=== PATIENT | female | born 1950 | race Caucasian/White ===

== ENCOUNTER 2021-01-20 12:46 | Outpatient (CLI) | payer MEDICARE, SELFPAY ==
--- NOTE | 2021-01-20 12:54 | MM_ITS ---
WS: [id number] DIAGNOSTIC BILATERAL DIGITAL MAMMOGRAM WITH CAD RIGHT breast ultrasound, limited HISTORY: N63.15 - Unspecified lump in the right breast, COMPARISON: None available. TECHNIQUE: Bilateral craniocaudad, mediolateral oblique, and mediolateral views are submitted. Spot c ompression bilateral views. Computer aided detection utilized. Breast composition: There are scattered areas of fibroglandular density. Spiculated high density mass with calcifications in the upper-outer quadrant of the RIGHT breast at 10-11 o'clock. Spiculated mas s measures 2.0 x 1.6 cm. There is adjacent interstitial thickening and architectural distortion. Mild ly prominent dense lymph nodes in the RIGHT axilla. There is slight asymmetry in the inferior LEFT breast which resolved with additional views. RIGHT breast ultrasound, limited. Ultrasound directed to the upper outer quadrant of the RIGHT breast. At 10:00, 4 cm from the nipple i s a hypoechoic mass with fingerlike extensions and calcifications measuring 1.8 x 1.4 x 1.7 cm. Mild peripheral increased vascularity. There are a few mildly abnormal lymph nodes in the RIGHT axilla. One of the lymph nodes has a thicken ed cortex although the central fatty hilum is still present. MM/[place] [id number] IMPRESSION: BI-RADS: 5-Highly Suggestive of Malignancy FOLLOW UP: Biopsy Recommended 1. Ultrasound-guided biopsy recommended of the RIGHT breast mass at 10:00. 2. Also recommend biopsy of a RIGHT axillary lymph node. Notified Sasha Jalloh APRN at 01/20/2021 1:59 PM.
== END 2021-01-20 12:47 | disposition home or self-care (01) ==
LOC: RADSHAW 12:52
PROVIDERS: Visit Provider Nurse Practitioner Family
DX: N63.11 Unspecified lump in the right breast, upper outer quadrant (principal)
CPT/HCPCS: 76642; 77066

== ENCOUNTER 2021-01-27 12:21 | Outpatient (CLI) | payer MEDICARE, SELFPAY ==
--- NOTE | 2021-01-27 | US_ITS ---
WS: [id number] ULTRASOUND-GUIDED RIGHT BREAST BIOPSY CLINICAL INFORMATION: N63.10 - Unspecified lump in the right breast, unspecifie... COMPARISON: None. FINDINGS: The procedure including risks, benefits, and complications were discussed with the patient who agreed to proceed. Using sterile technique patient was prepped and draped in the usual sterile fashion. Aft er 1% lidocaine utilizing real-time ultrasound guidance 5 14-gauge cores were obtained of the right b reast lesion at the 10 o'clock position. Subsequently a titanium clip was placed in the biopsy cavity . No immediate complications. Next, the enlarged axillary lymph node was localized. After 1% lidocaine, using real-time ultrasound guidance, 3 14-gauge cores were obtained of the right axillary lymph node. A titanium clip was placed in the biopsy cavity. Pathology demonstrates A. Breast, right, ultrasound-guided biopsy: -Invasive ductal carcinoma, no special type. -Harley Shetty grade 3, score 8. -Lymphovascular invasion identified. -Perineural invasion identified. -Ancillary studies have been performed. B. Lymph node, right axilla, ultrasound-guided biopsy: -Metastatic carcinoma. -Harley Shetty grade 3, score 8. US/US biopsy lymph node breast/ax IMPRESSION: 1. Uncomplicated ultrasound-guided right breast biopsy and right axillary lymp h node biopsy. 2. The pathology right breast lesion demonstrates invasive ductal carcinoma. A ncillary studies are pending. 3. Lymph node biopsy right axilla demonstrates metastatic carcinoma described above. BI-RADS: 6-Known Biopsy-Proven Malignancy FOLLOW UP: See Report RECOMMEND BREAST SURGERY CONSULTATION FOR FURTHER EVALUATION.
[2021-01-27 13:03] LABS: INR 0.93 (0.8-1.2)
--- NOTE | 2021-01-27 13:30 | US_ITS ---
WS: [id number] ULTRASOUND-GUIDED RIGHT BREAST BIOPSY CLINICAL INFORMATION: N63.10 - Unspecified lump in the right breast, unspecifie... COMPARISON: None. FINDINGS: The procedure including risks, benefits, and complications were discussed with the patient who agreed to proceed. Using sterile technique patient was prepped and draped in the usual sterile fashion. Aft er 1% lidocaine utilizing real-time ultrasound guidance 5 14-gauge cores were obtained of the right b reast lesion at the 10 o'clock position. Subsequently a titanium clip was placed in the biopsy cavity . No immediate complications. Next, the enlarged axillary lymph node was localized. After 1% lidocaine, using real-time ultrasound guidance, 3 14-gauge cores were obtained of the right axillary lymph node. A titanium clip was placed in the biopsy cavity. Pathology demonstrates A. Breast, right, ultrasound-guided biopsy: -Invasive ductal carcinoma, no special type. -Harley Shetty grade 3, score 8. -Lymphovascular invasion identified. -Perineural invasion identified. -Ancillary studies have been performed. B. Lymph node, right axilla, ultrasound-guided biopsy: -Metastatic carcinoma. -Harley Shetty grade 3, score 8. US/[place] [id number] IMPRESSION: 1. Uncomplicated ultrasound-guided right breast biopsy and right axillary lymp h node biopsy. 2. The pathology right breast lesion demonstrates invasive ductal carcinoma. A ncillary studies are pending. 3. Lymph node biopsy right axilla demonstrates metastatic carcinoma described above. BI-RADS: 6-Known Biopsy-Proven Malignancy FOLLOW UP: See Report RECOMMEND BREAST SURGERY CONSULTATION FOR FURTHER EVALUATION.
[2021-01-30 09:01] LABS: Miscellaneous Test See Scanned Lab Rpt
== END 2021-01-27 12:22 | disposition home or self-care (01) ==
PROVIDERS: Visit Provider Nurse Practitioner Family
DX: N63.10 Unspecified lump in the right breast, unspecified quadrant (principal); C50.911 Malignant neoplasm of unspecified site of right female breast
CPT/HCPCS: 19083; 36415; 38505; 76942; 85610; 88305; 88361; 88374

== ENCOUNTER 2021-01-31 07:59 | Outpatient (CLI) | payer MEDICARE, SELFPAY ==
[2021-01-31 10:09] LABS: Basophils # 0.1 10^3/uL (0.0-0.1); Basophils % 0.4 %; Eosinophils # 0.4 10^3/uL (0.0-0.8); Eosinophils % 3.4 %; Hematocrit 44.1 % (37.0-47.0); Hemoglobin 14.8 g/dL (11.5-15.3); Lymphocytes # 2.7 10^3/uL (0.8-4.8); Lymphocytes % 21.4 %; Mean Corpuscular HGB Conc 33.6 g/dL (30.0-36.0); Mean Corpuscular Hemoglobin 31.4 pg (28.0-34.0); Mean Corpuscular Volume 93.6 fL (81-99); Mean Platelet Volume 10.4 fL (7.4-10.4); Monocytes # 1.1 10^3/uL (0.2-0.9); Neutrophils # 8.27 10^3/uL (1.8-7.7); Neutrophils % 65.2 %; Nucleated Red Blood Cells % 0 %; Platelet Count 280 10^3/cmm (130-400); Red Blood Count 4.71 10^6/uL (4.1-5.3); Red Cell Distribution Width 12.2 % (12.1-15.1); White Blood Count 12.7 10^3/uL (4.0-10.0)
[2021-01-31 12:30] LABS: Alanine Aminotransferase 30 U/L (0-33); Albumin Level 4.4 g/dL (3.5-5.2); Alkaline Phosphatase 70 IU/L (35-105); Anion Gap 21.2 (5-19); Aspartate Amino Transferase 23 U/L (0-32); Blood Urea Nitrogen 16 mg/dL (8-23); Carbon Dioxide 18 mmol/L (22-29); Chloride 98 mmol/L (98-107); Globulin 2.5 g/dL (1.3-4.6); Glucose 121 mg/dL (65-115); Osmolality Calculated 278 mOsm/kg (285-295); Potassium 4.2 mmol/L (3.5-5.1); Sodium 133 mmol/L (136-145); Total Bilirubin 0.3 mg/dL (0.15-1.2); Total Protein 6.9 g/dL (6.6-8.7)
--- NOTE | 2021-01-31 14:37 | ONC CON_ITS ---
Dr. Mcwilliams New Patient Note Patient: Odalis Woods Unit #: [id number]: [id number] Dicatated By: Lester Mcwilliams M.D.Date of Visit: January 31, 2021 Onc MED New Patient/Consult Referring Physician: SUSHANT VERA N.P. Chief Complaint: Breast cancer. History of Present Illness: This is a 70-year-old woman with grade 3 invasive ductal carcinoma of the right breast, by clinical evaluation stage IIA (T1c, N1, M0), ER positive/DE negative and HER-2/dat positive. She has been in good general health. She had recently moved to this area from [place]. A couple of weeks ago she became aware of a lump in her right breast. Her diagnostic mammogram/ultrasound on 01/20/2021 was BI-RADS 5, highly suggestive of malignancy. The mammogram showed a spiculated high density mass with calcifications at the 10 to 11 o'clock position of the right breast. It measured 2.0 x 1.6 cm. Mildly prominent dense lymph nodes were noted in the right axilla. By ultrasound the lesion was located 4 cm from the nipple at the 10 o'clock position. It was hypoechoic and measured 1.8 x 1.4 x 1.7 cm. A few mildly abnormal lymph nodes were noted in the right axilla. On 01/27/2021 she underwent ultrasound directed biopsy of the right breast mass and of a right axillary lymph node. Pathology on the breast biopsy showed grade 3 invasive ductal carcinoma. There was lymphovascular invasion and perineural invasion identified. The right axillary lymph node biopsy showed metastatic carcinoma, grade 3. The breast prognostic profile showed ER positive at 20%. The DE was negative < 1%. The tumor was positive for overexpression of HER-2/dat, 3+ by IHC and amplification ratio by FISH of 1.2 with 3.3 HER-2 copies/cell. The Ki-67 was high at 15%. She is seen for further management of the breast cancer. She says she is feeling excellent. She really has no symptomatic complaints other than the breast mass and some soreness following the biopsy. Her other medical illnesses have been limited to hypertension and osteopenia. She has had no prior surgeries. She smoked in the past but quit in 1999. She is 2/para 2. She underwent natural menopause somewhere in the range of 15 years ago. She did have some oral contraceptive use, but no postmenopausal hormone replacement therapy. There is no family history of breast or ovarian cancer. Past Medical History: Her medical history includes hypertension and osteopenia. Past Surgical History: She underwent ultrasound-guided biopsy of right breast mass and of right axillary lymph node on 01/27/2021. She has had no prior surgeries. Medications: Alendronate Sodium 1 Tablet (of 70 mg) Oral q 7 days, Lisinopril 1 Tablet (of 20 mg) Oral b.i.d. Allergies: No Known Allergies. Social History: Ms. Woods is . She has history of smoking 1 pack of cigarettes daily for 33 years. She quit smoking in 1999. She drinks 1 glass of red wine daily. Family History: Father had kidney cancer. He of unrelated lung disease. Mother had hypertension and following complications after a stroke. One brother and two sisters are in good health. There is no history of breast or ovarian cancer in the family. Review Of Symptoms: Constitutional - She has good energy and activity tolerance. Appetite is good and weight is stable. No fever, night sweats, or hot flashes. ECOG score is 0, Eyes - No change in vision, ENMT - No hearing loss or tinnitus. No sinus congestion/drainage. No mouth sores. No sore throat or difficulty swallowing, Hematologic/Lymphatic - She has some bruising. No other bleeding, Respiratory - No shortness of breath. No cough. No pleuritic pain or hemoptysis, Cardiovascular - No angina pain. No palpitations, Gastrointestinal - No nausea or vomiting. She occasionally has heartburn. No diarrhea or constipation. No blood in the stool or black stools, Genitourinary (F) - No dysuria or hematuria. No urinary frequency. No urgency or incontinence, Musculoskeletal - No joint or bone pain, Integumentary - No skin rash or other skin changes, Neurologic - No headache or dizziness. No numbness or tingling. No other focal neurologic symptoms, Psychiatric - No anxiety or depression. No insomnia. Vital Signs: Performed on January 31, 2021 08:25: 0, 28.31, 1.76 sq.m, 63 in, 98 %, 75 /min, 17 /min, 137/83 mm(hg), 98.4 F, and 159.8 lbs (HIGH). Physical Examination: Constitutional - She appears to be in good general health, Eyes - Sclerae nonicteric. Conjunctivae clear, ENMT - No lesions noted in the oral cavity, Neck - No mass or thyromegaly, Hematologic/Lymphatic - No cervical or clavicular adenopathy, Respiratory - Lungs are clear with good air movement bilaterally, Cardiovascular - Heart rhythm is regular. There is no murmur, gallop, or rub noted, Breasts - There is an ill-defined nodule in the upper outer quadrant of the right breast. There is a significant area of ecchymosis inferior to it. The left breast shows no mass. There is no axillary adenopathy noted, Abdomen - Soft and non-tender. Liver and spleen are not enlarged. There is no abdominal mass or ascites noted and there is no inguinal adenopathy, Back/Spine - No spine or CVA tenderness noted, Extremities - No edema. Pedal pulses are palpable bilaterally, Integumentary - No rashes. No suspicious skin lesions noted, Neurologic - No focal neurologic deficits noted. Problem List: 1. Grade 3 invasive ductal carcinoma of the right breast, ER positive/DE negative and HER-2/dat positive. She underwent ultrasound-guided biopsy of right breast mass and of right axillary lymph node on 01/27/2021. By clinical evaluation, her disease is stage at least IIA (T1c, N1, M0). 2. Hypertension. 3. Osteopenia. Problems Addressed with this Encounter and Plan: 1. Patient with grade 3 invasive ductal carcinoma of the right breast, ER positive/DE negative and HER-2/dat positive. She underwent ultrasound-guided biopsy of right breast mass and of right axillary lymph node on 01/27/2021. By clinical evaluation, her disease is stage at least IIA (T1c, N1, M0). The findings on the imaging studies and the pathology results were reviewed with the patient and her . We discussed the clinic complications. She has a grade 3 infiltrating ductal carcinoma of the right breast which is ER positive/DE negative and HER-2/dat positive. By imaging it appears to be a T1c primary lesion. Ultrasound described a few mildly abnormal lymph nodes in the right axilla. With a HER-2/dat positive breast cancer and biopsy-proven axillary lymph node involvement, she meets criteria for neoadjuvant chemotherapy, following which she will have restaging with imaging and biopsy. I anticipate that she will then be eligible for breast conservation management. Recommendations for postoperative adjuvant therapy will depend on the final pathologic staging, but at some point she will also be recommended to undergo adjuvant endocrine therapy with an aromatase inhibitor. She will have baseline laboratory studies today to include CBC and comprehensive metabolic profile. With documented axillary lymph node involvement, she also will be scheduled for staging PET/CT. She will require a baseline echocardiogram prior to starting her neoadjuvant chemotherapy, which will include a taxane in combination with Herceptin and Perjeta. She will need to undergo placement of Port-A-Cath venous access device for the chemotherapy, and this will be arranged with Dr. Hinson. She will return to begin treatment as soon as she completes staging and the Port-A-Cath is in place. 2. She has osteopenia. She will need a repeat DEXA scan and a 25-hydroxy vitamin D level prior to starting her adjuvant endocrine therapy. Signed By: Lester Mcwilliams M.D. <<Signature on File>>
== END 2021-01-31 08:00 | disposition home or self-care (01) ==
PROVIDERS: PCP Nurse Practitioner Family; Visit Provider Internal Medicine Medical Oncology
DX: C50.811 Malignant neoplasm of overlapping sites of right female breast (principal); Z17.0 Estrogen receptor positive status [ER+]; I10 Essential (primary) hypertension; M85.80 Other specified disorders of bone density and structure, unspecified site; Z79.811 Long term (current) use of aromatase inhibitors; Z92.21 Personal history of antineoplastic chemotherapy
CPT/HCPCS: 36415; 80053; 85025; 99205

== ENCOUNTER 2021-02-14 05:57 | Outpatient (CLI) | payer MEDICARE, SELFPAY ==
--- NOTE | 2021-02-14 13:23 | US_ITS ---
WS: [id number] ULTRASOUND BREAST RIGHT TECHNIQUE: Ultrasound right breast focused area of concern. CLINICAL INFORMATION: BREAST MASS RIGHT COMPARISON: Previous ultrasounds 01/20/2021 and 01/27/2021 FINDINGS: Ultrasound right breast 10:00 position 4 cm from the nipple. Again seen is the irregular hypoechoic l esion with calcifications. Hypoechoic lesion measures 1.6 x 1.5 x 1.4 cm. This is not significantly c hanged since January 20, 2021 where it measured 1.8 x 1.4 x 1.7 CM. Right axillary lymph node measures 1.5 x 1.3 x 1.0 cm with thickened cortex and partial replacement o f the fatty hilum. This also is not significantly changed. US/[place] [id number] IMPRESSION: BI-RADS 6 known malignancy
--- NOTE | 2021-02-14 13:38 | ONC FU_ITS ---
Dr. Mcwilliams Patient Follow-Up Note Patient: Odalis Woods Unit #: [id number]: [id number] Dicatated By: Lester Mcwilliams M.D.Date of Visit:Feb 14, 2021 Onc Med Follow-up/Prog Note Chief Complaint: Breast cancer. History of Present Illness: This is a 70-year-old woman with grade 3 invasive ductal carcinoma of the right breast, ER positive/NV negative and HER-2/dat positive. She had presented with a palpable lump in the right breast. Her diagnostic mammogram/ultrasound on 01/20/2021 was BI-RADS 5, highly suggestive of malignancy. The mammogram showed a spiculated high density mass with calcifications at the 10 to 11 o'clock position of the right breast. It measured 2.0 x 1.6 cm. Mildly prominent dense lymph nodes were noted in the right axilla. By ultrasound the lesion was located 4 cm from the nipple at the 10 o'clock position. It was hypoechoic and measured 1.8 x 1.4 x 1.7 cm. A few mildly abnormal lymph nodes were noted in the right axilla. On 01/27/2021 she underwent ultrasound directed biopsy of the right breast mass and of a right axillary lymph node. Pathology on the breast biopsy showed grade 3 invasive ductal carcinoma. There was lymphovascular invasion and perineural invasion identified. The right axillary lymph node biopsy showed metastatic carcinoma, grade 3. The breast prognostic profile showed ER positive at 20%. The NV was negative < 1%. The tumor was positive for overexpression of HER-2/dat, 3+ by IHC and amplification ratio by FISH of 1.2 with 3.3 HER-2 copies/cell. The Ki-67 was high at 15%. I had seen her initially on 01/31/2021. At that time we had discussed further management of the breast cancer with the expectation that she would likely begin neoadjuvant chemotherapy, though I had recommended that she first have a staging PET/CT. I also had recommended that she proceed with placement of Port-A-Cath venous access device, which became somewhat problematic due to restrictions associated with her insurance coverage. She is seen now for a follow-up visit. Her PET/CT was done on 02/08/2021. It showed an FDG avid solid lesion in the upper outer quadrant of the right breast measuring 1.3 x 0.8 cm, SUV 9.5, consistent with the known primary carcinoma. 2 dominant FDG positive axillary lymph nodes had SUV up to 10 point 4-1/3 node demonstrated a fatty hilum but with SUV 3.5. There were additional FDG positive nodes within the mediastinum including subcarinal, left upper hilar, right paratracheal 2R and 4R, and right hilar territory lymph nodes. The dominant left hilar lymph node had SUV 7.1. Multiple bilateral pulmonary nodules were noted, the largest in the right upper lobe measuring 7 mm. These showed mild FDG uptake and are felt to have high probability of representing metastatic disease. She has not yet had her Port-A-Cath procedure. She has started some herbal treatment for the breast cancer, and she thinks the lump may be getting smaller. Medications: Alendronate Sodium 1 Tablet (of 70 mg) Oral q 7 days, Ascorbic Acid (500 mg) Tablet Oral b.i.d., Calcium Citrate + D3 (200-250 mg - Units) Tablet Oral daily, Daily Multiple Vitamins Tablet Oral daily, Lisinopril 1 Tablet (of 20 mg) Oral b.i.d., Magnesium (250 mg) Tablet Oral daily Allergies: No Known Allergies. Vital Signs: Performed on Feb 14, 2021 08:52 Height - 63.00 in Weight - 164 lbs (HIGH) BSA - 1.78 sq.m BMI - 29.05 Temperature - 98.5 F Pulse - 73 /min Respiration - 18 /min BP - 135/79 mm(hg) O2 Sat - 96 % Pain - 0 Fatigue - 0 Lab/Imaging: Test performed on January 31, 2021 10:51 Sodium 133 mmol/L Potassium 4.2 mmol/L Chloride 98 mmol/L CO2 18 mmol/L Anion Gap 21.2 BUN 16 mg/dL Creatinine 0.6 mg/dL Cr Clearance (Est) 96.9800 mL/min Glucose 121 mg/dL Osmolality - Calculated 278 mOsm/kg Calcium 9.0 mg/dL Protein, Total 6.9 g/dL Albumin 4.4 g/dL Globulin 2.5 g/dL Bilirubin, Total 0.3 mg/dL ALT (SGPT) 30 U/L AST (SGOT) 23 U/L Alkaline Phosphatase 70 IU/L Test performed on January 31, 2021 09:39 WBC 12.7 10 3/uL RBC 4.71 10 6/uL HGB 14.8 g/dL HCT 44.1 % MCV 93.6 fL MCH 31.4 pg MCHC 33.6 g/dL RDW 12.2 % Platelet Count 280 10 3/cmm MPV 10.4 fL Neutrophils 8.27 10 3/uL Lymphocytes 2.7 10 3/uL Monocytes 1.1 10 3/uL Eosinophils 0.4 10 3/uL Basophils 0.1 10 3/uL Neutrophil % 65.2 % Lymphocyte % 21.4 % Monocyte % 9.0 % Eosinophil % 3.4 % Basophils % 0.4 % NRBC % 0 % Problem List: 1. Grade 3 invasive ductal carcinoma of the right breast, ER positive/NV negative and HER-2/dat positive. She underwent ultrasound-guided biopsy of right breast mass and of right axillary lymph node on 01/27/2021. 2. Hypertension. 3. Osteopenia. Problems Addressed with this Encounter and Plan: Patient with grade 3 invasive ductal carcinoma of the right breast, ER positive/NV negative and HER-2/dat positive. She underwent ultrasound-guided biopsy of right breast mass and of right axillary lymph node on 01/27/2021. Her staging PET/CT on 02/08/2021 showed the FDG avid right breast mass and 2 or possibly 3 involved axillary lymph nodes. It also showed suspected involvement in mediastinal lymph nodes and subcentimeter pulmonary nodules bilaterally, suspicious for metastatic disease. As such, by clinical evaluation, her disease appears to be stage IV (T1c, N1, M1). The PET/CT findings were reviewed with the patient and her . I also reviewed the PET/CT images with them. She is advised that with stage IV disease her cancer is not considered curable, but it is still treatable with a high probability of response to chemotherapy. As she thinks her breast mass may be getting smaller with the herbal treatment, she is wanting to have a repeat breast ultrasound, and that will be scheduled. She will also be scheduled now to see Dr. Rothman for placement of Port-A-Cath venous access device. She will then begin systemic therapy with a taxane in combination with Herceptin and Perjeta, subject to verification of insurance coverage. Signed By: Lester Mcwilliams M.D. <<Signature on File>>
[2021-02-15 15:07] LABS: Quest SARS-CoV-2 RNA NOT DETECTED (NOT DETECTED)
== END 2021-02-14 05:58 | disposition home or self-care (01) ==
PROVIDERS: PCP Nurse Practitioner Family; Visit Provider Internal Medicine Medical Oncology
DX: C50.811 Malignant neoplasm of overlapping sites of right female breast (principal); Z17.0 Estrogen receptor positive status [ER+]; I10 Essential (primary) hypertension; M85.80 Other specified disorders of bone density and structure, unspecified site; Z79.899 Other long term (current) drug therapy
CPT/HCPCS: 76641; 87635; 99214

== ENCOUNTER 2021-02-19 08:59 | Day surgery (SDC) | payer MEDICARE, SELFPAY ==
[2021-02-18 13:02] VITALS: BMI 28.3
--- NOTE | 2021-02-19 | SCC_ITS ---
Procedure Done: Placement of PowerPort in the left internal jugular vein Fluoroscopic guidance and interpretation for placement of catheter Ultrasound guidance to access the left internal jugular vein 44 seconds of fluoroscopic guidance, for a cumulative dose of 5.40 mGy, was provided to Dr. Rothman by the radiology department. C-arm images of the chest were saved for the patient's permanent record. [facility]
--- NOTE | 2021-02-19 09:25 | W.PM.OPSUD ---
Surgery/Procedure H&P Update DATE OF PROCEDURE: February 19, 2021 DATE H&P PERFORMED: 02/14/21 H&P UPDATE INFORMATION: I have reviewed H&P completed within last 30 days, I have examined patient prior to procedure and No changes to prior documentation PLANNED PROCEDURE: Operation Date: 02/19/21 11:10 Proposed Procedures p Portacath Placement [id number] c50.919(Not Applicable) - Ramírez Rothman MD
--- NOTE | 2021-02-19 09:34 | SC_ITS ---
WS: [id number] Insertion of left Port-A-Cath, 02/19/2021 Clinical Data: intra-op Comparison: None. Findings: A left Port-A-Cath has been inserted via the left internal jugular vein. It ends in the superior vena cava. SC/C-arm [place] for CVA [id number] Impression: Insertion of left Port-A-Cath.
[2021-02-19 09:53] VITALS: BP 167/99; PULSE 68; RESP 18; TEMP 36.6; O2SAT 100
--- NOTE | 2021-02-19 10:01 | ANES.PREANE2 ---
Pre-Anesthetic Assessment Pre-Anesthetic Assessment: Height/Weight: Height 1.6 m Weight 72.575 kg Temp Pulse Resp BP Pulse Ox 97.8 F 68 18 167/99 100 02/19/21 09:53 02/19/21 09:53 02/19/21 09:53 02/19/21 09:53 02/19/21 09:53 Preop Diagnosis: Breast cancer Proposed Procedure: Operation Date: 02/19/21 11:10 Proposed Procedures p Portacath Placement 47717 c50.919(Not Applicable) - Ramírez Rothman MD Familial anesthetic complications: none Was Beta Mimi taken within 24 hours: N/A Was Clonidine taken within 24 hours: N/A Last intake: Intake Last Liquid Date 02/18/21 Last Liquid Time 21:00 Last Solid Date 02/18/21 Last Solid Time 18:00 Social: Social History: No alcohol and No tobacco Exam: Pre-Anes Outpt Exam: alert, oriented x 3, clear to auscultation bilaterally and regular rate & rhythm Airway: Cervical ROM: WNL MP: 3 Dentition: Full CV/HEM: CV/HEM: HTN Anesthetic Plan: ASA status: 3 Anesthesia: MAC Risk of > 500 ml blood loss (7ml/kg in children): No Other Pertinent Information: R breast cancer PFSH Anesthesia PFSH: Medical History (Updated 02/15/21 @ 12:33 by Ramírez Rothman MD) Cancer of right breast, stage 4 Essential hypertension Osteoporosis Surgical History (Updated 02/15/21 @ 12:33 by Ramírez Rothman MD) H/O right breast biopsy Family History Father Cancer Mother Hypertension Social History Smoking and tobacco status: former smoker Alcohol intake: current Alcohol intake frequency: 0-2 Drinks per Day Alcohol type: wine Data Anesthesia Cardiac Studies: No Data to Display
[2021-02-19] MEDS: heparin, porcine 1,000 unit/mL INJ 10 mL 6000 UNIT XX (10:31)
[2021-02-19] MEDS: lidocaine 1% INJ 20 mL SUBCUT (10:31)
[2021-02-19 10:58] VITALS: BP 139/64; PULSE 54; RESP 20; TEMP 36.1; O2SAT 98
[2021-02-19 11:00] VITALS: BP 124/65; PULSE 56; RESP 17; O2SAT 97
--- NOTE | 2021-02-19 11:03 | P.OP_ITS ---
Operative Report Date of procedure: February 19, 2021 Pre-op Diagnosis: Breast cancer Post-op Diagnosis: Metastatic right breast cancer Unsuccessful attempt at passing the guidewire through the left subclavian vein Procedure Done: Placement of PowerPort in the left internal jugular vein Fluoroscopic guidance and interpretation for placement of catheter Ultrasound guidance to access the left internal jugular vein Pathology: none sent Surgeon: Ramírez Rothman Anesthesia: MAC and Local Condition: stable Disposition: PACU Procedure: The patient was taken to the Operating Room and the chest and neck bilaterally were prepped and draped in a sterile manner after the antibiotic had been administered and shoulder rolls had been placed. A total of 10 mL of 1% lidocaine with 0.5% Marcaine was infiltrated at the side at the site of the planned entry into the left internal jugular vein. An ultrasound of the left internal jugular vein revealed patent flow, no thrombus. An introducer needle was then used to access the left internal jugular vein and after withdrawing blood syringe was removed and a guidewire passed under fluoroscopy into the superior vena cava. The site of the planned port was then marked on the chest and a 15 blade was used to make a 3 cm skin incision this was extended into the subcutaneous tissue using electrocautery and a subcutaneous pocket over the pectoralis fascia was created 2-0 Vicryl suture was used to suture the port to the pectoral fascia in the pocket on 3 sides. The catheter, after having been flushed with hep saline, was attached to the tunneler and a tunnel created between the port site and the internal jugular vein entry site. Under fluoroscopy the dilator sheath was passed over the guidewire into the proximal superior vena cava. The inner dilator was removed and the sheath left behind and~ the catheter was introduced through the peel- away sheath with the tip in the superior vena cava. The peel-away sheath was removed. The proximal end of the catheter was cut to the right size and was attached to the port. Using a Armstrong needle the port was accessed, it withdrew blood easily and flushed easily. A final 5cc of heparin was used to flush the PowerPort. The subcutaneous tissue was approximated using interrupted 3-0 Vicryl sutures and the skin at the introducer site and the port site was closed using subcuticular running 4-0 Monocryl sutures. Surgical glue was applied and the patient was stable throughout the procedure. Fluoroscopic guidance and interpretation was performed for introduction of the guidewire in the left internal jugular vein, passage of dilator and placement of catheter tip in the distal superior vena cava. Postoperative x-rays pending
[2021-02-19 11:05] VITALS: BP 127/90; PULSE 56; RESP 17; TEMP 36.5; O2SAT 99
[2021-02-19 11:12] VITALS: BP 170/92; PULSE 57; RESP 18; O2SAT 97
[2021-02-19 11:53] VITALS: BP 150/82; PULSE 64; RESP 18; TEMP 36.6; O2SAT 98
--- NOTE | 2021-02-19 12:15 | XR_ITS ---
WS: [id number] Portable AP upright chest, 02/19/2021 Clinical Data: POST OP Comparison: C-arm chest, 02/19/2021 Findings: No nodules, masses or effusions are seen. The heart is normal. The pulmonary vascularity is not increased. No pneumonia or pneumothorax is seen. There is a left Port-A-Cath in good position. T he aortic arch and descending aorta show minimal calcification and tortuosity. XR/XR chest 1V portable [id number] Impression: Atherosclerosis.
--- NOTE | 2021-02-19 15:32 | ANE.PACU2 ---
Inpatient post-anesthesia follow up: Airway intact: Yes Vital signs: Temperature 97.8 F Pulse Rate 64 Respiratory Rate 18 Blood Pressure 150/82 Pulse Oximetry 98 Oxygen Delivery Me thod Room Air Oxygen Flow Rate Fraction of Inspir ed Oxygen Hydration adequate: Yes Nausea and vomiting: No Pain level: 2 Mental status: Baseline
== END 2021-02-19 12:18 | disposition home or self-care (01) ==
PROVIDERS: PCP Nurse Practitioner Family; Visit Provider Surgery
PROC: (CPT 36561; principal; 2021-02-19 11:00)
DX: C50.911 Malignant neoplasm of unspecified site of right female breast (principal); I10 Essential (primary) hypertension; M81.0 Age-related osteoporosis without current pathological fracture; Z87.891 Personal history of nicotine dependence
CPT/HCPCS: 36561; 71045; 77001; C1788; J0690; J1644; J2704; J3010; J3490

== ENCOUNTER 2021-02-25 13:48 | Outpatient (CLI) | payer MEDICARE, MEDICAID, SELFPAY ==
--- NOTE | 2021-02-25 14:03 | USCV_ITS ---
Peggy Odalis Age: 70 Gender: F : 1950 Exam Date: 02/25/2021 14:13 Ordering Phys: Lester Mcwilliams MD Technologist: Ashia Nguyen Exam Location: [facility] – [place] Indication: BEGINNING BREAST CANCER MEDS BP: 130 / 70 HR: 74 Rhythm: Sinus Technical Quality: Adequate MEASUREMENTS (Male / Female) Normal Values 2D ECHO LV Diastolic Diameter PLAX 3.1 cm 4.2 - 5.9 / 3.9 - 5.3 cm LV Systolic Diameter PLAX 2.8 cm LV Chamber Size 2.0 cm IVS Diastolic Thickness 1.1 cm 0.6 - 1.0 / 0.6 - 0.9 cm IVS Systolic Thickness 1.4 cm LVPW Diastolic Thickness 0.9 cm 0.6 - 1.0 / 0.6 - 0.9 cm LVPW Systolic Thickness 1.6 cm RV Chamber Size 2.6 cm LVOT Diameter 2.1 cm LV Ejection Fraction 2D Teich 23.0 % LV Ejection Fraction MOD 2C 44.7 % LV Ejection Fraction 2C AL 43.5 % LA Diameter 3.1 cm LA Width 2.5 cm LA Height 3.6 cm RA Width 3.6 cm RA Height 4.0 cm Aorta at Sinotubular Diameter 2.9 cm M-MODE LV Diastolic Diameter MM 4.7 cm 4.2 - 5.9 / 3.9 - 5.3 cm LV Systolic Diameter MM 2.8 cm LV Ejection Fraction MM Teich 70.7 % IVS Diastolic Thickness MM 1.0 cm 0.6 - 1.0 / 0.6 - 0.9 cm IVS Systolic Thickness MM 1.3 cm LVPW Diastolic Thickness MM 1.1 cm 0.6 - 1.0 / 0.6 - 0.9 cm LVPW Systolic Thickness MM 1.4 cm Aortic Annulus Diameter 3.2 cm LA Ao Ratio MM 1.1 DOPPLER AV Peak Velocity 98.0 cm/s LVOT Peak Velocity 61.0 cm/s AV Area Cont Eq vti 2.3 cm squared AV Area Cont Eq pk 2.1 cm squared MV Area PHT 3.3 cm squared Mitral E to A Ratio 1.2 MV E' Velocity 69.0 cm/s TR Peak Velocity 148.8 cm/s TR Peak Gradient 8.9 mmHg TR Mean Velocity 117.2 cm/s TR Mean Gradient 6.0 mmHg TR Velocity Time Integral 34.7 cm TV Peak E Velocity 53.0 cm/s Right Atrial Pressure 3.0 mmHg Pulmonary Artery Systolic Pressu 11.9 mmHg PV Peak Velocity 53.0 cm/s RV Acceleration Time 0.2 s RV Ejection Time 0.3 s RV AcT/ET 0.5 FINDINGS Left Ventricle Normal LV size with an ejection fraction of 60%. Hypokinesia of the basal inferior wall segment. Right Ventricle The right ventricle is normal in size and function. Right Atrium The right atrium is normal in size. Left Atrium The left atrium is normal in size. Mitral Valve No gross abnormalities noted Aortic Valve No gross abnormalities noted Tricuspid Valve No gross abnormalities noted Pulmonic Valve Pulmonic valve not well visualized. Pericardium Normal pericardium without effusion. Aorta Normal ascending aorta dimension. CONCLUSIONS Normal LV size with an ejection fraction of 60%. Hypokinesia of the basal inferior wall segment. No significant stenotic or regurgitant lesions. There is no pericardial effusion. No intracardiac masses There is no pericardial effusion. Dr Pete Jovel MD FACC (Electronically Signed) Final Date: 25 February 2021 15:30 S
== END 2021-02-25 13:49 | disposition home or self-care (01) ==
PROVIDERS: PCP Nurse Practitioner Family; Visit Provider Internal Medicine Medical Oncology
DX: C50.411 Malignant neoplasm of upper-outer quadrant of right female breast (principal)
CPT/HCPCS: 93306

== ENCOUNTER 2021-03-18 08:17 | Outpatient (CLI) | payer MEDICARE, MEDICAID, SELFPAY ==
[2021-03-18 09:03] LABS: Basophils # 0.1 10^3/uL (0.0-0.1); Basophils % 0.6 %; Eosinophils # 0.4 10^3/uL (0.0-0.8); Hematocrit 40.3 % (37.0-47.0); Hemoglobin 13.6 g/dL (11.5-15.3); Lymphocytes # 2.3 10^3/uL (0.8-4.8); Lymphocytes % 26.2 %; Mean Corpuscular HGB Conc 33.7 g/dL (30.0-36.0); Mean Corpuscular Hemoglobin 31.6 pg (28.0-34.0); Mean Corpuscular Volume 93.5 fL (81-99); Mean Platelet Volume 9.6 fL (7.4-10.4); Monocytes # 0.8 10^3/uL (0.2-0.9); Neutrophils # 5.16 10^3/uL (1.8-7.7); Neutrophils % 59.7 %; Nucleated Red Blood Cells % 0 %; Platelet Count 190 10^3/cmm (130-400); Red Blood Count 4.31 10^6/uL (4.1-5.3); Red Cell Distribution Width 12.2 % (12.1-15.1); White Blood Count 8.7 10^3/uL (4.0-10.0)
[2021-03-18 09:27] LABS: Alanine Aminotransferase 25 U/L (0-33); Albumin Level 4.3 g/dL (3.5-5.2); Alkaline Phosphatase 60 IU/L (35-105); Anion Gap 15.6 (5-19); Aspartate Amino Transferase 21 U/L (0-32); Blood Urea Nitrogen 16 mg/dL (8-23); Calcium 9.2 mg/dL (8.5-10.5); Carbon Dioxide 23 mmol/L (22-29); Chloride 105 mmol/L (98-107); Globulin 2.4 g/dL (1.3-4.6); Glucose 87 mg/dL (65-115); Osmolality Calculated 289 mOsm/kg (285-295); Potassium 4.6 mmol/L (3.5-5.1); Sodium 139 mmol/L (136-145); Total Bilirubin 0.3 mg/dL (0.15-1.2); Total Protein 6.7 g/dL (6.6-8.7)
== END 2021-03-18 08:18 | disposition home or self-care (01) ==
LOC: ONCMED 08:20
PROVIDERS: PCP Nurse Practitioner Family; Visit Provider Internal Medicine Medical Oncology
DX: C50.811 Malignant neoplasm of overlapping sites of right female breast (principal); Z17.0 Estrogen receptor positive status [ER+]; C77.8 Secondary and unspecified malignant neoplasm of lymph nodes of multiple regions; C78.01 Secondary malignant neoplasm of right lung; C78.02 Secondary malignant neoplasm of left lung; Z79.899 Other long term (current) drug therapy
CPT/HCPCS: 36415; 36591; 80053; 85025

== ENCOUNTER 2021-04-08 08:17 | Outpatient (RCR) | payer MEDICARE, MEDICAID, SELFPAY ==
[2021-03-19] MEDS: famotidine 20 mg/2 mL INJ IVP (12:17)
[2021-03-19] MEDS: sodium chloride 0.9% 250 ML 75 ML IV (12:17)
[2021-03-19] MEDS: acetaminophen 325 mg Tablet 650 MG PO (12:17)
[2021-03-19] MEDS: palonosetron 0.25 mg/5 mL SDV IV (12:20)
[2021-03-19] MEDS: diphenhydrAMINE 50 mg/mL SDV 1mL 25 MG IVP ×2 (12:53→16:45)
[2021-03-19] MEDS: sodium chloride 0.9% 250 ML 500 ML IV (16:45)
--- NOTE | 2021-03-19 19:45 | ONC FU_ITS ---
Dr. Mcwilliams Patient Follow-Up Note Patient: Odalis Woods Unit #: [id number]: 1950 Dicatated By: Lester Mcwilliams M.D.Date of Visit:Mar 19, 2021 Onc Med Follow-up/Prog Note Chief Complaint: Breast cancer. History of Present Illness: This is a 70-year-old woman with grade 3 invasive ductal carcinoma of the right breast, ER positive/MI negative and HER-2/dat positive. She had presented with a palpable lump in the right breast. Her diagnostic mammogram/ultrasound on 01/20/2021 was BI-RADS 5, highly suggestive of malignancy. The mammogram showed a spiculated high density mass with calcifications at the 10 to 11 o'clock position of the right breast. It measured 2.0 x 1.6 cm. Mildly prominent dense lymph nodes were noted in the right axilla. By ultrasound the lesion was located 4 cm from the nipple at the 10 o'clock position. It was hypoechoic and measured 1.8 x 1.4 x 1.7 cm. A few mildly abnormal lymph nodes were noted in the right axilla. On 01/27/2021 she underwent ultrasound directed biopsy of the right breast mass and of a right axillary lymph node. Pathology on the breast biopsy showed grade 3 invasive ductal carcinoma. There was lymphovascular invasion and perineural invasion identified. The right axillary lymph node biopsy showed metastatic carcinoma, grade 3. The breast prognostic profile showed ER positive at 20%. The MI was negative < 1%. The tumor was positive for overexpression of HER-2/dat, 3+ by IHC and amplification ratio by FISH of 1.2 with 3.3 HER-2 copies/cell. The Ki-67 was high at 15%. I had seen her initially on 01/31/2021. At that time we had discussed further management of the breast cancer with the expectation that she would likely begin neoadjuvant chemotherapy, though I had recommended that she first have a staging PET/CT. I also had recommended that she proceed with placement of Port-A-Cath venous access device, which became somewhat problematic due to restrictions associated with her insurance coverage. Staging PET/CT on 02/08/2021 showed an FDG avid solid lesion in the upper outer quadrant of the right breast measuring 1.3 x 0.8 cm, SUV 9.5, consistent with the known primary carcinoma. Two dominant FDG positive axillary lymph nodes had SUV up to 10.4. A 3rd node demonstrated a fatty hilum but with SUV 3.5. There were additional FDG positive nodes within the mediastinum including subcarinal, left upper hilar, right paratracheal 2R and 4R, and right hilar territory lymph nodes. The dominant left hilar lymph node had SUV 7.1. Multiple bilateral pulmonary nodules were noted, the largest in the right upper lobe measuring 7 mm. These showed mild FDG uptake and were felt to have high probability of representing metastatic disease. I had seen him for a follow-up visit on 02/14/2021. Given the PET/CT findings, I recommended that she begin systemic therapy with paclitaxel in combination with Herceptin and Perjeta. She subsequently underwent placement of Port-A-Cath venous access device on 02/19/2021. Her baseline echocardiogram showed hypokinesia of the basal inferior wall segment but with normal left ventricular ejection fraction at 60%. Her other medical illnesses have been limited to hypertension and osteopenia. She has had no prior surgeries. She has a history of smoking 1 pack of cigarettes daily for 33 years. She quit smoking in 1999. INTERIM HISTORY: She returns now to begin cycle 1 of paclitaxel/Herceptin/Perjeta. She is feeling okay. She indicates that has started taking fenbendazole 222 mg together with vitamin E on a 4 days on/3 days off schedule for treatment of her cancer. She is feeling okay. She says her energy is the same. Her ECOG score is 0. She has good appetite. She has not had fever. She did have some sweating last night, I assume from the dexamethasone, and she also had a low-grade headache this morning. She has occasional dry cough. She does not complain of shortness of breath or chest pain. She has no GI or complaints. She has a little aching on the bottom of her left foot. She has no other joint or bone pain. She has no focal neurologic symptoms. Medications: Alendronate Sodium 1 Tablet (of 70 mg) Oral q 7 days, Ascorbic Acid (500 mg) Tablet Oral b.i.d., Calcium Citrate + D3 (200-250 mg - Units) Tablet Oral daily, Daily Multiple Vitamins Tablet Oral daily, Lisinopril 1 Tablet (of 20 mg) Oral b.i.d., Magnesium (250 mg) Tablet Oral daily Allergies: No Known Allergies. Vital Signs: Performed on Mar 19, 2021 11:13 Height - 63.00 in Weight - 162.2 lbs (LOW) BSA - 1.77 sq.m BMI - 28.73 Temperature - 98.8 F Pulse - 87 /min Respiration - 18 /min BP - 154/76 mm(hg) (HIGH) O2 Sat - 96 % Pain - 0 Fatigue - 0 Physical Examination: Constitutional - She looks good generally, Eyes - Sclerae nonicteric. Conjunctivae clear, ENMT - No lesions noted in the oral cavity, Hematologic/Lymphatic - No cervical, clavicular, or axillary adenopathy, Respiratory - Lungs are clear with good air movement bilaterally, Cardiovascular - Heart rhythm is regular. There is no murmur, gallop, or rub noted, Abdomen - Soft. Liver and spleen are not enlarged. There is no abdominal mass or ascites noted and there is no inguinal adenopathy, Extremities - No edema, Neurologic - No focal neurologic deficits noted. Lab/Imaging: Test performed on Mar 18, 2021 08:32 Sodium 139 mmol/L Potassium 4.6 mmol/L Chloride 105 mmol/L CO2 23 mmol/L Anion Gap 15.6 BUN 16 mg/dL Creatinine 0.8 mg/dL Cr Clearance (Est) 74.6500 mL/min Glucose 87 mg/dL Osmolality - Calculated 289 mOsm/kg Calcium 9.2 mg/dL Protein, Total 6.7 g/dL Albumin 4.3 g/dL Globulin 2.4 g/dL Bilirubin, Total 0.3 mg/dL ALT (SGPT) 25 U/L AST (SGOT) 21 U/L Alkaline Phosphatase 60 IU/L WBC 8.7 10 3/uL RBC 4.31 10 6/uL HGB 13.6 g/dL HCT 40.3 % MCV 93.5 fL MCH 31.6 pg MCHC 33.7 g/dL RDW 12.2 % Platelet Count 190 10 3/cmm MPV 9.6 fL Neutrophils 5.16 10 3/uL Lymphocytes 2.3 10 3/uL Monocytes 0.8 10 3/uL Eosinophils 0.4 10 3/uL Basophils 0.1 10 3/uL Neutrophil % 59.7 % Lymphocyte % 26.2 % Monocyte % 9.0 % Eosinophil % 4.0 % Basophils % 0.6 % NRBC % 0 % Problem List: 1. Grade 3 invasive ductal carcinoma of the right breast, ER positive/MI negative and HER-2/dat positive, by clinical evaluation stage IV (T1, N1, M1). 2. Hypertension. 3. Osteopenia. Problems Addressed with this Encounter and Plan: Patient with grade 3 invasive ductal carcinoma of the right breast, ER positive/MI negative and HER-2/dat positive. She underwent ultrasound-guided biopsy of right breast mass and of right axillary lymph node on 01/27/2021. Her staging PET/CT on 02/08/2021 showed the FDG avid right breast mass and 2 or possibly 3 involved axillary lymph nodes. It also showed suspected involvement in mediastinal lymph nodes and subcentimeter pulmonary nodules bilaterally, suspicious for metastatic disease. As such, by clinical evaluation, her disease appeared to be stage IV (T1c, N1, M1). Given the PET/CT findings, she is now beginning systemic therapy with paclitaxel in combination with Herceptin and Perjeta. The paclitaxel will be administered weekly to minimize toxicities. I did review anticipated side effects which may include nausea/vomiting, diarrhea, mouth sores, alopecia, fatigue, low blood counts, and neuropathy, among others. She returns in 1 week. Signed By: Lester Mcwilliams M.D. <<Signature on File>>
[2021-03-25 08:49] LABS: Basophils % 0.4 %; Eosinophils # 0.3 10^3/uL (0.0-0.8); Eosinophils % 3.7 %; Hematocrit 37.8 % (37.0-47.0); Hemoglobin 12.7 g/dL (11.5-15.3); Lymphocytes # 1.7 10^3/uL (0.8-4.8); Lymphocytes % 25.8 %; Mean Corpuscular HGB Conc 33.6 g/dL (30.0-36.0); Mean Corpuscular Hemoglobin 31.7 pg (28.0-34.0); Mean Corpuscular Volume 94.3 fL (81-99); Mean Platelet Volume 10.3 fL (7.4-10.4); Monocytes # 0.2 10^3/uL (0.2-0.9); Monocytes % 3.6 %; Neutrophils # 4.39 10^3/uL (1.8-7.7); Neutrophils % 65.9 %; Nucleated Red Blood Cells % 0 %; Platelet Count 200 10^3/cmm (130-400); Red Blood Count 4.01 10^6/uL (4.1-5.3); White Blood Count 6.7 10^3/uL (4.0-10.0)
[2021-03-25 09:22] LABS: Alanine Aminotransferase 46 U/L (0-33); Albumin Level 3.9 g/dL (3.5-5.2); Alkaline Phosphatase 46 IU/L (35-105); Anion Gap 13.4 (5-19); Aspartate Amino Transferase 19 U/L (0-32); Blood Urea Nitrogen 13 mg/dL (8-23); Calcium 8.4 mg/dL (8.5-10.5); Carbon Dioxide 26 mmol/L (22-29); Chloride 101 mmol/L (98-107); Globulin 2.3 g/dL (1.3-4.6); Glucose 95 mg/dL (65-115); Osmolality Calculated 282 mOsm/kg (285-295); Potassium 4.4 mmol/L (3.5-5.1); Sodium 136 mmol/L (136-145); Total Bilirubin 0.5 mg/dL (0.15-1.2); Total Protein 6.2 g/dL (6.6-8.7)
[2021-03-26] MEDS: acetaminophen 325 mg Tablet 650 MG PO (10:54)
[2021-03-26] MEDS: famotidine 20 mg/2 mL INJ IVP (10:54)
[2021-03-26] MEDS: sodium chloride 0.9% 250 ML 75 ML IV (10:54)
[2021-03-26] MEDS: diphenhydrAMINE 50 mg/mL SDV 1mL 25 MG IV (10:55)
[2021-03-26] MEDS: palonosetron 0.25 mg/5 mL SDV IV (11:02)
--- NOTE | 2021-03-29 13:41 | ONC FU_ITS ---
Dr. Mcwilliams Patient Follow-Up Note Patient: Odalis Woods Unit #: [id number]: 1950 Dicatated By: Lester Mcwilliams M.D.Date of Visit:Mar 26, 2021 Onc Med Follow-up/Prog Note Chief Complaint: Breast cancer. History of Present Illness: This is a 70-year-old woman with grade 3 invasive ductal carcinoma of the right breast, ER positive/VA negative and HER-2/dat positive. She had presented with a palpable lump in the right breast. Her diagnostic mammogram/ultrasound on 01/20/2021 was BI-RADS 5, highly suggestive of malignancy. The mammogram showed a spiculated high density mass with calcifications at the 10 to 11 o'clock position of the right breast. It measured 2.0 x 1.6 cm. Mildly prominent dense lymph nodes were noted in the right axilla. By ultrasound the lesion was located 4 cm from the nipple at the 10 o'clock position. It was hypoechoic and measured 1.8 x 1.4 x 1.7 cm. A few mildly abnormal lymph nodes were noted in the right axilla. On 01/27/2021 she underwent ultrasound directed biopsy of the right breast mass and of a right axillary lymph node. Pathology on the breast biopsy showed grade 3 invasive ductal carcinoma. There was lymphovascular invasion and perineural invasion identified. The right axillary lymph node biopsy showed metastatic carcinoma, grade 3. The breast prognostic profile showed ER positive at 20%. The VA was negative < 1%. The tumor was positive for overexpression of HER-2/dat, 3+ by IHC and amplification ratio by FISH of 1.2 with 3.3 HER-2 copies/cell. The Ki-67 was high at 15%. I had seen her initially on 01/31/2021. At that time we had discussed further management of the breast cancer with the expectation that she would likely begin neoadjuvant chemotherapy, though I had recommended that she first have a staging PET/CT. I also had recommended that she proceed with placement of Port-A-Cath venous access device, which became somewhat problematic due to restrictions associated with her insurance coverage. Staging PET/CT on 02/08/2021 showed an FDG avid solid lesion in the upper outer quadrant of the right breast measuring 1.3 x 0.8 cm, SUV 9.5, consistent with the known primary carcinoma. Two dominant FDG positive axillary lymph nodes had SUV up to 10.4. A 3rd node demonstrated a fatty hilum but with SUV 3.5. There were additional FDG positive nodes within the mediastinum including subcarinal, left upper hilar, right paratracheal 2R and 4R, and right hilar territory lymph nodes. The dominant left hilar lymph node had SUV 7.1. Multiple bilateral pulmonary nodules were noted, the largest in the right upper lobe measuring 7 mm. These showed mild FDG uptake and were felt to have high probability of representing metastatic disease. I had seen him for a follow-up visit on 02/14/2021. Given the PET/CT findings, I recommended that she begin systemic therapy with paclitaxel in combination with Herceptin and Perjeta. She subsequently underwent placement of Port-A-Cath venous access device on 02/19/2021. Her baseline echocardiogram showed hypokinesia of the basal inferior wall segment but with normal left ventricular ejection fraction at 60%. Her other medical illnesses have been limited to hypertension and osteopenia. She has had no prior surgeries. She has a history of smoking 1 pack of cigarettes daily for 33 years. She quit smoking in 1999. INTERIM HISTORY: She began cycle 1 of paclitaxel/Herceptin/Perjeta on 03/19/2021. She tolerated the initial infusions without acute toxicity. She is seen for a follow-up visit. She says her energy is starting to wind down a little, and she is spending more time relaxing. Her ECOG score is 1. Her appetite has not been very good. Her weight is stable. She has not had fever. She has had some minimal sweating. Her mouth has been a little tender, and she has been using salt/soda rinses. She has no shortness of breath, cough, or chest pain. She has had some heartburn, but no nausea. Bowel and bladder function been okay. She occasionally has pain on the bottom of her left foot. She has no other joint or bone pain. She does not complain of headache or dizziness. She has no numbness/paresthesia or other neuropathy symptoms. Medications: Alendronate Sodium 1 Tablet (of 70 mg) Oral q 7 days, Ascorbic Acid (500 mg) Tablet Oral b.i.d., Calcium Citrate + D3 (200-250 mg - Units) Tablet Oral daily, Daily Multiple Vitamins Tablet Oral daily, Lisinopril 1 Tablet (of 20 mg) Oral b.i.d., Magnesium (250 mg) Tablet Oral daily Allergies: No Known Allergies. Vital Signs: Performed on Mar 26, 2021 11:16 Height - 63.00 in Weight - 164 lbs (HIGH) BSA - 1.78 sq.m BMI - 29.05 Temperature - 98.1 F (LOW) Pulse - 81 /min Respiration - 18 /min BP - 136/63 mm(hg) O2 Sat - 96 % Pain - 0 Fatigue - 4 Physical Examination: Constitutional - She looks good generally, Eyes - Sclerae nonicteric. Conjunctivae clear, ENMT - No lesions noted in the oral cavity, Hematologic/Lymphatic - No cervical, clavicular, or axillary adenopathy, Respiratory - Lungs are clear with good air movement bilaterally, Cardiovascular - Heart rhythm is regular. There is no murmur, gallop, or rub noted, Abdomen - Soft. Liver and spleen are not enlarged. There is no abdominal mass or ascites noted and there is no inguinal adenopathy, Extremities - No edema, Neurologic - No focal neurologic deficits noted. Lab/Imaging: Test performed on Mar 25, 2021 08:15 Sodium 136 mmol/L Potassium 4.4 mmol/L Chloride 101 mmol/L CO2 26 mmol/L Anion Gap 13.4 BUN 13 mg/dL Creatinine 0.7 mg/dL Cr Clearance (Est) 84.3800 mL/min Glucose 95 mg/dL Osmolality - Calculated 282 mOsm/kg Calcium 8.4 mg/dL Protein, Total 6.2 g/dL Albumin 3.9 g/dL Globulin 2.3 g/dL Bilirubin, Total 0.5 mg/dL ALT (SGPT) 46 U/L AST (SGOT) 19 U/L Alkaline Phosphatase 46 IU/L WBC 6.7 10 3/uL RBC 4.01 10 6/uL HGB 12.7 g/dL HCT 37.8 % MCV 94.3 fL MCH 31.7 pg MCHC 33.6 g/dL RDW 12.0 % Platelet Count 200 10 3/cmm MPV 10.3 fL Neutrophils 4.39 10 3/uL Lymphocytes 1.7 10 3/uL Monocytes 0.2 10 3/uL Eosinophils 0.3 10 3/uL Basophils 0.0 10 3/uL Neutrophil % 65.9 % Lymphocyte % 25.8 % Monocyte % 3.6 % Eosinophil % 3.7 % Basophils % 0.4 % NRBC % 0 % Problem List: 1. Grade 3 invasive ductal carcinoma of the right breast, ER positive/VA negative and HER-2/dat positive, by clinical evaluation stage IV (T1, N1, M1). 2. Hypertension. 3. Osteopenia. Problems Addressed with this Encounter and Plan: Patient with grade 3 invasive ductal carcinoma of the right breast, ER positive/VA negative and HER-2/dat positive. She underwent ultrasound-guided biopsy of right breast mass and of right axillary lymph node on 01/27/2021. Her staging PET/CT on 02/08/2021 showed the FDG avid right breast mass and 2 or possibly 3 involved axillary lymph nodes. It also showed suspected involvement in mediastinal lymph nodes and subcentimeter pulmonary nodules bilaterally, suspicious for metastatic disease. As such, by clinical evaluation, her disease appeared to be stage IV (T1c, N1, M1). Given the PET/CT findings, she was recommended to begin systemic therapy with paclitaxel in combination with Herceptin and Perjeta. She began treatment on 03/19/2021 with the paclitaxel and Herceptin administered weekly to minimize toxicities. Thus far she has had some mild fatigue since starting the treatment, but she has no other apparent side effects. She will proceed with week 2 paclitaxel/Herceptin. The dosages remain the same. She will be scheduled for a follow-up visit in 1 week. She will now reduce the dosage of her dexamethasone premedication to 8 mg. Signed By: Lester Mcwilliams M.D. <<Signature on File>>
[2021-04-03 10:25] LABS: Basophils % 0.5 %; Hematocrit 35.7 % (37.0-47.0); Hemoglobin 11.7 g/dL (11.5-15.3); Lymphocytes # 0.5 10^3/uL (0.8-4.8); Lymphocytes % 13.1 %; Mean Corpuscular HGB Conc 32.8 g/dL (30.0-36.0); Mean Corpuscular Hemoglobin 30.7 pg (28.0-34.0); Mean Corpuscular Volume 93.7 fL (81-99); Mean Platelet Volume 9.8 fL (7.4-10.4); Neutrophils # 3.43 10^3/uL (1.8-7.7); Neutrophils % 84.4 %; Nucleated Red Blood Cells % 0 %; Platelet Count 261 10^3/cmm (130-400); Red Blood Count 3.81 10^6/uL (4.1-5.3); Red Cell Distribution Width 12.5 % (12.1-15.1); White Blood Count 4.1 10^3/uL (4.0-10.0)
[2021-04-03 10:46] LABS: Alanine Aminotransferase 41 U/L (0-33); Albumin Level 4.2 g/dL (3.5-5.2); Alkaline Phosphatase 53 IU/L (35-105); Aspartate Amino Transferase 22 U/L (0-32); Blood Urea Nitrogen 17 mg/dL (8-23); Calcium 8.4 mg/dL (8.5-10.5); Carbon Dioxide 19 mmol/L (22-29); Chloride 102 mmol/L (98-107); Globulin 2.3 g/dL (1.3-4.6); Glucose 197 mg/dL (65-115); Osmolality Calculated 287 mOsm/kg (285-295); Sodium 135 mmol/L (136-145); Total Bilirubin 0.3 mg/dL (0.15-1.2); Total Protein 6.5 g/dL (6.6-8.7)
[2021-04-03] MEDS: acetaminophen 325 mg Tablet 650 MG PO (12:55)
[2021-04-03] MEDS: palonosetron 0.25 mg/5 mL SDV IVP (12:55)
[2021-04-03] MEDS: sodium chloride 0.9% 250 ML 75 ML IV (12:55)
[2021-04-03] MEDS: famotidine 20 mg/2 mL INJ IVP (13:18)
[2021-04-03] MEDS: diphenhydrAMINE 50 mg/mL SDV 1mL 25 MG IVP (13:20)
--- NOTE | 2021-04-03 17:12 | ONC FU_ITS ---
Dr. Mcwilliams Patient Follow-Up Note Patient: dOalis Woods Unit #: [id number]: 1950 Dicatated By: Lester Mcwilliams M.D.Date of Visit:Apr 03, 2021 Onc Med Follow-up/Prog Note Chief Complaint: Breast cancer. History of Present Illness: This is a 70-year-old woman with grade 3 invasive ductal carcinoma of the right breast, ER positive/OK negative and HER-2/dat positive. She had presented with a palpable lump in the right breast. Her diagnostic mammogram/ultrasound on 01/20/2021 was BI-RADS 5, highly suggestive of malignancy. The mammogram showed a spiculated high density mass with calcifications at the 10 to 11 o'clock position of the right breast. It measured 2.0 x 1.6 cm. Mildly prominent dense lymph nodes were noted in the right axilla. By ultrasound the lesion was located 4 cm from the nipple at the 10 o'clock position. It was hypoechoic and measured 1.8 x 1.4 x 1.7 cm. A few mildly abnormal lymph nodes were noted in the right axilla. On 01/27/2021 she underwent ultrasound directed biopsy of the right breast mass and of a right axillary lymph node. Pathology on the breast biopsy showed grade 3 invasive ductal carcinoma. There was lymphovascular invasion and perineural invasion identified. The right axillary lymph node biopsy showed metastatic carcinoma, grade 3. The breast prognostic profile showed ER positive at 20%. The OK was negative < 1%. The tumor was positive for overexpression of HER-2/dat, 3+ by IHC and amplification ratio by FISH of 1.2 with 3.3 HER-2 copies/cell. The Ki-67 was high at 15%. I had seen her initially on 01/31/2021. At that time we had discussed further management of the breast cancer with the expectation that she would likely begin neoadjuvant chemotherapy, though I had recommended that she first have a staging PET/CT. I also had recommended that she proceed with placement of Port-A-Cath venous access device, which became somewhat problematic due to restrictions associated with her insurance coverage. Staging PET/CT on 02/08/2021 showed an FDG avid solid lesion in the upper outer quadrant of the right breast measuring 1.3 x 0.8 cm, SUV 9.5, consistent with the known primary carcinoma. Two dominant FDG positive axillary lymph nodes had SUV up to 10.4. A 3rd node demonstrated a fatty hilum but with SUV 3.5. There were additional FDG positive nodes within the mediastinum including subcarinal, left upper hilar, right paratracheal 2R and 4R, and right hilar territory lymph nodes. The dominant left hilar lymph node had SUV 7.1. Multiple bilateral pulmonary nodules were noted, the largest in the right upper lobe measuring 7 mm. These showed mild FDG uptake and were felt to have high probability of representing metastatic disease. I had seen him for a follow-up visit on 02/14/2021. Given the PET/CT findings, I recommended that she begin systemic therapy with paclitaxel in combination with Herceptin and Perjeta. She subsequently underwent placement of Port-A-Cath venous access device on 02/19/2021. Her baseline echocardiogram showed hypokinesia of the basal inferior wall segment but with normal left ventricular ejection fraction at 60%. Her other medical illnesses have been limited to hypertension and osteopenia. She has had no prior surgeries. She has a history of smoking 1 pack of cigarettes daily for 33 years. She quit smoking in 1999. INTERIM HISTORY: She began cycle 1 of paclitaxel/Herceptin/Perjeta on 03/19/2021 with the paclitaxel and Herceptin administered weekly in the Perjeta administered on a 3-week schedule. She tolerated the initial infusions without acute toxicity. She then continued with her week 2 paclitaxel/Herceptin on 03/26/2021. She is seen for a follow-up visit. She has been feeling pretty good generally. She has had some fatigue since she started the chemotherapy. She still has normal activity, though she is tired by afternoon. Her appetite is spotty. She has not had fever. She gets a little sweating with her dexamethasone premedication. Her nose is sometimes drippy. She has a little soreness on her tongue and buccal mucosa, but it is managed adequately with salt/soda rinses. She has no shortness of breath, cough, or chest pain. She has not had any nausea. She does have some heartburn, which he manages with sauerkraut. She had diarrhea on Wednesday, but she did not have to take any medication for it. Her bowels have otherwise been okay. She has no complaints. She has some pain in her right shoulder, but no other joint or bone pain. She does not complain of headache. She does tend to get some dysequilibrium. She has no numbness/paresthesia or other neuropathy symptoms. Medications: Alendronate Sodium 1 Tablet (of 70 mg) Oral q 7 days, Ascorbic Acid (500 mg) Tablet Oral b.i.d., Calcium Citrate + D3 (200-250 mg - Units) Tablet Oral daily, Daily Multiple Vitamins Tablet Oral daily, Lisinopril 1 Tablet (of 20 mg) Oral b.i.d., Magnesium (250 mg) Tablet Oral daily Allergies: No Known Allergies. Vital Signs: Performed on Apr 03, 2021 11:58 Height - 63.00 in Weight - 161.2 lbs (LOW) BSA - 1.76 sq.m BMI - 28.56 Temperature - 97.6 F (LOW) Pulse - 77 /min Respiration - 18 /min BP - 127/65 mm(hg) O2 Sat - 97 % Pain - 0 Fatigue - 2 Physical Examination: Constitutional - She looks good generally, Eyes - Sclerae nonicteric. Conjunctivae clear, ENMT - No lesions noted in the oral cavity, Hematologic/Lymphatic - No cervical, clavicular, or axillary adenopathy, Respiratory - Lungs are clear with good air movement bilaterally, Cardiovascular - Heart rhythm is regular. There is a I/ systolic murmur. There is no gallop or rub noted, Abdomen - Soft. Liver and spleen are not enlarged. There is no abdominal mass or ascites noted and there is no inguinal adenopathy, Extremities - No edema, Neurologic - No focal neurologic deficits noted. Lab/Imaging: Test performed on Apr 03, 2021 09:45 Sodium 135 mmol/L Potassium 4.0 mmol/L Chloride 102 mmol/L CO2 19 mmol/L Anion Gap 18.0 BUN 17 mg/dL Creatinine 0.7 mg/dL Cr Clearance (Est) 83.1400 mL/min Glucose 197 mg/dL Osmolality - Calculated 287 mOsm/kg Calcium 8.4 mg/dL Protein, Total 6.5 g/dL Albumin 4.2 g/dL Globulin 2.3 g/dL Bilirubin, Total 0.3 mg/dL ALT (SGPT) 41 U/L AST (SGOT) 22 U/L Alkaline Phosphatase 53 IU/L WBC 4.1 10 3/uL RBC 3.81 10 6/uL HGB 11.7 g/dL HCT 35.7 % MCV 93.7 fL MCH 30.7 pg MCHC 32.8 g/dL RDW 12.5 % Platelet Count 261 10 3/cmm MPV 9.8 fL Neutrophils 3.43 10 3/uL Lymphocytes 0.5 10 3/uL Monocytes 0.0 10 3/uL Eosinophils 0.0 10 3/uL Basophils 0.0 10 3/uL Neutrophil % 84.4 % Lymphocyte % 13.1 % Monocyte % 1.0 % Eosinophil % 0.0 % Basophils % 0.5 % NRBC % 0 % Problem List: 1. Grade 3 invasive ductal carcinoma of the right breast, ER positive/OK negative and HER-2/dat positive, by clinical evaluation stage IV (T1, N1, M1). 2. Hypertension. 3. Osteopenia. Problems Addressed with this Encounter and Plan: Patient with grade 3 invasive ductal carcinoma of the right breast, ER positive/OK negative and HER-2/dat positive. She underwent ultrasound-guided biopsy of right breast mass and of right axillary lymph node on 01/27/2021. Her staging PET/CT on 02/08/2021 showed the FDG avid right breast mass and 2 or possibly 3 involved axillary lymph nodes. It also showed suspected involvement in mediastinal lymph nodes and subcentimeter pulmonary nodules bilaterally, suspicious for metastatic disease. As such, by clinical evaluation, her disease appeared to be stage IV (T1c, N1, M1). Given the PET/CT findings, she was recommended to begin systemic therapy with paclitaxel in combination with Herceptin and Perjeta. She began treatment on 03/19/2021 with the paclitaxel and Herceptin administered weekly to minimize toxicities. She is now at day 15 of her first cycle of treatment. Side effects have been limited to mild fatigue and transient diarrhea. Her blood counts remain adequate, there has been a significant drop in her neutrophil count. She will proceed now with her week 3 paclitaxel/Herceptin. Due to the drop in her neutrophil count, I am going to plan for a 1 week delay in her next treatment. As such, the Herceptin dosage will be adjusted to a 2-week dosing schedule. The paclitaxel dosage remains the same. With her second cycle, I will plan a dose reduction in the paclitaxel so that her treatment can be maintained on a 3-week schedule. Signed By: Lester Mcwilliams M.D. <<Signature on File>>
[2021-04-08 08:56] LABS: Basophils % 0.5 %; Hematocrit 33.6 % (37.0-47.0); Hemoglobin 11.1 g/dL (11.5-15.3); Lymphocytes # 1.4 10^3/uL (0.8-4.8); Lymphocytes % 35.6 %; Mean Corpuscular Hemoglobin 30.8 pg (28.0-34.0); Mean Corpuscular Volume 93.3 fL (81-99); Mean Platelet Volume 9.9 fL (7.4-10.4); Monocytes # 0.2 10^3/uL (0.2-0.9); Monocytes % 6.2 %; Neutrophils # 2.19 10^3/uL (1.8-7.7); Neutrophils % 56.2 %; Nucleated Red Blood Cells % 0 %; Platelet Count 242 10^3/cmm (130-400); Red Cell Distribution Width 12.3 % (12.1-15.1); White Blood Count 3.9 10^3/uL (4.0-10.0)
== END 2021-04-12 23:59 | disposition home or self-care (01) ==
LOC: ONCMED 08:17
PROVIDERS: PCP Nurse Practitioner Family; Visit Provider Internal Medicine Medical Oncology
DX: Z51.11 Encounter for antineoplastic chemotherapy (principal); C50.411 Malignant neoplasm of upper-outer quadrant of right female breast; Z17.0 Estrogen receptor positive status [ER+]; C77.8 Secondary and unspecified malignant neoplasm of lymph nodes of multiple regions; C78.01 Secondary malignant neoplasm of right lung; C78.02 Secondary malignant neoplasm of left lung; I10 Essential (primary) hypertension; M85.80 Other specified disorders of bone density and structure, unspecified site; Z79.899 Other long term (current) drug therapy
CPT/HCPCS: 36415; 36591; 80053; 85025; 96367; 96375; 96376; 96413; 96415; 96417; 99214; 99215; J1100; J1200; J2469; J3490; J7030; J7050; J9267; J9306; J9355

== ENCOUNTER 2021-05-07 05:41 | Outpatient (RCR) | payer MEDICARE, MEDICAID, SELFPAY ==
[2021-04-15 09:28] LABS: Basophils # 0.1 10^3/uL (0.0-0.1); Basophils % 0.8 %; Eosinophils # 0.1 10^3/uL (0.0-0.8); Eosinophils % 1.3 %; Hematocrit 35.9 % (37.0-47.0); Hemoglobin 11.8 g/dL (11.5-15.3); Lymphocytes % 28.5 %; Mean Corpuscular HGB Conc 32.9 g/dL (30.0-36.0); Mean Corpuscular Hemoglobin 31.1 pg (28.0-34.0); Mean Corpuscular Volume 94.5 fL (81-99); Mean Platelet Volume 9.6 fL (7.4-10.4); Monocytes # 0.9 10^3/uL (0.2-0.9); Monocytes % 11.9 %; Neutrophils % 55.7 %; Nucleated Red Blood Cells % 0 %; Platelet Count 256 10^3/cmm (130-400); Red Cell Distribution Width 12.9 % (12.1-15.1); White Blood Count 7.2 10^3/uL (4.0-10.0)
[2021-04-15 09:32] LABS: Alanine Aminotransferase 24 U/L (0-33); Albumin Level 4.2 g/dL (3.5-5.2); Alkaline Phosphatase 57 IU/L (35-105); Aspartate Amino Transferase 19 U/L (0-32); Blood Urea Nitrogen 11 mg/dL (8-23); Calcium 8.8 mg/dL (8.5-10.5); Carbon Dioxide 23 mmol/L (22-29); Chloride 102 mmol/L (98-107); Glucose 84 mg/dL (65-115); Osmolality Calculated 279 mOsm/kg (285-295); Sodium 135 mmol/L (136-145); Total Bilirubin 0.3 mg/dL (0.15-1.2); Total Protein 6.2 g/dL (6.6-8.7)
[2021-04-16] MEDS: acetaminophen 325 mg Tablet 650 MG PO (09:48)
[2021-04-16] MEDS: sodium chloride 0.9% 250 ML 75 ML IV (09:49)
[2021-04-16] MEDS: famotidine 20 mg/2 mL INJ IVP (09:49)
[2021-04-16] MEDS: diphenhydrAMINE 50 mg/mL SDV 1mL 25 MG IV (09:51)
[2021-04-16] MEDS: palonosetron 0.25 mg/5 mL SDV IV (09:56)
--- NOTE | 2021-04-16 16:31 | ONC FU_ITS ---
Dr. Mcwilliams Patient Follow-Up Note Patient: Odalis Woods Unit #: [id number]: [id number] Dicatated By: Lester Mcwilliams M.D.Date of Visit:Apr 16, 2021 Onc Med Follow-up/Prog Note Chief Complaint: Breast cancer. History of Present Illness: This is a 70-year-old woman with grade 3 invasive ductal carcinoma of the right breast, ER positive/PA negative and HER-2/dat positive. By clinical evaluation, she appeared to have de scott stage IV disease with PET/CT evidence of mediastinal and hilar lymph node involvement and with multiple small pulmonary nodules bilaterally. She had presented with a palpable lump in the right breast. Her diagnostic mammogram/ultrasound on 01/20/2021 was BI-RADS 5, highly suggestive of malignancy. The mammogram showed a spiculated high density mass with calcifications at the 10 to 11 o'clock position of the right breast. It measured 2.0 x 1.6 cm. Mildly prominent dense lymph nodes were noted in the right axilla. By ultrasound the lesion was located 4 cm from the nipple at the 10 o'clock position. It was hypoechoic and measured 1.8 x 1.4 x 1.7 cm. A few mildly abnormal lymph nodes were noted in the right axilla. On 01/27/2021 she underwent ultrasound directed biopsy of the right breast mass and of a right axillary lymph node. Pathology on the breast biopsy showed grade 3 invasive ductal carcinoma. There was lymphovascular invasion and perineural invasion identified. The right axillary lymph node biopsy showed metastatic carcinoma, grade 3. The breast prognostic profile showed ER positive at 20%. The PA was negative < 1%. The tumor was positive for overexpression of HER-2/dat, 3+ by IHC and amplification ratio by FISH of 1.2 with 3.3 HER-2 copies/cell. The Ki-67 was high at 15%. I had seen her initially on 01/31/2021. At that time we had discussed further management of the breast cancer with the expectation that she would likely begin neoadjuvant chemotherapy, though I had recommended that she first have a staging PET/CT. I also had recommended that she proceed with placement of Port-A-Cath venous access device, which became somewhat problematic due to restrictions associated with her insurance coverage. Staging PET/CT on 02/08/2021 showed an FDG avid solid lesion in the upper outer quadrant of the right breast measuring 1.3 x 0.8 cm, SUV 9.5, consistent with the known primary carcinoma. Two dominant FDG positive axillary lymph nodes had SUV up to 10.4. A 3rd node demonstrated a fatty hilum but with SUV 3.5. There were additional FDG positive nodes within the mediastinum including subcarinal, left upper hilar, right paratracheal 2R and 4R, and right hilar territory lymph nodes. The dominant left hilar lymph node had SUV 7.1. Multiple bilateral pulmonary nodules were noted, the largest in the right upper lobe measuring 7 mm. These showed mild FDG uptake and were felt to have high probability of representing metastatic disease. I had seen him for a follow-up visit on 02/14/2021. Given the PET/CT findings, I had recommended that she begin systemic therapy with paclitaxel in combination with Herceptin and Perjeta. She subsequently underwent placement of Port-A-Cath venous access device on 02/19/2021. Her baseline echocardiogram showed hypokinesia of the basal inferior wall segment but with normal left ventricular ejection fraction at 60%. Her other medical illnesses have been limited to hypertension and osteopenia. She has had no prior surgeries. She has a history of smoking 1 pack of cigarettes daily for 33 years. She quit smoking in 1999. INTERIM HISTORY: She began cycle 1 of paclitaxel/Herceptin/Perjeta on 03/19/2021 with the paclitaxel and Herceptin administered weekly in the Perjeta administered on a 3-week schedule. She tolerated the initial infusions without acute toxicity. She continued with her week 2 paclitaxel/Herceptin on 03/26/2021 and with week 3 treatment on 04/03/2021. She then had a planned treatment break at week 4 due to neutropenia. She is seen for a follow-up visit. She has been feeling pretty good generally. She does get tired by afternoon. Her ECOG score is 1. Her appetite is not the greatest, but she is eating. She has not had fever. She does have significant sweating at night when she takes her steroid, and she also has associated insomnia. Her mouth occasionally gets sore. She has occasional dry cough. She does not complain of shortness of breath. She has been having some discomfort associated with her port in the upper left chest. She otherwise is not having chest pain. She reports occasional stomachache and she says she has been having a lot of burping. She does not complain of nausea. She had diarrhea again last weekend, but it was controlled with Imodium. Bladder function has been okay. She occasionally has aching on the bottoms of her feet, left more than right. Her right shoulder bothers her at times. She has no other joint or bone pain. She has occasional low-grade headache and she occasionally has lightheadedness. She has no numbness/paresthesia or other neuropathy symptoms. Medications: Alendronate Sodium 1 Tablet (of 70 mg) Oral q 7 days, Ascorbic Acid (500 mg) Tablet Oral b.i.d., Calcium Citrate + D3 (200-250 mg - Units) Tablet Oral daily, Daily Multiple Vitamins Tablet Oral daily, Lisinopril 1 Tablet (of 20 mg) Oral b.i.d., Magnesium (250 mg) Tablet Oral daily Allergies: No Known Allergies. Vital Signs: Performed on Apr 16, 2021 08:37 Height - 63.00 in Weight - 162 lbs (HIGH) BSA - 1.77 sq.m BMI - 28.70 Temperature - 97.6 F (LOW) Pulse - 80 /min Respiration - 18 /min BP - 170/83 mm(hg) (HIGH) O2 Sat - 97 % Pain - 0 Fatigue - 0 Physical Examination: Constitutional - She looks pretty good generally, Eyes - Sclerae nonicteric. Conjunctivae clear, ENMT - No lesions noted in the oral cavity, Hematologic/Lymphatic - No cervical, clavicular, or axillary adenopathy, Respiratory - Lungs are clear with good air movement bilaterally, Cardiovascular - Heart rhythm is regular. There is no murmur, gallop, or rub noted, Abdomen - Soft. Liver and spleen are not enlarged. There is no abdominal mass or ascites noted and there is no inguinal adenopathy, Extremities - No edema, Neurologic - No focal neurologic deficits noted. Lab/Imaging: CBC shows hemoglobin 11.8 g, white blood cell count 7200, and platelet count 256,000. Comprehensive metabolic profile is unremarkable. Problem List: 1. Grade 3 invasive ductal carcinoma of the right breast, ER positive/PA negative and HER-2/dat positive, by clinical evaluation stage IV (T1, N1, M1). 2. Hypertension. 3. Osteopenia. Problems Addressed with this Encounter and Plan: Patient with grade 3 invasive ductal carcinoma of the right breast, ER positive/PA negative and HER-2/dat positive. She underwent ultrasound-guided biopsy of right breast mass and of right axillary lymph node on 01/27/2021. Her staging PET/CT on 02/08/2021 showed the FDG avid right breast mass and 2 or possibly 3 involved axillary lymph nodes. It also showed suspected involvement in mediastinal lymph nodes and subcentimeter pulmonary nodules bilaterally, suspicious for metastatic disease. As such, by clinical evaluation, her disease appeared to be stage IV (T1c, N1, M1). Given the PET/CT findings, she was recommended to begin systemic therapy with paclitaxel in combination with Herceptin and Perjeta. She began treatment on 03/19/2021 with the paclitaxel and Herceptin administered weekly to minimize toxicities. She continued with her week 2 Herceptin/paclitaxel on 03/26/2021 and with week 3 on 04/03/2021. At that point there was a significant decline in her neutrophil count, and following her week 3 paclitaxel she was given a planned treatment break. She now has had adequate recovery of her blood count. Overall, she has been tolerating treatment well, as her other side effects have been limited to mild fatigue and transient diarrhea. She has had no significant neuropathy. She has having significant side effects with her steroid premedication. She will proceed now with her 2nd cycle. The Taxol will be continued weekly, but with a 20% dose reduction. The Herceptin and Perjeta will be administered at a 3-week interval. She will be scheduled for a follow-up visit in 3 weeks. The meantime, as she has been tolerating her steroid premedication poorly, with her 3rd cycle I will try and get her approved for use of Abraxane in replace of the Taxol. Signed By: Lester Mcwilliams M.D. <<Signature on File>>
[2021-04-23 08:46] LABS: Basophils # 0.1 10^3/uL (0.0-0.1); Basophils % 0.4 %; Hematocrit 38.1 % (37.0-47.0); Hemoglobin 12.6 g/dL (11.5-15.3); Lymphocytes # 0.9 10^3/uL (0.8-4.8); Lymphocytes % 6.6 %; Mean Corpuscular HGB Conc 33.1 g/dL (30.0-36.0); Mean Corpuscular Hemoglobin 30.7 pg (28.0-34.0); Mean Corpuscular Volume 92.9 fL (81-99); Mean Platelet Volume 10.2 fL (7.4-10.4); Monocytes # 0.1 10^3/uL (0.2-0.9); Monocytes % 0.5 %; Neutrophils % 90.8 %; Nucleated Red Blood Cells % 0 %; Platelet Count 263 10^3/cmm (130-400); Red Cell Distribution Width 12.8 % (12.1-15.1); White Blood Count 13.9 10^3/uL (4.0-10.0)
[2021-04-23] MEDS: acetaminophen 325 mg Tablet 650 MG PO (11:19)
[2021-04-23] MEDS: sodium chloride 0.9% 250 ML 75 ML IV (11:19)
[2021-04-23] MEDS: palonosetron 0.25 mg/5 mL SDV IV (11:19)
[2021-04-23] MEDS: famotidine 20 mg/2 mL INJ IVP (11:36)
[2021-04-23] MEDS: diphenhydrAMINE 50 mg/mL SDV 1mL 25 MG IV (11:37)
[2021-04-30 09:09] LABS: Basophils % 0.3 %; Hematocrit 35.6 % (37.0-47.0); Hemoglobin 11.9 g/dL (11.5-15.3); Lymphocytes # 0.5 10^3/uL (0.8-4.8); Lymphocytes % 7.5 %; Mean Corpuscular HGB Conc 33.4 g/dL (30.0-36.0); Mean Corpuscular Hemoglobin 31.2 pg (28.0-34.0); Mean Corpuscular Volume 93.4 fl (81-99); Monocytes # 0.1 10^3/uL (0.2-0.9); Monocytes % 1.6 %; Neutrophils # 6.19 10^3/uL (1.8-7.7); Neutrophils % 89.6 %; Nucleated Red Blood Cells % 0 %; Platelet Count 247 10^3/cmm (130-400); Red Blood Count 3.81 10^6/uL (4.1-5.3); Red Cell Distribution Width 13.2 % (12.1-15.1); White Blood Count 6.9 10^3/uL (4.0-10.0)
[2021-04-30] MEDS: sodium chloride 0.9% 250 ML 75 ML IV (10:13)
[2021-04-30] MEDS: diphenhydrAMINE 50 mg/mL SDV 1mL 25 MG IV (10:13)
[2021-04-30] MEDS: famotidine 20 mg/2 mL INJ IVP (10:15)
[2021-04-30] MEDS: acetaminophen 325 mg Tablet 650 MG PO (10:15)
[2021-04-30] MEDS: palonosetron 0.25 mg/5 mL SDV IV (10:19)
[2021-05-07 08:39] LABS: Basophils % 0.4 %; Hematocrit 35.1 % (37.0-47.0); Hemoglobin 11.5 g/dL (11.5-15.3); Lymphocytes # 0.7 10^3/uL (0.8-4.8); Lymphocytes % 9.6 %; Mean Corpuscular HGB Conc 32.8 g/dL (30.0-36.0); Mean Corpuscular Hemoglobin 30.6 pg (28.0-34.0); Mean Corpuscular Volume 93.4 fl (81-99); Mean Platelet Volume 9.8 fL (7.4-10.4); Monocytes # 0.2 10^3/uL (0.2-0.9); Monocytes % 2.1 %; Neutrophils # 6.46 10^3/uL (1.8-7.7); Neutrophils % 85.9 %; Nucleated Red Blood Cells % 0 %; Platelet Count 268 10^3/cmm (130-400); Red Blood Count 3.76 10^6/uL (4.1-5.3); Red Cell Distribution Width 13.9 % (12.1-15.1); White Blood Count 7.5 10^3/uL (4.0-10.0)
[2021-05-07 09:09] LABS: Alanine Aminotransferase 21 U/L (0-33); Albumin Level 4.1 g/dL (3.5-5.2); Alkaline Phosphatase 48 IU/L (35-105); Anion Gap 15.2 (5-19); Aspartate Amino Transferase 16 U/L (0-32); Blood Urea Nitrogen 13 mg/dL (8-23); Calcium 8.8 mg/dL (8.5-10.5); Carbon Dioxide 22 mmol/L (22-29); Chloride 103 mmol/L (98-107); Globulin 2.3 g/dL (1.3-4.6); Glucose 136 mg/dL (65-115); Osmolality Calculated 284 mOsm/kg (285-295); Potassium 4.2 mmol/L (3.5-5.1); Sodium 136 mmol/L (136-145); Total Bilirubin 0.3 mg/dL (0.15-1.2); Total Protein 6.4 g/dL (6.6-8.7)
[2021-05-07] MEDS: acetaminophen 325 mg Tablet 650 MG PO (10:52)
[2021-05-07] MEDS: famotidine 20 mg/2 mL INJ IVP (10:52)
[2021-05-07] MEDS: sodium chloride 0.9% 250 ML 75 ML IV (10:52)
[2021-05-07] MEDS: diphenhydrAMINE 50 mg/mL SDV 1mL 25 MG IV (10:53)
[2021-05-07] MEDS: palonosetron 0.25 mg/5 mL SDV IV (10:58)
--- NOTE | 2021-05-07 18:24 | ONC FU_ITS ---
Dr. Mcwilliams Patient Follow-Up Note Patient: Odalis Woods Unit #: [id number]: 1950 Dicatated By: Lester Mcwilliams M.D.Date of Visit:May 07, 2021 Onc Med Follow-up/Prog Note Chief Complaint: Breast cancer. History of Present Illness: This is a 70-year-old woman with grade 3 invasive ductal carcinoma of the right breast, ER positive/KS negative and HER-2/dat positive. By clinical evaluation, she appeared to have de scott stage IV disease with PET/CT evidence of mediastinal and hilar lymph node involvement and with multiple small pulmonary nodules bilaterally. She had presented with a palpable lump in the right breast. Her diagnostic mammogram/ultrasound on 01/20/2021 was BI-RADS 5, highly suggestive of malignancy. The mammogram showed a spiculated high density mass with calcifications at the 10 to 11 o'clock position of the right breast. It measured 2.0 x 1.6 cm. Mildly prominent dense lymph nodes were noted in the right axilla. By ultrasound the lesion was located 4 cm from the nipple at the 10 o'clock position. It was hypoechoic and measured 1.8 x 1.4 x 1.7 cm. A few mildly abnormal lymph nodes were noted in the right axilla. On 01/27/2021 she underwent ultrasound directed biopsy of the right breast mass and of a right axillary lymph node. Pathology on the breast biopsy showed grade 3 invasive ductal carcinoma. There was lymphovascular invasion and perineural invasion identified. The right axillary lymph node biopsy showed metastatic carcinoma, grade 3. The breast prognostic profile showed ER positive at 20%. The KS was negative < 1%. The tumor was positive for overexpression of HER-2/dat, 3+ by IHC and amplification ratio by FISH of 1.2 with 3.3 HER-2 copies/cell. The Ki-67 was high at 15%. I had seen her initially on 01/31/2021. At that time we had discussed further management of the breast cancer with the expectation that she would likely begin neoadjuvant chemotherapy, though I had recommended that she first have a staging PET/CT. I also had recommended that she proceed with placement of Port-A-Cath venous access device, which became somewhat problematic due to restrictions associated with her insurance coverage. Staging PET/CT on 02/08/2021 showed an FDG avid solid lesion in the upper outer quadrant of the right breast measuring 1.3 x 0.8 cm, SUV 9.5, consistent with the known primary carcinoma. Two dominant FDG positive axillary lymph nodes had SUV up to 10.4. A 3rd node demonstrated a fatty hilum but with SUV 3.5. There were additional FDG positive nodes within the mediastinum including subcarinal, left upper hilar, right paratracheal 2R and 4R, and right hilar territory lymph nodes. The dominant left hilar lymph node had SUV 7.1. Multiple bilateral pulmonary nodules were noted, the largest in the right upper lobe measuring 7 mm. These showed mild FDG uptake and were felt to have high probability of representing metastatic disease. I had seen him for a follow-up visit on 02/14/2021. Given the PET/CT findings, I had recommended that she begin systemic therapy with paclitaxel in combination with Herceptin and Perjeta. She subsequently underwent placement of Port-A-Cath venous access device on 02/19/2021. Her baseline echocardiogram showed hypokinesia of the basal inferior wall segment but with normal left ventricular ejection fraction at 60%. Her other medical illnesses have been limited to hypertension and osteopenia. She has had no prior surgeries. She has a history of smoking 1 pack of cigarettes daily for 33 years. She quit smoking in 1999. INTERIM HISTORY: She began cycle 1 of paclitaxel/Herceptin/Perjeta on 03/19/2021 with the paclitaxel and Herceptin administered weekly in the Perjeta administered on a 3-week schedule. She tolerated the initial infusions without acute toxicity. She continued with her week 2 paclitaxel/Herceptin on 03/26/2021 and with week 3 treatment on 04/03/2021. She then had a planned treatment break at week 4 due to neutropenia. She then began cycle 2 on 04/16/2021 with the paclitaxel administered weekly and with the Herceptin and Perjeta administered at 3-week dosing. She is seen for a follow-up visit. She has been feeling pretty good generally. She says she does get tired easily, and she rests every afternoon. She is doing most of her regular activities. ECOG score is 1. She says her appetite is not that great, but she does eat. She has not had fever. She does have some sweating with her steroid premedication. She has a drippy nose. She has been getting mouth sores. She has been able to manage it adequately with salt and soda rinses. She does not complain of shortness of breath, cough, or chest pain. She has not been having nausea. She has occasional acid reflux. She gets diarrhea about once a week. It is managed with Imodium. She has no complaints. She has some soreness in her right shoulder. She has no other joint or bone pain. She does not complain of headache. She occasionally has dizziness. She has no numbness/paresthesia or other neuropathy symptoms. Medications: Alendronate Sodium 1 Tablet (of 70 mg) Oral q 7 days, Ascorbic Acid (500 mg) Tablet Oral b.i.d., Calcium Citrate + D3 (200-250 mg - Units) Tablet Oral daily, Daily Multiple Vitamins Tablet Oral daily, Lisinopril 1 Tablet (of 20 mg) Oral b.i.d., Magnesium (250 mg) Tablet Oral daily Allergies: No Known Allergies. Vital Signs: Performed on May 07, 2021 13:01 Height - 63.00 in Temperature - 97.9 F (LOW) Pulse - 71 /min Respiration - 18 /min BP - 130/67 mm(hg) O2 Sat - 98 % Performed on May 07, 2021 09:20 Height - 63.00 in Weight - 161.4 lbs (LOW) BSA - 1.77 sq.m BMI - 28.59 Temperature - 97.8 F (LOW) Pulse - 77 /min Respiration - 18 /min BP - 124/73 mm(hg) O2 Sat - 97 % Pain - 0 Fatigue - 0 Physical Examination: Constitutional - She looks pretty good generally, Eyes - Sclerae nonicteric. Conjunctivae clear, ENMT - No lesions noted in the oral cavity, Hematologic/Lymphatic - No cervical or clavicular adenopathy, Respiratory - Lungs are clear with good air movement bilaterally, Cardiovascular - Heart rhythm is regular. There is no murmur, gallop, or rub noted, Breasts - There is a small residual nodule in the right breast at approximately 10:00, in close proximity to the nipple areolar complex. It measures a centimeter or less. I do not feel any axillary adenopathy, Abdomen - Soft. Liver and spleen are not enlarged. There is no abdominal mass or ascites noted and there is no inguinal adenopathy, Extremities - No edema, Neurologic - No focal neurologic deficits noted. Lab/Imaging: Test performed on May 07, 2021 08:20 Sodium 136 mmol/L Potassium 4.2 mmol/L Chloride 103 mmol/L CO2 22 mmol/L Anion Gap 15.2 BUN 13 mg/dL Creatinine 0.7 mg/dL Cr Clearance (Est) 82.73 mL/min Glucose 136 mg/dL Osmolality - Calculated 284 mOsm/kg Calcium 8.8 mg/dL Protein, Total 6.4 g/dL Albumin 4.1 g/dL Globulin 2.3 g/dL Bilirubin, Total 0.3 mg/dL ALT (SGPT) 21 U/L AST (SGOT) 16 U/L Alkaline Phosphatase 48 IU/L WBC 7.5 10 3/uL RBC 3.76 10 6/uL HGB 11.5 g/dL HCT 35.1 % MCV 93.4 fl MCH 30.6 pg MCHC 32.8 g/dL RDW 13.9 % Platelet Count 268 10 3/cmm MPV 9.8 fL Neutrophils 6.46 10 3/uL Lymphocytes 0.7 10 3/uL Monocytes 0.2 10 3/uL Eosinophils 0.0 10 3/uL Basophils 0.0 10 3/uL Neutrophil % 85.9 % Lymphocyte % 9.6 % Monocyte % 2.1 % Eosinophil % 0.0 % Basophils % 0.4 % NRBC % 0 % Problem List: 1. Grade 3 invasive ductal carcinoma of the right breast, ER positive/KS negative and HER-2/dat positive, by clinical evaluation stage IV (T1, N1, M1). 2. Hypertension. 3. Osteopenia. Problems Addressed with this Encounter and Plan: Patient with grade 3 invasive ductal carcinoma of the right breast, ER positive/KS negative and HER-2/dat positive. She underwent ultrasound-guided biopsy of right breast mass and of right axillary lymph node on 01/27/2021. Her staging PET/CT on 02/08/2021 showed the FDG avid right breast mass and 2 or possibly 3 involved axillary lymph nodes. It also showed suspected involvement in mediastinal lymph nodes and subcentimeter pulmonary nodules bilaterally, suspicious for metastatic disease. As such, by clinical evaluation, her disease appeared to be stage IV (T1c, N1, M1). Given the PET/CT findings, she was recommended to begin systemic therapy with paclitaxel in combination with Herceptin and Perjeta. She began treatment on 03/19/2021 with the paclitaxel and Herceptin administered weekly to minimize toxicities. Following her week 3 paclitaxel she was given a planned treatment break. She then began cycle 2 on 04/16/2021 with the paclitaxel administered weekly and with the Herceptin and Perjeta administered at a 3-week dosing. She continues to have some fatigue with the chemotherapy and she has been getting small mouth sores. She has had very poor tolerance for the steroid premedication, but overall she is otherwise tolerated the treatment well. She does appear to be showing some response by clinical evaluation. She will proceed now with her third cycle of treatment. The Herceptin and Perjeta dosing will remain the same. She will now start Abraxane in place of the Taxol to minimize her steroid exposure. It will still be administered weekly, initially at 100 mg/m???. Blood counts will be monitored weekly. She will be scheduled for follow-up visit in 3 weeks. I will plan restaging PET/CT after 4 cycles, subject to verification of insurance coverage. Signed By: Lester Mcwililams M.D. <<Signature on File>>
== END 2021-05-13 23:59 | disposition home or self-care (01) ==
LOC: ONCMED 05:41
PROVIDERS: PCP Nurse Practitioner Family; Visit Provider Internal Medicine Medical Oncology
DX: Z51.11 Encounter for antineoplastic chemotherapy (principal); C50.811 Malignant neoplasm of overlapping sites of right female breast; Z17.0 Estrogen receptor positive status [ER+]; I10 Essential (primary) hypertension; M85.80 Other specified disorders of bone density and structure, unspecified site; Z79.899 Other long term (current) drug therapy; Z79.52 Long term (current) use of systemic steroids
CPT/HCPCS: 36415; 36591; 80053; 85025; 96367; 96375; 96413; 96417; 99214; J1100; J1200; J2469; J3490; J7030; J7050; J9264; J9267; J9306; J9355

== ENCOUNTER 2021-06-09 06:27 | Outpatient (RCR) | payer MEDICARE, MEDICAID, SELFPAY ==
[2021-05-14 09:41] LABS: Basophils % 0.8 %; Eosinophils # 0.1 10^3/uL (0.0-0.8); Eosinophils % 2.3 %; Hematocrit 33.4 % (37.0-47.0); Hemoglobin 11.1 g/dL (11.5-15.3); Lymphocytes # 1.2 10^3/uL (0.8-4.8); Lymphocytes % 31.1 %; Mean Corpuscular HGB Conc 33.2 g/dL (30.0-36.0); Mean Corpuscular Hemoglobin 31.2 pg (28.0-34.0); Mean Corpuscular Volume 93.8 fl (81-99); Mean Platelet Volume 9.7 fL (7.4-10.4); Monocytes # 0.3 10^3/uL (0.2-0.9); Monocytes % 8.5 %; Neutrophils # 2.17 10^3/uL (1.8-7.7); Neutrophils % 55.8 %; Nucleated Red Blood Cells % 0 %; Platelet Count 262 10^3/cmm (130-400); Red Blood Count 3.56 10^6/uL (4.1-5.3); Red Cell Distribution Width 13.8 % (12.1-15.1); White Blood Count 3.9 10^3/uL (4.0-10.0)
[2021-05-14] MEDS: sodium chloride 0.9% 250 ML IV (10:18)
[2021-05-14] MEDS: famotidine 20 mg/2 mL INJ IVP (10:18)
[2021-05-14] MEDS: acetaminophen 325 mg Tablet 650 MG PO (10:18)
[2021-05-14] MEDS: diphenhydrAMINE 50 mg/mL SDV 1mL 25 MG IV (10:19)
[2021-05-14] MEDS: palonosetron 0.25 mg/5 mL SDV IV (10:23)
[2021-05-22 08:47] LABS: Basophils # 0.1 10^3/uL (0.0-0.1); Basophils % 0.7 %; Eosinophils # 0.1 10^3/uL (0.0-0.8); Eosinophils % 0.7 %; Hematocrit 31.9 % (37.0-47.0); Hemoglobin 10.7 g/dL (11.5-15.3); Lymphocytes # 1.6 10^3/uL (0.8-4.8); Lymphocytes % 13.2 %; Mean Corpuscular HGB Conc 33.5 g/dL (30.0-36.0); Mean Corpuscular Hemoglobin 31.7 pg (28.0-34.0); Mean Corpuscular Volume 94.4 fl (81-99); Mean Platelet Volume 9.8 fL (7.4-10.4); Monocytes # 1.4 10^3/uL (0.2-0.9); Monocytes % 11.5 %; Neutrophils # 7.27 10^3/uL (1.8-7.7); Neutrophils % 59.2 %; Nucleated Red Blood Cells % 0 %; Platelet Count 191 10^3/cmm (130-400); Positive C 1; Positive M 1; Red Blood Count 3.38 10^6/uL (4.1-5.3); Red Cell Distribution Width 15.1 % (12.1-15.1); White Blood Count 12.3 10^3/uL (4.0-10.0)
[2021-05-22 09:08] LABS: Alanine Aminotransferase 17 U/L (0-33); Albumin Level 3.8 g/dL (3.5-5.2); Alkaline Phosphatase 59 IU/L (35-105); Anion Gap 14.8 (5-19); Aspartate Amino Transferase 17 U/L (0-32); Blood Urea Nitrogen 11 mg/dL (8-23); Calcium 8.1 mg/dL (8.5-10.5); Carbon Dioxide 21 mmol/L (22-29); Chloride 101 mmol/L (98-107); Globulin 2.1 g/dL (1.3-4.6); Glucose 98 mg/dL (65-115); Osmolality Calculated 275 mOsm/kg (285-295); Potassium 3.8 mmol/L (3.5-5.1); Sodium 133 mmol/L (136-145); Total Bilirubin 0.4 mg/dL (0.15-1.2); Total Protein 5.9 g/dL (6.6-8.7)
[2021-05-22 10:13] LABS: Slide Review Slide Review Perform
[2021-05-22] MEDS: sodium chloride 0.9% 250 ML 75 ML IV (10:50)
[2021-05-22] MEDS: famotidine 20 mg/2 mL INJ IVP (10:50)
[2021-05-22] MEDS: acetaminophen 325 mg Tablet 650 MG PO (10:50)
[2021-05-22] MEDS: diphenhydrAMINE 50 mg/mL SDV 1mL 25 MG IV (10:53)
[2021-05-22] MEDS: palonosetron 0.25 mg/5 mL SDV IV (10:57)
--- NOTE | 2021-05-24 11:22 | ONC FU_ITS ---
Dr. Mcwilliams Patient Follow-Up Note Patient: Odalis Woods Unit #: [id number]: [id number] Dicatated By: Lester Mcwilliams M.D.Date of Visit:May 22, 2021 Onc Med Follow-up/Prog Note Chief Complaint: Breast cancer. History of Present Illness: This is a 71 year-old woman with grade 3 invasive ductal carcinoma of the right breast, ER positive/PA negative and HER-2/dat positive. By clinical evaluation, she appeared to have de scott stage IV disease with PET/CT evidence of mediastinal and hilar lymph node involvement and with multiple small pulmonary nodules bilaterally. She had presented with a palpable lump in the right breast. Her diagnostic mammogram/ultrasound on 01/20/2021 was BI-RADS 5, highly suggestive of malignancy. The mammogram showed a spiculated high density mass with calcifications at the 10 to 11 o'clock position of the right breast. It measured 2.0 x 1.6 cm. Mildly prominent dense lymph nodes were noted in the right axilla. By ultrasound the lesion was located 4 cm from the nipple at the 10 o'clock position. It was hypoechoic and measured 1.8 x 1.4 x 1.7 cm. A few mildly abnormal lymph nodes were noted in the right axilla. On 01/27/2021 she underwent ultrasound directed biopsy of the right breast mass and of a right axillary lymph node. Pathology on the breast biopsy showed grade 3 invasive ductal carcinoma. There was lymphovascular invasion and perineural invasion identified. The right axillary lymph node biopsy showed metastatic carcinoma, grade 3. The breast prognostic profile showed ER positive at 20%. The PA was negative < 1%. The tumor was positive for overexpression of HER-2/dat, 3+ by IHC and amplification ratio by FISH of 1.2 with 3.3 HER-2 copies/cell. The Ki-67 was high at 15%. I had seen her initially on 01/31/2021. At that time we had discussed further management of the breast cancer with the expectation that she would likely begin neoadjuvant chemotherapy, though I had recommended that she first have a staging PET/CT. I also had recommended that she proceed with placement of Port-A-Cath venous access device, which became somewhat problematic due to restrictions associated with her insurance coverage. Staging PET/CT on 02/08/2021 showed an FDG avid solid lesion in the upper outer quadrant of the right breast measuring 1.3 x 0.8 cm, SUV 9.5, consistent with the known primary carcinoma. Two dominant FDG positive axillary lymph nodes had SUV up to 10.4. A 3rd node demonstrated a fatty hilum but with SUV 3.5. There were additional FDG positive nodes within the mediastinum including subcarinal, left upper hilar, right paratracheal 2R and 4R, and right hilar territory lymph nodes. The dominant left hilar lymph node had SUV 7.1. Multiple bilateral pulmonary nodules were noted, the largest in the right upper lobe measuring 7 mm. These showed mild FDG uptake and were felt to have high probability of representing metastatic disease. I had seen him for a follow-up visit on 02/14/2021. Given the PET/CT findings, I had recommended that she begin systemic therapy with paclitaxel in combination with Herceptin and Perjeta. She subsequently underwent placement of Port-A-Cath venous access device on 02/19/2021. Her baseline echocardiogram showed hypokinesia of the basal inferior wall segment but with normal left ventricular ejection fraction at 60%. Her other medical illnesses have been limited to hypertension and osteopenia. She has had no prior surgeries. She has a history of smoking 1 pack of cigarettes daily for 33 years. She quit smoking in 1999. INTERIM HISTORY: She began cycle 1 of paclitaxel/Herceptin/Perjeta on 03/19/2021 with the paclitaxel and Herceptin administered weekly in the Perjeta administered on a 3-week schedule. She tolerated the initial infusions without acute toxicity. She continued with her week 2 paclitaxel/Herceptin on 03/26/2021 and with week 3 treatment on 04/03/2021. She then had a planned treatment break at week 4 due to neutropenia. She then began cycle 2 on 04/16/2021 with the paclitaxel administered weekly and with the Herceptin and Perjeta administered at 3-week dosing. She tolerated that treatment well, though she was having increasing side effects with the steroid premedication. She continued with cycle 3 on 05/07/2021 with the taxane change to nab-paclitaxel. She has seen that day 15 of her 3rd cycle of treatment. She has been feeling pretty good generally, though she does complain that she gets tired pretty easily. Her ECOG score is 1. Appetite is fair. She does complain that food does not taste right. She has not had fever or night sweats. She reports having a drippy nose. She has had no mouth sores. She does not complain of cough or shortness of breath. She sometimes has aching in the sternal area. She has not had nausea or acid reflux symptoms. She has diarrhea once or twice a week. Bladder function has been okay. She also has some pain in her lower legs and she sometimes has headache. She does not complain of dizziness. She has no numbness/paresthesia or other neuropathy symptoms. Medications: Alendronate Sodium 1 Tablet (of 70 mg) Oral q 7 days, Ascorbic Acid (500 mg) Tablet Oral b.i.d., Calcium Citrate + D3 (200-250 mg - Units) Tablet Oral daily, Daily Multiple Vitamins Tablet Oral daily, Lisinopril 1 Tablet (of 20 mg) Oral b.i.d., Magnesium (250 mg) Tablet Oral daily Allergies: No Known Allergies. Vital Signs: Performed on May 22, 2021 10:59 Height - 63.00 in Weight - 161.6 lbs (HIGH) BSA - 1.77 sq.m BMI - 28.63 Temperature - 96.2 F (LOW) Pulse - 68 /min Respiration - 18 /min BP - 131/77 mm(hg) O2 Sat - 97 % Pain - 0 Fatigue - 6 Physical Examination: Constitutional - She looks pretty good generally, Eyes - Sclerae nonicteric. Conjunctivae clear, ENMT - No lesions noted in the oral cavity, Hematologic/Lymphatic - No cervical, clavicular, or axillary adenopathy, Respiratory - Lungs are clear with good air movement bilaterally, Cardiovascular - Heart rhythm is regular. There is no murmur, gallop, or rub noted, Abdomen - Soft. Liver and spleen are not enlarged. There is no abdominal mass or ascites noted and there is no inguinal adenopathy, Extremities - No edema, Neurologic - No focal neurologic deficits noted. Lab/Imaging: Test performed on May 22, 2021 08:10 Sodium 133 mmol/L Potassium 3.8 mmol/L Chloride 101 mmol/L CO2 21 mmol/L Anion Gap 14.8 BUN 11 mg/dL Creatinine 0.8 mg/dL Cr Clearance (Est) 72.3800 mL/min Glucose 98 mg/dL Osmolality - Calculated 275 mOsm/kg Calcium 8.1 mg/dL Protein, Total 5.9 g/dL Albumin 3.8 g/dL Globulin 2.1 g/dL Bilirubin, Total 0.4 mg/dL ALT (SGPT) 17 U/L AST (SGOT) 17 U/L Alkaline Phosphatase 59 IU/L WBC 12.3 10 3/uL RBC 3.38 10 6/uL HGB 10.7 g/dL HCT 31.9 % MCV 94.4 fl MCH 31.7 pg MCHC 33.5 g/dL RDW 15.1 % Platelet Count 191 10 3/cmm MPV 9.8 fL Neutrophils 7.27 10 3/uL Lymphocytes 1.6 10 3/uL Monocytes 1.4 10 3/uL Eosinophils 0.1 10 3/uL Basophils 0.1 10 3/uL Neutrophil % 59.2 % Lymphocyte % 13.2 % Monocyte % 11.5 % Eosinophil % 0.7 % Basophils % 0.7 % NRBC % 0 % CBC Slide Review Slide Review Perform Problem List: 1. Grade 3 invasive ductal carcinoma of the right breast, ER positive/PA negative and HER-2/dat positive, by clinical evaluation stage IV (T1, N1, M1). 2. Hypertension. 3. Osteopenia. Problems Addressed with this Encounter and Plan: Patient with grade 3 invasive ductal carcinoma of the right breast, ER positive/PA negative and HER-2/dat positive. She underwent ultrasound-guided biopsy of right breast mass and of right axillary lymph node on 01/27/2021. Her staging PET/CT on 02/08/2021 showed the FDG avid right breast mass and 2 or possibly 3 involved axillary lymph nodes. It also showed suspected involvement in mediastinal lymph nodes and subcentimeter pulmonary nodules bilaterally, suspicious for metastatic disease. As such, by clinical evaluation, her disease appeared to be stage IV (T1c, N1, M1). Given the PET/CT findings, she was recommended to begin systemic therapy with paclitaxel in combination with Herceptin and Perjeta. She began treatment on 03/19/2021 with the paclitaxel and Herceptin administered weekly to minimize toxicities. Following her week 3 paclitaxel she was given a planned treatment break. She then began cycle 2 on 04/16/2021 with the paclitaxel administered weekly and with the Herceptin and Perjeta administered at a 3-week dosing. She tolerated that treatment pretty well other than having increasing side effects with the steroid premedication. She continued with cycle 3 on 05/07/2021 with the taxane changed to nab-paclitaxel. She is now at day 15 of the 3rd cycle. She is having some fatigue with the chemotherapy and she is having some diarrhea, though it is adequately managed with Imodium. Thus far her blood counts have remained adequate and she has not been having significant neuropathy. She will proceed with her cycle 3-day 15 treatment. The dosage will remain the same. She returns in 2 weeks. I will plan for a restaging PET/CT prior to that visit to assess her response, but that will be subject to verification of insurance coverage. If she is showing a good response, with cycle 4 I will adjust her Abraxane to a 3-week dosing schedule. Signed By: Lester Mcwilliams M.D. <<Signature on File>>
[2021-06-09 09:37] LABS: Basophils # 0.1 10^3/uL (0.0-0.1); Basophils % 1.1 %; Eosinophils # 0.2 10^3/uL (0.0-0.8); Eosinophils % 2.1 %; Hematocrit 35.6 % (37.0-47.0); Hemoglobin 11.5 g/dL (11.5-15.3); Lymphocytes # 2.4 10^3/uL (0.8-4.8); Mean Corpuscular HGB Conc 32.3 g/dL (30.0-36.0); Mean Corpuscular Hemoglobin 31.3 pg (28.0-34.0); Mean Corpuscular Volume 96.7 fl (81-99); Mean Platelet Volume 9.5 fL (7.4-10.4); Monocytes % 10.7 %; Neutrophils # 5.35 10^3/uL (1.8-7.7); Neutrophils % 58.5 %; Nucleated Red Blood Cells % 0 %; Platelet Count 250 10^3/cmm (130-400); Red Blood Count 3.68 10^6/uL (4.1-5.3); Red Cell Distribution Width 15.1 % (12.1-15.1); White Blood Count 9.2 10^3/uL (4.0-10.0)
[2021-06-09 10:07] LABS: Alanine Aminotransferase 21 U/L (0-33); Albumin Level 4.1 g/dL (3.5-5.2); Alkaline Phosphatase 59 IU/L (35-105); Aspartate Amino Transferase 22 U/L (0-32); Blood Urea Nitrogen 10 mg/dL (8-23); Carbon Dioxide 23 mmol/L (22-29); Chloride 103 mmol/L (98-107); Globulin 2.4 g/dL (1.3-4.6); Glucose 88 mg/dL (65-115); Osmolality Calculated 280 mOsm/kg (285-295); Sodium 136 mmol/L (136-145); Total Bilirubin 0.2 mg/dL (0.15-1.2); Total Protein 6.5 g/dL (6.6-8.7)
[2021-06-09] MEDS: palonosetron 0.25 mg/5 mL SDV IV (11:10)
[2021-06-09] MEDS: acetaminophen 325 mg Tablet 650 MG PO (11:10)
[2021-06-09] MEDS: sodium chloride 0.9% 250 ML 75 ML IV (11:10)
[2021-06-09] MEDS: famotidine 20 mg/2 mL INJ IVP (11:11)
[2021-06-09] MEDS: diphenhydrAMINE 50 mg/mL SDV 1mL 25 MG IV (11:13)
--- NOTE | 2021-06-09 12:44 | ONC FU_ITS ---
Dr. Mcwilliams Patient Follow-Up Note Patient: Odalis Woods Unit #: [id number]: [id number] Dicatated By: Lester Mcwilliams M.D.Date of Visit:Jun 09, 2021 Onc Med Follow-up/Prog Note Chief Complaint: Breast cancer. History of Present Illness: This is a 71 year-old woman with grade 3 invasive ductal carcinoma of the right breast, ER positive/KS negative and HER-2/dat positive. By clinical evaluation, she appeared to have de scott stage IV disease with PET/CT evidence of mediastinal and hilar lymph node involvement and with multiple small pulmonary nodules bilaterally. She had presented with a palpable lump in the right breast. Her diagnostic mammogram/ultrasound on 01/20/2021 was BI-RADS 5, highly suggestive of malignancy. The mammogram showed a spiculated high density mass with calcifications at the 10 to 11 o'clock position of the right breast. It measured 2.0 x 1.6 cm. Mildly prominent dense lymph nodes were noted in the right axilla. By ultrasound the lesion was located 4 cm from the nipple at the 10 o'clock position. It was hypoechoic and measured 1.8 x 1.4 x 1.7 cm. A few mildly abnormal lymph nodes were noted in the right axilla. On 01/27/2021 she underwent ultrasound directed biopsy of the right breast mass and of a right axillary lymph node. Pathology on the breast biopsy showed grade 3 invasive ductal carcinoma. There was lymphovascular invasion and perineural invasion identified. The right axillary lymph node biopsy showed metastatic carcinoma, grade 3. The breast prognostic profile showed ER positive at 20%. The KS was negative < 1%. The tumor was positive for overexpression of HER-2/dat, 3+ by IHC and amplification ratio by FISH of 1.2 with 3.3 HER-2 copies/cell. The Ki-67 was high at 15%. I had seen her initially on 01/31/2021. At that time we had discussed further management of the breast cancer with the expectation that she would likely begin neoadjuvant chemotherapy, though I had recommended that she first have a staging PET/CT. I also had recommended that she proceed with placement of Port-A-Cath venous access device, which became somewhat problematic due to restrictions associated with her insurance coverage. Staging PET/CT on 02/08/2021 showed an FDG avid solid lesion in the upper outer quadrant of the right breast measuring 1.3 x 0.8 cm, SUV 9.5, consistent with the known primary carcinoma. Two dominant FDG positive axillary lymph nodes had SUV up to 10.4. A 3rd node demonstrated a fatty hilum but with SUV 3.5. There were additional FDG positive nodes within the mediastinum including subcarinal, left upper hilar, right paratracheal 2R and 4R, and right hilar territory lymph nodes. The dominant left hilar lymph node had SUV 7.1. Multiple bilateral pulmonary nodules were noted, the largest in the right upper lobe measuring 7 mm. These showed mild FDG uptake and were felt to have high probability of representing metastatic disease. I had seen him for a follow-up visit on 02/14/2021. Given the PET/CT findings, I had recommended that she begin systemic therapy with paclitaxel in combination with Herceptin and Perjeta. She subsequently underwent placement of Port-A-Cath venous access device on 02/19/2021. Her baseline echocardiogram showed hypokinesia of the basal inferior wall segment but with normal left ventricular ejection fraction at 60%. Her other medical illnesses have been limited to hypertension and osteopenia. She has had no prior surgeries. She has a history of smoking 1 pack of cigarettes daily for 33 years. She quit smoking in 1999. INTERIM HISTORY: She began cycle 1 of paclitaxel/Herceptin/Perjeta on 03/19/2021 with the paclitaxel and Herceptin administered weekly in the Perjeta administered on a 3-week schedule. She tolerated the initial infusions without acute toxicity. She continued with her week 2 paclitaxel/Herceptin on 03/26/2021 and with week 3 treatment on 04/03/2021. She then had a planned treatment break at week 4 due to neutropenia. She then began cycle 2 on 04/16/2021 with the paclitaxel administered weekly and with the Herceptin and Perjeta administered at 3-week dosing. She tolerated that treatment well, though she was having increasing side effects with the steroid premedication. She continued with cycle 3 on 05/07/2021 with the taxane change to nab-paclitaxel. Restaging PET/CT on 06/05/2021 showed bilateral axillary lymphadenopathy, more prominent on the left side with preserved fatty hilar tissue. A right level 1 lymph node appeared irregular measuring 1.0 cm in short axis with a maximum SUV 5.04. Focally increased metabolic activity was noted in the right breast at the location of the fiducial marker. There was associated irregular soft tissue density measuring approximate 1.2 cm with a maximum SUV 2.16. A 1.0 cm right precarinal lymph node had maximum SUV 2.97 and there was mild increased metabolic activity in both hilar regions, maximum SUV 3.88 on the right and 3.80 on the left. There was no pulmonary nodularity or focal increase of metabolic activity in the lung tissue. There are no osseous lesions noted. Inflammatory changes were present in the right shoulder. Overall, there was residual neoplastic activity in the breast and right axilla. The mediastinal and hilar activity was felt to be indeterminate. There was no strong evidence for distant metastatic involvement. She is seen for a follow-up visit. She says she has been feeling pretty good, though she does get tired easily. Her ECOG score is 1. Her appetite has not been very good, and she complains that food does not taste right. She has not had fever. She occasionally has sweating at night. She complains of having a drippy nose, but she is no longer having a sore mouth. She has no shortness of breath, cough, or chest pain. She has not been having nausea. She now has diarrhea just occasionally, about every 3 to 4 days, and it is well controlled with Imodium. She has no complaints. She has had some pain in her right shoulder. She has no other joint or bone pain. She does not complain of headache or dizziness. She has no numbness/paresthesia or other neuropathy symptoms. Medications: Alendronate Sodium 1 Tablet (of 70 mg) Oral q 7 days, Ascorbic Acid (500 mg) Tablet Oral b.i.d., Calcium Citrate + D3 (200-250 mg - Units) Tablet Oral daily, Daily Multiple Vitamins Tablet Oral daily, Lisinopril 1 Tablet (of 20 mg) Oral b.i.d., Magnesium (250 mg) Tablet Oral daily Allergies: No Known Allergies. Vital Signs: Performed on Jun 09, 2021 10:25 Height - 63.00 in Weight - 162.6 lbs (HIGH) BSA - 1.77 sq.m BMI - 28.80 Temperature - 97.3 F (LOW) Pulse - 77 /min Respiration - 18 /min BP - 182/78 mm(hg) (HIGH) O2 Sat - 97 % Pain - 0 Fatigue - 5 Physical Examination: Constitutional - She looks pretty good generally, Eyes - Sclerae nonicteric. Conjunctivae clear, ENMT - No lesions noted in the oral cavity, Hematologic/Lymphatic - No cervical, clavicular, or axillary adenopathy, Respiratory - Lungs are clear with good air movement bilaterally, Cardiovascular - Heart rhythm is regular. There is no murmur, gallop, or rub noted, Abdomen - Soft. Liver and spleen are not enlarged. There is no abdominal mass or ascites noted and there is no inguinal adenopathy, Extremities - No edema, Neurologic - No focal neurologic deficits noted. Lab/Imaging: Test performed on Jun 09, 2021 08:30 Sodium 136 mmol/L Potassium 4.0 mmol/L Chloride 103 mmol/L CO2 23 mmol/L Anion Gap 14.0 BUN 10 mg/dL Creatinine 0.7 mg/dL Cr Clearance (Est) 83.34 mL/min Glucose 88 mg/dL Osmolality - Calculated 280 mOsm/kg Calcium 9.0 mg/dL Protein, Total 6.5 g/dL Albumin 4.1 g/dL Globulin 2.4 g/dL Bilirubin, Total 0.2 mg/dL ALT (SGPT) 21 U/L AST (SGOT) 22 U/L Alkaline Phosphatase 59 IU/L WBC 9.2 10 3/uL RBC 3.68 10 6/uL HGB 11.5 g/dL HCT 35.6 % MCV 96.7 fl MCH 31.3 pg MCHC 32.3 g/dL RDW 15.1 % Platelet Count 250 10 3/cmm MPV 9.5 fL Neutrophils 5.35 10 3/uL Lymphocytes 2.4 10 3/uL Monocytes 1.0 10 3/uL Eosinophils 0.2 10 3/uL Basophils 0.1 10 3/uL Neutrophil % 58.5 % Lymphocyte % 26.0 % Monocyte % 10.7 % Eosinophil % 2.1 % Basophils % 1.1 % NRBC % 0 % Problem List: 1. Grade 3 invasive ductal carcinoma of the right breast, ER positive/KS negative and HER-2/dat positive, by clinical evaluation stage IV (T1, N1, M1). 2. Hypertension. 3. Osteopenia. Problems Addressed with this Encounter and Plan: Patient with grade 3 invasive ductal carcinoma of the right breast, ER positive/KS negative and HER-2/dat positive. She underwent ultrasound-guided biopsy of right breast mass and of right axillary lymph node on 01/27/2021. Her staging PET/CT on 02/08/2021 showed the FDG avid right breast mass and 2 or possibly 3 involved axillary lymph nodes. It also showed suspected involvement in mediastinal lymph nodes and subcentimeter pulmonary nodules bilaterally, suspicious for metastatic disease. As such, by clinical evaluation, her disease appeared to be stage IV (T1c, N1, M1). Given the PET/CT findings, she was recommended to begin systemic therapy with paclitaxel in combination with Herceptin and Perjeta. She began treatment on 03/19/2021 with the paclitaxel and Herceptin administered weekly to minimize toxicities. Following her week 3 paclitaxel she was given a planned treatment break. She then began cycle 2 on 04/16/2021 with the paclitaxel administered weekly and with the Herceptin and Perjeta administered at a 3-week dosing. She tolerated that treatment pretty well other than having increasing side effects with the steroid premedication. She then continued with cycle 3 on 05/07/2021 with the taxane changed to nab-paclitaxel. She has now completed 3 cycles of treatment. She appears to be tolerating it well, and she does appear to be showing response by restaging PET/CT, though as yet there is no direct comparison available, as the studies were performed at different imaging centers. She will proceed now with her 4th cycle of treatment. The Herceptin and Perjeta dosages will remain the same. The Abraxane will now be changed to a 3-week dosing schedule. Blood counts will be monitored weekly. I will see her again in 3 weeks. In the meantime, I will have her case presented at tumor board to discuss her further management. In the absence of any evidence of metastatic disease, she may be eligible to proceed with lumpectomy/excision of involved axillary lymph nodes and radiation.. Signed By: Lester Mcwilliams M.D. <<Signature on File>>
== END 2021-06-12 23:59 | disposition home or self-care (01) ==
LOC: ONCMED 06:27
PROVIDERS: PCP Nurse Practitioner Family; Visit Provider Internal Medicine Medical Oncology
DX: Z51.11 Encounter for antineoplastic chemotherapy (principal); C50.811 Malignant neoplasm of overlapping sites of right female breast; Z17.0 Estrogen receptor positive status [ER+]; I10 Essential (primary) hypertension; M85.80 Other specified disorders of bone density and structure, unspecified site; Z79.899 Other long term (current) drug therapy
CPT/HCPCS: 80053; 85025; 96367; 96372; 96375; 96413; 96417; 99215; J1100; J1200; J1442; J2469; J3490; J7050; J9264; J9306; J9355; Q5101

== ENCOUNTER 2021-06-12 08:46 | Outpatient (CLI) | payer MEDICARE, MEDICAID, SELFPAY ==
--- NOTE | 2021-06-12 08:56 | XR_ITS ---
WS: [id number] SCREENING DEXA SCAN [facility] CLINICAL INFORMATION: OSTEOPOROSIS/OSTEOPENIA COMPARISON: None. FINDINGS: The L1-L4 bone mineral density measures 1.135 g/cm2. This corresponds to a T score score of -0.4 and Z score of 1.0. Left femoral neck bone mineral density measures 0.878 g/cm2. This corresponds to a T score of -1.0 an d Z score of 0.4. Right femoral neck bone mineral density measures 0.934 g/cm2. This corresponds to a T score -0.6of an d Z score of 0.8. Mean femoral neck bone mineral density measures 0.906 g/cm2. This corresponds to a T score of -0.8 an d Z score of 0.6. XR/XR DEXA axial skeleton* [id number] IMPRESSION: Normal bone mineralization in the lumbar spine. Osteopenia in the femoral necks . Patient's FRAX calculated 10 year probability for major osteoporotic fracture i s 11.5 % and osteoporotic hip fracture is 2.3%.
== END 2021-06-12 08:47 | disposition home or self-care (01) ==
PROVIDERS: PCP Nurse Practitioner Family; Visit Provider Internal Medicine Medical Oncology
DX: M81.0 Age-related osteoporosis without current pathological fracture (principal)
CPT/HCPCS: 77080

== ENCOUNTER 2021-06-30 06:20 | Outpatient (RCR) | payer MEDICARE, MEDICAID, SELFPAY ==
[2021-06-16 14:35] LABS: Basophils # 0.1 10^3/uL (0.0-0.1); Basophils % 0.9 %; Eosinophils # 0.3 10^3/uL (0.0-0.8); Eosinophils % 4.8 %; Hematocrit 34.7 % (37.0-47.0); Hemoglobin 11.5 g/dL (11.5-15.3); Lymphocytes # 1.9 10^3/uL (0.8-4.8); Lymphocytes % 34.6 %; Mean Corpuscular HGB Conc 33.1 g/dL (30.0-36.0); Mean Corpuscular Hemoglobin 31.7 pg (28.0-34.0); Mean Corpuscular Volume 95.6 fl (81-99); Mean Platelet Volume 10.1 fL (7.4-10.4); Monocytes # 0.2 10^3/uL (0.2-0.9); Monocytes % 4.4 %; Neutrophils # 2.97 10^3/uL (1.8-7.7); Neutrophils % 54.9 %; Nucleated Red Blood Cells % 0 %; Platelet Count 244 10^3/cmm (130-400); Red Blood Count 3.63 10^6/uL (4.1-5.3); Red Cell Distribution Width 14.6 % (12.1-15.1); White Blood Count 5.4 10^3/uL (4.0-10.0)
[2021-06-16 15:38] LABS: Slide Review Slide Review Perform
[2021-06-23 11:25] LABS: Basophils % 0.8 %; Eosinophils # 0.2 10^3/uL (0.0-0.8); Eosinophils % 3.1 %; Hematocrit 34.9 % (37.0-47.0); Hemoglobin 11.5 g/dL (11.5-15.3); Mean Corpuscular Hemoglobin 30.7 pg (28.0-34.0); Mean Corpuscular Volume 93.1 fl (81-99); Mean Platelet Volume 9.3 fL (7.4-10.4); Monocytes # 0.8 10^3/uL (0.2-0.9); Monocytes % 16.2 %; Neutrophils # 1.84 10^3/uL (1.8-7.7); Neutrophils % 38.3 %; Nucleated Red Blood Cells % 0 %; Platelet Count 240 10^3/cmm (130-400); Red Blood Count 3.75 10^6/uL (4.1-5.3); Red Cell Distribution Width 14.6 % (12.1-15.1); White Blood Count 4.8 10^3/uL (4.0-10.0)
[2021-06-30 09:06] LABS: Basophils # 0.1 10^3/uL (0.0-0.1); Basophils % 0.8 %; Eosinophils # 0.2 10^3/uL (0.0-0.8); Eosinophils % 1.4 %; Hemoglobin 12.1 g/dL (11.5-15.3); Lymphocytes # 2.6 10^3/uL (0.8-4.8); Lymphocytes % 24.3 %; Mean Corpuscular HGB Conc 32.7 g/dL (30.0-36.0); Mean Corpuscular Hemoglobin 30.7 pg (28.0-34.0); Mean Corpuscular Volume 93.9 fl (81-99); Mean Platelet Volume 9.9 fL (7.4-10.4); Neutrophils # 6.75 10^3/uL (1.8-7.7); Neutrophils % 63.3 %; Nucleated Red Blood Cells % 0 %; Platelet Count 232 10^3/cmm (130-400); Red Blood Count 3.94 10^6/uL (4.1-5.3); Red Cell Distribution Width 14.3 % (12.1-15.1); White Blood Count 10.7 10^3/uL (4.0-10.0)
[2021-06-30 09:41] LABS: Alanine Aminotransferase 27 U/L (0-33); Alkaline Phosphatase 51 IU/L (35-105); Aspartate Amino Transferase 22 U/L (0-32); Blood Urea Nitrogen 12 mg/dL (8-23); Calcium 9.5 mg/dL (8.5-10.5); Carbon Dioxide 22 mmol/L (22-29); Chloride 103 mmol/L (98-107); Globulin 2.5 g/dL (1.3-4.6); Glucose 80 mg/dL (65-115); Osmolality Calculated 279 mOsm/kg (285-295); Sodium 135 mmol/L (136-145); Total Bilirubin 0.3 mg/dL (0.15-1.2); Total Protein 6.5 g/dL (6.6-8.7)
[2021-06-30] MEDS: acetaminophen 325 mg Tablet 650 MG PO (11:45)
[2021-06-30] MEDS: famotidine 20 mg/2 mL INJ IVP (11:48)
[2021-06-30] MEDS: sodium chloride 0.9% 250 ML 75 ML IV (11:48)
[2021-06-30] MEDS: diphenhydrAMINE 50 mg/mL SDV 1mL 25 MG IV (11:49)
[2021-06-30] MEDS: palonosetron 0.25 mg/5 mL SDV IV (11:53)
--- NOTE | 2021-07-08 23:22 | ONC FU_ITS ---
[facility] Patient Note Patient: Odalis Woods Unit #: [id number]: [id number] Dictated By: Joe MarrDate of Visit: Jun 30, 2021 Onc MED Follow-Up/Prog Note Chief Complaint: Breast cancer. History of Present Illness: Ms Woods is a 71 year-old woman with grade 3 invasive ductal carcinoma of the right breast, ER positive/WV negative and HER-2/dat positive. By clinical evaluation, she appeared to have de scott stage IV disease with PET/CT evidence of mediastinal and hilar lymph node involvement and with multiple small pulmonary nodules bilaterally. She had presented with a palpable lump in the right breast. Her diagnostic mammogram/ultrasound on 01/20/2021 was BI-RADS 5, highly suggestive of malignancy. The mammogram showed a spiculated high density mass with calcifications at the 10 to 11 o'clock position of the right breast. It measured 2.0 x 1.6 cm. Mildly prominent dense lymph nodes were noted in the right axilla. By ultrasound the lesion was located 4 cm from the nipple at the 10 o'clock position. It was hypoechoic and measured 1.8 x 1.4 x 1.7 cm. A few mildly abnormal lymph nodes were noted in the right axilla. On 01/27/2021 she underwent ultrasound directed biopsy of the right breast mass and of a right axillary lymph node. Pathology on the breast biopsy showed grade 3 invasive ductal carcinoma. There was lymphovascular invasion and perineural invasion identified. The right axillary lymph node biopsy showed metastatic carcinoma, grade 3. The breast prognostic profile showed ER positive at 20%. The WV was negative < 1%. The tumor was positive for overexpression of HER-2/dat, 3+ by IHC and amplification ratio by FISH of 1.2 with 3.3 HER-2 copies/cell. The Ki-67 was high at 15%. Dr Mcwilliams had seen her initially on 01/31/2021. At that time he had discussed further management of the breast cancer with the expectation that she would likely begin neoadjuvant chemotherapy, though he had recommended that she first have a staging PET/CT. Dr Mcwilliams also had recommended that she proceed with placement of Port-A-Cath venous access device, which became somewhat problematic due to restrictions associated with her insurance coverage. Staging PET/CT on 02/08/2021 showed an FDG avid solid lesion in the upper outer quadrant of the right breast measuring 1.3 x 0.8 cm, SUV 9.5, consistent with the known primary carcinoma. Two dominant FDG positive axillary lymph nodes had SUV up to 10.4. A 3rd node demonstrated a fatty hilum but with SUV 3.5. There were additional FDG positive nodes within the mediastinum including subcarinal, left upper hilar, right paratracheal 2R and 4R, and right hilar territory lymph nodes. The dominant left hilar lymph node had SUV 7.1. Multiple bilateral pulmonary nodules were noted, the largest in the right upper lobe measuring 7 mm. These showed mild FDG uptake and were felt to have high probability of representing metastatic disease. Dr Mcwilliams had seen Ms Woods again for a follow-up visit on 02/14/2021. Given the PET/CT findings, he had recommended that she begin systemic therapy with paclitaxel in combination with Herceptin and Perjeta. She subsequently underwent placement of Port-A-Cath venous access device on 02/19/2021. Her baseline echocardiogram showed hypokinesia of the basal inferior wall segment but with normal left ventricular ejection fraction at 60%. Her other medical illnesses have been limited to hypertension and osteopenia. She has had no prior surgeries. She has a history of smoking 1 pack of cigarettes daily for 33 years. She quit smoking in 1999. INTERIM HISTORY: She began cycle 1 of paclitaxel/Herceptin/Perjeta on 03/19/2021 with the paclitaxel and Herceptin administered weekly in the Perjeta administered on a 3-week schedule. She tolerated the initial infusions without acute toxicity. She continued with her week 2 paclitaxel/Herceptin on 03/26/2021 and with week 3 treatment on 04/03/2021. She then had a planned treatment break at week 4 due to neutropenia. She then began cycle 2 on 04/16/2021 with the paclitaxel administered weekly and with the Herceptin and Perjeta administered at 3-week dosing. She tolerated that treatment well, though she was having increasing side effects with the steroid premedication. She continued with cycle 3 on 05/07/2021 with the taxane change to nab-paclitaxel. Restaging PET/CT on 06/05/2021 showed bilateral axillary lymphadenopathy, more prominent on the left side with preserved fatty hilar tissue. A right level 1 lymph node appeared irregular measuring 1.0 cm in short axis with a maximum SUV 5.04. Focally increased metabolic activity was noted in the right breast at the location of the fiducial marker. There was associated irregular soft tissue density measuring approximate 1.2 cm with a maximum SUV 2.16. A 1.0 cm right precarinal lymph node had maximum SUV 2.97 and there was mild increased metabolic activity in both hilar regions, maximum SUV 3.88 on the right and 3.80 on the left. There was no pulmonary nodularity or focal increase of metabolic activity in the lung tissue. There are no osseous lesions noted. Inflammatory changes were present in the right shoulder. Overall, there was residual neoplastic activity in the breast and right axilla. The mediastinal and hilar activity was felt to be indeterminate. There was no strong evidence for distant metastatic involvement. Ms Woods is here today for followup and consideration of cycle 5 Abraxane/Herceptin/Perjeta. She was treated with cycle 4 on 06/09/2021. Her day 1 ANC was 5003 and 35 and her solomon was at day 15 with a low of 1840. She reports that she has been doing natural prebiotics and probiotics with milk Kefir and kombucha as well as fermented vegetables. Since implementing these into her diet, she states she feels better overall. She states she thinks her neuropathy is improving as well. She denies any fever or chills. She said no symptoms of infection for at least the last 72 hours. She denies any new shortness of breath orthopnea. She denies any cough or hemoptysis. She states she has not had any chest pain or palpitations. She denies any nausea or vomiting. Her bowels are better on the supplements . She states she is having less irregularity. She states overall she is feeling much better off of the steroids. Her appetite is good and her energy is fair. She is able to do all her ADLs without any assistance. Her ECOG is 1. Past Medical History: Hypertension Osteopenia Past Surgical History: Covid vaccine #2 moderna in 2020 Covid vaccine #1 moderna in 2020 POWERPORT left internal jugular???Dr. Rothman in 2020 Ultrasound-guided biopsy of right breast mass and a right axillary lymph node in 2020 Allergies: No Known Allergies. Medications: Alendronate Sodium 1 Tablet (of 70 mg) Oral q 7 days Ascorbic Acid (500 mg) Tablet Oral b.i.d. Calcium Citrate + D3 (200-250 mg - Units) Tablet Oral daily Daily Multiple Vitamins Tablet Oral daily Lisinopril 1 Tablet (of 20 mg) Oral b.i.d. Magnesium (250 mg) Tablet Oral daily Family History: Father had kidney cancer. He of unrelated lung disease. Mother had hypertension and following complications after a stroke. One brother and two sisters are in good health. There is no history of breast or ovarian cancer in the family. Social History: Ms. Woods is . Ms. Woods no longer smokes. She drinks occasionally. She has history of smoking 1 pack of cigarettes daily for 33 years. She quit smoking in 1999. She drinks 1 glass of red wine daily. Review Of Symptoms: <See Above> Vital Signs: Performed on Jun 30, 2021 10:44 Height - 63.00 in Weight - 162.8 lbs (HIGH) BSA - 1.77 sq.m BMI - 28.84 Temperature - 98.2 F (LOW) Pulse - 71 /min Respiration - 18 /min BP - 169/72 mm(hg) (HIGH) O2 Sat - 96 % Pain - 0 Fatigue - 0,1 - No physically strenuous activity, but ambulatory and able to carry out light or sedentary work (e.g. office work, light house work). (ECOG) Physical Examination: Constitutional Alert, oriented, no acute distress. Skin pink, warm and dry. Head Normocephalic; atraumatic. Eyes Conjunctivae and sclerae are clear and without icterus. Pupils are reactive and equal. ENMT No oral exudates, ulcers, masses, thrush or mucositis. Oropharynx clear. Tongue normal. Neck Supple without masses or thyromegaly. No jugular venous distension. Hematologic/Lymphatic No petechiae or purpura. No tender or palpable lymph nodes in the cervical or supraclavicular areas. Respiratory Lungs are clear to auscultation without rhonchi or wheezing. Cardiovascular Regular rate and rhythm of heart without murmurs,clicks, gallops or rubs. Chest Left internal jugular venous access device placement site has healed well and is unremarkable. Breasts Abdomen Non-tender, non-distended, no masses or ascites. Good bowel sounds noted in all quads. No guarding or rebound tenderness. No pulsatile masses. Back/Spine Non-tender to palpation. Extremities No visible deformities, no cyanosis, clubbing or edema. Musculoskeletal No tenderness or swelling, normal range of motion without obvious weakness. Integumentary No rashes or lesions. Neurologic No sensory or motor deficits, normal cerebellar function, normal gait. Psychiatric Alert and oriented times three. Coherent speech. Verbalizes understanding of our discussions today. Laboratory:Test performed on Jun 30, 2021 08:15 Sodium 135 mmol/L Potassium 4.0 mmol/L Chloride 103 mmol/L CO2 22 mmol/L Anion Gap 14.0 BUN 12 mg/dL Creatinine 0.8 mg/dL Cr Clearance (Est) 72.9200 mL/min Glucose 80 mg/dL Osmolality - Calculated 279 mOsm/kg Calcium 9.5 mg/dL Protein, Total 6.5 g/dL Albumin 4.0 g/dL Globulin 2.5 g/dL Bilirubin, Total 0.3 mg/dL ALT (SGPT) 27 U/L AST (SGOT) 22 U/L Alkaline Phosphatase 51 IU/L WBC 10.7 10 3/uL RBC 3.94 10 6/uL HGB 12.1 g/dL HCT 37.0 % MCV 93.9 fl MCH 30.7 pg MCHC 32.7 g/dL RDW 14.3 % Platelet Count 232 10 3/cmm MPV 9.9 fL Neutrophils 6.75 10 3/uL Lymphocytes 2.6 10 3/uL Monocytes 1.0 10 3/uL Eosinophils 0.2 10 3/uL Basophils 0.1 10 3/uL Neutrophil % 63.3 % Lymphocyte % 24.3 % Monocyte % 9.0 % Eosinophil % 1.4 % Basophils % 0.8 % NRBC % 0 % Impression: 1. Grade 3 invasive ductal carcinoma of the right breast, ER positive/WV negative and HER-2/dat positive, by clinical evaluation stage IV (T1, N1, M1). 2. Hypertension. 3. Osteopenia. Plan/Problems Addressed at this Visit: Grade 3 invasive ductal carcinoma of the right breast, ER positive/WV negative and HER-2/dat positive. She underwent ultrasound-guided biopsy of right breast mass and of right axillary lymph node on 01/27/2021. Her staging PET/CT on 02/08/2021 showed the FDG avid right breast mass and 2 or possibly 3 involved axillary lymph nodes. It also showed suspected involvement in mediastinal lymph nodes and subcentimeter pulmonary nodules bilaterally, suspicious for metastatic disease. As such, by clinical evaluation, her disease appeared to be stage IV (T1c, N1, M1). Given the PET/CT findings, she was recommended to begin systemic therapy with paclitaxel in combination with Herceptin and Perjeta. She began treatment on 03/19/2021 with the paclitaxel and Herceptin administered weekly to minimize toxicities. Following her week 3 paclitaxel she was given a planned treatment break. She then began cycle 2 on 04/16/2021 with the paclitaxel administered weekly and with the Herceptin and Perjeta administered at a 3-week dosing. She tolerated that treatment pretty well other than having increasing side effects with the steroid premedication. She then continued with cycle 3 on 05/07/2021 with the taxane changed to nab-paclitaxel. She has now completed 4 cycles of treatment. She appears to be tolerating it well, and she does appear to be showing response by restaging PET/CT, though as yet there is no direct comparison available, as the studies were performed at different imaging centers. The Herceptin and Perjeta dosages will remain the same. The Abraxane was changed to a 3-week dosing schedule. A. Proceed with cycle six 3-week dosing of Abraxane/Herceptin and Perjeta. B. Continue current antiemetics as these are working well for her. C. Today's labs were reviewed in detail and discussed with Ms. Woods and a copy was given to her. WBC 10.0, hemoglobin 12.1, platelets 232,000 ANC is 6750. Potassium 4.0 random glucose 80 creatinine 0.7 her LFTs are normal. Her weight today is stable at 162.8. D. She may continue her current pre and probiotic regimen. We did discuss should she become neutropenic again she may need to repeat exercise extra caution utilizing these products as it has been rare cases reported of infection from the pre- or probiotics. E. We will plan to see her back in 3 weeks with CBC CMP. If. I did not request interim labs as her interim labs with cycle 4 were all stable. She is advised to call if she has any signs or symptoms of infection, fatigue or feels that her overall status is changed and we can draw her CBC CMP at any time. F. We have requested her PET scan disc again from [facility] for comparisons and Mrs. Woods would like a copy of the disc as well. F. I have asked for repeat echocardiogram just to assess her LV function for monitoring of the Herceptin and Perjeta. I do not see a follow-up echocardiogram in our computer system from her baseline echocardiogram from February 25, 2021. Her LVEF at that time was estimated at 60%. Hypokinesia of the basilar inferior wall segment was also noted. She denies any chest pain or angina type symptoms. G. Mrs. Woods was encouraged to contact us in interim should questions or problems arise. H. She did have DEXA scan on 06/12/2021 which reported a mean femoral neck bone mineral density with a T score of -0.8. The L1???L4 bone mineral density measured T score -0.4. It reported normal bone mineralization in the lumbar spine but osteopenia in the femoral necks. I. Her last diagnostic mammogram was on January 20, 2021 which time she had breast ultrasound. 2. POWER-PORT Venous access device left internal juglar vein per Dr. Rothman on 02/19/2021. A. She will continue port maintenance with port flush with each access. Dr Mcwilliams had planned to present her case to tumor board but it was rescheduled and has yet to be presented. However, until otherwise noted, her current treatment plan is to compete 6 cycles of chemotherapy and then consider surgery. In the absence of any evidence of metastatic disease, she may be eligible to proceed with lumpectomy/excision of involved axillary lymph nodes and radiation. Signed By: Joe Marr-, [facility] Lester Mcwilliams MD <<Signature on File>>
== END 2021-07-13 23:59 | disposition home or self-care (01) ==
LOC: ONCMED 06:20
PROVIDERS: Internal Medicine Medical Oncology; PCP Nurse Practitioner Family; Visit Provider Nurse Practitioner
DX: Z51.11 Encounter for antineoplastic chemotherapy (principal); C50.811 Malignant neoplasm of overlapping sites of right female breast; Z17.0 Estrogen receptor positive status [ER+]; C77.2 Secondary and unspecified malignant neoplasm of intra-abdominal lymph nodes; C78.01 Secondary malignant neoplasm of right lung; C78.02 Secondary malignant neoplasm of left lung; I10 Essential (primary) hypertension; M85.80 Other specified disorders of bone density and structure, unspecified site; Z79.899 Other long term (current) drug therapy
CPT/HCPCS: 36591; 80053; 85025; 96367; 96375; 96413; 96417; 99215; J1100; J1200; J2469; J3490; J7050; J9264; J9306; J9355

== ENCOUNTER 2021-08-11 06:29 | Outpatient (RCR) | payer MEDICARE, MEDICAID, SELFPAY ==
[2021-07-21 08:43] LABS: Basophils # 0.1 10^3/uL (0.0-0.1); Basophils % 0.6 %; Eosinophils # 0.1 10^3/uL (0.0-0.8); Eosinophils % 0.9 %; Hematocrit 38.1 % (37.0-47.0); Hemoglobin 12.5 g/dL (11.5-15.3); Lymphocytes # 2.8 10^3/uL (0.8-4.8); Mean Corpuscular HGB Conc 32.8 g/dL (30.0-36.0); Mean Corpuscular Hemoglobin 30.6 pg (28.0-34.0); Mean Corpuscular Volume 93.2 fl (81-99); Mean Platelet Volume 9.7 fL (7.4-10.4); Monocytes # 1.2 10^3/uL (0.2-0.9); Monocytes % 9.6 %; Neutrophils # 8.25 10^3/uL (1.8-7.7); Neutrophils % 65.7 %; Nucleated Red Blood Cells % 0 %; Platelet Count 253 10^3/cmm (130-400); Red Blood Count 4.09 10^6/uL (4.1-5.3); Red Cell Distribution Width 13.7 % (12.1-15.1); White Blood Count 12.6 10^3/uL (4.0-10.0)
[2021-07-21 09:00] LABS: Alanine Aminotransferase 27 U/L (0-33); Albumin Level 4.2 g/dL (3.5-5.2); Alkaline Phosphatase 53 IU/L (35-105); Anion Gap 15.2 (5-19); Aspartate Amino Transferase 21 U/L (0-32); Blood Urea Nitrogen 12 mg/dL (8-23); Calcium 9.4 mg/dL (8.5-10.5); Carbon Dioxide 23 mmol/L (22-29); Chloride 103 mmol/L (98-107); Globulin 2.5 g/dL (1.3-4.6); Glucose 82 mg/dL (65-115); Osmolality Calculated 283 mOsm/kg (285-295); Potassium 4.2 mmol/L (3.5-5.1); Sodium 137 mmol/L (136-145); Total Bilirubin 0.3 mg/dL (0.15-1.2); Total Protein 6.7 g/dL (6.6-8.7)
[2021-07-21] MEDS: acetaminophen 325 mg Tablet 650 MG PO (10:30)
[2021-07-21] MEDS: diphenhydrAMINE 50 mg/mL SDV 1mL 25 MG IV (10:31)
[2021-07-21] MEDS: sodium chloride 0.9% 250 ML 75 ML IV (10:31)
[2021-07-21 10:56] LABS: 25 Hydroxy Vitamin D 25 ng/mL (30-100)
--- NOTE | 2021-07-21 18:01 | ONC FU_ITS ---
Dr. Mcwilliams Patient Follow-Up Note Patient: Odalis Woods Unit #: [id number]: 1950 Dicatated By: Lester Mcwilliams M.D.Date of Visit:Jul 21, 2021 Onc Med Follow-up/Prog Note Chief Complaint: Breast cancer. History of Present Illness: This is a 71 year-old woman with grade 3 invasive ductal carcinoma of the right breast, ER positive/NV negative and HER-2/dat positive. By clinical evaluation, she appeared to have de scott stage IV disease with PET/CT evidence of mediastinal and hilar lymph node involvement and with multiple small pulmonary nodules bilaterally. She had presented with a palpable lump in the right breast. Her diagnostic mammogram/ultrasound on 01/20/2021 was BI-RADS 5, highly suggestive of malignancy. The mammogram showed a spiculated high density mass with calcifications at the 10 to 11 o'clock position of the right breast. It measured 2.0 x 1.6 cm. Mildly prominent dense lymph nodes were noted in the right axilla. By ultrasound the lesion was located 4 cm from the nipple at the 10 o'clock position. It was hypoechoic and measured 1.8 x 1.4 x 1.7 cm. A few mildly abnormal lymph nodes were noted in the right axilla. On 01/27/2021 she underwent ultrasound directed biopsy of the right breast mass and of a right axillary lymph node. Pathology on the breast biopsy showed grade 3 invasive ductal carcinoma. There was lymphovascular invasion and perineural invasion identified. The right axillary lymph node biopsy showed metastatic carcinoma, grade 3. The breast prognostic profile showed ER positive at 20%. The NV was negative < 1%. The tumor was positive for overexpression of HER-2/dat, 3+ by IHC and amplification ratio by FISH of 1.2 with 3.3 HER-2 copies/cell. The Ki-67 was high at 15%. I had seen her initially on 01/31/2021. At that time we had discussed further management of the breast cancer with the expectation that she would likely begin neoadjuvant chemotherapy, though I had recommended that she first have a staging PET/CT. I also had recommended that she proceed with placement of Port-A-Cath venous access device, which became somewhat problematic due to restrictions associated with her insurance coverage. Staging PET/CT on 02/08/2021 showed an FDG avid solid lesion in the upper outer quadrant of the right breast measuring 1.3 x 0.8 cm, SUV 9.5, consistent with the known primary carcinoma. Two dominant FDG positive axillary lymph nodes had SUV up to 10.4. A 3rd node demonstrated a fatty hilum but with SUV 3.5. There were additional FDG positive nodes within the mediastinum including subcarinal, left upper hilar, right paratracheal 2R and 4R, and right hilar territory lymph nodes. The dominant left hilar lymph node had SUV 7.1. Multiple bilateral pulmonary nodules were noted, the largest in the right upper lobe measuring 7 mm. These showed mild FDG uptake and were felt to have high probability of representing metastatic disease. I had seen her for a follow-up visit on 02/14/2021. Given the PET/CT findings, I had recommended that she begin systemic therapy with paclitaxel in combination with Herceptin and Perjeta. She subsequently underwent placement of Port-A-Cath venous access device on 02/19/2021. Her baseline echocardiogram showed hypokinesia of the basal inferior wall segment but with normal left ventricular ejection fraction at 60%. Her other medical illnesses have been limited to hypertension and osteopenia. She has had no prior surgeries. She has a history of smoking 1 pack of cigarettes daily for 33 years. She quit smoking in 1999. INTERIM HISTORY: She began cycle 1 of paclitaxel/Herceptin/Perjeta on 03/19/2021 with the paclitaxel and Herceptin administered weekly in the Perjeta administered on a 3-week schedule. She tolerated the initial infusions without acute toxicity. She continued with her week 2 paclitaxel/Herceptin on 03/26/2021 and with week 3 treatment on 04/03/2021. She then had a planned treatment break at week 4 due to neutropenia. She then began cycle 2 on 04/16/2021 with the paclitaxel administered weekly and with the Herceptin and Perjeta administered at 3-week dosing. She tolerated that treatment well, though she was having increasing side effects with the steroid premedication. She continued with cycle 3 on 05/07/2021 with the taxane change to nab-paclitaxel. Restaging PET/CT on 06/05/2021 showed bilateral axillary lymphadenopathy, more prominent on the left side with preserved fatty hilar tissue. A right level 1 lymph node appeared irregular measuring 1.0 cm in short axis with a maximum SUV 5.04. Focally increased metabolic activity was noted in the right breast at the location of the fiducial marker. There was associated irregular soft tissue density measuring approximate 1.2 cm with a maximum SUV 2.16. A 1.0 cm right precarinal lymph node had maximum SUV 2.97 and there was mild increased metabolic activity in both hilar regions, maximum SUV 3.88 on the right and 3.80 on the left. There was no pulmonary nodularity or focal increase of metabolic activity in the lung tissue. There are no osseous lesions noted. Inflammatory changes were present in the right shoulder. Overall, there was residual neoplastic activity in the breast and right axilla. The mediastinal and hilar activity was felt to be indeterminate. There was no strong evidence for distant metastatic involvement. With those findings, she continued with cycle 4 of Abraxane/Herceptin/Perjeta on 06/09/2021 and with that cycle the Abraxane was changed to 3-week dosing. She continued with cycle 5 on 06/30/2021. She is seen for a follow-up visit. She says she had a lot more side effects with her last treatment, particularly numbness in her toes, which has persisted. Her energy is just fair. She is still able to do light work. ECOG score is 1. Her appetite is the same. She has not had fever. She is having hot flashes and sweating at times. She complains that her eyelids are itchy and that her nose drips. She has not had mouth sores. She has no shortness of breath, cough, or chest pain. She has no GI or complaints. She does complain that her legs are achy. She occasionally has headache and she also has some dizziness. Medications: Alendronate Sodium 1 Tablet (of 70 mg) Oral q 7 days, Ascorbic Acid (500 mg) Tablet Oral b.i.d., Calcium Citrate + D3 (200-250 mg - Units) Tablet Oral daily, Daily Multiple Vitamins Tablet Oral daily, Lisinopril 1 Tablet (of 20 mg) Oral b.i.d., Magnesium (250 mg) Tablet Oral daily Allergies: No Known Allergies. Vital Signs: Performed on Jul 21, 2021 09:31 Height - 63.00 in Weight - 164.4 lbs (HIGH) BSA - 1.78 sq.m BMI - 29.12 Temperature - 99.3 F (HIGH) Pulse - 74 /min Respiration - 18 /min BP - 163/82 mm(hg) (HIGH) O2 Sat - 97 % Pain - 0 Fatigue - 6 Physical Examination: Constitutional - She looks pretty good generally, Eyes - Sclerae nonicteric. Conjunctivae clear, ENMT - No lesions noted in the oral cavity, Hematologic/Lymphatic - No cervical or clavicular adenopathy, Respiratory - Lungs are clear with good air movement bilaterally, Cardiovascular - Heart rhythm is regular. There is no murmur, gallop, or rub noted, Breasts - I am not able to palpate any mass in the right breast and there is no palpable axillary adenopathy, Abdomen - Soft. Liver and spleen are not enlarged. There is no abdominal mass or ascites noted and there is no inguinal adenopathy, Extremities - No edema, Neurologic - No focal neurologic deficits noted. Lab/Imaging: Test performed on Jul 21, 2021 08:20 Sodium 137 mmol/L Vitamin D (25-Hydroxy), Total 25 ng/mL Potassium 4.2 mmol/L Chloride 103 mmol/L CO2 23 mmol/L Anion Gap 15.2 BUN 12 mg/dL Creatinine 0.6 mg/dL Cr Clearance (Est) 97.2300 mL/min Glucose 82 mg/dL Osmolality - Calculated 283 mOsm/kg Calcium 9.4 mg/dL Protein, Total 6.7 g/dL Albumin 4.2 g/dL Globulin 2.5 g/dL Bilirubin, Total 0.3 mg/dL ALT (SGPT) 27 U/L AST (SGOT) 21 U/L Alkaline Phosphatase 53 IU/L WBC 12.6 10 3/uL RBC 4.09 10 6/uL HGB 12.5 g/dL HCT 38.1 % MCV 93.2 fl MCH 30.6 pg MCHC 32.8 g/dL RDW 13.7 % Platelet Count 253 10 3/cmm MPV 9.7 fL Neutrophils 8.25 10 3/uL Lymphocytes 2.8 10 3/uL Monocytes 1.2 10 3/uL Eosinophils 0.1 10 3/uL Basophils 0.1 10 3/uL Neutrophil % 65.7 % Lymphocyte % 22.0 % Monocyte % 9.6 % Eosinophil % 0.9 % Basophils % 0.6 % NRBC % 0 % Problem List: 1. Grade 3 invasive ductal carcinoma of the right breast, ER positive/NV negative and HER-2/dat positive, by clinical evaluation stage IV (T1, N1, M1). 2. Hypertension. 3. Osteopenia. Problems Addressed with this Encounter and Plan: Patient with grade 3 invasive ductal carcinoma of the right breast, ER positive/NV negative and HER-2/dat positive. She underwent ultrasound-guided biopsy of right breast mass and of right axillary lymph node on 01/27/2021. Her staging PET/CT on 02/08/2021 showed the FDG avid right breast mass and 2 or possibly 3 involved axillary lymph nodes. It also showed suspected involvement in mediastinal lymph nodes and subcentimeter pulmonary nodules bilaterally, suspicious for metastatic disease. As such, by clinical evaluation, her disease appeared to be stage IV (T1c, N1, M1). Given the PET/CT findings, she was recommended to begin systemic therapy with paclitaxel in combination with Herceptin and Perjeta. She began treatment on 03/19/2021 with the paclitaxel and Herceptin administered weekly to minimize toxicities. Following her week 3 paclitaxel she was given a planned treatment break. She then began cycle 2 on 04/16/2021 with the paclitaxel administered weekly and with the Herceptin and Perjeta administered at a 3-week dosing. She tolerated that treatment pretty well other than having increasing side effects with the steroid premedication. She then continued with cycle 3 on 05/07/2021 with the taxane changed to nab-paclitaxel. She had evidence of response by restaging PET/CT on 06/05/2021. She then continued with cycle 4 of Abraxane/Herceptin/Perjeta on 06/09/2021 and with cycle 5 on 06/30/2021. She is now experiencing more significant side effects with the chemotherapy. As such, I am now going to omit the Abraxane from the regimen. She will continue Herceptin/Perjeta at 3-week intervals. As her tumor was ER positive, she also will now begin adjuvant hormonal therapy with anastrozole 1 mg daily. I had her case presented at tumor board last week and with her PET/CT showing residual disease confined to the breast and axilla, it was felt that she was appropriate candidate to continue with lumpectomy/axillary node sampling and radiation. As such, she will be scheduled for ultrasound of the right breast and axilla, and she will be scheduled for a follow-up visit with Dr. Rothman. She returns here in 3 weeks. 2. Her baseline DEXA scan did show evidence of osteopenia with T score -0.4 in the lumbar spine, -1.0 in the left femoral neck, and -0.6 in the right femoral neck. Her 25-hydroxy vitamin D level was slightly low, and she will increase her vitamin D3 supplementation. In addition, she will begin treatment with Prolia for bone health, subject to verification of insurance coverage. Signed By: Lester Mcwilliams M.D. <<Signature on File>>
--- NOTE | 2021-07-30 10:49 | N.ONRAD NP_ITS ---
Radiation Oncology Consultation Patient Name: Odalis Woods Date of : 1950 Date of Service: 07/30/2021 Attending Physician: Prosper Freeman M.D. Odalis Woods was seen in consultation this morning at the request of Ramírez Rothman M.D. to discuss adjuvant radiotherapy for the management of a locally advanced breast cancer. She was evaluated by her primary care physician in for a palpable right breast mass. A diagnostic right mammogram and ultrasound ordered on January 21, 2020 identified a 2 cm x 1.6 cm spiculated mass at the 10 o'clock position within the right breast and right axillary lymphadenopathy. Ultrasonography demonstrated a 1.8 cm x 1.4 cm x 1.7 cm hypoechoic mass in the right breast at the 10 o'clock position, 4 cm from the nipple. A needle core biopsy performed on 01/27/2021 diagnosed a grade 3 invasive ductal carcinoma with lymphovascular and perineural invasion described. A right axillary lymph node biopsy confirmed a metastatic deposit. The breast cancer profile demonstrated estrogen receptor positivity (20%), and HER-2 positivity (3+), but negative progesterone receptor staining. The Ki???67 was 15%. PET/CT imaging completed on 02/08/2021 revealed the right breast mass (SUV 9.5), hypermetabolic right axillary lymphadenopathy (SUV 10.4), multiple bilateral pulmonary nodules with hilar (bilateral) and mediastinal adenopathy (SUV 7.1). She received neoadjuvant chemotherapy consisting of paclitaxel (Abraxane was prescribed during cycle 3), Herceptin, and Pejeta. Cycle 1 began on March 19, 2021 through cycle 4 ending on January 03, 2021. A PET CT ordered following cycle 4 (June 09, 2021) reported a 1.2 cm right breast lesion with an SUV of 2.2, FDG activity within the right axilla, and bilateral hilar lymphadenopathy with mild metabolic activity (SUV 3.9) consistent with laboratory changes. The patient's last chemotherapy administration (cycle 6-Abraxane omitted) was July 21, 2021. The patient was scheduled to address potential adjuvant radiotherapy. I discussed the patient's AJCC presumptive clinical stage IV ([id number]) specific to her breast cancer diagnosis. Taking into consideration the disease response to chemotherapy, adjuvant radiotherapy would be recommended in the setting of breast conservation surgery. I would endorse a five week course of adjuvant breast and regional lymph node radiotherapy. An additional week would be administered to the surgical bed at the conclusion of the whole breast treatment as a consequence of the patient's high-grade tumor characteristics in accordance to the VAL guidelines. The potential toxicities of breast and regional lymph node irradiation were canvassed. The patient has verbalized understanding would like to proceed as recommended. The patient's medical treatment plan was discussed with Lester Mcwilliams M.D. Signed by: Dr. Prosper Freeman 07/30/2021 10:47:43 AM
--- NOTE | 2021-08-05 07:39 | USCV_ITS ---
Odalis Woods Age: 71 Gender: F : 1950 Exam Date: 08/05/2021 08:19 Ordering Phys: Nelly Rojas NP Technologist: MELY Exam Location: [facility] – [place] Indication: BREAST CANCER BP: 117 / 79 HR: 66 Rhythm: Sinus Technical Quality: Adequate MEASUREMENTS (Male / Female) Normal Values 2D ECHO LV Diastolic Diameter PLAX 3.3 cm 4.2 - 5.9 / 3.9 - 5.3 cm LV Systolic Diameter PLAX 2.2 cm IVS Diastolic Thickness 1.0 cm 0.6 - 1.0 / 0.6 - 0.9 cm IVS Systolic Thickness 1.1 cm LVPW Diastolic Thickness 1.6 cm 0.6 - 1.0 / 0.6 - 0.9 cm LVPW Systolic Thickness 1.1 cm RV Chamber Size 2.7 cm LVOT Diameter 2.0 cm LV Ejection Fraction 2D Teich 62.2 % LV Ejection Fraction MOD 2C 49.6 % LV Ejection Fraction 2C AL 51.5 % LA Diameter 2.9 cm LA Width 4.0 cm LA Height 3.4 cm RA Width 2.7 cm RA Height 3.5 cm Aorta at Sinotubular Diameter 2.1 cm FINDINGS Left Ventricle Right Ventricle Right Atrium Normal in size Left Atrium Normal in size Mitral Valve Aortic Valve Tricuspid Valve Pulmonic Valve Pericardium Aorta CONCLUSIONS On the limited echocardiogram performed to assess LV systolic function. LV systolic function is normal with EF of 55-60%. No regional wall motion abnormalities are seen Compared to prior echocardiogram from 02/25/2021, no significant changes are seen. Justice Blunt MD (Electronically Signed) Final Date: 11 August 2021 10:25 S
[2021-08-11 09:16] LABS: Basophils # 0.1 10^3/uL (0.0-0.1); Basophils % 0.6 %; Eosinophils # 0.2 10^3/uL (0.0-0.8); Eosinophils % 2.6 %; Hematocrit 36.5 % (37.0-47.0); Hemoglobin 12.4 g/dL (11.5-15.3); Lymphocytes # 2.1 10^3/uL (0.8-4.8); Lymphocytes % 25.7 %; Mean Corpuscular Hemoglobin 30.5 pg (28.0-34.0); Mean Corpuscular Volume 89.7 fl (81-99); Mean Platelet Volume 10.2 fL (7.4-10.4); Monocytes # 0.8 10^3/uL (0.2-0.9); Monocytes % 9.9 %; Neutrophils # 4.93 10^3/uL (1.8-7.7); Neutrophils % 60.8 %; Nucleated Red Blood Cells % 0 %; Platelet Count 234 10^3/cmm (130-400); Red Blood Count 4.07 10^6/uL (4.1-5.3); Red Cell Distribution Width 13.2 % (12.1-15.1); White Blood Count 8.1 10^3/uL (4.0-10.0)
[2021-08-11 09:32] LABS: Alanine Aminotransferase 24 U/L (0-33); Albumin Level 4.1 g/dL (3.5-5.2); Alkaline Phosphatase 54 IU/L (35-105); Anion Gap 15.2 (5-19); Aspartate Amino Transferase 20 U/L (0-32); Blood Urea Nitrogen 14 mg/dL (8-23); Carbon Dioxide 23 mmol/L (22-29); Chloride 105 mmol/L (98-107); Globulin 2.1 g/dL (1.3-4.6); Glucose 86 mg/dL (65-115); Osmolality Calculated 288 mOsm/kg (285-295); Potassium 4.2 mmol/L (3.5-5.1); Sodium 139 mmol/L (136-145); Total Bilirubin 0.3 mg/dL (0.15-1.2); Total Protein 6.2 g/dL (6.6-8.7)
--- NOTE | 2021-08-15 07:31 | ONC FU_ITS ---
Dr. Mcwilliams Patient Follow-Up Note Patient: Odalis Woods Unit #: [id number]: 1950 Dicatated By: Lester Mcwilliams M.D.Date of Visit:Aug 11, 2021 Onc Med Follow-up/Prog Note Chief Complaint: Breast cancer. History of Present Illness: This is a 71 year-old woman with grade 3 invasive ductal carcinoma of the right breast, ER positive/CA negative and HER-2/dat positive. By clinical evaluation, she appeared to have de scott stage IV disease with PET/CT evidence of mediastinal and hilar lymph node involvement and with multiple small pulmonary nodules bilaterally. She had presented with a palpable lump in the right breast. Her diagnostic mammogram/ultrasound on 01/20/2021 was BI-RADS 5, highly suggestive of malignancy. The mammogram showed a spiculated high density mass with calcifications at the 10 to 11 o'clock position of the right breast. It measured 2.0 x 1.6 cm. Mildly prominent dense lymph nodes were noted in the right axilla. By ultrasound the lesion was located 4 cm from the nipple at the 10 o'clock position. It was hypoechoic and measured 1.8 x 1.4 x 1.7 cm. A few mildly abnormal lymph nodes were noted in the right axilla. On 01/27/2021 she underwent ultrasound directed biopsy of the right breast mass and of a right axillary lymph node. Pathology on the breast biopsy showed grade 3 invasive ductal carcinoma. There was lymphovascular invasion and perineural invasion identified. The right axillary lymph node biopsy showed metastatic carcinoma, grade 3. The breast prognostic profile showed ER positive at 20%. The CA was negative < 1%. The tumor was positive for overexpression of HER-2/dat, 3+ by IHC and amplification ratio by FISH of 1.2 with 3.3 HER-2 copies/cell. The Ki-67 was high at 15%. I had seen her initially on 01/31/2021. At that time we had discussed further management of the breast cancer with the expectation that she would likely begin neoadjuvant chemotherapy, though I had recommended that she first have a staging PET/CT. I also had recommended that she proceed with placement of Port-A-Cath venous access device, which became somewhat problematic due to restrictions associated with her insurance coverage. Staging PET/CT on 02/08/2021 showed an FDG avid solid lesion in the upper outer quadrant of the right breast measuring 1.3 x 0.8 cm, SUV 9.5, consistent with the known primary carcinoma. Two dominant FDG positive axillary lymph nodes had SUV up to 10.4. A 3rd node demonstrated a fatty hilum but with SUV 3.5. There were additional FDG positive nodes within the mediastinum including subcarinal, left upper hilar, right paratracheal 2R and 4R, and right hilar territory lymph nodes. The dominant left hilar lymph node had SUV 7.1. Multiple bilateral pulmonary nodules were noted, the largest in the right upper lobe measuring 7 mm. These showed mild FDG uptake and were felt to have high probability of representing metastatic disease. I had seen her for a follow-up visit on 02/14/2021. Given the PET/CT findings, I had recommended that she begin systemic therapy with paclitaxel in combination with Herceptin and Perjeta. She subsequently underwent placement of Port-A-Cath venous access device on 02/19/2021. Her baseline echocardiogram showed hypokinesia of the basal inferior wall segment but with normal left ventricular ejection fraction at 60%. Her other medical illnesses have been limited to hypertension and osteopenia. She has had no prior surgeries. She has a history of smoking 1 pack of cigarettes daily for 33 years. She quit smoking in 1999. INTERIM HISTORY: She began cycle 1 of paclitaxel/Herceptin/Perjeta on 03/19/2021 with the paclitaxel and Herceptin administered weekly in the Perjeta administered on a 3-week schedule. She tolerated the initial infusions without acute toxicity. She continued with her week 2 paclitaxel/Herceptin on 03/26/2021 and with week 3 treatment on 04/03/2021. She then had a planned treatment break at week 4 due to neutropenia. She then began cycle 2 on 04/16/2021 with the paclitaxel administered weekly and with the Herceptin and Perjeta administered at 3-week dosing. She tolerated that treatment well, though she was having increasing side effects with the steroid premedication. She continued with cycle 3 on 05/07/2021 with the taxane change to nab-paclitaxel. Restaging PET/CT on 06/05/2021 showed bilateral axillary lymphadenopathy, more prominent on the left side with preserved fatty hilar tissue. A right level 1 lymph node appeared irregular measuring 1.0 cm in short axis with a maximum SUV 5.04. Focally increased metabolic activity was noted in the right breast at the location of the fiducial marker. There was associated irregular soft tissue density measuring approximate 1.2 cm with a maximum SUV 2.16. A 1.0 cm right precarinal lymph node had maximum SUV 2.97 and there was mild increased metabolic activity in both hilar regions, maximum SUV 3.88 on the right and 3.80 on the left. There was no pulmonary nodularity or focal increase of metabolic activity in the lung tissue. There are no osseous lesions noted. Inflammatory changes were present in the right shoulder. Overall, there was residual neoplastic activity in the breast and right axilla. The mediastinal and hilar activity was felt to be indeterminate. There was no strong evidence for distant metastatic involvement. With those findings, she continued with cycle 4 of Abraxane/Herceptin/Perjeta on 06/09/2021 and with that cycle the Abraxane was changed to 3-week dosing. She continued with cycle 5 on 06/30/2021. At her follow-up visit on 07/21/2021 she reported increased chemotherapy related side effects, and I opted to stop the Abraxane and to continue treatment with just the Herceptin/Perjeta. With her disease appearing to be localized to the breast and axilla by PET/CT, I had also recommended that she see Dr. Rothman for lumpectomy/axillary lymph node sampling. In addition, with the Abraxane having been discontinued, she was recommended to begin adjuvant hormonal therapy with anastrozole 1 mg daily. She is seen for a follow-up visit. She has not been feeling very good. She complains of having itchy skin and eyelids, and she also complains that her toes feel numb. She developed hot flashes and night sweating after starting the anastrozole, severe enough that she stopped taking it. She continues to have significant fatigue, but she is able to do light work. ECOG score is 1. Appetite has not been good. She says that food does not taste good, but she says she does eat. She has not had fever. The hot flashes and sweating have improved since she stopped the anastrozole. She complains that her nose is drippy. She has not had sore mouth or throat. She had cough last night, that seems to have resolved. She does not complain of shortness of breath or chest pain. She has no GI or complaints. She complains that her right shoulder has been hurting. She has no other joint or bone pain. She has occasional headache and she occasionally has dizziness. She has numbness/tingling in her toes. Medications: Alendronate Sodium 1 Tablet (of 70 mg) Oral q 7 days, Ascorbic Acid (500 mg) Tablet Oral b.i.d., Calcium Citrate + D3 (200-250 mg - Units) Tablet Oral daily, Daily Multiple Vitamins Tablet Oral daily, Lisinopril 1 Tablet (of 20 mg) Oral b.i.d., Magnesium (250 mg) Tablet Oral daily Allergies: No Known Allergies. Vital Signs: Performed on Aug 11, 2021 09:49 Height - 63.00 in Weight - 165.6 lbs (HIGH) BSA - 1.78 sq.m BMI - 29.33 Temperature - 97.2 F (LOW) Pulse - 73 /min Respiration - 16 /min BP - 153/85 mm(hg) (HIGH) O2 Sat - 97 % Pain - 0 Fatigue - 4 Physical Examination: Constitutional - She looks pretty good generally, Eyes - Sclerae nonicteric. Conjunctivae clear, ENMT - No lesions noted in the oral cavity, Hematologic/Lymphatic - No cervical or clavicular adenopathy, Respiratory - Lungs are clear with good air movement bilaterally, Cardiovascular - Heart rhythm is regular. There is no murmur, gallop, or rub noted, Abdomen - Soft. Liver and spleen are not enlarged. There is no abdominal mass or ascites noted and there is no inguinal adenopathy, Extremities - No edema, Neurologic - No focal neurologic deficits noted. Lab/Imaging: Test performed on Aug 11, 2021 08:26 Sodium 139 mmol/L Potassium 4.2 mmol/L Chloride 105 mmol/L CO2 23 mmol/L Anion Gap 15.2 BUN 14 mg/dL Creatinine 0.8 mg/dL Cr Clearance (Est) 72.9200 mL/min Glucose 86 mg/dL Osmolality - Calculated 288 mOsm/kg Calcium 9.0 mg/dL Protein, Total 6.2 g/dL Albumin 4.1 g/dL Globulin 2.1 g/dL Bilirubin, Total 0.3 mg/dL ALT (SGPT) 24 U/L AST (SGOT) 20 U/L Alkaline Phosphatase 54 IU/L WBC 8.1 10 3/uL RBC 4.07 10 6/uL HGB 12.4 g/dL HCT 36.5 % MCV 89.7 fl MCH 30.5 pg MCHC 34.0 g/dL RDW 13.2 % Platelet Count 234 10 3/cmm MPV 10.2 fL Neutrophils 4.93 10 3/uL Lymphocytes 2.1 10 3/uL Monocytes 0.8 10 3/uL Eosinophils 0.2 10 3/uL Basophils 0.1 10 3/uL Neutrophil % 60.8 % Lymphocyte % 25.7 % Monocyte % 9.9 % Eosinophil % 2.6 % Basophils % 0.6 % NRBC % 0 % Problem List: 1. Grade 3 invasive ductal carcinoma of the right breast, ER positive/CA negative and HER-2/dat positive, by clinical evaluation stage IV (T1, N1, M1). 2. Hypertension. 3. Osteopenia. Problems Addressed with this Encounter and Plan: Patient with grade 3 invasive ductal carcinoma of the right breast, ER positive/CA negative and HER-2/dat positive. She underwent ultrasound-guided biopsy of right breast mass and of right axillary lymph node on 01/27/2021. Her staging PET/CT on 02/08/2021 showed the FDG avid right breast mass and 2 or possibly 3 involved axillary lymph nodes. It also showed suspected involvement in mediastinal lymph nodes and subcentimeter pulmonary nodules bilaterally, suspicious for metastatic disease. As such, by clinical evaluation, her disease appeared to be stage IV (T1c, N1, M1). Given the PET/CT findings, she was recommended to begin systemic therapy with paclitaxel in combination with Herceptin and Perjeta. She began treatment on 03/19/2021 with the paclitaxel and Herceptin administered weekly to minimize toxicities. Following her week 3 paclitaxel she was given a planned treatment break. She then began cycle 2 on 04/16/2021 with the paclitaxel administered weekly and with the Herceptin and Perjeta administered at a 3-week dosing. She tolerated that treatment pretty well other than having increasing side effects with the steroid premedication. She then continued with cycle 3 on 05/07/2021 with the taxane changed to nab-paclitaxel. She had evidence of response by restaging PET/CT on 06/05/2021, but that study did show residual neoplastic activity in the right breast and right axilla. She then continued with cycle 4 of Abraxane/Herceptin/Perjeta on 06/09/2021 and with cycle 5 on 06/30/2021. As of her follow-up visit on 07/21/2021 she was experiencing increasing chemotherapy related side effects, I opted to stop the Abraxane. She did continue treatment with Herceptin/Perjeta, and at that point she also began adjuvant hormonal therapy with anastrozole 1 mg daily. She was referred to Dr. Rothman for consideration of right breast lumpectomy and axillary lymph node sampling, but she had initially opted not to have any surgery. In the meantime, she had stopped the anastrozole due to side effects, with significantly hot flashes and sweating. At this point she continues to have significant neuropathy symptoms, which I assume are still related to the Abraxane. After further discussion, she is willing to reconsider the lumpectomy/axillary lymph node sampling, that will be arranged with Dr. Rothman. Given the symptoms she is experiencing, I am going to give her a 1 week treatment delay. If she is feeling better, she will then continue neoadjuvant therapy with Herceptin/Perjeta. Signed By: Lester Mcwilliams M.D. <<Signature on File>>
== END 2021-08-12 23:59 | disposition home or self-care (01) ==
LOC: ONCMED 06:29
PROVIDERS: PCP Nurse Practitioner Family; Visit Provider Internal Medicine Medical Oncology
DX: Z51.11 Encounter for antineoplastic chemotherapy (principal); C50.811 Malignant neoplasm of overlapping sites of right female breast; Z17.0 Estrogen receptor positive status [ER+]; I10 Essential (primary) hypertension; M85.80 Other specified disorders of bone density and structure, unspecified site; Z90.11 Acquired absence of right breast and nipple; Z92.21 Personal history of antineoplastic chemotherapy; Z79.818 Long term (current) use of other agents affecting estrogen receptors and estrogen levels
CPT/HCPCS: 36591; 80053; 82306; 85025; 93308; 96375; 96413; 96417; 99205; 99214; 99215; J1200; J7050; J9306; J9355

== ENCOUNTER 2021-08-18 10:46 | Day surgery (SDC) | payer MEDICARE, SELFPAY ==
[2021-08-15 12:05] VITALS: BMI 28.3
--- NOTE | 2021-08-18 | US_ITS ---
WS: [id number] ULTRASOUND-GUIDED RIGHT BREAST NEEDLE LOCALIZATION HISTORY: Needle localization of the residual RIGHT breast mass at 10:00, 4 cm from the nipple after c hemotherapy treatment. This mass has significantly decreased in size since 02/14/2021. Procedure, risks and complications were explained to the patient. Consent is obtained. Skin is cleansed with ChloraPrep and anesthetized with 1% buffered lidocaine. Needle and guidewire pl aced to the area of concern with no complications. Resolving neoplastic mass at 10:00 within the RIGH T breast is identified. The prior biopsy clip is identified centrally. The wire will be placed throug h the center of this mass. Ultrasound guidance performed during the needle localization. Guidewire is left within the lesion. Guidewire secured and no complications encountered. Patient is being transpo rted to the OR suite. Specimen radiograph is also reviewed. Soft tissue mass with clip is present within the specimen ultra sound. RECOMMENDATIONS: Follow-up with Dr. Mcwilliams and Dr. Rothman. US/US breast surgical specimen IMPRESSION: 1. Uncomplicated wire localization of a mass at 10:00 within the RIGHT breast which is a known malignancy. 2. Ultrasound of the specimen reveals the mass is present and surgically excis ed. PATHOLOGY RESULTS: No residual malignancy was noted within the lumpectomy site. Posttreatment related changes of reactive histiocytosis and fat necrosis were evident. Please see entire pathology report for further details concerning the LEFT nodes.
--- NOTE | 2021-08-18 11:10 | W.PM.OPSFHP ---
Same Day Surgery H&P Indication for Procedure/HPI DATE OF PROCEDURE: August 18, 2021 CHIEF COMPLAINT/INDICATIONFOR SURGICAL PROCEDURE: right breast cancer, - breast lumpectomy with SLNB PREOP DIAGNOSIS: Breast cancer PLANNED PROCEDRUE: Operation Date: 08/18/21 13:15 Proposed Procedures p Sentinal Lymph Node Biopsy [id number] C50.919 21654(Right) - Ramírez Rothman MD s Breast Biopsy Needle Localization(Right) - Ramírez Rothman MD s Right Breast Lumpectomy(Right) - Ramírez Rothman MD Medications/Allergies* Home Medications Medication Instructions Recorded Confirmed Type alendronate 70 mg tablet 70 mg PO .weekly tab 01/14/21 07/22/21 History calcium carbonate 600 mg calcium 600 mg PO DAILY 01/14/21 08/15/21 History (1,500 mg) tablet lisinopril 20 mg tablet 20 mg PO BID 01/14/21 08/15/21 History magnesium 200 mg tablet 250 mg PO DAILY 01/14/21 08/15/21 History multivitamin 1 tab PO DAILY 01/14/21 08/15/21 History ascorbic acid (vitamin C) [Vitamin 500 mg PO BID 02/18/21 08/15/21 History C] Allergies/Adverse Reactions Allergy/AdvReac Type Severity Reaction Status Date / Time No Known Allergies Allergy Verified 07/22/21 10:11 Pertinent History/Comorbid Conditions* Medical History (Updated 02/15/21 @ 12:33 by Ramírez Rothman MD) Cancer of right breast, stage 4 Essential hypertension Osteoporosis Surgical History (Updated 02/19/21 @ 11:02 by Ramírez Rothman MD) H/O right breast biopsy Port-A-Cath in place (02/19/21) Family History (Updated 01/14/21 @ 13:14 by Madhavi Castelan LPN) Cancer Father Hypertension Mother Social History Smoking and tobacco status: former smoker Alcohol intake: current Alcohol intake frequency: 0-2 Drinks per Day Alcohol type: wine Pertinent Exam Findings alert, oriented x 3 and regular rate & rhythm Recommendations Surgery/Procedure today Coding Level of Care Code Acute 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
--- NOTE | 2021-08-18 11:31 | US_ITS ---
WS: [id number] ULTRASOUND-GUIDED RIGHT BREAST NEEDLE LOCALIZATION HISTORY: Needle localization of the residual RIGHT breast mass at 10:00, 4 cm from the nipple after c hemotherapy treatment. This mass has significantly decreased in size since 02/14/2021. Procedure, risks and complications were explained to the patient. Consent is obtained. Skin is cleansed with ChloraPrep and anesthetized with 1% buffered lidocaine. Needle and guidewire pl aced to the area of concern with no complications. Resolving neoplastic mass at 10:00 within the RIGH T breast is identified. The prior biopsy clip is identified centrally. The wire will be placed throug h the center of this mass. Ultrasound guidance performed during the needle localization. Guidewire is left within the lesion. Guidewire secured and no complications encountered. Patient is being transpo rted to the OR suite. Specimen radiograph is also reviewed. Soft tissue mass with clip is present within the specimen ultra sound. RECOMMENDATIONS: Follow-up with Dr. Mcwilliams and Dr. Rothmna. US/[place] [id number] IMPRESSION: 1. Uncomplicated wire localization of a mass at 10:00 within the RIGHT breast which is a known malignancy. 2. Ultrasound of the specimen reveals the mass is present and surgically excis ed. PATHOLOGY RESULTS: No residual malignancy was noted within the lumpectomy site. Posttreatment related changes of reactive histiocytosis and fat necrosis were evident. Please see entire pathology report for further details concerning the LEFT nodes.
--- NOTE | 2021-08-18 11:43 | PC.NURSE ---
left dept via stretcher with radiology staff for needle loc @ [phone]
--- NOTE | 2021-08-18 12:37 | PC.NURSE ---
returned to ops via stretcher @ [phone]
[2021-08-18] MEDS: sodium chloride 0.9% 1,000 ML 30 ML IV (12:40)
[2021-08-18 12:52] VITALS: BP 164/93; PULSE 68; RESP 18; TEMP 36.6; O2SAT 97
--- NOTE | 2021-08-18 13:05 | NM_ITS ---
WS: [id number] NUCLEAR MEDICINE SENTINEL LYMPH NODE IMAGING HISTORY: BREAST CANCER, RIGHT breast COMPARISON: None available. TECHNIQUE: The patient was injected with 1.05 mCi of Technetium 99 ultra filtered sulfur colloid. Inj ection is intradermal in a periareolar location. Four aliquots are used. NM/NM sentinel node inject [id number] IMPRESSION: RIGHT breast sentinel node injection.
--- NOTE | 2021-08-18 13:52 | ANES.PREANE2 ---
Pre-Anesthetic Assessment Pre-Anesthetic Assessment: Height/Weight: Height 1.6 m Weight 72.575 kg Temp Pulse Resp BP Pulse Ox 97.8 F 68 18 164/93 97 08/18/21 12:52 08/18/21 12:52 08/18/21 12:52 08/18/21 12:52 08/18/21 12:52 Preop Diagnosis: Right breast cancer Proposed Procedure: Operation Date: 08/18/21 13:15 Proposed Procedures p Sentinal Lymph Node Biopsy [id number] C50.919 93191(Right) - Ramírez Rothman MD s Breast Biopsy Needle Localization(Right) - Ramírez Rothman MD s Right Breast Lumpectomy(Right) - Ramírez Rothman MD Familial anesthetic complications: none Last intake: Intake Last Liquid Date 08/17/21 Last Liquid Time 21:00 Last Solid Date 08/17/21 Last Solid Time 18:30 Social: Social History: No alcohol and No tobacco Exam: Pre-Anes Outpt Exam: alert, oriented x 3, clear to auscultation bilaterally and regular rate & rhythm Airway: MP: 3 Dentition: Full CV/HEM: CV/HEM: HTN Anesthetic Plan: ASA status: 3 Anesthesia: General Risk of > 500 ml blood loss (7ml/kg in children): No PFSH Anesthesia PFSH: Medical History Cancer of right breast, stage 4 Essential hypertension Osteoporosis Surgical History H/O right breast biopsy Port-A-Cath in place (02/19/21) Family History Father Cancer Mother Hypertension Social History Smoking and tobacco status: former smoker Alcohol intake: current Alcohol intake frequency: 0-2 Drinks per Day Alcohol type: wine Data Anesthesia Cardiac Studies: No Data to Display
[2021-08-18] MEDS: lidocaine 1% INJ 20 mL INJECTION (15:00)
[2021-08-18] MEDS: isosulfan blue 10 mg/mL SDV 5mL SUBCUT (15:00)
[2021-08-18 16:13] VITALS: BP 146/101; PULSE 88; RESP 17; TEMP 36.7; O2SAT 98
[2021-08-18 16:15] VITALS: BP 157/89; PULSE 93; RESP 18; O2SAT 95
[2021-08-18 16:20] VITALS: BP 157/89; PULSE 88; RESP 17; O2SAT 96
[2021-08-18 16:25] VITALS: BP 128/81; PULSE 85; RESP 18; O2SAT 95
[2021-08-18 16:30] VITALS: BP 147/77; BP 156/83; PULSE 82; PULSE 86; RESP 17; RESP 18; TEMP 36.1; TEMP 37; O2SAT 95; O2SAT 96
--- NOTE | 2021-08-18 16:59 | ANE.PACU2 ---
Inpatient post-anesthesia follow up: Airway intact: Yes Vital signs: Temperature 97 F Pulse Rate 86 Respiratory Rate 18 Blood Pressure 156/83 Pulse Oximetry 96 Oxygen Delivery Me thod Room Air Oxygen Flow Rate Fraction of Inspir ed Oxygen Hydration adequate: Yes Nausea and vomiting: No Pain level: 2 Mental status: Baseline
--- NOTE | 2021-08-20 11:36 | PM.OP ---
Operative Report Date of procedure: August 18, 2021 Pre-op Diagnosis: 1. Invasive ductal carcinoma right breast status post neoadjuvant chemotherapy 2. FDG positive right axillary lymphadenopathy Post-op diagnosis: same Procedure Done: 1. Wire localization partial right mastectomy with shave margin 2. Right axillary sentinel lymph node biopsy 3. Injection of 3 cc of 1% Lymphazurin Surgeon: Ramírez Rothman Anesthesia: General Condition: stable Disposition: PACU Procedure: The wire localization of the mammographic abnormality was performed by the radiologist under ultrasound guidance and the patient was transferred to operating room and placed under MAC after IV antibiotic had been administered. The right breast was prepped and draped in a manner . A curvilinear incision was made 3 cm from the areolar margin at 10'o clock, subcutaneous tissue was divided and skin flaps were raised medially and laterally. The localization wire was grasped through the incision and using electrocautery the wire along with the breast tissue containing mammographic abnormality was dissected free from the surrounding tissue. Using 2-0 silk suture, short stitch was placed superiorly and a long stitch was placed laterally.1 cm shave margins were obtained from the superior, medial and posterior aspect of the lumpectomy cavity and the outer edge was inked. The edge of the lumpectomy cavity was marked with medium clips. The wound was irrigated with saline, hemostasis ensured with electrocautery and subcutaneous tissues were approximated using 3-0 running Vicryl suture and skin was closed using running subcuticular 4-0 Monocryl sutures and Dermabond. A technetium sulfur colloid had been injected previously by the radiologist in the periareolar area. 3mL of 1% Lymphazurin was injected in the subareolar location. The breast was massaged for 5 minutes and a 2 cm incision was made in the left axilla at the edge of the hairline. The subcutaneous tissue and clavipectoral fascia was divided with electrocautery and gentle dissection revealed radioactive lymph nodes. This was a large 3 cm mass and using electrocautery the lymph nodes was dissected free. The vascular pedicle was divided after placing medium clips. Examination of the axilla did not reveal any other radioactive or palpable lymph nodes. The clavipectoral and subcutaneous tissue was approximated using running 3-0 Vicryl suture and skin was closed using running subcuticular 4-0 Monocryl suture and Dermabond. Fluffs were used for pressure dressing. Patient was transferred to recovery room and stable condition. The lumpectomy specimens were sent to mammography to obtain radiological confirmation of complete excision of the mammographic abnormality.
== END 2021-08-18 17:20 | disposition home or self-care (01) ==
PROVIDERS: PCP Nurse Practitioner Family; Visit Provider Surgery
PROC: (CPT 19301; principal; 2021-08-18 13:15)
PROC: (CPT 19301; 2021-08-18 13:15)
PROC: (CPT 19301; 2021-08-18 13:15)
DX: C50.911 Malignant neoplasm of unspecified site of right female breast (principal); I10 Essential (primary) hypertension; M81.0 Age-related osteoporosis without current pathological fracture; Z87.891 Personal history of nicotine dependence
CPT/HCPCS: 19301; 38525; 19285; 38792; 88305; 88307; 88309; A9541; C1889; J0690; J1100; J2405; J2704; J3010; J3490; J7030; Q9968

== ENCOUNTER 2021-09-09 10:56 | Outpatient (CLI) | payer MEDICARE, MEDICAID, SELFPAY ==
--- NOTE | 2021-09-09 11:02 | US_ITS ---
WS: [id number] ULTRASOUND BREAST RIGHT TECHNIQUE: Ultrasound right breast focused area of concern. CLINICAL INFORMATION: R BREAST UPPER OUTER QUADRANT R AXILLA BREAST CANCER COMPARISON: None. FINDINGS: Ultrasound right breast at the 9 to 11:00 position 4 cm from the nipple. Underlying recent lumpectomy changes with axillary dissection. Normal postoperative underlying breast tissue. Small amount of flu id at the lumpectomy site mostly at the 10:00 position. Small amount of fluid consistent with normal postoperative change in the right axilla in the areas of lymph node dissection. 3 areas of lymph node excision are visualized. US/US breast RT limited* [id number] IMPRESSION: BI-RADS 2 benign Recommend 6 month follow-up RIGHT breast diagnostic mammography and ultrasound post excision
== END 2021-09-09 10:57 | disposition home or self-care (01) ==
PROVIDERS: PCP Nurse Practitioner Family; Visit Provider Internal Medicine Medical Oncology
DX: C50.411 Malignant neoplasm of upper-outer quadrant of right female breast (principal)
CPT/HCPCS: 76642

== ENCOUNTER 2021-09-09 12:45 | Outpatient (RCR) | payer MEDICARE, MEDICAID, SELFPAY ==
[2021-09-02 08:30] LABS: Basophils # 0.1 10^3/uL (0.0-0.1); Basophils % 0.4 %; Eosinophils # 0.2 10^3/uL (0.0-0.8); Eosinophils % 1.5 %; Hematocrit 41.9 % (37.0-47.0); Lymphocytes # 3.7 10^3/uL (0.8-4.8); Lymphocytes % 26.9 %; Mean Corpuscular HGB Conc 33.4 g/dL (30.0-36.0); Mean Corpuscular Hemoglobin 30.7 pg (28.0-34.0); Mean Corpuscular Volume 91.9 fl (81-99); Mean Platelet Volume 9.7 fL (7.4-10.4); Monocytes # 1.2 10^3/uL (0.2-0.9); Neutrophils # 8.32 10^3/uL (1.8-7.7); Neutrophils % 60.8 %; Nucleated Red Blood Cells % 0 %; Platelet Count 246 10^3/cmm (130-400); Red Blood Count 4.56 10^6/uL (4.1-5.3); Red Cell Distribution Width 13.2 % (12.1-15.1); White Blood Count 13.7 10^3/uL (4.0-10.0)
[2021-09-02 08:50] LABS: Alanine Aminotransferase 23 U/L (0-33); Alkaline Phosphatase 54 IU/L (35-105); Anion Gap 17.2 (5-19); Aspartate Amino Transferase 16 U/L (0-32); Blood Urea Nitrogen 18 mg/dL (8-23); Calcium 8.3 mg/dL (8.5-10.5); Carbon Dioxide 22 mmol/L (22-29); Chloride 98 mmol/L (98-107); Globulin 2.1 g/dL (1.3-4.6); Glucose 78 mg/dL (65-115); Osmolality Calculated 277 mOsm/kg (285-295); Potassium 4.2 mmol/L (3.5-5.1); Sodium 133 mmol/L (136-145); Total Bilirubin 0.3 mg/dL (0.15-1.2); Total Protein 6.1 g/dL (6.6-8.7)
[2021-09-02] MEDS: diphenhydrAMINE 50 mg/mL SDV 1mL 25 MG IV (09:50)
[2021-09-02] MEDS: acetaminophen 325 mg Tablet 650 MG PO (09:53)
[2021-09-02] MEDS: sodium chloride 0.9% 250 ML 75 ML IV (10:35)
== END 2021-09-12 23:59 | disposition home or self-care (01) ==
LOC: RAD 12:45
PROVIDERS: Internal Medicine Medical Oncology; PCP Nurse Practitioner Family; Visit Provider Nurse Practitioner Family
DX: Z51.11 Encounter for antineoplastic chemotherapy (principal); C50.811 Malignant neoplasm of overlapping sites of right female breast; Z17.0 Estrogen receptor positive status [ER+]; C77.2 Secondary and unspecified malignant neoplasm of intra-abdominal lymph nodes; C78.01 Secondary malignant neoplasm of right lung; C78.02 Secondary malignant neoplasm of left lung; I10 Essential (primary) hypertension; M85.80 Other specified disorders of bone density and structure, unspecified site; Z90.11 Acquired absence of right breast and nipple; Z79.899 Other long term (current) drug therapy
CPT/HCPCS: 80053; 85025; 87635; 96375; 96413; 96417; 99215; J1200; J7050; J9306; J9355

== ENCOUNTER 2021-09-23 08:09 | Outpatient (RCR) | payer MEDICARE, MEDICAID, SELFPAY ==
[2021-09-23 08:57] LABS: Basophils % 0.1 %; Eosinophils # 0.1 10^3/uL (0.0-0.8); Eosinophils % 0.6 %; Hemoglobin 13.6 g/dL (11.5-15.3); Lymphocytes # 1.8 10^3/uL (0.8-4.8); Lymphocytes % 12.2 %; Mean Corpuscular HGB Conc 33.2 g/dL (30.0-36.0); Mean Corpuscular Hemoglobin 30.7 pg (28.0-34.0); Mean Corpuscular Volume 92.6 fl (81-99); Mean Platelet Volume 9.5 fL (7.4-10.4); Monocytes # 1.2 10^3/uL (0.2-0.9); Monocytes % 8.4 %; Neutrophils # 11.17 10^3/uL (1.8-7.7); Neutrophils % 77.9 %; Nucleated Red Blood Cells % 0 %; Platelet Count 215 10^3/cmm (130-400); Red Blood Count 4.43 10^6/uL (4.1-5.3); Red Cell Distribution Width 13.5 % (12.1-15.1); White Blood Count 14.3 10^3/uL (4.0-10.0)
[2021-09-23 09:19] LABS: Alanine Aminotransferase 27 U/L (0-33); Alkaline Phosphatase 46 IU/L (35-105); Anion Gap 18.3 (5-19); Aspartate Amino Transferase 20 U/L (0-32); Blood Urea Nitrogen 13 mg/dL (8-23); Calcium 9.6 mg/dL (8.5-10.5); Carbon Dioxide 21 mmol/L (22-29); Chloride 101 mmol/L (98-107); Glucose 86 mg/dL (65-115); Osmolality Calculated 281 mOsm/kg (285-295); Potassium 4.3 mmol/L (3.5-5.1); Sodium 136 mmol/L (136-145); Total Bilirubin 0.3 mg/dL (0.15-1.2)
[2021-09-23] MEDS: diphenhydrAMINE 50 mg/mL SDV 1mL 25 MG IV (10:50)
[2021-09-23] MEDS: acetaminophen 325 mg Tablet 650 MG PO (10:50)
[2021-09-23] MEDS: sodium chloride 0.9% 250 ML 75 ML IV (10:50)
--- NOTE | 2021-09-24 07:20 | ONC FU_ITS ---
Dr. Mcwilliams Patient Follow-Up Note Patient: Odalis Woods Unit #: [id number]: 1950 Dicatated By: Lester Mcwilliams M.D.Date of Visit:Sep 23, 2021 Onc Med Follow-up/Prog Note Chief Complaint: Breast cancer. History of Present Illness: This is a 71 year-old woman with grade 3 invasive ductal carcinoma of the right breast, ER positive/WI negative and HER-2/dat positive. She had presented with a palpable lump in the right breast. Her diagnostic mammogram/ultrasound on 01/20/2021 was BI-RADS 5, highly suggestive of malignancy. The mammogram showed a spiculated high density mass with calcifications at the 10 to 11 o'clock position of the right breast. It measured 2.0 x 1.6 cm. Mildly prominent dense lymph nodes were noted in the right axilla. By ultrasound the lesion was located 4 cm from the nipple at the 10 o'clock position. It was hypoechoic and measured 1.8 x 1.4 x 1.7 cm. A few mildly abnormal lymph nodes were noted in the right axilla. On 01/27/2021 she underwent ultrasound directed biopsy of the right breast mass and of a right axillary lymph node. Pathology on the breast biopsy showed grade 3 invasive ductal carcinoma. There was lymphovascular invasion and perineural invasion identified. The right axillary lymph node biopsy showed metastatic carcinoma, grade 3. The breast prognostic profile showed ER positive at 20%. The WI was negative < 1%. The tumor was positive for overexpression of HER-2/dat, 3+ by IHC and amplification ratio by FISH of 1.2 with 3.3 HER-2 copies/cell. The Ki-67 was high at 15%. I had seen her initially on 01/31/2021. At that time we had discussed further management of the breast cancer with the expectation that she would likely begin neoadjuvant chemotherapy, though I had recommended that she first have a staging PET/CT. I also had recommended that she proceed with placement of Port-A-Cath venous access device, which became somewhat problematic due to restrictions associated with her insurance coverage. Staging PET/CT on 02/08/2021 showed an FDG avid solid lesion in the upper outer quadrant of the right breast measuring 1.3 x 0.8 cm, SUV 9.5, consistent with the known primary carcinoma. Two dominant FDG positive axillary lymph nodes had SUV up to 10.4. A 3rd node demonstrated a fatty hilum but with SUV 3.5. There were additional FDG positive nodes within the mediastinum including subcarinal, left upper hilar, right paratracheal 2R and 4R, and right hilar territory lymph nodes. The dominant left hilar lymph node had SUV 7.1. Multiple bilateral pulmonary nodules were noted, the largest in the right upper lobe measuring 7 mm. These showed mild FDG uptake and were felt to have high probability of representing metastatic disease. I had seen her for a follow-up visit on 02/14/2021. Given the PET/CT findings, I had recommended that she begin systemic therapy with paclitaxel in combination with Herceptin and Perjeta. She subsequently underwent placement of Port-A-Cath venous access device on 02/19/2021. Her baseline echocardiogram showed hypokinesia of the basal inferior wall segment but with normal left ventricular ejection fraction at 60%. Her other medical illnesses have been limited to hypertension and osteopenia. She has had no prior surgeries. She has a history of smoking 1 pack of cigarettes daily for 33 years. She quit smoking in 1999. INTERIM HISTORY: She began cycle 1 of paclitaxel/Herceptin/Perjeta on 03/19/2021 with the paclitaxel and Herceptin administered weekly in the Perjeta administered on a 3-week schedule. She tolerated the initial infusions without acute toxicity. She continued with her week 2 paclitaxel/Herceptin on 03/26/2021 and with week 3 treatment on 04/03/2021. She then had a planned treatment break at week 4 due to neutropenia. She then began cycle 2 on 04/16/2021 with the paclitaxel administered weekly and with the Herceptin and Perjeta administered at 3-week dosing. She tolerated that treatment well, though she was having increasing side effects with the steroid premedication. She continued with cycle 3 on 05/07/2021 with the taxane change to nab-paclitaxel. Restaging PET/CT on 06/05/2021 showed bilateral axillary lymphadenopathy, more prominent on the left side with preserved fatty hilar tissue. A right level 1 lymph node appeared irregular measuring 1.0 cm in short axis with a maximum SUV 5.04. Focally increased metabolic activity was noted in the right breast at the location of the fiducial marker. There was associated irregular soft tissue density measuring approximate 1.2 cm with a maximum SUV 2.16. A 1.0 cm right precarinal lymph node had maximum SUV 2.97 and there was mild increased metabolic activity in both hilar regions, maximum SUV 3.88 on the right and 3.80 on the left. There was no pulmonary nodularity or focal increase of metabolic activity in the lung tissue. There were no osseous lesions noted. Inflammatory changes were present in the right shoulder. Overall, there was residual neoplastic activity in the breast and right axilla. The mediastinal and hilar activity was felt to be indeterminate. There was no strong evidence for distant metastatic involvement. With those findings, she continued with cycle 4 of Abraxane/Herceptin/Perjeta on 06/09/2021 and with that cycle the Abraxane was changed to 3-week dosing. She continued with cycle 5 on 06/30/2021. At her follow-up visit on 07/21/2021 she reported increased chemotherapy related side effects, and I opted to stop the Abraxane and to continue treatment with just the Herceptin/Perjeta. With her disease appearing to be localized to the breast and axilla by PET/CT, I had also recommended that she see Dr. Rothman for lumpectomy/axillary lymph node sampling. In addition, with the Abraxane having been discontinued, she was recommended to begin adjuvant hormonal therapy with anastrozole 1 mg daily. On 08/20/2021 she underwent right breast lumpectomy with right axillary sentinel lymph node biopsy. Pathology on the lumpectomy specimen showed no residual malignancy. There was initially reported to be no involvement in 3 axillary lymph nodes. However, on subsequent immunohistochemical analysis, metastatic involvement was noted in 2 of the axillary lymph nodes. There was no evidence of extranodal extension. She then returned for cycle 2 of Herceptin/Perjeta on 09/02/2021. She is seen for a follow-up visit. She has been feeling pretty good generally. Her energy is fair. She has been doing some walking and she is doing light work at home. ECOG score is 1. She has good appetite. She has not had fever. She occasionally has sweating at night. She continues to have some itching around her eyes and forehead, but it is getting better. The itching on her arms has completely resolved. She has not had sore mouth or throat. She does not complain of cough, and she has not been having shortness of breath or chest pain. She clearly has no GI or complaints. She has no significant joint or bone pain. She does not complain of headache. She sometimes gets dizzy when she is lying down, but just briefly. She has persistent numbness in her toes. Medications: Alendronate Sodium 1 Tablet (of 70 mg) Oral q 7 days, Ascorbic Acid (500 mg) Tablet Oral b.i.d., Calcium Citrate + D3 (200-250 mg - Units) Tablet Oral daily, Daily Multiple Vitamins Tablet Oral daily, Lisinopril 1 Tablet (of 20 mg) Oral b.i.d., Magnesium (250 mg) Tablet Oral daily Allergies: No Known Allergies. Vital Signs: Performed on Sep 23, 2021 10:07 Height - 63.00 in Weight - 163.8 lbs (LOW) BSA - 1.78 sq.m BMI - 29.02 Temperature - 99 F (HIGH) Pulse - 71 /min Respiration - 19 /min BP - 158/78 mm(hg) (HIGH) O2 Sat - 98 % Pain - 0 Fatigue - 2 Physical Examination: Constitutional - She looks pretty good generally, Eyes - Sclerae nonicteric. Conjunctivae clear, ENMT - No lesions noted in the oral cavity, Hematologic/Lymphatic - No cervical or clavicular adenopathy, Respiratory - Lungs are clear with good air movement bilaterally, Cardiovascular - Heart rhythm is regular. There is no murmur, gallop, or rub noted, Breasts - The lumpectomy incision in the right breast appears well-healed. There are no breast masses noted. There is slight nodularity at the axillary incision site, but there is no axillary mass or adenopathy noted, Abdomen - Soft. Liver and spleen are not enlarged. There is no abdominal mass or ascites noted and there is no inguinal adenopathy, Extremities - No edema, Neurologic - No focal neurologic deficits noted. Lab/Imaging: CBC shows hemoglobin 13.6 g, white blood cell count 14,300, and platelet count 215,000. Comprehensive metabolic profile is unremarkable. Problem List: 1. Grade 3 invasive ductal carcinoma of the right breast, ER positive/WI negative and HER-2/dat positive. 2. Hypertension. 3. Osteopenia. Problems Addressed with this Encounter and Plan: Patient with grade 3 invasive ductal carcinoma of the right breast, ER positive/WI negative and HER-2/dat positive. She underwent ultrasound-guided biopsy of right breast mass and of right axillary lymph node on 01/27/2021. Her staging PET/CT on 02/08/2021 showed the FDG avid right breast mass and 2 or possibly 3 involved axillary lymph nodes. There was suspected involvement in mediastinal lymph nodes and subcentimeter pulmonary nodules bilaterally were also felt to be suspicious for metastatic disease. As such, by clinical evaluation, her disease was stage at least IIA (T1c, N1, M0) and possibly stage IV (T1c, N1, M1). Given the PET/CT findings, she was recommended to begin systemic therapy with paclitaxel in combination with Herceptin and Perjeta. She began treatment on 03/19/2021 with the paclitaxel and Herceptin administered weekly to minimize toxicities. Following her week 3 paclitaxel she was given a planned treatment break. She then began cycle 2 on 04/16/2021 with the paclitaxel administered weekly and with the Herceptin and Perjeta administered at a 3-week dosing. She tolerated that treatment pretty well other than having increasing side effects with the steroid premedication. She then continued with cycle 3 on 05/07/2021 with the taxane changed to nab-paclitaxel. She had evidence of response by restaging PET/CT on 06/05/2021, but that study did show residual neoplastic activity in the right breast and right axilla. She then continued with cycle 4 of Abraxane/Herceptin/Perjeta on 06/09/2021 and with cycle 5 on 06/30/2021. As of her follow-up visit on 07/21/2021 she was experiencing increasing chemotherapy related side effects, and I opted to stop the Abraxane. She continued treatment with Herceptin/Perjeta, and at that point she also began adjuvant hormonal therapy with anastrozole 1 mg daily. On 08/20/2021 she underwent right breast lumpectomy with right axillary sentinel lymph node biopsy. Pathology on the lumpectomy specimen showed no residual malignancy. There was initially reported to be no involvement in 3 axillary lymph nodes. However, on subsequent immunohistochemical analysis, metastatic involvement was noted in 2 of the axillary lymph nodes. There was no evidence of extranodal extension. She then returned for cycle 2 of Herceptin/Perjeta on 09/02/2021. She has had a near complete pathologic CR to her first-line treatment, she will continue treatment now with Herceptin/Perjeta. She is due today for the 3rd cycle. The dosages remain the same. She will be scheduled for a follow-up visit in 3 weeks. In the meantime, I will review her PET/CT scans with the radiologist. If it does appear likely that she had denovo stage IV disease, I think it will be best to defer radiation and just continue her current treatment until progression. Signed By: Lester Mcwilliams M.D. <<Signature on File>>
== END 2021-10-13 23:59 | disposition home or self-care (01) ==
LOC: ONCMED 08:09
PROVIDERS: Nurse Practitioner Family; PCP Nurse Practitioner Family; Visit Provider Internal Medicine Medical Oncology
DX: Z51.11 Encounter for antineoplastic chemotherapy (principal); C50.811 Malignant neoplasm of overlapping sites of right female breast; Z17.0 Estrogen receptor positive status [ER+]; C77.2 Secondary and unspecified malignant neoplasm of intra-abdominal lymph nodes; C78.01 Secondary malignant neoplasm of right lung; C78.02 Secondary malignant neoplasm of left lung; I10 Essential (primary) hypertension; M85.80 Other specified disorders of bone density and structure, unspecified site; Z79.818 Long term (current) use of other agents affecting estrogen receptors and estrogen levels; Z79.899 Other long term (current) drug therapy
CPT/HCPCS: 80053; 85025; 96375; 96413; 96417; 99215; J1200; J7050; J9306; J9355

== ENCOUNTER 2021-11-04 06:52 | Outpatient (RCR) | payer MEDICARE, MEDICAID, SELFPAY ==
[2021-10-14 08:36] LABS: Basophils # 0.1 10^3/uL (0.0-0.1); Basophils % 0.6 %; Eosinophils # 0.1 10^3/uL (0.0-0.8); Eosinophils % 1.5 %; Hematocrit 37.7 % (37.0-47.0); Hemoglobin 12.4 g/dL (11.5-15.3); Lymphocytes # 2.2 10^3/uL (0.8-4.8); Lymphocytes % 25.3 %; Mean Corpuscular HGB Conc 32.9 g/dL (30.0-36.0); Mean Corpuscular Hemoglobin 30.5 pg (28.0-34.0); Mean Corpuscular Volume 92.6 fl (81-99); Mean Platelet Volume 9.7 fL (7.4-10.4); Monocytes # 0.8 10^3/uL (0.2-0.9); Monocytes % 9.6 %; Neutrophils # 5.48 10^3/uL (1.8-7.7); Neutrophils % 62.3 %; Nucleated Red Blood Cells % 0 %; Platelet Count 236 10^3/cmm (130-400); Red Blood Count 4.07 10^6/uL (4.1-5.3); Red Cell Distribution Width 13.5 % (12.1-15.1); White Blood Count 8.8 10^3/uL (4.0-10.0)
[2021-10-14 09:09] LABS: Alanine Aminotransferase 21 U/L (0-33); Albumin Level 4.1 g/dL (3.5-5.2); Alkaline Phosphatase 58 IU/L (35-105); Anion Gap 12.1 (5-19); Aspartate Amino Transferase 21 U/L (0-32); Blood Urea Nitrogen 13 mg/dL (8-23); Calcium 8.6 mg/dL (8.5-10.5); Carbon Dioxide 23 mmol/L (22-29); Chloride 106 mmol/L (98-107); Globulin 1.9 g/dL (1.3-4.6); Glucose 86 mg/dL (65-115); Osmolality Calculated 283 mOsm/kg (285-295); Potassium 4.1 mmol/L (3.5-5.1); Sodium 137 mmol/L (136-145); Total Bilirubin 0.3 mg/dL (0.15-1.2)
[2021-10-14] MEDS: sodium chloride 0.9% 250 ML 75 ML IV (11:16)
[2021-10-14] MEDS: acetaminophen 325 mg Tablet 650 MG PO (11:16)
[2021-10-14] MEDS: diphenhydrAMINE 50 mg/mL SDV 1mL 25 MG IV (11:16)
[2021-11-04 08:24] LABS: Basophils # 0.1 10^3/uL (0.0-0.1); Basophils % 0.6 %; Eosinophils # 0.2 10^3/uL (0.0-0.8); Eosinophils % 2.4 %; Hematocrit 38.6 % (37.0-47.0); Hemoglobin 12.8 g/dL (11.5-15.3); Lymphocytes # 1.8 10^3/uL (0.8-4.8); Lymphocytes % 22.5 %; Mean Corpuscular HGB Conc 33.2 g/dL (30.0-36.0); Mean Corpuscular Volume 93.5 fl (81-99); Mean Platelet Volume 10.1 fL (7.4-10.4); Monocytes # 0.8 10^3/uL (0.2-0.9); Monocytes % 10.5 %; Neutrophils # 4.96 10^3/uL (1.8-7.7); Neutrophils % 63.5 %; Nucleated Red Blood Cells % 0 %; Platelet Count 211 10^3/cmm (130-400); Red Blood Count 4.13 10^6/uL (4.1-5.3); Red Cell Distribution Width 13.5 % (12.1-15.1); White Blood Count 7.8 10^3/uL (4.0-10.0)
[2021-11-04 08:43] LABS: Alanine Aminotransferase 23 U/L (0-33); Albumin Level 4.4 g/dL (3.5-5.2); Alkaline Phosphatase 56 IU/L (35-105); Anion Gap 15.2 (5-19); Aspartate Amino Transferase 21 U/L (0-32); Blood Urea Nitrogen 15 mg/dL (8-23); Calcium 9.4 mg/dL (8.5-10.5); Carbon Dioxide 22 mmol/L (22-29); Chloride 108 mmol/L (98-107); Globulin 2.2 g/dL (1.3-4.6); Glucose 96 mg/dL (65-115); Osmolality Calculated 293 mOsm/kg (285-295); Potassium 4.2 mmol/L (3.5-5.1); Sodium 141 mmol/L (136-145); Total Bilirubin 0.3 mg/dL (0.15-1.2); Total Protein 6.6 g/dL (6.6-8.7)
--- NOTE | 2021-11-04 19:38 | ONC FU_ITS ---
Dr. Mcwilliams Patient Follow-Up Note Patient: Odalis Woods Unit #: [id number]: 1950 Dicatated By: Lester Mcwilliams M.D.Date of Visit:Nov 04, 2021 Onc Med Follow-up/Prog Note Chief Complaint: Breast cancer. History of Present Illness: This is a 71 year-old woman with grade 3 invasive ductal carcinoma of the right breast, ER positive/TN negative and HER-2/dat positive. By clinical evaluation, she had denovo stage IV disease with PET/CT evidence of mediastinal lymph node involvement and multiple small pulmonary nodules bilaterally. She had presented with a palpable lump in the right breast. Her diagnostic mammogram/ultrasound on 01/20/2021 was BI-RADS 5, highly suggestive of malignancy. The mammogram showed a spiculated high density mass with calcifications at the 10 to 11 o'clock position of the right breast. It measured 2.0 x 1.6 cm. Mildly prominent dense lymph nodes were noted in the right axilla. By ultrasound the lesion was located 4 cm from the nipple at the 10 o'clock position. It was hypoechoic and measured 1.8 x 1.4 x 1.7 cm. A few mildly abnormal lymph nodes were noted in the right axilla. On 01/27/2021 she underwent ultrasound directed biopsy of the right breast mass and of a right axillary lymph node. Pathology on the breast biopsy showed grade 3 invasive ductal carcinoma. There was lymphovascular invasion and perineural invasion identified. The right axillary lymph node biopsy showed metastatic carcinoma, grade 3. The breast prognostic profile showed ER positive at 20%. The TN was negative < 1%. The tumor was positive for overexpression of HER-2/dat, 3+ by IHC and amplification ratio by FISH of 1.2 with 3.3 HER-2 copies/cell. The Ki-67 was high at 15%. I had seen her initially on 01/31/2021. At that time we had discussed further management of the breast cancer with the expectation that she would likely begin neoadjuvant chemotherapy, though I had recommended that she first have a staging PET/CT. I also had recommended that she proceed with placement of Port-A-Cath venous access device, which became somewhat problematic due to restrictions associated with her insurance coverage. Staging PET/CT on 02/08/2021 showed an FDG avid solid lesion in the upper outer quadrant of the right breast measuring 1.3 x 0.8 cm, SUV 9.5, consistent with the known primary carcinoma. Two dominant FDG positive axillary lymph nodes had SUV up to 10.4. A 3rd node demonstrated a fatty hilum but with SUV 3.5. There were additional FDG positive nodes within the mediastinum including subcarinal, left upper hilar, right paratracheal 2R and 4R, and right hilar territory lymph nodes. The dominant left hilar lymph node had SUV 7.1. Multiple bilateral pulmonary nodules were noted, the largest in the right upper lobe measuring 7 mm. These showed mild FDG uptake and were felt to have high probability of representing metastatic disease. I had seen her for a follow-up visit on 02/14/2021. Given the PET/CT findings, I had recommended that she begin systemic therapy with paclitaxel in combination with Herceptin and Perjeta. She subsequently underwent placement of Port-A-Cath venous access device on 02/19/2021. Her baseline echocardiogram showed hypokinesia of the basal inferior wall segment but with normal left ventricular ejection fraction at 60%. Her other medical illnesses have been limited to hypertension and osteopenia. She has had no prior surgeries. She has a history of smoking 1 pack of cigarettes daily for 33 years. She quit smoking in 1999. INTERIM HISTORY: She began cycle 1 of paclitaxel/Herceptin/Perjeta on 03/19/2021 with the paclitaxel and Herceptin administered weekly and the Perjeta administered on a 3-week schedule. She tolerated the initial infusions without acute toxicity. She continued with her week 2 paclitaxel/Herceptin on 03/26/2021 and with week 3 treatment on 04/03/2021. She then had a planned treatment break at week 4 due to neutropenia. She then began cycle 2 on 04/16/2021 with the paclitaxel administered weekly and with the Herceptin and Perjeta administered at 3-week dosing. She tolerated that treatment well, though she was having increasing side effects with the steroid premedication. She continued with cycle 3 on 05/07/2021 with the taxane change to nab-paclitaxel. Restaging PET/CT on 06/05/2021 showed bilateral axillary lymphadenopathy, more prominent on the left side with preserved fatty hilar tissue. A right level 1 lymph node appeared irregular measuring 1.0 cm in short axis with a maximum SUV 5.04. Focally increased metabolic activity was noted in the right breast at the location of the fiducial marker. There was associated irregular soft tissue density measuring approximate 1.2 cm with a maximum SUV 2.16. A 1.0 cm right precarinal lymph node had maximum SUV 2.97 and there was mild increased metabolic activity in both hilar regions, maximum SUV 3.88 on the right and 3.80 on the left. There was no pulmonary nodularity or focal increase of metabolic activity in the lung tissue. There were no osseous lesions noted. Inflammatory changes were present in the right shoulder. Overall, there was residual neoplastic activity in the breast and right axilla. The mediastinal and hilar activity was felt to be indeterminate. There was no strong evidence for distant metastatic involvement. With those findings, she continued with cycle 4 of Abraxane/Herceptin/Perjeta on 06/09/2021 and with that cycle the Abraxane was changed to 3-week dosing. She continued with cycle 5 on 06/30/2021. At her follow-up visit on 07/21/2021 she reported increased chemotherapy related side effects, and I opted to stop the Abraxane and to continue treatment with just the Herceptin/Perjeta. With her disease appearing to be localized to the breast and axilla by PET/CT, I had also recommended that she see Dr. Rothman for lumpectomy/axillary lymph node sampling. In addition, with the Abraxane having been discontinued, she was recommended to begin adjuvant hormonal therapy with anastrozole 1 mg daily. On 08/20/2021 she underwent right breast lumpectomy with right axillary sentinel lymph node biopsy. Pathology on the lumpectomy specimen showed no residual malignancy. There was initially reported to be no involvement in 3 axillary lymph nodes. However, on subsequent immunohistochemical analysis, metastatic involvement was noted in 2 of the axillary lymph nodes. There was no evidence of extranodal extension. She then continued with cycle 2 of Herceptin/Perjeta on 09/02/2021 and was cycle 3 on 09/23/2021. Restaging PET/CT on 10/02/2021 showed mildly hypermetabolic activity at the operative site in the right breast/axilla. There is no evidence of metabolically active disease within the right axilla or right breast. There was resolution of previously noted hypermetabolic left axillary lymph nodes, thought perhaps to have been reactive. There were no hypermetabolic mediastinal or hilar lymph nodes noted and there are no hypermetabolic pulmonary nodules. Overall, the findings were consistent with a positive response to therapy with no evidence of disease progression. She then continued with cycle 4 of Herceptin/Perjeta on 10/14/2021. She is seen for a follow-up visit. Her main complaint is that she continues to have significant itching, especially around the eyes, forehead, chest, and arms. She has stopped taking all medications and/or supplements other than lisinopril, alendronate, and the anastrozole. She has pretty good energy now, and she is pretty much back to normal activity. She has good appetite. She has not had fever. She occasionally has sweating at night. She has not had sore mouth or throat. She does not complain of cough, and she has not been having shortness of breath or chest pain. She has no GI/ complaints other than occasional acid reflux. She currently has no significant joint or bone pain. She does not complain of headache. She occasionally has dizziness. 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 Medications: Alendronate Sodium 1 Tablet (of 70 mg) Oral q 7 days, Ascorbic Acid (500 mg) Tablet Oral b.i.d., Calcium Citrate + D3 (200-250 mg - Units) Tablet Oral daily, Daily Multiple Vitamins Tablet Oral daily, Lisinopril 1 Tablet (of 20 mg) Oral b.i.d., Magnesium (250 mg) Tablet Oral daily Allergies: No Known Allergies. Vital Signs: Performed on Nov 04, 2021 11:30 Height - 63.00 in Weight - 170.2 lbs (HIGH) BSA - 1.81 sq.m BMI - 30.15 (HIGH) Temperature - 98.1 F (LOW) Pulse - 72 /min Respiration - 16 /min BP - 176/81 mm(hg) (HIGH) O2 Sat - 96 % Pain - 0 Fatigue - 4 Physical Examination: Constitutional - She looks pretty good generally, Eyes - Sclerae nonicteric. Conjunctivae clear, ENMT - No lesions noted in the oral cavity, Hematologic/Lymphatic - No cervical, clavicular, or axillary adenopathy, Respiratory - Lungs are clear with good air movement bilaterally, Cardiovascular - Heart rhythm is regular. There is no murmur, gallop, or rub noted, Abdomen - Soft. Liver and spleen are not enlarged. There is no abdominal mass or ascites noted and there is no inguinal adenopathy, Extremities - No edema, Integumentary - There is still some mild, patchy erythema and there are scattered small papules, mainly in the upper chest area, Neurologic - No focal neurologic deficits noted. Lab/Imaging: Test performed on Nov 04, 2021 08:06 Sodium 141 mmol/L Potassium 4.2 mmol/L Chloride 108 mmol/L CO2 22 mmol/L Anion Gap 15.2 BUN 15 mg/dL Creatinine 0.7 mg/dL Cr Clearance (Est) 83.3400 mL/min Glucose 96 mg/dL Osmolality - Calculated 293 mOsm/kg Calcium 9.4 mg/dL Protein, Total 6.6 g/dL Albumin 4.4 g/dL Globulin 2.2 g/dL Bilirubin, Total 0.3 mg/dL ALT (SGPT) 23 U/L AST (SGOT) 21 U/L Alkaline Phosphatase 56 IU/L WBC 7.8 10 3/uL RBC 4.13 10 6/uL HGB 12.8 g/dL HCT 38.6 % MCV 93.5 fl MCH 31.0 pg MCHC 33.2 g/dL RDW 13.5 % Platelet Count 211 10 3/cmm MPV 10.1 fL Neutrophils 4.96 10 3/uL Lymphocytes 1.8 10 3/uL Monocytes 0.8 10 3/uL Eosinophils 0.2 10 3/uL Basophils 0.1 10 3/uL Neutrophil % 63.5 % Lymphocyte % 22.5 % Monocyte % 10.5 % Eosinophil % 2.4 % Basophils % 0.6 % NRBC % 0 % Problem List: 1. Grade 3 invasive ductal carcinoma of the right breast, ER positive/TN negative and HER-2/dat positive. 2. Hypertension. 3. Osteopenia. Problems Addressed with this Encounter and Plan: Patient with grade 3 invasive ductal carcinoma of the right breast, ER positive/TN negative and HER-2/dat positive. She underwent ultrasound-guided biopsy of right breast mass and of right axillary lymph node on 01/27/2021. Her staging PET/CT on 02/08/2021 showed the FDG avid right breast mass and 2 or possibly 3 involved axillary lymph nodes. There was suspected involvement in mediastinal lymph nodes and subcentimeter pulmonary nodules bilaterally were also felt to be suspicious for metastatic disease. As such, by clinical evaluation, her disease was stage at least IIA (T1c, N1, M0) and possibly stage IV (T1c, N1, M1). Given the PET/CT findings, she was recommended to begin systemic therapy with paclitaxel in combination with Herceptin and Perjeta. She began treatment on 03/19/2021 with the paclitaxel and Herceptin administered weekly to minimize toxicities. Following her week 3 paclitaxel she was given a planned treatment break. She then began cycle 2 on 04/16/2021 with the paclitaxel administered weekly and with the Herceptin and Perjeta administered at a 3-week dosing. She tolerated that treatment pretty well other than having increasing side effects with the steroid premedication. She then continued with cycle 3 on 05/07/2021 with the taxane changed to nab-paclitaxel. She had evidence of response by restaging PET/CT on 06/05/2021, but that study did show residual neoplastic activity in the right breast and right axilla. She then continued with cycle 4 of Abraxane/Herceptin/Perjeta on 06/09/2021 and with cycle 5 on 06/30/2021. As of her follow-up visit on 07/21/2021 she was experiencing increasing chemotherapy related side effects, and I opted to stop the Abraxane. She continued treatment with Herceptin/Perjeta, and at that point she also began adjuvant hormonal therapy with anastrozole 1 mg daily. On 08/20/2021 she underwent right breast lumpectomy with right axillary sentinel lymph node biopsy. Pathology showed no residual malignancy in the lumpectomy specimen. There was metastatic involvement in 2 of the axillary lymph nodes, but it was detectable only by immunohistochemical analysis. She then continued with cycle 2 of Herceptin/Perjeta on 09/02/2021 and with cycle 3 on 09/23/2021. Her follow-up PET/CT on 10/02/2021 showed positive response to therapy with no areas of residual disease and no evidence of disease progression. She proceeded with cycle 4 of Herceptin/Perjeta on 10/14/2021. Overall, she has had a very good response to her treatment, but at this point she continues to have significant itching, most significantly around the eyes and forehead, but also to some extent on the chest and arms. I had originally assumed that it was associated with the Abraxane, and I had assumed it would resolve. However, as the itching has persisted, I am going to put the Herceptin/Perjeta on hold, at least temporarily. She will continue her adjuvant hormonal therapy with anastrozole 1 mg daily. She will be scheduled for a follow-up visit in 1 month. Signed By: Lester Mcwilliams M.D. <<Signature on File>>
== END 2021-11-10 23:59 | disposition home or self-care (01) ==
LOC: ONCMED 06:52
PROVIDERS: Nurse Practitioner Family; PCP Nurse Practitioner Family; Visit Provider Internal Medicine Medical Oncology
DX: Z51.11 Encounter for antineoplastic chemotherapy (principal); C50.811 Malignant neoplasm of overlapping sites of right female breast; C17.0 Malignant neoplasm of duodenum; I10 Essential (primary) hypertension; M85.80 Other specified disorders of bone density and structure, unspecified site; Z79.899 Other long term (current) drug therapy; Z79.818 Long term (current) use of other agents affecting estrogen receptors and estrogen levels
CPT/HCPCS: 36591; 80053; 85025; 96375; 96413; 96417; 99214; 99215; J1200; J7050; J9306; J9355

== ENCOUNTER 2021-11-25 07:43 | Outpatient (RCR) | payer MEDICARE, MEDICAID, SELFPAY ==
[2021-11-25 08:22] LABS: Basophils % 0.5 %; Eosinophils # 0.2 10^3/uL (0.0-0.8); Eosinophils % 2.9 %; Hematocrit 38.8 % (37.0-47.0); Lymphocytes # 2.4 10^3/uL (0.8-4.8); Mean Corpuscular HGB Conc 33.5 g/dL (30.0-36.0); Mean Corpuscular Hemoglobin 31.4 pg (28.0-34.0); Mean Corpuscular Volume 93.7 fl (81-99); Monocytes # 0.9 10^3/uL (0.2-0.9); Monocytes % 10.3 %; Neutrophils # 4.86 10^3/uL (1.8-7.7); Neutrophils % 57.9 %; Nucleated Red Blood Cells % 0 %; Platelet Count 220 10^3/cmm (130-400); Red Blood Count 4.14 10^6/uL (4.1-5.3); Red Cell Distribution Width 12.7 % (12.1-15.1); White Blood Count 8.4 10^3/uL (4.0-10.0)
[2021-11-25 08:46] LABS: Alanine Aminotransferase 31 U/L (0-33); Albumin Level 4.2 g/dL (3.5-5.2); Alkaline Phosphatase 57 IU/L (35-105); Anion Gap 13.2 (5-19); Aspartate Amino Transferase 26 U/L (0-32); Blood Urea Nitrogen 13 mg/dL (8-23); Calcium 9.5 mg/dL (8.5-10.5); Carbon Dioxide 24 mmol/L (22-29); Chloride 106 mmol/L (98-107); Globulin 2.2 g/dL (1.3-4.6); Glucose 89 mg/dL (65-115); Osmolality Calculated 288 mOsm/kg (285-295); Potassium 4.2 mmol/L (3.5-5.1); Sodium 139 mmol/L (136-145); Total Bilirubin 0.3 mg/dL (0.15-1.2); Total Protein 6.4 g/dL (6.6-8.7)
--- NOTE | 2021-11-25 16:12 | ONC FU_ITS ---
Cris Romero Progress Note Patient: Odalis Woods Unit #: [id number]: 1950 Dicatated By: Cris Romero N.P.Date of Visit:Nov 25, 2021 Onc MED Follow-up/Prog Note Chief Complaint: Breast cancer. History of Present Illness: This is a 71 year-old woman with grade 3 invasive ductal carcinoma of the right breast, ER positive/WV negative and HER-2/dat positive. By clinical evaluation, she had denovo stage IV disease with PET/CT evidence of mediastinal lymph node involvement and multiple small pulmonary nodules bilaterally. She had presented with a palpable lump in the right breast. Her diagnostic mammogram/ultrasound on 01/20/2021 was BI-RADS 5, highly suggestive of malignancy. The mammogram showed a spiculated high density mass with calcifications at the 10 to 11 o'clock position of the right breast. It measured 2.0 x 1.6 cm. Mildly prominent dense lymph nodes were noted in the right axilla. By ultrasound the lesion was located 4 cm from the nipple at the 10 o'clock position. It was hypoechoic and measured 1.8 x 1.4 x 1.7 cm. A few mildly abnormal lymph nodes were noted in the right axilla. On 01/27/2021 she underwent ultrasound directed biopsy of the right breast mass and of a right axillary lymph node. Pathology on the breast biopsy showed grade 3 invasive ductal carcinoma. There was lymphovascular invasion and perineural invasion identified. The right axillary lymph node biopsy showed metastatic carcinoma, grade 3. The breast prognostic profile showed ER positive at 20%. The WV was negative < 1%. The tumor was positive for overexpression of HER-2/dat, 3+ by IHC and amplification ratio by FISH of 1.2 with 3.3 HER-2 copies/cell. The Ki-67 was high at 15%. Dr. Mcwilliams had seen her initially on 01/31/2021. At that time we had discussed further management of the breast cancer with the expectation that she would likely begin neoadjuvant chemotherapy, though I had recommended that she first have a staging PET/CT. I also had recommended that she proceed with placement of Port-A-Cath venous access device, which became somewhat problematic due to restrictions associated with her insurance coverage. Staging PET/CT on 02/08/2021 showed an FDG avid solid lesion in the upper outer quadrant of the right breast measuring 1.3 x 0.8 cm, SUV 9.5, consistent with the known primary carcinoma. Two dominant FDG positive axillary lymph nodes had SUV up to 10.4. A 3rd node demonstrated a fatty hilum but with SUV 3.5. There were additional FDG positive nodes within the mediastinum including subcarinal, left upper hilar, right paratracheal 2R and 4R, and right hilar territory lymph nodes. The dominant left hilar lymph node had SUV 7.1. Multiple bilateral pulmonary nodules were noted, the largest in the right upper lobe measuring 7 mm. These showed mild FDG uptake and were felt to have high probability of representing metastatic disease. I had seen her for a follow-up visit on 02/14/2021. Given the PET/CT findings, I had recommended that she begin systemic therapy with paclitaxel in combination with Herceptin and Perjeta. She subsequently underwent placement of Port-A-Cath venous access device on 02/19/2021. Her baseline echocardiogram showed hypokinesia of the basal inferior wall segment but with normal left ventricular ejection fraction at 60%. Her other medical illnesses have been limited to hypertension and osteopenia. She has had no prior surgeries. She has a history of smoking 1 pack of cigarettes daily for 33 years. She quit smoking in 1999. INTERIM HISTORY: She began cycle 1 of paclitaxel/Herceptin/Perjeta on 03/19/2021 with the paclitaxel and Herceptin administered weekly and the Perjeta administered on a 3-week schedule. She tolerated the initial infusions without acute toxicity. She continued with her week 2 paclitaxel/Herceptin on 03/26/2021 and with week 3 treatment on 04/03/2021. She then had a planned treatment break at week 4 due to neutropenia. She then began cycle 2 on 04/16/2021 with the paclitaxel administered weekly and with the Herceptin and Perjeta administered at 3-week dosing. She tolerated that treatment well, though she was having increasing side effects with the steroid premedication. She continued with cycle 3 on 05/07/2021 with the taxane change to nab-paclitaxel. Restaging PET/CT on 06/05/2021 showed bilateral axillary lymphadenopathy, more prominent on the left side with preserved fatty hilar tissue. A right level 1 lymph node appeared irregular measuring 1.0 cm in short axis with a maximum SUV 5.04. Focally increased metabolic activity was noted in the right breast at the location of the fiducial marker. There was associated irregular soft tissue density measuring approximate 1.2 cm with a maximum SUV 2.16. A 1.0 cm right precarinal lymph node had maximum SUV 2.97 and there was mild increased metabolic activity in both hilar regions, maximum SUV 3.88 on the right and 3.80 on the left. There was no pulmonary nodularity or focal increase of metabolic activity in the lung tissue. There were no osseous lesions noted. Inflammatory changes were present in the right shoulder. Overall, there was residual neoplastic activity in the breast and right axilla. The mediastinal and hilar activity was felt to be indeterminate. There was no strong evidence for distant metastatic involvement. With those findings, she continued with cycle 4 of Abraxane/Herceptin/Perjeta on 06/09/2021 and with that cycle the Abraxane was changed to 3-week dosing. She continued with cycle 5 on 06/30/2021. At her follow-up visit on 07/21/2021 she reported increased chemotherapy related side effects, and I opted to stop the Abraxane and to continue treatment with just the Herceptin/Perjeta. With her disease appearing to be localized to the breast and axilla by PET/CT, I had also recommended that she see Dr. Rothman for lumpectomy/axillary lymph node sampling. In addition, with the Abraxane having been discontinued, she was recommended to begin adjuvant hormonal therapy with anastrozole 1 mg daily. On 08/20/2021 she underwent right breast lumpectomy with right axillary sentinel lymph node biopsy. Pathology on the lumpectomy specimen showed no residual malignancy. There was initially reported to be no involvement in 3 axillary lymph nodes. However, on subsequent immunohistochemical analysis, metastatic involvement was noted in 2 of the axillary lymph nodes. There was no evidence of extranodal extension. She then continued with cycle 2 of Herceptin/Perjeta on 09/02/2021 and was cycle 3 on 09/23/2021. Restaging PET/CT on 10/02/2021 showed mildly hypermetabolic activity at the operative site in the right breast/axilla. There is no evidence of metabolically active disease within the right axilla or right breast. There was resolution of previously noted hypermetabolic left axillary lymph nodes, thought perhaps to have been reactive. There were no hypermetabolic mediastinal or hilar lymph nodes noted and there are no hypermetabolic pulmonary nodules. Overall, the findings were consistent with a positive response to therapy with no evidence of disease progression. She then continued with cycle 4 of Herceptin/Perjeta on 10/14/2021. Patient presents today for follow-up. At her last visit she was complaining of itching especially around the eyes and on her scalp so Perjeta and Herceptin were held this would ease the itching she has been having. She states the itching has continued and has now spread to her arms and her chest area. There is no visible rash but there are scratch vaca where she has been scratching. She states she has minimal fatigue. Her appetite has been good. No fever, chills, night sweats she has occasional hot flashes. No sinus drainage or sore throat. No shortness of breath, cough, chest pain. No GI or problems. No joint or bone pain. No headaches or dizziness. Review Of Symptoms: See above. Past Medical History: Hypertension Osteopenia Past Surgical History: Covid vaccine #2 moderna in 2020 Covid vaccine #1 moderna in 2020 POWERPORT left internal jugular???Dr. Rothman in 2020 Ultrasound-guided biopsy of right breast mass and a right axillary lymph node in 2020 Cataracts in 2009 Allergies: No Known Allergies. Medications: Alendronate Sodium 1 Tablet (of 70 mg) Oral q 7 days Ascorbic Acid (500 mg) Tablet Oral b.i.d. Calcium Citrate + D3 (200-250 mg - Units) Tablet Oral daily PRN Daily Multiple Vitamins Tablet Oral daily Lisinopril 1 Tablet (of 20 mg) Oral b.i.d. Magnesium (250 mg) Tablet Oral daily PRN Family History: Father had kidney cancer. He of unrelated lung disease. Mother had hypertension and following complications after a stroke. One brother and two sisters are in good health. There is no history of breast or ovarian cancer in the family. Social History: Ms. Woods is . Ms. Woods quit smoking 22 years ago but had smoked 1.0 pack/day for 33 years. She drinks occasionally. She consumes 1 drink/day 7 days/week. She has history of smoking 1 pack of cigarettes daily for 33 years. She quit smoking in 1999. She drinks 1 glass of red wine daily. Physical Examination: Performed on Nov 25, 2021 10:22: Height - 63.00 in, Weight - 170.0 lbs (LOW), BSA - 1.80 sq.m, BMI - 30.11 (HIGH), Temperature - 98.2 F (LOW), Pulse - 70 /min, Respiration - 16 /min, BP - 149/82 mm(hg) (HIGH), O2 Sat - 97 %, Pain - 0, and Fatigue - 3. Performance Status: 1 - No physically strenuous activity, but ambulatory and able to carry out light or sedentary work (e.g. office work, light house work). (ECOG) Constitutional Alert, cooperative, oriented. Mood and affect appropriate. Appears close to chronological age. Well nourished. Well developed. Head Normocephalic; no scars. Respiratory Lungs are clear to auscultation without rhonchi or wheezing. Cardiovascular Regular rate and rhythm of heart without murmurs, gallops or rubs. Abdomen Non-tender, non-distended, no masses, ascites or hepatosplenomegaly. Good bowel sounds. No guarding or rebound tenderness. Extremities No visible deformities, no cyanosis, clubbing or edema. Pulses 3+ and equal bilaterally. Musculoskeletal No tenderness or swelling, normal range of motion without obvious weakness. Psychiatric Alert and oriented times three. Coherent speech. Verbalizes understanding of our discussions today. Laboratory: Test performed on Nov 25, 2021 08:10 Sodium 139 mmol/L Potassium 4.2 mmol/L Chloride 106 mmol/L CO2 24 mmol/L Anion Gap 13.2 BUN 13 mg/dL Creatinine 0.7 mg/dL Cr Clearance (Est) 83.3400 mL/min Glucose 89 mg/dL Osmolality - Calculated 288 mOsm/kg Calcium 9.5 mg/dL Protein, Total 6.4 g/dL Albumin 4.2 g/dL Globulin 2.2 g/dL Bilirubin, Total 0.3 mg/dL ALT (SGPT) 31 U/L AST (SGOT) 26 U/L Alkaline Phosphatase 57 IU/L WBC 8.4 10 3/uL RBC 4.14 10 6/uL HGB 13.0 g/dL HCT 38.8 % MCV 93.7 fl MCH 31.4 pg MCHC 33.5 g/dL RDW 12.7 % Platelet Count 220 10 3/cmm MPV 10.0 fL Neutrophils 4.86 10 3/uL Lymphocytes 2.4 10 3/uL Monocytes 0.9 10 3/uL Eosinophils 0.2 10 3/uL Basophils 0.0 10 3/uL Neutrophil % 57.9 % Lymphocyte % 28.0 % Monocyte % 10.3 % Eosinophil % 2.9 % Basophils % 0.5 % NRBC % 0 % Test performed on Jul 21, 2021 08:20 Vitamin D (25-Hydroxy), Total 25 ng/mL Test performed on Jul 21, 2021 00:00 Manual Diff DT Test performed on Jun 16, 2021 13:30 CBC Slide Review Slide Review Perform SLIDE REVIEWED AGREES WITH THE AUTO RESULT Impression: 1. Grade 3 invasive ductal carcinoma of the right breast, ER positive/WV negative and HER-2/dat positive. 2. Hypertension. 3. Osteopenia. Plan: Patient with grade 3 invasive ductal carcinoma of the right breast, ER positive/WV negative and HER-2/dat positive. She underwent ultrasound-guided biopsy of right breast mass and of right axillary lymph node on 01/27/2021. Her staging PET/CT on 02/08/2021 showed the FDG avid right breast mass and 2 or possibly 3 involved axillary lymph nodes. There was suspected involvement in mediastinal lymph nodes and subcentimeter pulmonary nodules bilaterally were also felt to be suspicious for metastatic disease. As such, by clinical evaluation, her disease was stage at least IIA (T1c, N1, M0) and possibly stage IV (T1c, N1, M1). Given the PET/CT findings, she was recommended to begin systemic therapy with paclitaxel in combination with Herceptin and Perjeta. She began treatment on 03/19/2021 with the paclitaxel and Herceptin administered weekly to minimize toxicities. Following her week 3 paclitaxel she was given a planned treatment break. She then began cycle 2 on 04/16/2021 with the paclitaxel administered weekly and with the Herceptin and Perjeta administered at a 3-week dosing. She tolerated that treatment pretty well other than having increasing side effects with the steroid premedication. She then continued with cycle 3 on 05/07/2021 with the taxane changed to nab-paclitaxel. She had evidence of response by restaging PET/CT on 06/05/2021, but that study did show residual neoplastic activity in the right breast and right axilla. She then continued with cycle 4 of Abraxane/Herceptin/Perjeta on 06/09/2021 and with cycle 5 on 06/30/2021. As of her follow-up visit on 07/21/2021 she was experiencing increasing chemotherapy related side effects, and I opted to stop the Abraxane. She continued treatment with Herceptin/Perjeta, and at that point she also began adjuvant hormonal therapy with anastrozole 1 mg daily. On 08/20/2021 she underwent right breast lumpectomy with right axillary sentinel lymph node biopsy. Pathology showed no residual malignancy in the lumpectomy specimen. There was metastatic involvement in 2 of the axillary lymph nodes, but it was detectable only by immunohistochemical analysis. She then continued with cycle 2 of Herceptin/Perjeta on 09/02/2021 and with cycle 3 on 09/23/2021. Her follow-up PET/CT on 10/02/2021 showed positive response to therapy with no areas of residual disease and no evidence of disease progression. She proceeded with cycle 4 of Herceptin/Perjeta on 10/14/2021. Although she has had a very good response to the Herceptin and Perjeta, and had he placed on hold due to significant itching which has not improved with the hold of the medications. We will consult Herceptin and Perjeta at this point. We will start doxepin 25 mg p.o. at bedtime and Claritin 10 mg p.o. during the day to see if this will help with the itching. We will also provide a dermatology consult for further evaluation. Due to the lisinopril possibly being the cause of the itching we will discontinue that and start amlodipine 5 mg p.o. daily. She is to monitor her blood pressure and we will adjust dosage as necessary. Hydrocortisone cream was also provided for as needed use. I will attempt to notify her PCP Sasha Jalloh NP of change in blood pressure medication. She was started on adjuvant hormonal therapy with anastrozole 1 mg daily but was unable to tolerate that so that was discontinued. Exemestane 25mg will be started. we will have her follow-up in 1 month for reevaluation and CBC and CMP. Signed By: Cris Romero N.Torey. <<Signature on File>>
== END 2021-12-11 23:59 | disposition home or self-care (01) ==
LOC: ONCMED 07:43
PROVIDERS: PCP Nurse Practitioner Family; Visit Provider Internal Medicine Medical Oncology
DX: C50.811 Malignant neoplasm of overlapping sites of right female breast (principal); Z17.0 Estrogen receptor positive status [ER+]; I10 Essential (primary) hypertension; M85.80 Other specified disorders of bone density and structure, unspecified site; Z79.818 Long term (current) use of other agents affecting estrogen receptors and estrogen levels; Z79.899 Other long term (current) drug therapy; Z92.21 Personal history of antineoplastic chemotherapy
CPT/HCPCS: 36591; 80053; 85025; 99214

== ENCOUNTER 2021-12-24 09:57 | Outpatient (RCR) | payer MEDICARE, MEDICAID, SELFPAY ==
[2021-12-24 10:31] LABS: Basophils % 0.4 %; Eosinophils # 0.2 10^3/uL (0.0-0.8); Eosinophils % 2.9 %; Hematocrit 39.1 % (37.0-47.0); Hemoglobin 13.1 g/dL (11.5-15.3); Lymphocytes % 24.8 %; Mean Corpuscular HGB Conc 33.5 g/dL (30.0-36.0); Mean Corpuscular Volume 92.7 fl (81-99); Mean Platelet Volume 9.9 fL (7.4-10.4); Monocytes # 0.5 10^3/uL (0.2-0.9); Monocytes % 5.7 %; Neutrophils # 5.28 10^3/uL (1.8-7.7); Neutrophils % 65.8 %; Nucleated Red Blood Cells % 0 %; Platelet Count 214 10^3/cmm (130-400); Red Blood Count 4.22 10^6/uL (4.1-5.3)
[2021-12-24 10:32] LABS: Erythrocyte Sedimentation Rate 3 mm/hr (0-15)
[2021-12-24 10:53] LABS: Alanine Aminotransferase 31 U/L (0-33); Albumin Level 4.3 g/dL (3.5-5.2); Alkaline Phosphatase 76 IU/L (35-105); Anion Gap 15.9 (5-19); Aspartate Amino Transferase 26 U/L (0-32); Blood Urea Nitrogen 13 mg/dL (8-23); Calcium 9.5 mg/dL (8.5-10.5); Carbon Dioxide 21 mmol/L (22-29); Chloride 105 mmol/L (98-107); Glucose 143 mg/dL (65-115); Osmolality Calculated 289 mOsm/kg (285-295); Potassium 3.9 mmol/L (3.5-5.1); Sodium 138 mmol/L (136-145); Total Bilirubin 0.4 mg/dL (0.15-1.2); Total Protein 6.3 g/dL (6.6-8.7)
[2021-12-25 14:13] LABS: Lyme AB Screen <0.90 index
--- NOTE | 2021-12-28 09:34 | ONC FU_ITS ---
Dr. Mcwilliams Patient Follow-Up Note Patient: Odalis Woods Unit #: [id number]: 1950 Dicatated By: Lester Mcwilliams M.D.Date of Visit:Dec 24, 2021 Onc Med Follow-up/Prog Note Chief Complaint: Breast cancer. History of Present Illness: This is a 71 year-old woman with grade 3 invasive ductal carcinoma of the right breast, ER positive/GA negative and HER-2/dat positive. By clinical evaluation, she had denovo stage IV disease with PET/CT evidence of mediastinal lymph node involvement and multiple small pulmonary nodules bilaterally. She had presented with a palpable lump in the right breast. Her diagnostic mammogram/ultrasound on 01/20/2021 was BI-RADS 5, highly suggestive of malignancy. The mammogram showed a spiculated high density mass with calcifications at the 10 to 11 o'clock position of the right breast. It measured 2.0 x 1.6 cm. Mildly prominent dense lymph nodes were noted in the right axilla. By ultrasound the lesion was located 4 cm from the nipple at the 10 o'clock position. It was hypoechoic and measured 1.8 x 1.4 x 1.7 cm. A few mildly abnormal lymph nodes were noted in the right axilla. On 01/27/2021 she underwent ultrasound directed biopsy of the right breast mass and of a right axillary lymph node. Pathology on the breast biopsy showed grade 3 invasive ductal carcinoma. There was lymphovascular invasion and perineural invasion identified. The right axillary lymph node biopsy showed metastatic carcinoma, grade 3. The breast prognostic profile showed ER positive at 20%. The GA was negative < 1%. The tumor was positive for overexpression of HER-2/dat, 3+ by IHC and amplification ratio by FISH of 1.2 with 3.3 HER-2 copies/cell. The Ki-67 was high at 15%. I had seen her initially on 01/31/2021. At that time we had discussed further management of the breast cancer with the expectation that she would likely begin neoadjuvant chemotherapy, though I had recommended that she first have a staging PET/CT. I also had recommended that she proceed with placement of Port-A-Cath venous access device, which became somewhat problematic due to restrictions associated with her insurance coverage. Staging PET/CT on 02/08/2021 showed an FDG avid solid lesion in the upper outer quadrant of the right breast measuring 1.3 x 0.8 cm, SUV 9.5, consistent with the known primary carcinoma. Two dominant FDG positive axillary lymph nodes had SUV up to 10.4. A 3rd node demonstrated a fatty hilum but with SUV 3.5. There were additional FDG positive nodes within the mediastinum including subcarinal, left upper hilar, right paratracheal 2R and 4R, and right hilar territory lymph nodes. The dominant left hilar lymph node had SUV 7.1. Multiple bilateral pulmonary nodules were noted, the largest in the right upper lobe measuring 7 mm. These showed mild FDG uptake and were felt to have high probability of representing metastatic disease. I had seen her for a follow-up visit on 02/14/2021. Given the PET/CT findings, I had recommended that she begin systemic therapy with paclitaxel in combination with Herceptin and Perjeta. She subsequently underwent placement of Port-A-Cath venous access device on 02/19/2021. Her baseline echocardiogram showed hypokinesia of the basal inferior wall segment but with normal left ventricular ejection fraction at 60%. Her other medical illnesses have been limited to hypertension and osteopenia. She has had no prior surgeries. She has a history of smoking 1 pack of cigarettes daily for 33 years. She quit smoking in 1999. INTERIM HISTORY: She began cycle 1 of paclitaxel/Herceptin/Perjeta on 03/19/2021 with the paclitaxel and Herceptin administered weekly and the Perjeta administered on a 3-week schedule. She tolerated the initial infusions without acute toxicity. She continued with her week 2 paclitaxel/Herceptin on 03/26/2021 and with week 3 treatment on 04/03/2021. She then had a planned treatment break at week 4 due to neutropenia. She then began cycle 2 on 04/16/2021 with the paclitaxel administered weekly and with the Herceptin and Perjeta administered at 3-week dosing. She tolerated that treatment well, though she was having increasing side effects with the steroid premedication. She continued with cycle 3 on 05/07/2021 with the taxane change to nab-paclitaxel. Restaging PET/CT on 06/05/2021 showed bilateral axillary lymphadenopathy, more prominent on the left side with preserved fatty hilar tissue. A right level 1 lymph node appeared irregular measuring 1.0 cm in short axis with a maximum SUV 5.04. Focally increased metabolic activity was noted in the right breast at the location of the fiducial marker. There was associated irregular soft tissue density measuring approximate 1.2 cm with a maximum SUV 2.16. A 1.0 cm right precarinal lymph node had maximum SUV 2.97 and there was mild increased metabolic activity in both hilar regions, maximum SUV 3.88 on the right and 3.80 on the left. There was no pulmonary nodularity or focal increase of metabolic activity in the lung tissue. There were no osseous lesions noted. Inflammatory changes were present in the right shoulder. Overall, there was residual neoplastic activity in the breast and right axilla. The mediastinal and hilar activity was felt to be indeterminate. There was no strong evidence for distant metastatic involvement. With those findings, she continued with cycle 4 of Abraxane/Herceptin/Perjeta on 06/09/2021 and with that cycle the Abraxane was changed to 3-week dosing. She continued with cycle 5 on 06/30/2021. At her follow-up visit on 07/21/2021 she reported increased chemotherapy related side effects, and I opted to stop the Abraxane and to continue treatment with just the Herceptin/Perjeta. With her disease appearing to be localized to the breast and axilla by PET/CT, I had also recommended that she see Dr. Rothman for lumpectomy/axillary lymph node sampling. In addition, with the Abraxane having been discontinued, she was recommended to begin adjuvant hormonal therapy with anastrozole 1 mg daily. On 08/20/2021 she underwent right breast lumpectomy with right axillary sentinel lymph node biopsy. Pathology on the lumpectomy specimen showed no residual malignancy. There was initially reported to be no involvement in 3 axillary lymph nodes. However, on subsequent immunohistochemical analysis, metastatic involvement was noted in 2 of the axillary lymph nodes. There was no evidence of extranodal extension. She then continued with cycle 2 of Herceptin/Perjeta on 09/02/2021 and was cycle 3 on 09/23/2021. Restaging PET/CT on 10/02/2021 showed mildly hypermetabolic activity at the operative site in the right breast/axilla. There is no evidence of metabolically active disease within the right axilla or right breast. There was resolution of previously noted hypermetabolic left axillary lymph nodes, thought perhaps to have been reactive. There were no hypermetabolic mediastinal or hilar lymph nodes noted and there are no hypermetabolic pulmonary nodules. Overall, the findings were consistent with a positive response to therapy with no evidence of disease progression. She then continued with cycle 4 of Herceptin/Perjeta on 10/14/2021. At her follow-up visit on 11/04/2021 she continued to have significant itching despite having stopped her supplements and a number of her medications. At that point I did opt to put the Herceptin/Perjeta on hold, and she stopped both the anastrozole and lisinopril. In November 2021 she began on amlodipine for the hypertension and her hormonal treatment was changed to exemestane 25 mg daily. She is seen for a follow-up visit. She has been feeling pretty good generally. She says that she went back on the lisinopril because of side effects with the amlodipine. She still has some itching around her eyes and in both arms, but it is subsiding. Her energy is fair. She has been walking and doing housework. ECOG score is 1. She has good appetite. She has not had fever. She occasionally has sweating at night. She has not had sore mouth or throat. She does not complain of cough or shortness of breath. She has had some pain under the left anterior rib cage. She has no GI or complaints. She has some joint pain, mainly in the right shoulder, in her hips, and in her toes. She also complains that her toes are still numb, but it is gradually improving. She had a tick bite in the left axillary area a week and a half ago, and she is concerned because she is having some redness associated with it. Medications: Alendronate Sodium 1 Tablet (of 70 mg) Oral q 7 days, Ascorbic Acid (500 mg) Tablet Oral b.i.d., Calcium Citrate + D3 (200-250 mg - Units) Tablet Oral daily PRN, Daily Multiple Vitamins Tablet Oral daily, Lisinopril 1 Tablet (of 20 mg) Oral b.i.d., Magnesium (250 mg) Tablet Oral daily PRN Allergies: No Known Allergies. Vital Signs: Performed on Dec 24, 2021 13:16 Height - 63.00 in BP - 147/80 mm(hg) (HIGH) Performed on Dec 24, 2021 13:16 Height - 63.00 in Weight - 168.0 lbs (LOW) BSA - 1.80 sq.m BMI - 29.76 Temperature - 97.7 F (LOW) Pulse - 79 /min Respiration - 16 /min BP - 167/77 mm(hg) (HIGH) O2 Sat - 96 % Pain - 8 Fatigue - 5 Physical Examination: Constitutional - She looks pretty good generally, Eyes - Sclerae nonicteric. Conjunctivae clear, ENMT - No lesions noted in the oral cavity, Hematologic/Lymphatic - No cervical, clavicular, or axillary adenopathy, Respiratory - Lungs are clear with good air movement bilaterally, Cardiovascular - Heart rhythm is regular. There is no murmur, gallop, or rub noted, Abdomen - Soft. Liver and spleen are not enlarged. There is no abdominal mass or ascites noted and there is no inguinal adenopathy, Extremities - No edema, Integumentary - There is a small erythematous nodule at the site of her tick bite in the left axillary area, Neurologic - No focal neurologic deficits noted. Lab/Imaging: Test performed on Dec 24, 2021 10:15 Sodium 138 mmol/L Potassium 3.9 mmol/L Chloride 105 mmol/L CO2 21 mmol/L Anion Gap 15.9 BUN 13 mg/dL Creatinine 0.8 mg/dL Cr Clearance (Est) 72.9200 mL/min Glucose 143 mg/dL Osmolality - Calculated 289 mOsm/kg Calcium 9.5 mg/dL Protein, Total 6.3 g/dL Albumin 4.3 g/dL Globulin 2.0 g/dL Bilirubin, Total 0.4 mg/dL ALT (SGPT) 31 U/L AST (SGOT) 26 U/L Alkaline Phosphatase 76 IU/L ESR (Sed Rate) 3 mm/hr WBC 8.0 10 3/uL RBC 4.22 10 6/uL HGB 13.1 g/dL HCT 39.1 % MCV 92.7 fl MCH 31.0 pg MCHC 33.5 g/dL RDW 12.0 % Platelet Count 214 10 3/cmm MPV 9.9 fL Neutrophils 5.28 10 3/uL Lymphocytes 2.0 10 3/uL Monocytes 0.5 10 3/uL Eosinophils 0.2 10 3/uL Basophils 0.0 10 3/uL Neutrophil % 65.8 % Lymphocyte % 24.8 % Monocyte % 5.7 % Eosinophil % 2.9 % Basophils % 0.4 % NRBC % 0 % Problem List: 1. Grade 3 invasive ductal carcinoma of the right breast, ER positive/GA negative and HER-2/dat positive. 2. Hypertension. 3. Osteopenia. Problems Addressed with this Encounter and Plan: 1. Patient with grade 3 invasive ductal carcinoma of the right breast, ER positive/GA negative and HER-2/dat positive. She underwent ultrasound-guided biopsy of right breast mass and of right axillary lymph node on 01/27/2021. Her staging PET/CT on 02/08/2021 showed the FDG avid right breast mass and 2 or possibly 3 involved axillary lymph nodes. There was suspected involvement in mediastinal lymph nodes and subcentimeter pulmonary nodules bilaterally were also felt to be suspicious for metastatic disease. As such, by clinical evaluation, her disease was stage at least IIA (T1c, N1, M0) and possibly stage IV (T1c, N1, M1). Given the PET/CT findings, she was recommended to begin systemic therapy with paclitaxel in combination with Herceptin and Perjeta. She began treatment on 03/19/2021 with the paclitaxel and Herceptin administered weekly to minimize toxicities. Following her week 3 paclitaxel she was given a planned treatment break. She then began cycle 2 on 04/16/2021 with the paclitaxel administered weekly and with the Herceptin and Perjeta administered at a 3-week dosing. She tolerated that treatment pretty well other than having increasing side effects with the steroid premedication. She then continued with cycle 3 on 05/07/2021 with the taxane changed to nab-paclitaxel. She had evidence of response by restaging PET/CT on 06/05/2021, but that study did show residual neoplastic activity in the right breast and right axilla. She then continued with cycle 4 of Abraxane/Herceptin/Perjeta on 06/09/2021 and with cycle 5 on 06/30/2021. As of her follow-up visit on 07/21/2021 she was experiencing increasing chemotherapy related side effects, and I opted to stop the Abraxane. She continued treatment with Herceptin/Perjeta, and at that point she also began adjuvant hormonal therapy with anastrozole 1 mg daily. On 08/20/2021 she underwent right breast lumpectomy with right axillary sentinel lymph node biopsy. Pathology showed no residual malignancy in the lumpectomy specimen. There was metastatic involvement in 2 of the axillary lymph nodes, but it was detectable only by immunohistochemical analysis. She then continued with cycle 2 of Herceptin/Perjeta on 09/02/2021 and with cycle 3 on 09/23/2021. Her follow-up PET/CT on 10/02/2021 showed positive response to therapy with no areas of residual disease and no evidence of disease progression. She proceeded with cycle 4 of Herceptin/Perjeta on 10/14/2021. During subsequent follow-up she continued to have significant itching, and I did opt to put the Herceptin/Perjeta and the anastrozole on hold. As of November 2021 she began further hormonal therapy with exemestane. Since then the itching has been subsiding and she has been showing some gradual improvement in her performance status. At least for now she will just continue the exemestane 25 mg daily. She will be scheduled for a follow-up visit in 1 month. 2. She has significant erythema associated with a recent tick bite. As such, I will be checking a baseline and a convalescent tick panel. Signed By: Lester Mcwilliams M.D. <<Signature on File>>
[2021-12-29 17:17] LABS: E. Chaffeensis AB IGG <1:64; E. Chaffeensis AB IGM <1:20
[2021-12-31 17:02] LABS: RMSF IGG DETECTED; RMSF IGM NOT DETECTED
== END 2022-01-10 23:59 | disposition home or self-care (01) ==
LOC: ONCMED 09:57
PROVIDERS: PCP Nurse Practitioner Family; Visit Provider Internal Medicine Medical Oncology
DX: C50.811 Malignant neoplasm of overlapping sites of right female breast (principal); Z17.0 Estrogen receptor positive status [ER+]; C77.8 Secondary and unspecified malignant neoplasm of lymph nodes of multiple regions; I10 Essential (primary) hypertension; M85.80 Other specified disorders of bone density and structure, unspecified site; Z79.818 Long term (current) use of other agents affecting estrogen receptors and estrogen levels; Z79.899 Other long term (current) drug therapy; Z92.21 Personal history of antineoplastic chemotherapy; Z86.19 Personal history of other infectious and parasitic diseases
CPT/HCPCS: 36591; 80053; 85025; 85651; 86618; 86666; 86757; 99214

== ENCOUNTER 2022-01-27 08:58 | Oncology outpatient (recurring) (ONCR) | payer MEDICARE, MEDICAID, SELFPAY ==
[2022-01-27 09:51] LABS: Alanine Aminotransferase 26 U/L (0-33); Albumin Level 4.5 g/dL (3.5-5.2); Alkaline Phosphatase 71 IU/L (35-105); Anion Gap 15.3 (5-19); Aspartate Amino Transferase 25 U/L (0-32); Blood Urea Nitrogen 14 mg/dL (8-23); Calcium 9.5 mg/dL (8.5-10.5); Carbon Dioxide 22 mmol/L (22-29); Chloride 101 mmol/L (98-107); Globulin 2.4 g/dL (1.3-4.6); Glucose 93 mg/dL (65-115); Osmolality Calculated 278 mOsm/kg (285-295); Potassium 4.3 mmol/L (3.5-5.1); Sodium 134 mmol/L (136-145); Total Bilirubin 0.3 mg/dL (0.15-1.2); Total Protein 6.9 g/dL (6.6-8.7)
[2022-01-27 10:06] LABS: Basophils # 0.1 10^3/uL (0.0-0.1); Eosinophils # 0.3 10^3/uL (0.0-0.8); Eosinophils % 3.6 %; Hematocrit 41.2 % (37.0-47.0); Hemoglobin 13.9 g/dL (11.5-15.3); Lymphocytes # 2.3 10^3/uL (0.8-4.8); Lymphocytes % 27.1 %; Mean Corpuscular HGB Conc 33.7 g/dL (30.0-36.0); Mean Corpuscular Hemoglobin 30.9 pg (28.0-34.0); Mean Corpuscular Volume 91.6 fl (81-99); Mean Platelet Volume 10.4 fL (7.4-10.4); Monocytes # 0.8 10^3/uL (0.2-0.9); Monocytes % 9.2 %; Neutrophils # 4.92 10^3/uL (1.8-7.7); Neutrophils % 58.7 %; Nucleated Red Blood Cells % 0 %; Platelet Count 202 10^3/cmm (130-400); White Blood Count 8.4 10^3/uL (4.0-10.0)
[2022-01-28 14:36] LABS: Lyme AB Screen <0.90 index
[2022-02-01 20:57] LABS: E. Chaffeensis AB IGG <1:64; E. Chaffeensis AB IGM <1:20
[2022-02-03 21:58] LABS: RMSF IGG NOT DETECTED; RMSF IGM NOT DETECTED
== END 2022-02-10 23:59 | disposition home or self-care (01) ==
PROVIDERS: PCP Nurse Practitioner Family; Visit Provider Internal Medicine Medical Oncology
DX: C50.411 Malignant neoplasm of upper-outer quadrant of right female breast (principal); Z17.0 Estrogen receptor positive status [ER+]; G62.0 Drug-induced polyneuropathy; T45.1X5A Adverse effect of antineoplastic and immunosuppressive drugs, initial encounter; Z79.818 Long term (current) use of other agents affecting estrogen receptors and estrogen levels; Z92.21 Personal history of antineoplastic chemotherapy
CPT/HCPCS: 36591; 80053; 85025; 86618; 86666; 86757; 99214; 99999

== ENCOUNTER 2022-04-21 08:36 | Outpatient (CLI) | payer MEDICARE, MEDICAID, SELFPAY ==
--- NOTE | 2022-04-21 08:44 | MM_ITS ---
WS: [id number] DIAGNOSTIC BILATERAL DIGITAL BREAST TOMOSYNTHESIS MAMMOGRAPHY WITH CAD HISTORY: History of breast cancer. COMPARISON: 01/20/2021 TECHNIQUE: Bilateral craniocaudad, mediolateral oblique, and mediolateral views are submitted with to mosmarlyn and SM. Computer aided detection utilized. Breast composition: There are scattered areas of fibroglandular density. Postsurgical changes are not ed in the upper-outer quadrant of the RIGHT breast. There are numerous clips present. Previously desc ribed mass with architectural distortion has been surgically removed. There is a small amount of post operative scarring at the surgical bed. LEFT breast is negative. No axillary lymph nodes are identifi ed. MM/[place] [id number] IMPRESSION: BI-RADS: 2-Benign FOLLOW UP: 1 Year Follow-up
== END 2022-04-21 08:37 | disposition home or self-care (01) ==
LOC: RAD 08:37
PROVIDERS: PCP Nurse Practitioner Family; Visit Provider Internal Medicine Medical Oncology
DX: Z85.3 Personal history of malignant neoplasm of breast (principal)
CPT/HCPCS: 77062

== ENCOUNTER 2022-04-29 10:21 | Oncology outpatient (recurring) (ONCR) | payer MEDICARE, MEDICAID, SELFPAY ==
[2022-04-29 12:23] LABS: Basophils % 0.5 %; Eosinophils # 0.2 10^3/uL (0.0-0.8); Eosinophils % 2.4 %; Hematocrit 38.3 % (37.0-47.0); Hemoglobin 12.7 g/dL (11.5-15.3); Lymphocytes # 2.3 10^3/uL (0.8-4.8); Lymphocytes % 26.3 %; Mean Corpuscular HGB Conc 33.2 g/dL (30.0-36.0); Mean Corpuscular Hemoglobin 30.5 pg (28.0-34.0); Mean Corpuscular Volume 91.8 fl (81-99); Mean Platelet Volume 9.9 fL (7.4-10.4); Monocytes # 0.8 10^3/uL (0.2-0.9); Monocytes % 9.5 %; Neutrophils # 5.34 10^3/uL (1.8-7.7); Nucleated Red Blood Cells % 0 %; Platelet Count 196 10^3/cmm (130-400); Red Blood Count 4.17 10^6/uL (4.1-5.3); White Blood Count 8.8 10^3/uL (4.0-10.0)
[2022-04-29 12:39] LABS: Alanine Aminotransferase 27 U/L (0-33); Albumin Level 4.2 g/dL (3.5-5.2); Alkaline Phosphatase 71 U/L (35-105); Anion Gap 13.7 (5-19); Aspartate Amino Transferase 24 U/L (0-32); Blood Urea Nitrogen 13 mg/dL (8-23); Calcium 9.5 mg/dL (8.5-10.5); Carbon Dioxide 25 mmol/L (22-29); Chloride 104 mmol/L (98-107); Globulin 2.8 g/dL (1.3-4.6); Glucose 87 mg/dL (65-115); Osmolality Calculated 285 mOsm/kg (285-295); Potassium 4.7 mmol/L (3.5-5.1); Sodium 138 mmol/L (136-145); Total Bilirubin 0.3 mg/dL (0.15-1.2)
== END 2022-05-13 23:59 | disposition home or self-care (01) ==
PROVIDERS: PCP Nurse Practitioner Family; Visit Provider Internal Medicine Medical Oncology
DX: C50.411 Malignant neoplasm of upper-outer quadrant of right female breast (principal); Z17.0 Estrogen receptor positive status [ER+]; C77.3 Secondary and unspecified malignant neoplasm of axilla and upper limb lymph nodes; L29.8 Other pruritus; Z79.818 Long term (current) use of other agents affecting estrogen receptors and estrogen levels; Z79.52 Long term (current) use of systemic steroids; Z79.899 Other long term (current) drug therapy; Z92.21 Personal history of antineoplastic chemotherapy
CPT/HCPCS: 36591; 80053; 85025; 99214; 99215

== ENCOUNTER 2022-06-05 10:15 | Oncology outpatient (recurring) (ONCR) | payer MEDICARE, MEDICAID, SELFPAY | END 2022-06-12 23:59 | disposition home or self-care (01) | LOC: ONCMED 10:16 | PROVIDERS: PCP Nurse Practitioner Family; Visit Provider Internal Medicine Medical Oncology | DX: C50.411 Malignant neoplasm of upper-outer quadrant of right female breast (principal); Z17.0 Estrogen receptor positive status [ER+]; C77.3 Secondary and unspecified malignant neoplasm of axilla and upper limb lymph nodes; L29.8 Other pruritus; Z79.818 Long term (current) use of other agents affecting estrogen receptors and estrogen levels; Z79.52 Long term (current) use of systemic steroids; Z79.899 Other long term (current) drug therapy; Z92.21 Personal history of antineoplastic chemotherapy | CPT/HCPCS: 96523 ==

== ENCOUNTER 2022-07-10 10:07 | Oncology outpatient (recurring) (ONCR) | payer MEDICARE, MEDICAID, SELFPAY | END 2022-07-13 23:59 | disposition home or self-care (01) | PROVIDERS: PCP Nurse Practitioner Family; Visit Provider Internal Medicine Medical Oncology | DX: Z45.2 Encounter for adjustment and management of vascular access device (principal); C50.411 Malignant neoplasm of upper-outer quadrant of right female breast; Z17.0 Estrogen receptor positive status [ER+] | CPT/HCPCS: 96523 ==

== ENCOUNTER 2022-08-17 14:16 | Oncology outpatient (recurring) (ONCR) | payer MEDICARE, MEDICAID, SELFPAY ==
[2022-08-17 14:58] LABS: Basophils # 0.1 10^3/uL (0.0-0.1); Basophils % 0.5 %; Eosinophils # 0.2 10^3/uL (0.0-0.8); Eosinophils % 1.8 %; Hematocrit 38.6 % (37.0-47.0); Hemoglobin 12.9 g/dL (11.5-15.3); Lymphocytes # 2.6 10^3/uL (0.8-4.8); Lymphocytes % 25.6 %; Mean Corpuscular HGB Conc 33.4 g/dL (30.0-36.0); Mean Corpuscular Hemoglobin 31.2 pg (28.0-34.0); Mean Corpuscular Volume 93.2 fl (81-99); Mean Platelet Volume 9.8 fL (7.4-10.4); Monocytes % 9.6 %; Neutrophils # 6.27 10^3/uL (1.8-7.7); Neutrophils % 62.2 %; Nucleated Red Blood Cells % 0 %; Platelet Count 205 10^3/cmm (130-400); Red Blood Count 4.14 10^6/uL (4.1-5.3); Red Cell Distribution Width 12.9 % (12.1-15.1); White Blood Count 10.1 10^3/uL (4.0-10.0)
[2022-08-17 15:31] LABS: Alanine Aminotransferase 28 U/L (0-33); Albumin Level 4.4 g/dL (3.5-5.2); Alkaline Phosphatase 61 U/L (35-105); Aspartate Amino Transferase 23 U/L (0-32); Blood Urea Nitrogen 19 mg/dL (8-23); Calcium 9.7 mg/dL (8.5-10.5); Carbon Dioxide 25 mmol/L (22-29); Chloride 105 mmol/L (98-107); Globulin 2.4 g/dL (1.3-4.6); Glucose 87 mg/dL (65-115); Osmolality Calculated 290 mOsm/kg (285-295); Sodium 139 mmol/L (136-145); Total Bilirubin 0.2 mg/dL (0.15-1.2); Total Protein 6.8 g/dL (6.6-8.7)
== END 2022-09-12 23:59 | disposition home or self-care (01) ==
PROVIDERS: PCP Nurse Practitioner Family; Visit Provider Internal Medicine Medical Oncology
DX: C50.411 Malignant neoplasm of upper-outer quadrant of right female breast (principal); Z17.0 Estrogen receptor positive status [ER+]; C77.3 Secondary and unspecified malignant neoplasm of axilla and upper limb lymph nodes; L29.8 Other pruritus; R61 Generalized hyperhidrosis; Z79.818 Long term (current) use of other agents affecting estrogen receptors and estrogen levels; Z79.52 Long term (current) use of systemic steroids; Z79.899 Other long term (current) drug therapy; M25.59 Pain in other specified joint; Z92.21 Personal history of antineoplastic chemotherapy
CPT/HCPCS: 36591; 80053; 85025; 99214

== ENCOUNTER 2022-09-23 08:07 | Oncology outpatient (recurring) (ONCR) | payer MEDICARE, MEDICAID, SELFPAY | END 2022-10-13 23:59 | disposition home or self-care (01) | PROVIDERS: PCP Nurse Practitioner Family; Visit Provider Internal Medicine Medical Oncology | DX: C50.411 Malignant neoplasm of upper-outer quadrant of right female breast (principal); Z17.0 Estrogen receptor positive status [ER+]; C77.3 Secondary and unspecified malignant neoplasm of axilla and upper limb lymph nodes; L29.8 Other pruritus; M25.59 Pain in other specified joint; R61 Generalized hyperhidrosis; Z79.818 Long term (current) use of other agents affecting estrogen receptors and estrogen levels; Z79.52 Long term (current) use of systemic steroids; Z79.899 Other long term (current) drug therapy; Z92.21 Personal history of antineoplastic chemotherapy | CPT/HCPCS: 96523; 99214 ==

== ENCOUNTER 2022-10-23 09:08 | Oncology outpatient (recurring) (ONCR) | payer MEDICARE, MEDICAID, SELFPAY | END 2022-11-10 23:59 | disposition home or self-care (01) | LOC: ONCMED 09:08 | PROVIDERS: PCP Nurse Practitioner Family; Visit Provider Internal Medicine Medical Oncology | DX: C50.411 Malignant neoplasm of upper-outer quadrant of right female breast (principal); Z17.0 Estrogen receptor positive status [ER+]; Z45.2 Encounter for adjustment and management of vascular access device; Z95.828 Presence of other vascular implants and grafts | CPT/HCPCS: 96523 ==

== ENCOUNTER 2022-11-20 09:24 | Oncology outpatient (recurring) (ONCR) | payer MEDICARE, MEDICAID, SELFPAY | END 2022-12-11 23:59 | disposition home or self-care (01) | LOC: ONCMED 09:25 | PROVIDERS: PCP Nurse Practitioner Family; Visit Provider Internal Medicine Medical Oncology | DX: Z45.2 Encounter for adjustment and management of vascular access device (principal); Z95.828 Presence of other vascular implants and grafts | CPT/HCPCS: 96523 ==

== ENCOUNTER 2023-01-06 09:11 | Oncology outpatient (recurring) (ONCR) | payer MEDICARE, MEDICAID, SELFPAY ==
[2022-12-31 11:50] VITALS: BP 107/58; PULSE 75; RESP 16; TEMP 36.3; O2SAT 97
[2022-12-31 12:02] LABS: Basophils # 0.1 10^3/uL (0.0-0.1); Basophils % 0.5 %; Eosinophils # 0.2 10^3/uL (0.0-0.8); Eosinophils % 2.3 %; Hematocrit 42.1 % (37.0-47.0); Hemoglobin 14.2 g/dL (11.5-15.3); Lymphocytes # 2.7 10^3/uL (0.8-4.8); Mean Corpuscular HGB Conc 33.7 g/dL (30.0-36.0); Mean Corpuscular Hemoglobin 30.9 pg (28.0-34.0); Mean Corpuscular Volume 91.5 fl (81-99); Mean Platelet Volume 10.1 fL (7.4-10.4); Monocytes # 0.8 10^3/uL (0.2-0.9); Monocytes % 7.9 %; Neutrophils # 6.16 10^3/uL (1.8-7.7); Nucleated Red Blood Cells % 0 %; Platelet Count 218 10^3/cmm (130-400); Red Cell Distribution Width 12.3 % (12.1-15.1); White Blood Count 9.9 10^3/uL (4.0-10.0)
[2022-12-31 12:26] LABS: Alanine Aminotransferase 31 U/L (0-33); Albumin Level 4.3 g/dL (3.5-5.2); Alkaline Phosphatase 64 U/L (35-105); Aspartate Amino Transferase 27 U/L (0-32); Blood Urea Nitrogen 17 mg/dL (8-23); Calcium 9.6 mg/dL (8.5-10.5); Carbon Dioxide 23 mmol/L (22-29); Chloride 100 mmol/L (98-107); Globulin 2.7 g/dL (1.3-4.6); Glucose 143 mg/dL (65-115); Osmolality Calculated 286 mOsm/kg (285-295); Sodium 136 mmol/L (136-145); Total Bilirubin 0.6 mg/dL (0.15-1.2)
== END 2023-01-10 23:59 | disposition home or self-care (01) ==
PROVIDERS: PCP Nurse Practitioner Family; Visit Provider Internal Medicine Medical Oncology
DX: C50.411 Malignant neoplasm of upper-outer quadrant of right female breast (principal); Z17.0 Estrogen receptor positive status [ER+]; C77.8 Secondary and unspecified malignant neoplasm of lymph nodes of multiple regions; C78.01 Secondary malignant neoplasm of right lung; C78.02 Secondary malignant neoplasm of left lung; M85.89 Other specified disorders of bone density and structure, multiple sites; Z79.818 Long term (current) use of other agents affecting estrogen receptors and estrogen levels; Z79.899 Other long term (current) drug therapy; Z45.2 Encounter for adjustment and management of vascular access device; Z95.828 Presence of other vascular implants and grafts
CPT/HCPCS: 80053; 85025; 99214

== ENCOUNTER 2023-02-05 08:12 | Oncology outpatient (recurring) (ONCR) | payer MEDICARE, MEDICAID, SELFPAY ==
[2023-02-05 08:19] VITALS: BP 147/85; PULSE 66; RESP 16; TEMP 36.6; O2SAT 95
== END 2023-02-10 23:59 | disposition home or self-care (01) ==
PROVIDERS: PCP Nurse Practitioner Family; Visit Provider Internal Medicine Medical Oncology
DX: Z45.2 Encounter for adjustment and management of vascular access device (principal); Z95.828 Presence of other vascular implants and grafts
CPT/HCPCS: 96523; J1642

== ENCOUNTER 2023-03-12 07:57 | Oncology outpatient (recurring) (ONCR) | payer MEDICARE, MEDICAID, SELFPAY ==
[2023-03-12 08:33] VITALS: BP 176/82; PULSE 69; RESP 18; TEMP 36.8; O2SAT 97
== END 2023-03-12 23:59 | disposition home or self-care (01) ==
PROVIDERS: PCP Nurse Practitioner Family; Visit Provider Internal Medicine Medical Oncology
DX: Z45.2 Encounter for adjustment and management of vascular access device (principal)
CPT/HCPCS: 96523; J1642

== ENCOUNTER 2023-04-13 08:50 | Oncology outpatient (recurring) (ONCR) | payer MEDICARE, MEDICAID, SELFPAY ==
[2023-04-13 09:11] VITALS: BP 148/77; PULSE 67; RESP 16; TEMP 36.6; O2SAT 96; BMI 30.2
[2023-04-13 09:28] LABS: Basophils # 0.1 10^3/uL (0.0-0.1); Basophils % 0.6 %; Eosinophils # 0.2 10^3/uL (0.0-0.8); Eosinophils % 2.2 %; Hematocrit 40.8 % (37.0-47.0); Hemoglobin 13.6 g/dL (11.5-15.3); Lymphocytes # 2.5 10^3/uL (0.8-4.8); Lymphocytes % 24.1 %; Mean Corpuscular HGB Conc 33.3 g/dL (30.0-36.0); Mean Corpuscular Hemoglobin 30.8 pg (28.0-34.0); Mean Corpuscular Volume 92.5 fl (81-99); Mean Platelet Volume 9.7 fL (7.4-10.4); Monocytes # 0.8 10^3/uL (0.2-0.9); Monocytes % 8.2 %; Neutrophils % 64.5 %; Nucleated Red Blood Cells % 0 %; Platelet Count 207 10^3/cmm (130-400); Red Blood Count 4.41 10^6/uL (4.1-5.3); Red Cell Distribution Width 12.5 % (12.1-15.1); White Blood Count 10.2 10^3/uL (4.0-10.0)
[2023-04-13 09:50] LABS: Alanine Aminotransferase 19 U/L (0-33); Albumin Level 4.3 g/dL (3.5-5.2); Alkaline Phosphatase 71 U/L (35-105); Anion Gap 14.2 (5-19); Aspartate Amino Transferase 19 U/L (0-32); Blood Urea Nitrogen 15 mg/dL (8-23); Calcium 9.6 mg/dL (8.5-10.5); Carbon Dioxide 25 mmol/L (22-29); Chloride 102 mmol/L (98-107); Globulin 2.4 g/dL (1.3-4.6); Glucose 95 mg/dL (65-115); Osmolality Calculated 285 mOsm/kg (285-295); Potassium 4.2 mmol/L (3.5-5.1); Sodium 137 mmol/L (136-145); Total Bilirubin 0.3 mg/dL (0.15-1.2); Total Protein 6.7 g/dL (6.6-8.7)
== END 2023-05-13 23:59 | disposition home or self-care (01) ==
PROVIDERS: Nurse Practitioner Family; PCP Nurse Practitioner Family; Visit Provider Internal Medicine Medical Oncology
DX: C50.411 Malignant neoplasm of upper-outer quadrant of right female breast; Z17.0 Estrogen receptor positive status [ER+]; C77.8 Secondary and unspecified malignant neoplasm of lymph nodes of multiple regions; C78.01 Secondary malignant neoplasm of right lung; C78.02 Secondary malignant neoplasm of left lung; M25.59 Pain in other specified joint; Z79.811 Long term (current) use of aromatase inhibitors; Z79.899 Other long term (current) drug therapy
CPT/HCPCS: 36591; 80053; 85025; 99214

== ENCOUNTER 2023-05-24 14:04 | Outpatient (CLI) | payer MEDICARE, MEDICAID, SELFPAY ==
--- NOTE | 2023-05-24 14:38 | MM_ITS ---
WS: [id number] DIAGNOSTIC BILATERAL DIGITAL BREAST TOMOSYNTHESIS MAMMOGRAPHY WITH CAD RIGHT breast ultrasound, limited HISTORY: ANNUAL - HX BR CA, new palpable area RIGHT upper outer quadrant at the surgical site. COMPARISON: 04/21/2022 and 01/20/2021 TECHNIQUE: Bilateral craniocaudad, mediolateral oblique, and mediolateral views are submitted with to mosynthesis and SM. Spot compression RIGHT CC and MLO. Computer aided detection utilized. Breast composition: There are scattered areas of fibroglandular density. Surgical clips in the upper outer quadrant. Palpable marker overlies the site of the surgical clips. There is slight increased so ft tissue seen only on the RIGHT exaggerated CC near the surgical clips. Benign calcifications within the RIGHT breast. LEFT breast is negative. Ultrasound RIGHT breast, limited. Palpable area in the RIGHT breast at 10:00, 5 cm from the nipple corresponds to a hypoechoic mass wit h shadowing measuring 8 x 9 x 13 mm. There is mild peripheral increased vascularity. IMPRESSION: MM/[place] [id number] BI-RADS: 4-Suspicious Finding-Biopsy Should Be Considered FOLLOW UP: Biopsy Recommended Notified Lexis Iglesias APRN at 05/25/2023 8:28 AM.
--- NOTE | 2023-05-24 15:26 | US_ITS ---
WS: [id number] DIAGNOSTIC BILATERAL DIGITAL BREAST TOMOSYNTHESIS MAMMOGRAPHY WITH CAD RIGHT breast ultrasound, limited HISTORY: ANNUAL - HX BR CA, new palpable area RIGHT upper outer quadrant at the surgical site. COMPARISON: 04/21/2022 and 01/20/2021 TECHNIQUE: Bilateral craniocaudad, mediolateral oblique, and mediolateral views are submitted with to mosynthesis and SM. Spot compression RIGHT CC and MLO. Computer aided detection utilized. Breast composition: There are scattered areas of fibroglandular density. Surgical clips in the upper outer quadrant. Palpable marker overlies the site of the surgical clips. There is slight increased so ft tissue seen only on the RIGHT exaggerated CC near the surgical clips. Benign calcifications within the RIGHT breast. LEFT breast is negative. Ultrasound RIGHT breast, limited. Palpable area in the RIGHT breast at 10:00, 5 cm from the nipple corresponds to a hypoechoic mass wit h shadowing measuring 8 x 9 x 13 mm. There is mild peripheral increased vascularity. IMPRESSION: US/US breast RT limited* [id number] BI-RADS: 4-Suspicious Finding-Biopsy Should Be Considered FOLLOW UP: Biopsy Recommended Notified Lexis Iglesias APRN at 05/25/2023 8:28 AM.
== END 2023-05-24 14:05 | disposition home or self-care (01) ==
PROVIDERS: PCP Nurse Practitioner Family; Visit Provider Nurse Practitioner Family
DX: Z85.3 Personal history of malignant neoplasm of breast (principal); N63.11 Unspecified lump in the right breast, upper outer quadrant
CPT/HCPCS: 76642; 77062; G0279

== ENCOUNTER 2023-06-02 12:28 | Outpatient (CLI) | payer MEDICARE, MEDICAID, SELFPAY ==
--- NOTE | 2023-06-02 14:00 | US_ITS ---
WS: [id number] ULTRASOUND-GUIDED RIGHT BREAST BIOPSY HISTORY: abnormal ultrasound and mammogram, new mass adjacent to the prior lumpectomy site. History o f breast carcinoma. COMPARISON: 05/24/2023 Procedure, risks and complications are explained to the patient. Medications are reviewed. Consent is obtained. The mass in the RIGHT breast is localized with ultrasound. Nodule localizes to 10:00 5 cm from the ni pple this is at the site of prior lumpectomy. Skin is cleansed with ChloraPrep and anesthetized with 1% buffered lidocaine. Small dermatome is made. Under sterile conditions mass is biopsied with a 14-g auge Achieve needle. Multiple core biopsies are performed. Material placed in formalin and sent to ma thology for review. No complications encountered. Breast tissue marker (Bard ultrasound enhanced ribbon): Single. Patient left the radiology suite with no complications. [place] [facility] [place] [facility] with any concerns. IMPRESSION: 1. Uncomplicated core needle biopsy RIGHT breast mass at 10:00 at the prior lumpectomy site. 2. PATHOLOGY: moderately to poorly differentiated infiltrating ductal adenocarcinoma. Suspicious for lymphovascular invasion. Prognostic profile has been ordered and pending. US/[place] [id number] RECOMMENDATION: Follow-up with oncology.
[2023-06-08 12:16] LABS: Breast Profile ER,PR,HER2,Ki-6 See Report
== END 2023-06-02 12:29 | disposition home or self-care (01) ==
PROVIDERS: PCP Nurse Practitioner Family; Visit Provider Internal Medicine Medical Oncology
DX: C50.411 Malignant neoplasm of upper-outer quadrant of right female breast
CPT/HCPCS: 19083; 88305; 88361; 88374

== ENCOUNTER 2023-06-14 12:33 | Outpatient (CLI) | payer MEDICARE, MEDICAID, SELFPAY ==
--- NOTE | 2023-06-14 13:00 | XR_ITS ---
WS: [id number] SCREENING DEXA SCAN [address] CLINICAL INFORMATION: on endocrine therapy for breast cancer COMPARISON: 06/12/2021 FINDINGS: The L1-L4 bone mineral density measures 1.120 g/cm2. This corresponds to a T score score of -0.5 and Z score of 0.9. Left femoral neck bone mineral density measures 0.866 g/cm2. This corresponds to a T score of -1.1 an d Z score of 0.3. Right femoral neck bone mineral density measures 0.886 g/cm2. This corresponds to a T score -1.0of an d Z score of 0.5. Mean femoral neck bone mineral density measures 0.876 g/cm2. This corresponds to a T score of -1.0 an d Z score of 0.4. IMPRESSION: Normal bone mineralization lumbar spine. Osteopenia femoral necks lower end of the range. Patient's FRAX calculated 10 year probability for major osteoporotic fracture is 15.1% and osteoporot ic hip fracture is 4.4%. Bone mineral density decrease -1.3% in the lumbar spine. Bone mineral density decrease -3.3% femoral necks.
== END 2023-06-14 12:34 | disposition home or self-care (01) ==
LOC: RAD 12:34
PROVIDERS: PCP Nurse Practitioner Family; Visit Provider Nurse Practitioner Family
DX: Z78.0 Asymptomatic menopausal state (principal)
CPT/HCPCS: 77080

== ENCOUNTER 2023-06-29 16:10 | Outpatient (CLI) | payer MEDICARE, MEDICAID, SELFPAY ==
--- NOTE | 2023-06-29 08:00 | PETR_ITS ---
PROCEDURE INFORMATION: Exam: PET/CT Skull Base to Mid-thigh Exam date and time: 06/29/2023 9:14 AM Age: 73 years old Clinical indication: Condition or disease; Primary cancer: Breast cancer right; Follow-up oncological assessment; Additional info: Breast cancer restaging LABS AND CLINICAL REPORTS: Glucose: 107 mg/dl Treatment strategy for malignancy (PET staging): Restaging (PS) TECHNIQUE: Imaging protocol: Following at least four-hour fasting and following the injection of radiopharmaceutical, low dose CT images were obtained. Then, PET images were obtained. Attenuation corrected images were constructed using the CT scan. Fused images of PET and CT were reviewed. The standardized uptake values (SUV) reported below are maximum values within a region of interest, expressed in gm/ml. Exam includes orbital meatal line to mid-thigh. Radiopharmaceutical: 12.66 mCi F-18 FDG (Fluorodeoxyglucose), IV. Time of imaging post radiopharmaceutical administration: 1 hour Injection site: site COMPARISON: 1. CT PET Scan 10/02/2021 8:27 AM 2. [place] [id number] 06/02/2023 1:46 PM FINDINGS: Tubes, catheters and devices: Left chest MediPort is unchanged. Brain: Visualized brain has normal physiologic uptake. Pharynx: No abnormal uptake. Larynx: No abnormal uptake. Lungs, pleura and trachea: No abnormal uptake. Heart: Normal physiologic uptake. Coronary arteries: Stable coronary artery atherosclerosis. Mediastinal space: No abnormal uptake. Liver: Diffuse fatty infiltration of the liver is unchanged. Gallbladder and bile ducts: No abnormal uptake. Pancreas: No abnormal uptake. Spleen: No abnormal uptake. Adrenal glands: No abnormal uptake. Kidneys and ureters: Normal physiologic uptake. Stomach and bowel: No abnormal uptake. Reproductive: The endometrium by CT appears thickened measuring up to 1.4 cm. There is no abnormal uptake on PET present. Vasculature: No abnormal uptake. Lymph nodes: No suspicious lymphadenopathy. Bones/joints: No abnormal uptake in the visualized axial and appendicular skeleton. Soft tissues: There is a right outer breast mass containing biopsy clips measuring 1.2 x 1.1 cm maximum size on series 3, image 93. This has uptake with SUV maximum of 4.2. Right-sided lumpectomy and axillary lymph node dissection changes are stable. PET/PET skulltothigh INITIAL [id number] IMPRESSION: 1. Outer right breast mass containing a biopsy clip with uptake consistent with known carcinoma on recent biopsy. No site of distant metastatic disease identified. 2. The endometrium is abnormally thickened for age measuring up to 1.[address] Recommend pelvic ultrasound for follow-up.
== END 2023-06-29 16:11 | disposition home or self-care (01) ==
LOC: RAD 16:10
PROVIDERS: PCP Nurse Practitioner Family; Visit Provider Internal Medicine Medical Oncology
DX: C50.411 Malignant neoplasm of upper-outer quadrant of right female breast (principal); R93.89 Abnormal findings on diagnostic imaging of other specified body structures
CPT/HCPCS: 78815; A9552

== ENCOUNTER 2023-07-13 12:30 | Oncology outpatient (recurring) (ONCR) | payer MEDICARE, MEDICAID, SELFPAY ==
[2023-07-13 10:34] VITALS: BP 135/71; PULSE 78; RESP 18; TEMP 36.1; O2SAT 97
[2023-07-13 10:47] LABS: Basophils # 0.1 10^3/uL (0.0-0.1); Basophils % 0.7 %; Eosinophils # 0.1 10^3/uL (0.0-0.8); Eosinophils % 1.6 %; Hematocrit 41.6 % (36-47); Lymphocytes # 2.7 10^3/uL (0.8-4.8); Lymphocytes % 29.5 %; Mean Corpuscular HGB Conc 33.4 g/dL (30-55); Mean Corpuscular Volume 92.7 fl (85-98); Mean Platelet Volume 9.9 fL (7.4-10.4); Monocytes # 0.3 10^3/uL (0.2-0.9); Monocytes % 3.8 %; Neutrophils # 5.79 10^3/uL (1.8-7.7); Neutrophils % 64.1 %; Nucleated Red Blood Cells % 0 %; Platelet Count 194 10^3/cmm (157-399); Red Blood Count 4.49 10^6/uL (3.85-5.65); Red Cell Distribution Width 12.4 % (12.1-15.1); White Blood Count 9.02 10^3/uL (3.29-11.43)
[2023-07-13 11:02] LABS: Alanine Aminotransferase 29 U/L (0-33); Albumin Level 4.3 g/dL (3.5-5.2); Alkaline Phosphatase 62 U/L (35-105); Aspartate Amino Transferase 22 U/L (0-32); Blood Urea Nitrogen 21 mg/dL (8-23); Calcium 9.4 mg/dL (8.5-10.5); Carbon Dioxide 23 mmol/L (22-29); Chloride 101 mmol/L (98-107); Globulin 2.2 g/dL (1.3-4.6); Glucose 221 mg/dL (65-115); Osmolality Calculated 292 mOsm/kg (285-295); Sodium 136 mmol/L (136-145); Total Bilirubin 0.3 mg/dL (0.15-1.2); Total Protein 6.5 g/dL (6.6-8.7)
[2023-07-13 11:04] LABS: Anion Gap 16.2 (5-19); Potassium 4.2 mmol/L (3.5-5.1)
== END 2023-07-13 23:59 | disposition home or self-care (01) ==
PROVIDERS: Nurse Practitioner Family; PCP Nurse Practitioner Family; Visit Provider Internal Medicine Medical Oncology
DX: C50.411 Malignant neoplasm of upper-outer quadrant of right female breast (principal); Z17.0 Estrogen receptor positive status [ER+]; C77.8 Secondary and unspecified malignant neoplasm of lymph nodes of multiple regions; C78.01 Secondary malignant neoplasm of right lung; C78.02 Secondary malignant neoplasm of left lung; M25.59 Pain in other specified joint; Z79.811 Long term (current) use of aromatase inhibitors; Z79.899 Other long term (current) drug therapy
CPT/HCPCS: 36591; 80053; 85025; 99214; 99215; J1642

== ENCOUNTER 2023-07-20 08:51 | Outpatient (CLI) | payer MEDICARE, MEDICAID, SELFPAY ==
--- NOTE | 2023-07-20 09:30 | US_ITS ---
WS: [id number] US pelv w/transvag [id number] HISTORY: abnormal PET scan COMPARISON: 06/29/2023 Uterus: 7.8 cm x 4.9 cm x 4.0 cm. Mildly retroverted uterus. No fibroid or mass. Endometrium: 1.0 cm. Abnormal endometrium. There is a soft tissue mass with a few cystic changes dist ending the endometrium and splaying the stripe. Small amount of fluid also within the endometrium. Th ere is a soft tissue mass with increased vascularity. Mass along the central endometrial canal measur es 1.6 x 1.7 x 1.0 cm. Right ovary: 1.5 cm x 0.6 cm x 1.5 cm. Normal size and vascularity, no cystic or solid masses. Left ovary: 1.2 cm x 0.7 cm x 1.6 cm. Normal size and vascularity, no cystic or solid masses. No free fluid in the cul-de-sac. IMPRESSION: 1. Abnormal endometrium. Soft tissue mass within the endometrial cavity measuring 1.6 x 1.7 x 1.0 cm. There are a few cystic areas within the mass. Differential includes tamoxifen induced endometrial ch anges if there is a history of tamoxifen use. Also polyp and endometrial neoplasm. 2. Mild uterine atrophy.
== END 2023-07-20 08:52 | disposition home or self-care (01) ==
LOC: RAD 08:51
PROVIDERS: PCP Nurse Practitioner Family; Visit Provider Internal Medicine Medical Oncology
DX: C50.411 Malignant neoplasm of upper-outer quadrant of right female breast (principal); R93.89 Abnormal findings on diagnostic imaging of other specified body structures; N85.8 Other specified noninflammatory disorders of uterus
CPT/HCPCS: 76830; 76856

== ENCOUNTER 2023-08-02 11:38 | Day surgery (SDC) | payer MEDICARE, MEDICAID, SELFPAY ==
[2023-08-02] VITALS (9 sets, daily range): BP systolic 151–205; BP diastolic 65–88; PULSE 68–90; RESP 15–16; TEMP 36.1–36.9; O2SAT 94–98; BMI 29.7
--- NOTE | 2023-08-02 | US_ITS ---
WS: [id number] ULTRASOUND-GUIDED RIGHT BREAST BIOPSY CLINICAL INFORMATION: RIGHT LUMPECTOMY COMPARISON: 06/02/2023 FINDINGS: The procedure including risks, benefits, and complications were discussed with the patient who agreed to proceed. Using sterile technique patient was prepped and draped in the usual sterile fashion. Aft er 1% lidocaine utilizing real-time ultrasound guidance a 7 cm Kopans needle was advanced through the RIGHT breast lesion at the 10 o'clock position 5 cm from the nipple. Wire was deployed. No immediate complications. Ultrasound demonstrates gross total resection of the specimen with intact wire and clip. Pathology demonstrates invasive ductal carcinoma moderately differentiated in the lumpectomy specimen . Surgical margins free of invasive carcinoma. [place] lymph node RIGHT axilla demonstrates benign fibrofatty tissue. No metastatic tumor identifie d. See pathology report for further detail. IMPRESSION: 1. Uncomplicated ultrasound-guided RIGHT breast needle localization 2. Ultrasound demonstrates gross total resection of the specimen 3. Pathology demonstrates invasive ductal carcinoma moderately differentiated of the RIGHT breast low mpectomy specimen. 4. RIGHT axillary lymph node is negative for metastatic tumor. 5. Recommend follow-up with breast surgery and oncology as indicated US/US breast surgical specimen BI-RADS: 6-Known Biopsy-Proven Malignancy FOLLOW UP: See Report
--- NOTE | 2023-08-02 11:50 | P.HPUD_ITS ---
Surgery/Procedure H&P Update DATE OF PROCEDURE: August 02, 2023 DATE H&P PERFORMED: 07/13/23 H&P UPDATE INFORMATION: I have reviewed H&P completed within last 30 days, I have examined patient prior to procedure and No changes to prior documentation PLANNED PROCEDURE: Operation Date: 08/02/23 14:25 Proposed Procedures p [id number] right breast lumpectomy with needle insertion and radi ologic correlation and sentinel lymph node bx,C50.919(Right) - DO tammy Bell Sentinal Lymph Node Biopsy(Right) - Elton Tejeda DO
--- NOTE | 2023-08-02 12:02 | NM_ITS ---
WS: [id number] ULTRASOUND-GUIDED RIGHT BREAST BIOPSY CLINICAL INFORMATION: RIGHT LUMPECTOMY COMPARISON: 06/02/2023 FINDINGS: The procedure including risks, benefits, and complications were discussed with the patient who agreed to proceed. Using sterile technique patient was prepped and draped in the usual sterile fashion. Aft er 1% lidocaine utilizing real-time ultrasound guidance a 7 cm Kopans needle was advanced through the RIGHT breast lesion at the 10 o'clock position 5 cm from the nipple. Wire was deployed. No immediate complications. Ultrasound demonstrates gross total resection of the specimen with intact wire and clip. Pathology demonstrates invasive ductal carcinoma moderately differentiated in the lumpectomy specimen . Surgical margins free of invasive carcinoma. [place] lymph node RIGHT axilla demonstrates benign fibrofatty tissue. No metastatic tumor identifie d. See pathology report for further detail. IMPRESSION: 1. Uncomplicated ultrasound-guided RIGHT breast needle localization 2. Ultrasound demonstrates gross total resection of the specimen 3. Pathology demonstrates invasive ductal carcinoma moderately differentiated of the RIGHT breast low mpectomy specimen. 4. RIGHT axillary lymph node is negative for metastatic tumor. 5. Recommend follow-up with breast surgery and oncology as indicated NM/[place] [id number] BI-RADS: 6-Known Biopsy-Proven Malignancy FOLLOW UP: See Report
[2023-08-02] MEDS: sodium chloride 0.9% 1,000 ML 30 ML IV (12:35)
--- NOTE | 2023-08-02 12:41 | SUR.PREOP ---
12:35 PT TRANSFERRED TO RADIOLOGY DEPARTMENT FOR PROCEDURE.
--- NOTE | 2023-08-02 13:26 | ANES.PREANE2 ---
Pre-Anesthetic Assessment Height/Weight: Height 1.6 m Weight 76 kg Temp Pulse Resp BP Pulse Ox O2 Del Method 98.4 F 68 16 205/88 98 Room Air 08/02/23 11:57 08/02/23 11:57 08/02/23 11:57 08/02/23 11:57 08/02/23 11:57 08/02/23 12:01 Operation Date: 08/02/23 14:25 Proposed Procedures p [id number] right breast lumpectomy with needle insertion and radiologic correlation and sentinel lymph node bx,C50.919(Right) - DO tammy Bell Sentinal Lymph Node Biopsy(Right) - Elton Tejeda DO Familial anesthetic complications: none Was Beta Mimi taken within 24 hours: N/A Was Clonidine taken within 24 hours: N/A Last intake: Intake Last Liquid Date 08/02/23 Last Liquid Time 06:00 Last Solid Date 08/01/23 Last Solid Time 18:00 Social No alcohol and No tobacco Exam alert, oriented x 3, clear to auscultation bilaterally and regular rate & rhythm Airway Submandibular: within normal limits Cervical ROM: within normal limits Mallampati: Class II Dentition: false CV/HEM Hypertension Anesthetic Plan ASA status: 2 Anesthesia: General Medications/Allergies Home Medications Medication Instructions Recorded Confirmed Last Taken Type alendronate 70 mg tablet 70 mg PO .weekly 01/14/21 07/30/23 07/25/23 07:00 History magnesium 200 mg tablet 400 mg PO DAILY 01/14/21 07/13/23 07/29/23 21:00 History multivitamin 1 tab PO DAILY 01/14/21 07/30/23 07/30/23 07:00 History lisinopril 20 mg tablet 20 mg PO BID #200 tabs 06/28/23 07/30/23 07/30/23 07:00 Rx ascorbic acid (vitamin C) 1,000 mg 2,000 mg PO Q12H 07/13/23 07/30/23 07/30/23 07:00 History tablet,extended release (C-1000 ER) fenbendazole See Rx Instructions PO .COMPLEX 07/13/23 07/30/23 07/29/23 21:00 History vitamin E (dl, acetate) 180 mg 360 mg PO DAILY 07/13/23 07/30/23 07/30/23 13:00 History (400 unit) capsule Allergies Allergy/AdvReac Type Severity Reaction Status Date / Time No Known Allergies Allergy Verified 07/13/23 15:03 Current Medications Generic Name Dose Route Start Last Admin Trade Name Isadora PRN Reason Stop Dose Admin Sodium Chloride 1,000 mls @ 30 mls/hr 08/02/23 12:00 08/02/23 12:35 Sodium Chloride 0.9% IV 08/03/23 11:59 30 mls/hr .Q24H THEODORE Administration PFSH Anesthesia Medical History (Updated 07/14/23 @ 06:09 by Danilo Malhotra MD) Asymptomatic menopausal state Breast cancer Essential hypertension Osteoporosis Surgical History (Updated 07/14/23 @ 06:09 by Danilo Malhotra MD) H/O right breast biopsy History of cataract surgery History of lumpectomy of right breast Port-A-Cath in place (02/19/21) S/P lumpectomy, right breast (08/18/21) with SLNB, lymph node dissection Family History Father Cancer Mother Hypertension Stroke Denies family history of Diabetes CAD (coronary artery disease) Clotting disorder Dementia Hyperlipidemia Psychiatric illness Chronic kidney disease (CKD) Suicide Anesthesia complication Bleeding disorder Lung disease Social History Smoking and tobacco/nicotine status: former use of tobacco/nicotine (quit in 1999) Alcohol intake: current Alcohol intake frequency: 0-2 Drinks per Day Alcohol type: wine Substance/Drug Use: never Data Anesthesia Cardiac Studies: Echocardiogram Limited Views 08/05/21 Echocardiogram Ultrasound 02/25/21
--- NOTE | 2023-08-02 13:29 | SUR.PREOP ---
13:15 returned from radiology.
[2023-08-02] MEDS: ceFAZolin 2,000 MG in sodium chloride 0.9% (plus) 50 ML 100 MG IV (13:30)
--- NOTE | 2023-08-02 13:45 | PC.NURSE ---
1.02 mCi Tc99m Tilmanocept Lymphoseek injected into the Right breast in the 11:00 position at 13:11. No complications.
[2023-08-02] MEDS: isosulfan blue 10 mg/mL SDV 5mL SUBCUT (14:00)
[2023-08-02] MEDS: lidocaine-epi 2% 20 mL INJ INJECTION (14:00)
--- NOTE | 2023-08-02 14:30 | P.OP_ITS ---
Operative Report Date of procedure: August 02, 2023 Pre-op diagnosis: Right breast cancer Post-op diagnosis: same Procedure done: Right axillary sentinel lymph node biopsy Right breast lumpectomy with needle insertion and radiologic correlation Implants: Dora x2 Specimens removed/disposition: Right axillary sentinel lymph nodes Right breast lumpectomy: Wire lateral, double stitch anterior, short stitch superior Surgeon: Elton Tejeda DO Anesthesia: General and Local Estimated blood loss (mL): 20 Complications: None apparent Brief History: This a very pleasant 73-year-old female with a history of breast cancer. She previously underwent lumpectomy with sentinel lymph node biopsy and chemotherapy. Unfortunately she has had a recurrence in the same area. Right axillary sentinel lymph node biopsy with right breast lumpectomy with needle insertion and radiologic correlation was indicated. The risk and benefits were explained and documented. Procedure: After radiotracer was injected and wire localization was performed by radiology, the patient was brought back into the operating room. She was placed on the OR table in the supine position. The right breast and axilla were inspected prepped and draped in usual sterile fashion. Lymphazurin blue was injected underneath the nipple and massaged for 5 minutes. A timeout was performed. All present were in agreement. A 4 cm incision was made in the left axilla going through the previous incision. Dissection was carried down with electrocautery. The [place] counter was used to attempt to locate a sentinel lymph node. Readings were over 19,000 at the mass. No lymph nodes in axilla read over 25 however. I also found no large or blue lymph nodes. I did remove what appears to be a small calcified lymph node versus solo calcification along with at least 1 other lymph node and surrounding fat. Hemostasis was achieved with electrocautery. Next, after localization a 5 cm incision was made over the mass and through her previous incision, in the 10 o'clock position. Electrocautery was used to carve out a lumpectomy specimen. The entire needle was included. Dissection was carried down to the pectoralis major muscle. Specimen was taken out en bloc. Wire marked lateral. Short stitch marked superior. Double stitch marked anterior. Hemostasis was achieved with electrocautery. Specimen was sent to radiology who said the clip and wire were surrounded by adequate tissue margins. Dora was placed into both incisions. The dermis was approximated with 3-0 Vicryl. The skin was closed with 4-0 Vicryl in a subcuticular and running fashion. Dermabond was applied. Patient tolerated the procedure well.
--- NOTE | 2023-08-02 14:43 | SUR.OPER ---
Awaiting results of margins to be called to room.
[2023-08-02] MEDS: HYDROcodone-acetaminophen 5-325 mg Tablet 2 TAB PO (15:44)
--- NOTE | 2023-08-02 17:14 | ANE.PACU2 ---
Inpatient post-anesthesia follow up: Airway intact: Yes Vital signs: Temperature 97.8 F Pulse Rate 71 Respiratory Rate 15 Blood Pressure 172/80 Pulse Oximetry 97 Oxygen Delivery Me thod Room Air Oxygen Flow Rate Fraction of Inspir ed Oxygen Hydration adequate: Yes Nausea and vomiting: No Pain level: 2 Mental status: Baseline
[2023-08-10 09:28] LABS: Breast Profile ER,PR,HER2,Ki-6 See Report
== END 2023-08-02 16:15 | disposition home or self-care (01) ==
PROVIDERS: PCP Nurse Practitioner Family; Visit Provider Surgery
PROC: (CPT 19301; principal; 2023-08-02 14:25)
PROC: (CPT 19301; 2023-08-02 14:25)
DX: C50.911 Malignant neoplasm of unspecified site of right female breast (principal); I10 Essential (primary) hypertension; Z87.891 Personal history of nicotine dependence
CPT/HCPCS: 19301; 38500; 19285; 38792; 88307; 88361; 88374; A9520; C1889; J0690; J1100; J2001; J2405; J2704; J3010; J7030; Q9968

== ENCOUNTER → 2023-08-24 13:02 | Outpatient (BNVA) | payer MEDICARE, MEDICAID, SELFPAY | PROVIDERS: PCP Family Medicine Adult Medicine; Visit Provider Surgery | DX: Z98.890 Other specified postprocedural states (principal) | CPT/HCPCS: 99024 ==

== ENCOUNTER 2023-08-24 14:19 | Oncology outpatient (recurring) (ONCR) | payer MEDICARE, MEDICAID, SELFPAY ==
[2023-08-24 15:07] VITALS: BP 147/78; PULSE 79; RESP 16; TEMP 37.2; O2SAT 93
== END 2023-09-12 23:59 | disposition home or self-care (01) ==
PROVIDERS: PCP Nurse Practitioner Family; Visit Provider Internal Medicine Medical Oncology
DX: Z45.2 Encounter for adjustment and management of vascular access device (principal)
CPT/HCPCS: 96523; J1642

== ENCOUNTER 2023-10-13 09:31 | Oncology outpatient (recurring) (ONCR) | payer MEDICARE, MEDICAID, SELFPAY ==
--- NOTE | 2023-09-22 10:09 | N.ONRAD NP_ITS ---
Radiation Oncology New Patient Visit Patient: Odalis Woods MR#: [id number] : 1950> Age: 73> Sex: Female> Dictated by: Dr. Betsey Cardenas Date of Service: 09/22/2023 Referring Physician(s) : Ramírez Rothman M.D. Diagnosis: C50.411 - malignant neoplasm of upper-outer quadrant of right female breast, Diagnosed 03/19/2021 (active), stage iv, t1c, n1, m1, g3, her2 pos, er pos, pr ne. Radiotherapy to date: Summary > No prior radiation therapy. Chief Complaint / History of Present Illness: Patient was diagnosed with breast cancer in 2020. At that time she had lumpectomy only. She subsequently has had continued follow-up and was found to have an abnormality on her mammogram which led to additional surgery on 08/02/2023. The pathology from this surgery showed that the right axillary tissue was clear in the lumpectomy specimen revealed a grade 2 invasive ductal carcinoma with clear margins and a 1.3 cm mass. The mass was ER/MI negative H ER 2 positive. She is seen today to discuss radiation to the breast. Current Medications: Abraxane, acetaminophen, acyclovir, alendronate Sodium, alendronate Sodium, aloxi, amLODIPine Besylate, anastrozole, ascorbic Acid, calcium Citrate + D3, daily Multiple Vitamins, dexamethasone, dexamethasone Sodium Phosphate, diphenhydrAMINE HCl, doxepin HCl, eQ Loratadine, exemestane, famotidine in NaCl, herceptin, hydrocortisone, lidocaine-Prilocaine, lisinopril, lORazepam, magnesium, perjeta, predniSONE, prochlorperazine Maleate. Allergies: No Known Allergies Medical History: Hypertension, osteopenia. No history of collagen vascular disease. No previous radiation therapy. Surgical History: Cataracts in 2009, covid vaccine #1 moderna in 04/2021, covid vaccine #2 moderna in 05/2021, pOWERPORT left internal jugular???Dr. Rothman on 02/19/2021 and ultrasound-guided biopsy of right breast mass and a right axillary lymph node on 01/27/2021. Family History: Mother has experienced hypertension. Maternal Grandmother has experienced hypertension. Father had kidney cancer. He of unrelated lung disease. Mother had hypertension and following complications after a stroke. One brother and two sisters are in good health. There is no history of breast or ovarian cancer in the family. Social History: Last screened on 12/24/2021 - Yes - but has quit for 24 years. Smoked 1.0 pack/day for 33 years (33 pack years). Last screened on 12/24/2021 - Drinks occasionally 1 drink/day 7 days/week. Current Complaints / Review of Systems: . Vital Signs: Performed on 09/22/2023 9:57 AM BMI - 30.114 kg/m2 (high), Height - 63 in, Weight - 170 lbs, Temperature - 98.7 f, Pulse - 76 /min, Respiration - 17 /min, O2 Sat - 97 %, Pain - 0, Fatigue - 0 and BP - 148/ 84 mm(hg)(high/). Physical Exam: General: Patient is in no apparent distress sitting comfortably in the chair. HEENT: Normocephalic atraumatic. Pupils are equal, sclera clear, extraocular muscles intact Pulmonary: Respiratory rate is regular nonlabored Cardiovascular: Regular rate and rhythm Abdomen: Abdomen is flat and nontender Breast: The incision in the right breast is nicely healed. There is no erythema or drainage. The axillary incision is healed as well. Extremities: No clubbing cyanosis or edema noted Skin: Warm and dry Neurological: Alert and oriented x 3. Gait and speech within normal limits Psychological: Affect is appropriate for current situation Performance Status: ECOG 0 Pathology: Primary, c50.411 - malignant neoplasm of upper-outer quadrant of right female breast, Diagnosed 03/19/2021 (active) stage iv, t1c, n1, m1, g3, her2 pos, er pos, pr ne. Lab: Imaging: See HPI Impression: Locally recurrent infiltrating ductal carcinoma of the breast Plan: I reviewed with her today the pathology report. We discussed the use of radiation and breast cancer. We reviewed the simulation process. The daily treatment regiment was also reviewed. We discussed the risks and side effects both acute and long-term. At this point she had no additional questions or concerns that she has agreed to proceed with treatment. She is anxious to get treatment started. We did talk about increment weather and not coming for treatment of the roads were slick or dangerous. This point we will proceed with simulation today at her request and get her started in the next few days or early next week. Plan for a hypofractionated 4-week course of treatment Signed by: 09/22/2023 10:08:34 AM <<Signature on File>> Time spent with patient:30 CPT Code: CPT Code:
[2023-09-22 10:23] LABS: Basophils # 0.1 10^3/uL (0.0-0.1); Basophils % 0.5 %; Eosinophils # 0.2 10^3/uL (0.0-0.8); Eosinophils % 2.5 %; Hematocrit 42.9 % (36-47); Lymphocytes # 2.5 10^3/uL (0.8-4.8); Lymphocytes % 26.7 %; Mean Corpuscular HGB Conc 33.8 g/dL (30-55); Mean Corpuscular Hemoglobin 31.3 pg (27-33); Mean Corpuscular Volume 92.7 fl (85-98); Mean Platelet Volume 9.9 fL (7.4-10.4); Monocytes # 0.8 10^3/uL (0.2-0.9); Monocytes % 8.2 %; Neutrophils % 61.7 %; Nucleated Red Blood Cells % 0 %; Platelet Count 204 10^3/cmm (157-399); Red Blood Count 4.63 10^6/uL (3.85-5.65); Red Cell Distribution Width 12.6 % (12.1-15.1); White Blood Count 9.25 10^3/uL (3.29-11.43)
[2023-09-22 10:52] LABS: Alanine Aminotransferase 20 U/L (0-33); Albumin Level 4.3 g/dL (3.5-5.2); Alkaline Phosphatase 70 U/L (35-105); Anion Gap 14.3 (5-19); Aspartate Amino Transferase 20 U/L (0-32); Blood Urea Nitrogen 16 mg/dL (8-23); CA 15-3 19.1 U/mL (0-25); Calcium 9.8 mg/dL (8.5-10.5); Carbon Dioxide 24 mmol/L (22-29); Chloride 104 mmol/L (98-107); Globulin 2.9 g/dL (1.3-4.6); Glucose 96 mg/dL (65-115); Osmolality Calculated 287 mOsm/kg (285-295); Potassium 4.3 mmol/L (3.5-5.1); Sodium 138 mmol/L (136-145); Total Bilirubin 0.4 mg/dL (0.15-1.2); Total Protein 7.2 g/dL (6.6-8.7)
--- NOTE | 2023-10-06 10:37 | ONCRAD TMN_ITS ---
Radiation Oncology Weekly Treatment Management Patient: Peggy Jacobo> MR#: [id number] : 1950> Attending Physician: Dr. Betsey Cardenas Date of Service: 10/06/2023 Fractions: 4 of 20 total Referring Physician(s) : Ramírez Rothman M.D. Diagnosis: C50.411 - Malignant neoplasm of upper-outer quadrant of right female breast, Diagnosed 03/19/2021 (Active) Stage IV, T1c, N1, M1, G3, HER2 Pos, ER Pos, [place] Ne Radiotherapy to date: Course: RT Breast 2023,Treatment Site: RT breast,Ref. ID: [email or web address],Energy: 15X ,Dose/Fx (cGy): 266, #Fx: , Dose Correction (cGy): 0, Total Dose (cGy): 1,064, Start Date: 09/29/2023, Elapsed Days: 7 Reason for visit: The patient is being seen today as part of their regularly scheduled weekly on treatment visits to assess for acute toxicities from radiotherapy. Review of Systems: Patient has noticed no changes. She has noticed no sensitivity to the skin. She does even have any fatigue. Vital Signs: Performed on 10/06/2023 9:58 AM BMI - 30.362 kg/m2 (high), Height - 63 in, Weight - 171.4 lbs, Temperature - 97.3 f, Pulse - 73 /min, Respiration - 18 /min, O2 Sat - 97 %, Pain - 1, Fatigue - 0 and BP - 155/ 84 mm(hg)(high/). Physical Exam: No changes noted Imaging: Radiation therapy imaging related to accurate target localization (i.e. KV, MV and CBCT) was reviewed. Appropriate changes, if any, were made to ensure treatment accuracy. Plan: Will continue with her treatments as planned. I did tell her if skin became pruritic over weekend she could use cortisone cream. Signed by: Dr. Betsey Cardenas 10/06/2023 10:36:40 AM
--- NOTE | 2023-10-12 10:16 | ONCRAD TMN_ITS ---
Radiation Oncology Weekly Treatment Management Patient: Odalis Woods MR#: [id number] : 1950> Attending Physician: Juvencio Hernandez Date of Service: 10/12/2023 Referring Physician(s) : Ramírez Rothman M.D. Diagnosis: C50.411 - Malignant neoplasm of upper-outer quadrant of right female breast, Diagnosed 03/19/2021 (Active) Stage IV, T1c, N1, M1, G3, HER2 Pos, ER Pos, [place] Ne Radiotherapy to date: Course: RT Breast 2023, Treatment Site: RT breast, Ref. ID: [email or web address], Energy: 15X, Dose/Fx (cGy): 266, #Fx: 8 / 16, Dose Correction (cGy): 0, Total Dose (cGy): 2,128, Start Date: 09/29/2023, Elapsed Days: 13 Reason for visit: The patient is being seen today as part of their regularly scheduled weekly on treatment visits to assess for acute toxicities from radiotherapy. Review of Systems: Patient denies any skin irritation, fatigue, or severe pain. She is using moisturizers as instructed. Vital Signs: Performed on 10/12/2023 9:53 AM BMI - 30.858 kg/m2 (high), Height - 63 in, Weight - 174.2 lbs, Temperature - 97.8 f, Pulse - 62 /min, Respiration - 16 /min, O2 Sat - 96 %, Pain - 0, Fatigue - 2 and BP - 151/ 84 mm(hg)(high/). Physical Exam: Alert and oriented female appearing her stated age. Skin in the treatment area is intact without erythema or desquamation. Patient ambulatory without assistance. Imaging: Radiation therapy imaging related to accurate target localization (i.e. KV, MV and CBCT) was reviewed. Appropriate changes, if any, were made to ensure treatment accuracy. Plan: Patient is tolerating radiation therapy with minimal side effects. Plan to continue prescribed treatment. Signed by: Juvencio Hernandez 10/12/2023 10:14:59 AM
== END 2023-10-13 23:59 | disposition home or self-care (01) ==
PROVIDERS: Internal Medicine; PCP Family Medicine Adult Medicine; Visit Provider Radiology Radiation Oncology
DX: Z51.0 Encounter for antineoplastic radiation therapy (principal); C50.411 Malignant neoplasm of upper-outer quadrant of right female breast; Z17.0 Estrogen receptor positive status [ER+]
CPT/HCPCS: 36591; 77295; 77300; 77321; 77332; 77334; 77336; 77387; 77412; 80053; 85025; 86300; 99024; 99215; J1642

== ENCOUNTER 2023-10-28 09:17 | Oncology outpatient (recurring) (ONCR) | payer MEDICARE, MEDICAID, SELFPAY ==
--- NOTE | 2023-10-19 10:27 | ONCRAD TMN_ITS ---
Radiation Oncology Weekly Treatment Management Patient: Odalis Woods MR#: [id number] : 1950 Attending Physician: Dr. Betsey Cardenas Date of Service: 10/19/2023 Fraction: 13 of 20, 3 to the whole breast and 4 to the boost remaining Referring Physician(s) : Ramírez Rothman M.D. Diagnosis: C50.411 - Malignant neoplasm of upper-outer quadrant of right female breast, Diagnosed 03/19/2021 (Active) Stage IV, T1c, N1, M1, G3, HER2 Pos, ER Pos, [place] Ne Radiotherapy to date: Course: RT Breast 2023, Treatment Site: RT breast, Ref. ID: [email or web address], Energy: 15X, Dose/Fx (cGy): 266, #Fx: , Dose Correction (cGy): 0, Total Dose (cGy): 3,458, Start Date: 09/29/2023, Elapsed Days: 20 Reason for visit: The patient is being seen today as part of their regularly scheduled weekly on treatment visits to assess for acute toxicities from radiotherapy. Review of Systems: Patient has had some mild issues with dizziness when she sits up on the side of the bed and first thing in the morning and also when she sits up on the side of the table here in the department. She otherwise has noticed that the skin through the treatment field is a little pruritic Vital Signs: Performed on 10/19/2023 10:02 AM BMI - 30.291 kg/m2 (high), Height - 63 in, Weight - 171 lbs, Temperature - 97.9 f, Pulse - 69 /min, Respiration - 16 /min, O2 Sat - 97 %, Pain - 0, Fatigue - 1 and BP - 155/ 92 mm(hg)(high). Physical Exam: On exam her blood pressure actually went from 155/92 on the table to 161/94 sitting up. Her skin is erythematous with some hyperpigmentation along the nipple. Imaging: Radiation therapy imaging related to accurate target localization (i.e. KV, MV and CBCT) was reviewed. Appropriate changes, if any, were made to ensure treatment accuracy. Plan: Will continue with her treatments as planned. I encouraged her to to increase her water intake. I have also instructed her to let us know if she should have additional changes with the dizziness. She will continue to take her blood pressure medicine. She will use cortisone cream for the pruritus and I have asked her to put extra cream around the nipple. Signed by: Dr. Betsey Cardenas 10/19/2023 10:26:17 AM
--- NOTE | 2023-10-26 10:06 | ONCRAD TMN_ITS ---
Radiation Oncology Weekly Treatment Management Patient: Peggy Cardenas MR#: [id number] : 1950> Attending Physician: Dr. Betsey Cardenas Date of Service: 10/26/2023 Fractions: 18 out of 20 Referring Physician(s) : Ramírez Rothman M.D. Diagnosis: C50.411 - Malignant neoplasm of upper-outer quadrant of right female breast, Diagnosed 03/19/2021 (Active) Stage IV, T1c, N1, M1, G3, HER2 Pos, ER Pos, [place] Ne Radiotherapy to date: Course: RT Breast 2023, Treatment Site: [id number], Ref. ID: [id number], Energy: 15X/6X, Dose/Fx (cGy): 250, #Fx: 2 / 4, Dose Correction (cGy): 0, Total Dose Delivered (cGy): 500, Start Date: 10/25/2023, End Date: 10/26/2023, Elapsed Days: 1 Treatment Site: RT breast, Ref. ID: [email or web address], Energy: 15X, Dose/Fx (cGy): 266, #Fx: 16 / 16, Dose Correction (cGy): 0, Total Dose Delivered (cGy): 4,256, Start Date: , Elapsed Days: 23 Reason for visit: The patient is being seen today as part of their regularly scheduled weekly on treatment visits to assess for acute toxicities from radiotherapy. Review of Systems: Patient skin is just mildly pruritic. Vital Signs: Performed on 10/26/2023 9:43 AM BMI - 30.929 kg/m2 (high), Height - 63 in, Weight - 174.6 lbs, Temperature - 98 f, Pulse - 64 /min, Respiration - 18 /min, O2 Sat - 98 %, Pain - 0, Fatigue - 4 and BP - 144/ 86 mm(hg)(high/). Physical Exam: On examination her skin is mildly erythematous. She has no areas of moist or dry desquamation. Imaging: Radiation therapy imaging related to accurate target localization (i.e. KV, MV and CBCT) was reviewed. Appropriate changes, if any, were made to ensure treatment accuracy. Plan: Will continue with her treatments as planned. We talked about her follow-up schedule and her mammogram scheduled today. Signed by: Dr. Betsey Cardenas 10/26/2023 10:05:34 AM
--- NOTE | 2023-10-28 13:15 | N.ONRD TS_ITS ---
Radiation Oncology Treatment Summary Patient: Peggy>Ronald MR#: [id number] : 1950> Age: 73> Sex: Female Dictated by: Dr. Betsey Cardenas Date of Service: 10/28/2023 Referring Physician(s) : Ramírez Rothman M.D. Diagnosis: C50.411 - Malignant neoplasm of upper-outer quadrant of right female breast, Diagnosed 03/19/2021 (Active) Stage IV, T1c, N1, M1, G3, HER2 Pos, ER Pos, [place] Ne Radiotherapy to Date: Course: RT Breast 2023, Treatment Site: [id number], Ref. ID: [id number], Energy: 15X/6X, Dose/Fx (cGy): 250, #Fx: 4 / 4, Dose Correction (cGy): 0, Total Dose Delivered (cGy): 1,000, Start Date: 10/25/2023, End Date: 10/28/2023, Elapsed Days: 3 Treatment Site: RT breast, Ref. ID: [email or web address], Energy: 15X, Dose/Fx (cGy): 266, #Fx: 16 / 16, Dose Correction (cGy): 0, Total Dose Delivered (cGy): 4,256, Start Date: 09/29/2023, End Date: 10/22/2023, Elapsed Days: 23 Clinical Summary: The patient tolerated RT well. She had a mild skin reaction with some mild erythema. She did not have any fatigue. Plan: End of treatment today. Continue on the above medication until the skin reaction resolves. Follow up in one month. Signed by: Dr. Betsey Cardenas>10/28/2023 1:14:24 PM <<Signature on File>>
== END 2023-11-11 23:59 | disposition home or self-care (01) ==
PROVIDERS: PCP Family Medicine Adult Medicine; Visit Provider Radiology Radiation Oncology
DX: Z51.0 Encounter for antineoplastic radiation therapy (principal); C50.411 Malignant neoplasm of upper-outer quadrant of right female breast; Z17.0 Estrogen receptor positive status [ER+]
CPT/HCPCS: 77014; 77336; 77387; 77412; 77427; 96523; 99024; J1642

== ENCOUNTER 2023-11-26 06:57 | Outpatient (CLI) | payer MEDICARE, MEDICAID, SELFPAY ==
--- NOTE | 2023-11-26 07:15 | USCV_ITS ---
Odalis Woods Age: 73 Gender: F : 1950 Exam Date: 11/26/2023 07:28 Ordering Phys: Torres Leblanc MD Technologist: NOE Exam Location: [facility] [place] Indication: MALIGNANT NEOPLASM BP: 130 / 80 HR: 65 Rhythm: Sinus Technical Quality: Adequate MEASUREMENTS (Male / Female) Normal Values 2D ECHO LVOT Diameter 2.3 cm LV Ejection Fraction MOD 2C 70.3 % LV Ejection Fraction 2C AL 71.3 % LA Diameter 3.2 cm RA Systolic Volume 4C AL 36.3 ml RA Systolic Volume 4C MOD 35.9 ml Aorta at Sinotubular Diameter 2.2 cm IVC Diameter 1.9 cm M-MODE LA Ao Ratio MM 1.3 AV Cusp Separation MM 1.9 cm DOPPLER AV Peak Velocity 112.0 cm/s LVOT Peak Velocity 104.0 cm/s AV Area Cont Eq vti 3.8 cm squared AV Area Cont Eq pk 3.8 cm squared MV Peak Velocity 79.0 cm/s MV Area PHT 4.2 cm squared Mitral E to A Ratio 1.0 TV Peak Velocity 220.0 cm/s TR Peak Velocity 233.0 cm/s TR Peak Gradient 21.7 mmHg TR Mean Velocity 179.0 cm/s TR Mean Gradient 14.0 mmHg TR Velocity Time Integral 61.3 cm PV Peak Velocity 85.0 cm/s FINDINGS Left Ventricle Normal left ventricular size and systolic function, EF 70% . No regional wall motion abnormalities. Grade I/IV diastolic dysfunction (abnormal relaxation filling pattern), normal to mildly elevated filling pressures. Right Ventricle The right ventricle is normal in size and function. Right Atrium The right atrium is normal in size. Left Atrium Mildly increased left atrial size. Mitral Valve No gross abnormalities noted.trace mitral valve regurgitation. Aortic Valve Thickened aortic valve. Tricuspid Valve Trace to mild tricuspid valve regurgitation. Pulmonic Valve No gross abnormalities noted Pericardium Normal pericardium without effusion. Aorta Normal ascending aorta dimension. IVC The inferior vena cava appears normal. CONCLUSIONS Normal left ventricular size and systolic function, EF 70% . No regional wall motion abnormalities. Grade I/IV diastolic dysfunction (abnormal relaxation filling pattern), normal to mildly elevated filling pressures. Mildly increased left atrial size. Thickened aortic valve. Trace to mild tricuspid valve regurgitation. Estimated pulmonary artery peak systolic pressure within normal limits Trace mitral valve regurgitation. There is no pericardial effusion. There are no intracardiac masses. Compared to the study from 08/05/2021, no significant change in the 2D findings Dr Pete Jovel MD [facility] (Electronically Signed) Final Date: 26 November 2023 18:19 S
== END 2023-11-26 06:58 | disposition home or self-care (01) ==
LOC: RAD 06:57
PROVIDERS: PCP Family Medicine Adult Medicine; Visit Provider Internal Medicine
DX: C50.411 Malignant neoplasm of upper-outer quadrant of right female breast (principal); I08.2 Rheumatic disorders of both aortic and tricuspid valves
CPT/HCPCS: 93306

== ENCOUNTER 2023-11-30 08:32 | Outpatient (CLI) | payer MEDICARE, MEDICAID, SELFPAY ==
--- NOTE | 2023-11-30 09:30 | CT_ITS ---
WS: [id number] CT CHEST AND ABDOMEN WITH CONTRAST HISTORY: malignant neoplasm of female breast TECHNIQUE: Axial imaging is performed through the chest and abdomen with IV and oral contrast.. Sagit che and coronal reformats. All CT scans at [facility] use at least one of these dose optimiza tion techniques: automated exposure control; mA and/or kV adjustment per patient size (includes targe matthias exams where dose is matched to clinical indication); or iterative reconstruction. CONTRAST: Omnipaque 350; 100 mL IV. DLP: 563.20 mGy COMPARISON: No similar studies. PET/CT 06/29/[address]: There are a few very tiny, subcentimeter nodules and micronodules throughout the lungs. 3 mm with benedicto y slight spiculation in the RIGHT upper lobe. There is an additional nodule measuring 8 mm posterior to the descending aorta in the superior segment LEFT lower lobe. Mild dependent change and atelectasi s at the RIGHT lung base. No pneumonia. Mild enlargement of the heart. No pericardial or pleural effusions. Small AP and RIGHT hilar lymph no tatum. Mild atherosclerosis aorta. LEFT Mediport. Postoperative seroma RIGHT breast measures 2.8 x 1.8 cm. There is overlying soft tissue thickening wh ich is probably posttreatment related. Small hiatal hernia. Abdomen CT: Severe hepatic steatosis. Normal portal vein. No bile duct dilatation. Gallbladder is sli ghtly contracted. Normal spleen and adrenal glands. Normal pancreas. Moderate atherosclerotic plaque within the aorta. No ascites or adenopathy. The visualized GI tract is negative. No destructive bone lesions. IMPRESSION: 1. Postoperative fluid collections likely a seroma RIGHT breast at the site of the prior surgery. Se elen measures 2.8 x 1.8 cm. 2. Soft tissue thickening surrounding the RIGHT breast from radiotherapy treatment. 3. Severe hepatic steatosis. 4. There are a few very small and indeterminate pulmonary nodules. Indeterminate for early metastati c disease. Recommend follow-up chest CT in 3 months to reevaluate for increase in size or stability. 5. No ascites.
[2023-11-30] MEDS: iohexol 350 mg/mL 500 mL Btl (per mL) PO (10:13)
[2023-11-30] MEDS: iohexol 350 mg/mL 500 mL Btl (per mL) IV (10:13)
== END 2023-11-30 08:33 | disposition home or self-care (01) ==
LOC: RAD 08:32
PROVIDERS: PCP Family Medicine Adult Medicine; Visit Provider Internal Medicine
DX: C50.411 Malignant neoplasm of upper-outer quadrant of right female breast (principal); C79.81 Secondary malignant neoplasm of breast; L59.8 Other specified disorders of the skin and subcutaneous tissue related to radiation; Z92.3 Personal history of irradiation; R91.8 Other nonspecific abnormal finding of lung field
CPT/HCPCS: 71260; 74160; Q9967

== ENCOUNTER 2023-12-08 11:30 | Oncology outpatient (recurring) (ONCR) | payer MEDICARE, MEDICAID, SELFPAY ==
[2023-11-22 09:20] LABS: Basophils % 0.5 %; Eosinophils # 0.2 10^3/uL (0.0-0.8); Eosinophils % 2.4 %; Hematocrit 41.5 % (36-47); Lymphocytes # 1.7 10^3/uL (0.8-4.8); Mean Corpuscular Hemoglobin 31.3 pg (27-33); Mean Corpuscular Volume 92.2 fl (85-98); Mean Platelet Volume 9.6 fL (7.4-10.4); Monocytes # 0.6 10^3/uL (0.2-0.9); Monocytes % 7.1 %; Neutrophils # 6.23 10^3/uL (1.8-7.7); Neutrophils % 70.5 %; Nucleated Red Blood Cells % 0 %; Platelet Count 160 10^3/cmm (157-399); Red Cell Distribution Width 12.6 % (12.1-15.1); White Blood Count 8.83 10^3/uL (3.29-11.43)
[2023-11-22 09:50] LABS: Alanine Aminotransferase 21 U/L (0-33); Albumin Level 4.2 g/dL (3.5-5.2); Alkaline Phosphatase 65 U/L (35-105); Anion Gap 17.2 (5-19); Aspartate Amino Transferase 23 U/L (0-32); Blood Urea Nitrogen 13 mg/dL (8-23); Calcium 9.2 mg/dL (8.5-10.5); Carbon Dioxide 22 mmol/L (22-29); Chloride 103 mmol/L (98-107); Globulin 2.3 g/dL (1.3-4.6); Glucose 122 mg/dL (65-115); Osmolality Calculated 287 mOsm/kg (285-295); Potassium 4.2 mmol/L (3.5-5.1); Sodium 138 mmol/L (136-145); Total Bilirubin 0.3 mg/dL (0.15-1.2); Total Protein 6.5 g/dL (6.6-8.7)
[2023-11-22 10:31] LABS: CA 15-3 20.7 U/mL (0-25)
--- NOTE | 2023-11-22 10:36 | ONCRAD EPV_ITS ---
Radiation Oncology Established Patient Visit Patient: Peggy Jacobo [id number] : 1950> Age: 73> Sex: Female> Dictated by: Juvencio Hernandez Date of Service: 11/22/2023 Referring Physician(s) : Ramírez Rothman M.D. Diagnosis: C50.411 - Malignant neoplasm of upper-outer quadrant of right female breast, Diagnosed 03/19/2021 (Active) Stage IV, T1c, N1, M1, G3, HER2 Pos, ER Pos, VT Ne Breast cancer. This is a 71 year-old woman with grade 3 invasive ductal carcinoma of the right breast, ER positive/VT negative and HER-2/dat positive. By clinical evaluation, she had denovo stage IV disease with PET/CT evidence of mediastinal lymph node involvement and multiple small pulmonary nodules bilaterally. She had presented with a palpable lump in the right breast. Her diagnostic mammogram/ultrasound on 01/20/2021 was BI-RADS 5, highly suggestive of malignancy. The mammogram showed a spiculated high density mass with calcifications at the 10 to 11 o'clock position of the right breast. It measured 2.0 x 1.6 cm. Mildly prominent dense lymph nodes were noted in the right axilla. By ultrasound the lesion was located 4 cm from the nipple at the 10 o'clock position. It was hypoechoic and measured 1.8 x 1.4 x 1.7 cm. A few mildly abnormal lymph nodes were noted in the right axilla. On 01/27/2021 she underwent ultrasound directed biopsy of the right breast mass and of a right axillary lymph node. Pathology on the breast biopsy showed grade 3 invasive ductal carcinoma. There was lymphovascular invasion and perineural invasion identified. The right axillary lymph node biopsy showed metastatic carcinoma, grade 3. The breast prognostic profile showed ER positive at 20%. The VT was negative < 1%. The tumor was positive for overexpression of HER-2/dat, 3+ by IHC and amplification ratio by FISH of 1.2 with 3.3 HER-2 copies/cell. The Ki-67 was high at 15%. I had seen her initially on 01/31/2021. At that time we had discussed further management of the breast cancer with the expectation that she would likely begin neoadjuvant chemotherapy, though I had recommended that she first have a staging PET/CT. I also had recommended that she proceed with placement of Port-A-Cath venous access device, which became somewhat problematic due to restrictions associated with her insurance coverage. Staging PET/CT on 02/08/2021 showed an FDG avid solid lesion in the upper outer quadrant of the right breast measuring 1.3 x 0.8 cm, SUV 9.5, consistent with the known primary carcinoma. Two dominant FDG positive axillary lymph nodes had SUV up to 10.4. A 3rd node demonstrated a fatty hilum but with SUV 3.5. There were additional FDG positive nodes within the mediastinum including subcarinal, left upper hilar, right paratracheal 2R and 4R, and right hilar territory lymph nodes. The dominant left hilar lymph node had SUV 7.1. Multiple bilateral pulmonary nodules were noted, the largest in the right upper lobe measuring 7 mm. These showed mild FDG uptake and were felt to have high probability of representing metastatic disease. I had seen her for a follow-up visit on 02/14/2021. Given the PET/CT findings, I had recommended that she begin systemic therapy with paclitaxel in combination with Herceptin and Perjeta. She subsequently underwent placement of Port-A-Cath venous access device on 02/19/2021. Her baseline echocardiogram showed hypokinesia of the basal inferior wall segment but with normal left ventricular ejection fraction at 60%. Her other medical illnesses have been limited to hypertension and osteopenia. She has had no prior surgeries. She has a history of smoking 1 pack of cigarettes daily for 33 years. She quit smoking in 1999. INTERIM HISTORY: She began cycle 1 of paclitaxel/Herceptin/Perjeta on 03/19/2021 with the paclitaxel and Herceptin administered weekly and the Perjeta administered on a 3-week schedule. She tolerated the initial infusions without acute toxicity. She continued with her week 2 paclitaxel/Herceptin on 03/26/2021 and with week 3 treatment on 04/03/2021. She then had a planned treatment break at week 4 due to neutropenia. She then began cycle 2 on 04/16/2021 with the paclitaxel administered weekly and with the Herceptin and Perjeta administered at 3-week dosing. She tolerated that treatment well, though she was having increasing side effects with the steroid premedication. She continued with cycle 3 on 05/07/2021 with the taxane change to nab-paclitaxel. Restaging PET/CT on 06/05/2021 showed bilateral axillary lymphadenopathy, more prominent on the left side with preserved fatty hilar tissue. A right level 1 lymph node appeared irregular measuring 1.0 cm in short axis with a maximum SUV 5.04. Focally increased metabolic activity was noted in the right breast at the location of the fiducial marker. There was associated irregular soft tissue density measuring approximate 1.2 cm with a maximum SUV 2.16. A 1.0 cm right precarinal lymph node had maximum SUV 2.97 and there was mild increased metabolic activity in both hilar regions, maximum SUV 3.88 on the right and 3.80 on the left. There was no pulmonary nodularity or focal increase of metabolic activity in the lung tissue. There were no osseous lesions noted. Inflammatory changes were present in the right shoulder. Overall, there was residual neoplastic activity in the breast and right axilla. The mediastinal and hilar activity was felt to be indeterminate. There was no strong evidence for distant metastatic involvement. With those findings, she continued with cycle 4 of Abraxane/Herceptin/Perjeta on 06/09/2021 and with that cycle the Abraxane was changed to 3-week dosing. She continued with cycle 5 on 06/30/2021. At her follow-up visit on 07/21/2021 she reported increased chemotherapy related side effects, and I opted to stop the Abraxane and to continue treatment with just the Herceptin/Perjeta. With her disease appearing to be localized to the breast and axilla by PET/CT, I had also recommended that she see Dr. Rothman for lumpectomy/axillary lymph node sampling. In addition, with the Abraxane having been discontinued, she was recommended to begin adjuvant hormonal therapy with anastrozole 1 mg daily. On 08/20/2021 she underwent right breast lumpectomy with right axillary sentinel lymph node biopsy. Pathology on the lumpectomy specimen showed no residual malignancy. There was initially reported to be no involvement in 3 axillary lymph nodes. However, on subsequent immunohistochemical analysis, metastatic involvement was noted in 2 of the axillary lymph nodes. There was no evidence of extranodal extension. She then continued with cycle 2 of Herceptin/Perjeta on 09/02/2021 and was cycle 3 on 09/23/2021. Restaging PET/CT on 10/02/2021 showed mildly hypermetabolic activity at the operative site in the right breast/axilla. There is no evidence of metabolically active disease within the right axilla or right breast. There was resolution of previously noted hypermetabolic left axillary lymph nodes, thought perhaps to have been reactive. There were no hypermetabolic mediastinal or hilar lymph nodes noted and there are no hypermetabolic pulmonary nodules. Overall, the findings were consistent with a positive response to therapy with no evidence of disease progression. She then continued with cycle 4 of Herceptin/Perjeta on 10/14/2021. At her follow-up visit on 11/04/2021 she continued to have significant itching despite having stopped her supplements and a number of her medications. At that point I did opt to put the Herceptin/Perjeta on hold, and she stopped both the anastrozole and lisinopril. In November 2021 she began on amlodipine for the hypertension and her hormonal treatment was changed to exemestane 25 mg daily. She is seen for a follow-up visit. She has been feeling pretty good generally. She says that she went back on the lisinopril because of side effects with the amlodipine. She still has some itching around her eyes and in both arms, but it is subsiding. Her energy is fair. She has been walking and doing housework. ECOG score is 1. She has good appetite. She has not had fever. She occasionally has sweating at night. She has not had sore mouth or throat. She does not complain of cough or shortness of breath. She has had some pain under the left anterior rib cage. She has no GI or complaints. She has some joint pain, mainly in the right shoulder, in her hips, and in her toes. She also complains that her toes are still numb, but it is gradually improving. She had a tick bite in the left axillary area a week and a half ago, and she is concerned because she is having some redness associated with it. Radiotherapy to Date: Course: RT Breast 2023, Treatment Site: [id number], Ref. ID: [id number], Energy: 15X/6X, Dose/Fx (cGy): 250, #Fx: 4 / 4, Dose Correction (cGy): 0, Total Dose Delivered (cGy): 1,000, Start Date: 10/25/2023, End Date: 10/28/2023, Elapsed Days: 3 Treatment Site: RT breast, Ref. ID: [id number], Energy: 15X, Dose/Fx (cGy): 266, #Fx: 16, Dose Correction (cGy): 0, Total Dose Delivered (cGy): 4,256, Start Date: 09/29/2023, End Date: 10/22/2023, Elapsed Days: 23 Current History: Patient is seen today approximately 1 month after completion of her radiation therapy to the right breast. She denies skin irritation. She has occasional electric shocklike pain that lasts momentarily. She denies any palpable nodules in either breast. She reports that follow-up is scheduled with medical oncology today. Current Medications: Abraxane, acetaminophen, acyclovir, alendronate Sodium, alendronate Sodium, aloxi, amLODIPine Besylate, anastrozole, ascorbic Acid, calcium Citrate + D3, daily Multiple Vitamins, dexamethasone, dexamethasone Sodium Phosphate, diphenhydrAMINE HCl, doxepin HCl, eQ Loratadine, exemestane, famotidine in NaCl, herceptin, hydrocortisone, lidocaine-Prilocaine, lisinopril, lORazepam, magnesium, perjeta, predniSONE, prochlorperazine Maleate. Allergies: No Known Allergies Current Complaints / Review of Systems: . Vital Signs: Performed on 11/22/2023 10:12 AM BMI - 31.248 kg/m2 (high), Height - 63 in, Weight - 176.4 lbs, Temperature - 97.9 f, Pulse - 72 /min, Respiration - 18 /min, O2 Sat - 97 %, Pain - 0, Fatigue - 0 and BP - 144/ 75 mm(hg)(high/). Physical Exam: General: Alert and oriented x 3. No acute distress. HEENT: Normocephalic, atraumatic. Extraocular Movements Intact: Pupils Equal, Round, Reactive to Light and Accommodation: Sclerae anicteric. Oral cavity is clear without lesions, masses or ulcers. NECK: Supple without supraclavicular or jugular lymphadenopathy. LUNGS: Clear to auscultation bilaterally without rales, rhonchi or wheeze. BREASTS: Skin of the breasts are intact without erythema or desquamation. There are no palpable nodules in the right breast. No nipple exudates are noted. Lumpectomy and axillary dissection incisions are well-healed. No lymphedema is noted. HEART: Regular rate and rhythm, normal S1 and S2 without murmur, gallop or rub. MUSCULOSKELETAL: No tenderness or percussion pain over the axial skeleton, scapulae or pelvis. ABDOMEN: Soft, nontender, nondistended without masses or organomegaly. Bowell sounds are present. EXTREMITIES: No peripheral edema is identified. Limited motor and sensory examination are grossly intact and symmetric bilaterally. NEUROLOGIC: Cranial nerves II ???XII are grossly intact. Normal sensation, strength 5/5 in all extremities, normal gait, no ataxia. Performance Status: ECOG 1 Lab: None pending. Pathology: Primary, c50.411 - malignant neoplasm of upper-outer quadrant of right female breast, Diagnosed 03/19/2021 (active) stage iv, t1c, n1, m1, g3, her2 pos, er pos, pr ne. Imaging: See HPI Impression: Odalis Woods has recovered well from the acute effects of her extremity radiation therapy and has no radiation related side effects. I explained to her that the symptoms of the occasional electric shocklike sensation are common and may be related to recovering from the lumpectomy surgery where the superficial nerves that are cut continue to heal over time. I have assured her that this is a common comment from patients treated for breast cancer and that it can occur before radiation treatments so it is not likely a side effect of radiation. Signed by: 11/22/2023 10:34:34 AM <<Signature on File>> Time spent with patient: 30 minutes CPT Code: CPT Code:
[2023-12-08 10:36] LABS: Basophils % 0.5 %; Eosinophils # 0.2 10^3/uL (0.0-0.8); Eosinophils % 2.3 %; Hematocrit 40.6 % (36-47); Lymphocytes # 1.8 10^3/uL (0.8-4.8); Lymphocytes % 21.4 %; Mean Corpuscular Hemoglobin 31.6 pg (27-33); Mean Corpuscular Volume 92.9 fl (85-98); Mean Platelet Volume 9.4 fL (7.4-10.4); Monocytes # 0.8 10^3/uL (0.2-0.9); Monocytes % 10.2 %; Neutrophils # 5.36 10^3/uL (1.8-7.7); Neutrophils % 65.2 %; Nucleated Red Blood Cells % 0 %; Platelet Count 185 10^3/cmm (157-399); Red Blood Count 4.37 10^6/uL (3.85-5.65); Red Cell Distribution Width 12.6 % (12.1-15.1); White Blood Count 8.22 10^3/uL (3.29-11.43)
[2023-12-08 10:52] LABS: Alanine Aminotransferase 22 U/L (0-33); Albumin Level 4.1 g/dL (3.5-5.2); Alkaline Phosphatase 57 U/L (35-105); Anion Gap 14.5 (5-19); Aspartate Amino Transferase 20 U/L (0-32); Blood Urea Nitrogen 17 mg/dL (8-23); Calcium 9.4 mg/dL (8.5-10.5); Carbon Dioxide 23 mmol/L (22-29); Chloride 105 mmol/L (98-107); Creatinine Clr Calc Pharmacy 48.6298; Globulin 2.5 g/dL (1.3-4.6); Glucose 85 mg/dL (65-115); Osmolality Calculated 287 mOsm/kg (285-295); Potassium 4.5 mmol/L (3.5-5.1); Sodium 138 mmol/L (136-145); Total Bilirubin 0.2 mg/dL (0.15-1.2); Total Protein 6.6 g/dL (6.6-8.7)
[2023-12-08] MEDS: sodium chloride 0.9% 250 ML 75 ML IV (13:27)
[2023-12-08] MEDS: diphenhydrAMINE 50 mg/mL SDV 1mL 25 MG IVP (13:28)
[2023-12-08] MEDS: famotidine 20 mg/2 mL INJ IVP (13:33)
[2023-12-08] MEDS: acetaminophen 325 mg Tablet 650 MG PO (13:34)
[2023-12-08] MEDS: paclitaxel protein-bound 230 MG in empty flexible container 1 EACH 92 MG IV (14:22)
[2023-12-08] MEDS: pertuzumab-trastuzumab-hy-zzxf (80 mg-40 mg-2,000 units/ml) 15mL 1200 MG SUBCUT (14:45)
[2023-12-08 15:24] VITALS: BP 148/81; PULSE 63; O2SAT 94
== END 2023-12-08 23:59 | disposition home or self-care (01) ==
PROVIDERS: Internal Medicine; Nurse Practitioner Family; PCP Family Medicine Adult Medicine; Visit Provider Radiology Radiation Oncology
DX: Z53.9 Procedure and treatment not carried out, unspecified reason (principal); Z51.11 Encounter for antineoplastic chemotherapy; C50.411 Malignant neoplasm of upper-outer quadrant of right female breast; K76.0 Fatty (change of) liver, not elsewhere classified; Z79.899 Other long term (current) drug therapy; R91.8 Other nonspecific abnormal finding of lung field; Z17.0 Estrogen receptor positive status [ER+]; C77.3 Secondary and unspecified malignant neoplasm of axilla and upper limb lymph nodes; Z87.891 Personal history of nicotine dependence
CPT/HCPCS: 36591; 71260; 74160; 80053; 85025; 86300; 96375; 96402; 96413; 99024; 99214; 99215; J1200; J1642; J3490; J7050; J9264; J9316; Q9967

== ENCOUNTER 2023-12-29 09:30 | Oncology outpatient (recurring) (ONCR) | payer MEDICARE, MEDICAID, SELFPAY ==
[2023-12-15 12:01] LABS: Basophils % 0.2 %; Eosinophils # 0.1 10^3/uL (0.0-0.8); Eosinophils % 2.2 %; Hematocrit 35.7 % (36-47); Lymphocytes # 1.4 10^3/uL (0.8-4.8); Mean Corpuscular HGB Conc 33.9 g/dL (30-55); Mean Corpuscular Hemoglobin 31.3 pg (27-33); Mean Corpuscular Volume 92.5 fl (85-98); Mean Platelet Volume 9.8 fL (7.4-10.4); Monocytes # 0.2 10^3/uL (0.2-0.9); Monocytes % 3.7 %; Neutrophils % 63.5 %; Nucleated Red Blood Cells % 0 %; Platelet Count 185 10^3/cmm (157-399); Red Blood Count 3.86 10^6/uL (3.85-5.65); Red Cell Distribution Width 12.3 % (12.1-15.1); White Blood Count 4.57 10^3/uL (3.29-11.43)
[2023-12-15 12:17] LABS: Alanine Aminotransferase 43 U/L (0-33); Albumin Level 3.9 g/dL (3.5-5.2); Alkaline Phosphatase 52 U/L (35-105); Anion Gap 14.2 (5-19); Aspartate Amino Transferase 32 U/L (0-32); Blood Urea Nitrogen 16 mg/dL (8-23); Calcium 8.9 mg/dL (8.5-10.5); Carbon Dioxide 23 mmol/L (22-29); Chloride 107 mmol/L (98-107); Creatinine Clr Calc Pharmacy 53.8786; Globulin 2.2 g/dL (1.3-4.6); Glucose 147 mg/dL (65-115); Osmolality Calculated 294 mOsm/kg (285-295); Potassium 4.2 mmol/L (3.5-5.1); Sodium 140 mmol/L (136-145); Total Bilirubin 0.3 mg/dL (0.15-1.2); Total Protein 6.1 g/dL (6.6-8.7)
[2023-12-15] MEDS: sodium chloride 0.9% 250 ML 75 ML IV (13:13)
[2023-12-15] MEDS: acetaminophen 325 mg Tablet 650 MG PO (13:14)
[2023-12-15] MEDS: famotidine 20 mg/2 mL INJ IVP (13:19)
[2023-12-15] MEDS: diphenhydrAMINE 50 mg/mL SDV 1mL 25 MG IVP (13:23)
[2023-12-15] MEDS: paclitaxel protein-bound 230 MG in empty flexible container 1 EACH 92 MG IV (14:01)
[2023-12-15 14:36] VITALS: BP 125/72; PULSE 67; RESP 17; TEMP -13.3; TEMP 8; O2SAT 95
[2023-12-22 13:02] LABS: Basophils % 0.7 %; Eosinophils # 0.1 10^3/uL (0.0-0.8); Eosinophils % 2.4 %; Hematocrit 32.8 % (36-47); Lymphocytes # 1.2 10^3/uL (0.8-4.8); Lymphocytes % 42.2 %; Mean Corpuscular HGB Conc 34.1 g/dL (30-55); Mean Corpuscular Hemoglobin 31.6 pg (27-33); Mean Corpuscular Volume 92.7 fl (85-98); Mean Platelet Volume 9.6 fL (7.4-10.4); Monocytes # 0.2 10^3/uL (0.2-0.9); Neutrophils # 1.33 10^3/uL (1.8-7.7); Neutrophils % 46.4 %; Nucleated Red Blood Cells % 0 %; Platelet Count 209 10^3/cmm (157-399); Red Blood Count 3.54 10^6/uL (3.85-5.65); White Blood Count 2.87 10^3/uL (3.29-11.43)
[2023-12-22 13:27] LABS: Alanine Aminotransferase 24 U/L (0-33); Albumin Level 3.8 g/dL (3.5-5.2); Alkaline Phosphatase 50 U/L (35-105); Anion Gap 12.4 (5-19); Aspartate Amino Transferase 22 U/L (0-32); Blood Urea Nitrogen 14 mg/dL (8-23); CA 15-3 18.1 U/mL (0-25); Calcium 8.8 mg/dL (8.5-10.5); Carbon Dioxide 24 mmol/L (22-29); Chloride 106 mmol/L (98-107); Creatinine Clr Calc Pharmacy 60.6135; Glucose 121 mg/dL (65-115); Osmolality Calculated 288 mOsm/kg (285-295); Potassium 4.4 mmol/L (3.5-5.1); Sodium 138 mmol/L (136-145); Thyroid Stimulating Hormone 2.09 uIU/mL (0.27-4.20); Total Bilirubin 0.2 mg/dL (0.15-1.2); Total Protein 5.8 g/dL (6.6-8.7)
[2023-12-22 14:45] VITALS: BP 121/78; PULSE 74; RESP 18; TEMP 36.6; O2SAT 98
[2023-12-29 09:06] LABS: Basophils % 0.6 %; Eosinophils # 0.1 10^3/uL (0.0-0.8); Eosinophils % 1.1 %; Hematocrit 34.5 % (36-47); Lymphocytes # 1.5 10^3/uL (0.8-4.8); Lymphocytes % 23.4 %; Mean Corpuscular HGB Conc 33.3 g/dL (30-55); Mean Corpuscular Hemoglobin 30.8 pg (27-33); Mean Corpuscular Volume 92.5 fl (85-98); Mean Platelet Volume 9.3 fL (7.4-10.4); Monocytes % 15.4 %; Neutrophils # 3.82 10^3/uL (1.8-7.7); Neutrophils % 58.4 %; Nucleated Red Blood Cells % 0 %; Platelet Count 207 10^3/cmm (157-399); Red Blood Count 3.73 10^6/uL (3.85-5.65); Red Cell Distribution Width 13.1 % (12.1-15.1); White Blood Count 6.54 10^3/uL (3.29-11.43)
[2023-12-29 09:26] LABS: Alanine Aminotransferase 26 U/L (0-33); Albumin Level 3.9 g/dL (3.5-5.2); Alkaline Phosphatase 51 U/L (35-105); Anion Gap 11.9 (5-19); Aspartate Amino Transferase 20 U/L (0-32); Blood Urea Nitrogen 14 mg/dL (8-23); Calcium 8.3 mg/dL (8.5-10.5); Carbon Dioxide 22 mmol/L (22-29); Chloride 105 mmol/L (98-107); Creatinine Clr Calc Pharmacy 59.7433; Globulin 2.3 g/dL (1.3-4.6); Glucose 122 mg/dL (65-115); Osmolality Calculated 282 mOsm/kg (285-295); Potassium 3.9 mmol/L (3.5-5.1); Sodium 135 mmol/L (136-145); Total Bilirubin 0.2 mg/dL (0.15-1.2); Total Protein 6.2 g/dL (6.6-8.7)
--- NOTE | 2023-12-29 11:34 | PC.PHAR ---
DR Renae REQUESTED [facility] BY 20%. KEEP ABRAXANE THE SAME DOSE
[2023-12-29 11:50] LABS: CA 15-3 17.4 U/mL (0-25)
[2023-12-29] MEDS: sodium chloride 0.9% 250 ML 75 ML IV (11:52)
[2023-12-29] MEDS: acetaminophen 325 mg Tablet 650 MG PO (11:53)
[2023-12-29] MEDS: famotidine 20 mg/2 mL INJ IVP (11:54)
[2023-12-29] MEDS: diphenhydrAMINE 50 mg/mL SDV 1mL 25 MG IVP (11:58)
[2023-12-29] MEDS: pertuzumab-trastuzumab-hy-zzxf (60 mg-60mg-2000 units/mL) 10mL 480 MG SUBCUT (12:51)
[2023-12-29] MEDS: paclitaxel protein-bound 230 MG in empty flexible container 1 EACH 92 MG IV (12:52)
[2023-12-29 13:53] VITALS: BP 151/82; PULSE 64; RESP 16; O2SAT 94
== END 2023-12-29 23:59 | disposition home or self-care (01) ==
PROVIDERS: Internal Medicine; PCP Family Medicine Adult Medicine; Visit Provider Nurse Practitioner Family
DX: C50.411 Malignant neoplasm of upper-outer quadrant of right female breast (principal); R94.6 Abnormal results of thyroid function studies; Z53.9 Procedure and treatment not carried out, unspecified reason; Z17.0 Estrogen receptor positive status [ER+]; Z79.899 Other long term (current) drug therapy
CPT/HCPCS: 80053; 84443; 85025; 86300; 96375; 96401; 96413; 99214; 99215; J1200; J1642; J3490; J7050; J9264; J9316

== ENCOUNTER 2024-01-05 11:50 | Oncology outpatient (recurring) (ONCR) | payer MEDICARE, MEDICAID, SELFPAY ==
[2024-01-05 11:25] LABS: Basophils # 0.1 10^3/uL (0.0-0.1); Basophils % 0.8 %; Eosinophils # 0.1 10^3/uL (0.0-0.8); Eosinophils % 1.9 %; Hematocrit 32.2 % (36-47); Lymphocytes # 1.7 10^3/uL (0.8-4.8); Lymphocytes % 23.1 %; Mean Corpuscular HGB Conc 33.9 g/dL (30-55); Mean Corpuscular Hemoglobin 31.2 pg (27-33); Mean Corpuscular Volume 92.3 fl (85-98); Monocytes # 0.5 10^3/uL (0.2-0.9); Monocytes % 6.5 %; Neutrophils # 4.84 10^3/uL (1.8-7.7); Neutrophils % 66.9 %; Nucleated Red Blood Cells % 0 %; Platelet Count 192 10^3/cmm (157-399); Red Blood Count 3.49 10^6/uL (3.85-5.65); Red Cell Distribution Width 12.7 % (12.1-15.1); White Blood Count 7.24 10^3/uL (3.29-11.43)
[2024-01-05 11:44] LABS: Alanine Aminotransferase 24 U/L (0-33); Albumin Level 3.8 g/dL (3.5-5.2); Alkaline Phosphatase 53 U/L (35-105); Anion Gap 12.1 (5-19); Aspartate Amino Transferase 20 U/L (0-32); Blood Urea Nitrogen 14 mg/dL (8-23); Calcium 8.7 mg/dL (8.5-10.5); Carbon Dioxide 24 mmol/L (22-29); Chloride 108 mmol/L (98-107); Globulin 2.4 g/dL (1.3-4.6); Glucose 90 mg/dL (65-115); Osmolality Calculated 290 mOsm/kg (285-295); Potassium 4.1 mmol/L (3.5-5.1); Sodium 140 mmol/L (136-145); Total Bilirubin 0.2 mg/dL (0.15-1.2); Total Protein 6.2 g/dL (6.6-8.7)
[2024-01-05 12:59] LABS: CA 15-3 18.9 U/mL (0-25)
[2024-01-05] MEDS: sodium chloride 0.9% 250 ML 75 ML IV (13:58)
[2024-01-05] MEDS: acetaminophen 325 mg Tablet 650 MG PO (14:02)
[2024-01-05] MEDS: diphenhydrAMINE 50 mg/mL SDV 1mL 25 MG IVP (14:03)
[2024-01-05] MEDS: famotidine 20 mg/2 mL INJ IVP (14:08)
[2024-01-05] MEDS: paclitaxel protein-bound 230 MG in empty flexible container 1 EACH 300 MG IV (14:47)
[2024-01-05] MEDS: paclitaxel protein-bound 230 MG in empty flexible container 1 EACH 140 MG IV (14:48)
[2024-01-05 15:25] VITALS: BP 148/81; PULSE 64; RESP 17; TEMP 36.6; O2SAT 97
== END 2024-01-11 23:59 | disposition home or self-care (01) ==
PROVIDERS: Internal Medicine; PCP Family Medicine Adult Medicine; Visit Provider Nurse Practitioner Family
DX: C50.411 Malignant neoplasm of upper-outer quadrant of right female breast (principal); Z17.0 Estrogen receptor positive status [ER+]; Z95.828 Presence of other vascular implants and grafts; Z87.891 Personal history of nicotine dependence; R94.6 Abnormal results of thyroid function studies; Z79.899 Other long term (current) drug therapy; Z51.11 Encounter for antineoplastic chemotherapy
CPT/HCPCS: 80053; 85025; 86300; 96413; 99214; J1200; J3490; J7050; J9264

== ENCOUNTER 2024-02-10 07:30 | Oncology outpatient (recurring) (ONCR) | payer MEDICARE, MEDICAID, SELFPAY ==
[2024-01-19 07:59] LABS: Basophils % 0.6 %; Eosinophils # 0.1 10^3/uL (0.0-0.8); Eosinophils % 1.4 %; Hematocrit 33.2 % (36-47); Lymphocytes # 1.5 10^3/uL (0.8-4.8); Lymphocytes % 23.8 %; Mean Corpuscular HGB Conc 33.7 g/dL (30-55); Mean Corpuscular Hemoglobin 31.4 pg (27-33); Mean Platelet Volume 9.3 fL (7.4-10.4); Monocytes # 0.9 10^3/uL (0.2-0.9); Monocytes % 13.6 %; Neutrophils # 3.88 10^3/uL (1.8-7.7); Neutrophils % 60.1 %; Nucleated Red Blood Cells % 0 %; Platelet Count 196 10^3/cmm (157-399); Red Blood Count 3.57 10^6/uL (3.85-5.65); Red Cell Distribution Width 13.6 % (12.1-15.1); White Blood Count 6.46 10^3/uL (3.29-11.43)
[2024-01-19 08:31] LABS: Alanine Aminotransferase 18 U/L (0-33); Albumin Level 3.8 g/dL (3.5-5.2); Alkaline Phosphatase 56 U/L (35-105); Anion Gap 14.8 (5-19); Aspartate Amino Transferase 17 U/L (0-32); Blood Urea Nitrogen 14 mg/dL (8-23); CA 15-3 20.1 U/mL (0-25); Calcium 8.1 mg/dL (8.5-10.5); Carbon Dioxide 22 mmol/L (22-29); Chloride 107 mmol/L (98-107); Creatinine Clr Calc Pharmacy 60.4393; Globulin 2.2 g/dL (1.3-4.6); Glucose 126 mg/dL (65-115); Osmolality Calculated 292 mOsm/kg (285-295); Potassium 3.8 mmol/L (3.5-5.1); Sodium 140 mmol/L (136-145); Total Bilirubin 0.2 mg/dL (0.15-1.2)
[2024-02-03 08:19] LABS: Basophils # 0.1 10^3/uL (0.0-0.1); Basophils % 0.8 %; Eosinophils # 0.3 10^3/uL (0.0-0.8); Eosinophils % 4.1 %; Hematocrit 37.8 % (36-47); Lymphocytes # 1.4 10^3/uL (0.8-4.8); Lymphocytes % 18.1 %; Mean Corpuscular HGB Conc 33.3 g/dL (30-55); Mean Corpuscular Hemoglobin 31.2 pg (27-33); Mean Corpuscular Volume 93.6 fl (85-98); Mean Platelet Volume 9.4 fL (7.4-10.4); Monocytes # 0.8 10^3/uL (0.2-0.9); Monocytes % 10.6 %; Neutrophils % 66.1 %; Nucleated Red Blood Cells % 0 %; Platelet Count 185 10^3/cmm (157-399); Red Blood Count 4.04 10^6/uL (3.85-5.65); Red Cell Distribution Width 13.6 % (12.1-15.1); White Blood Count 7.56 10^3/uL (3.29-11.43)
[2024-02-03 08:39] LABS: Alkaline Phosphatase 67 U/L (35-105); Anion Gap 12.3 (5-19); Aspartate Amino Transferase 19 U/L (0-32); Blood Urea Nitrogen 15 mg/dL (8-23); Calcium 8.5 mg/dL (8.5-10.5); Carbon Dioxide 23 mmol/L (22-29); Chloride 106 mmol/L (98-107); Creatinine Clr Calc Pharmacy 53.7238; Globulin 2.6 g/dL (1.3-4.6); Glucose 99 mg/dL (65-115); Osmolality Calculated 285 mOsm/kg (285-295); Potassium 4.3 mmol/L (3.5-5.1); Sodium 137 mmol/L (136-145); Total Bilirubin 0.3 mg/dL (0.15-1.2); Total Protein 6.6 g/dL (6.6-8.7)
[2024-02-03 08:51] LABS: Alanine Aminotransferase 17 U/L (0-33)
[2024-02-03] MEDS: acetaminophen 325 mg Tablet 650 MG PO (11:20)
[2024-02-03] MEDS: diphenhydrAMINE 50 mg/mL SDV 1mL 25 MG IVP (11:26)
[2024-02-03] MEDS: sodium chloride 0.9% 250 ML 75 ML IV (11:26)
[2024-02-03] MEDS: famotidine 20 mg/2 mL INJ IVP (11:30)
[2024-02-03] MEDS: pertuzumab-trastuzumab-hy-zzxf (60 mg-60mg-2000 units/mL) 10mL 420 MG SUBCUT (12:12)
[2024-02-03] MEDS: paclitaxel protein-bound 230 MG in empty flexible container 1 EACH 92 MG IV (12:33)
[2024-02-03 13:30] VITALS: BP 128/76; PULSE 67; RESP 17; TEMP 35.7; O2SAT 99
[2024-02-10 07:56] LABS: Basophils % 0.6 %; Eosinophils # 0.3 10^3/uL (0.0-0.8); Eosinophils % 5.2 %; Hematocrit 36.7 % (36-47); Lymphocytes # 1.5 10^3/uL (0.8-4.8); Mean Corpuscular Hemoglobin 30.9 pg (27-33); Mean Corpuscular Volume 93.9 fl (85-98); Mean Platelet Volume 9.6 fL (7.4-10.4); Monocytes # 0.2 10^3/uL (0.2-0.9); Monocytes % 4.6 %; Neutrophils # 2.78 10^3/uL (1.8-7.7); Neutrophils % 58.2 %; Nucleated Red Blood Cells % 0 %; Platelet Count 213 10^3/cmm (157-399); Red Blood Count 3.91 10^6/uL (3.85-5.65); White Blood Count 4.78 10^3/uL (3.29-11.43)
[2024-02-10 08:21] LABS: Alanine Aminotransferase 30 U/L (0-33); Albumin Level 4.1 g/dL (3.5-5.2); Alkaline Phosphatase 61 U/L (35-105); Anion Gap 13.6 (5-19); Aspartate Amino Transferase 24 U/L (0-32); Blood Urea Nitrogen 18 mg/dL (8-23); Calcium 8.7 mg/dL (8.5-10.5); Carbon Dioxide 23 mmol/L (22-29); Chloride 106 mmol/L (98-107); Creatinine Clr Calc Pharmacy 52.9987; Globulin 2.5 g/dL (1.3-4.6); Glucose 97 mg/dL (65-115); Osmolality Calculated 288 mOsm/kg (285-295); Potassium 4.6 mmol/L (3.5-5.1); Sodium 138 mmol/L (136-145); Total Bilirubin 0.3 mg/dL (0.15-1.2); Total Protein 6.6 g/dL (6.6-8.7)
[2024-02-10] MEDS: acetaminophen 325 mg Tablet 650 MG PO (09:47)
[2024-02-10] MEDS: diphenhydrAMINE 50 mg/mL SDV 1mL 25 MG IVP (09:47)
[2024-02-10] MEDS: famotidine 20 mg/2 mL INJ IVP (09:50)
[2024-02-10] MEDS: sodium chloride 0.9% (100 ml) 100 ML 75 ML (09:52)
[2024-02-10] MEDS: paclitaxel protein-bound 230 MG in empty flexible container 1 EACH 92 MG IV (11:05)
[2024-02-10 12:39] VITALS: BP 149/87; PULSE 74; RESP 18; TEMP 36.6; O2SAT 98
== END 2024-02-10 23:59 | disposition home or self-care (01) ==
PROVIDERS: Internal Medicine; PCP Family Medicine Adult Medicine; Visit Provider Nurse Practitioner Family
DX: Z51.11 Encounter for antineoplastic chemotherapy (principal); Z53.9 Procedure and treatment not carried out, unspecified reason; C50.411 Malignant neoplasm of upper-outer quadrant of right female breast; Z87.891 Personal history of nicotine dependence; Z17.0 Estrogen receptor positive status [ER+]; Z79.899 Other long term (current) drug therapy
CPT/HCPCS: 36591; 80053; 85025; 86300; 96375; 96402; 96409; 96413; 99213; 99214; J1200; J3490; J7050; J9264; J9316

== ENCOUNTER 2024-02-24 08:15 | Oncology outpatient (recurring) (ONCR) | payer MEDICARE, MEDICAID, SELFPAY ==
[2024-02-17 08:47] LABS: Basophils % 0.6 %; Eosinophils # 0.1 10^3/uL (0.0-0.8); Eosinophils % 2.7 %; Hematocrit 33.1 % (36-47); Lymphocytes # 1.5 10^3/uL (0.8-4.8); Lymphocytes % 44.7 %; Mean Corpuscular HGB Conc 32.9 g/dL (30-55); Mean Platelet Volume 9.6 fL (7.4-10.4); Monocytes # 0.2 10^3/uL (0.2-0.9); Monocytes % 6.9 %; Neutrophils # 1.49 10^3/uL (1.8-7.7); Neutrophils % 44.8 %; Nucleated Red Blood Cells % 0 %; Platelet Count 206 10^3/cmm (157-399); Red Blood Count 3.52 10^6/uL (3.85-5.65); Red Cell Distribution Width 13.1 % (12.1-15.1); White Blood Count 3.33 10^3/uL (3.29-11.43)
[2024-02-17 10:10] LABS: Alanine Aminotransferase 24 U/L (0-33); Alkaline Phosphatase 55 U/L (35-105); Anion Gap 13.2 (5-19); Aspartate Amino Transferase 20 U/L (0-32); Blood Urea Nitrogen 14 mg/dL (8-23); CA 15-3 19.7 U/mL (0-25); Calcium 8.9 mg/dL (8.5-10.5); Carbon Dioxide 22 mmol/L (22-29); Chloride 107 mmol/L (98-107); Creatinine Clr Calc Pharmacy 59.5691; Globulin 2.2 g/dL (1.3-4.6); Glucose 88 mg/dL (65-115); Osmolality Calculated 286 mOsm/kg (285-295); Potassium 4.2 mmol/L (3.5-5.1); Sodium 138 mmol/L (136-145); Total Bilirubin 0.2 mg/dL (0.15-1.2); Total Protein 6.2 g/dL (6.6-8.7)
[2024-02-17] MEDS: acetaminophen 325 mg Tablet 650 MG PO (11:24)
[2024-02-17] MEDS: sodium chloride 0.9% 250 ML 75 ML IV (11:26)
[2024-02-17] MEDS: diphenhydrAMINE 50 mg/mL SDV 1mL 25 MG IVP (11:30)
[2024-02-17] MEDS: famotidine 20 mg/2 mL INJ IVP (11:34)
[2024-02-17] MEDS: paclitaxel protein-bound 230 MG in empty flexible container 1 EACH 92 MG IV (11:57)
[2024-02-17 13:11] VITALS: BP 132/77; PULSE 65; RESP 17; TEMP 35.9; O2SAT 95
[2024-02-21] MEDS: filgrastim-sndz 480 mcg/0.8 mL Syringe SUBCUT (08:22)
[2024-02-21 08:23] VITALS: BP 125/75; PULSE 74; RESP 16; TEMP 36.3; O2SAT 97
[2024-02-22] MEDS: filgrastim-sndz 480 mcg/0.8 mL Syringe SUBCUT (08:28)
[2024-02-22 08:31] VITALS: BP 131/75; PULSE 78; RESP 16; TEMP 36.2; O2SAT 99
[2024-02-24 08:31] LABS: Hematocrit 31.5 % (36-47); Mean Corpuscular HGB Conc 33.3 g/dL (30-55); Mean Corpuscular Hemoglobin 31.3 pg (27-33); Mean Platelet Volume 9.6 fL (7.4-10.4); Platelet Count 233 10^3/cmm (157-399); Red Blood Count 3.35 10^6/uL (3.85-5.65); White Blood Count 11.82 10^3/uL (3.29-11.43)
[2024-02-24 08:50] LABS: Alanine Aminotransferase 21 U/L (0-33); Albumin Level 3.8 g/dL (3.5-5.2); Alkaline Phosphatase 100 U/L (35-105); Aspartate Amino Transferase 23 U/L (0-32); Blood Urea Nitrogen 11 mg/dL (8-23); Calcium 8.7 mg/dL (8.5-10.5); Carbon Dioxide 20 mmol/L (22-29); Chloride 103 mmol/L (98-107); Globulin 2.4 g/dL (1.3-4.6); Glucose 126 mg/dL (65-115); Osmolality Calculated 279 mOsm/kg (285-295); Sodium 134 mmol/L (136-145); Total Bilirubin 0.2 mg/dL (0.15-1.2); Total Protein 6.2 g/dL (6.6-8.7)
[2024-02-24 09:44] LABS: Slide Review Slide Review Perform
[2024-02-24 09:45] LABS: Absolute Neutrophil 8.2 10^3/cmm (1.4-6.5); Absolute Segmented Neutrophil 7.4 10/cmm (1.6-7.1); Band Neutrophils Absolute 0.7 10^3/cmm (0.0-1.2); Eosinophils 0 %; Lymphocytes 21 %; Lymphocytes Absolute 2.7 10^3/cmm (1.2-3.4); Monocytes Absolute 0.2 10^3/cmm (0.1-0.6); Platelet Estimate Normal (Normal); Segmented Neutrophils 63 %; Total Cells Counted 100 (0-100)
== END 2024-03-12 23:59 | disposition home or self-care (01) ==
PROVIDERS: Internal Medicine; Nurse Practitioner Family; PCP Family Medicine Adult Medicine; Visit Provider Nurse Practitioner Family
DX: Z53.9 Procedure and treatment not carried out, unspecified reason (principal); C50.411 Malignant neoplasm of upper-outer quadrant of right female breast; Z17.0 Estrogen receptor positive status [ER+]; Z95.828 Presence of other vascular implants and grafts; Z79.810 Long term (current) use of selective estrogen receptor modulators (SERMs)
CPT/HCPCS: 80053; 85007; 85025; 86300; 96372; 96375; 96413; 99214; J1200; J3490; J7050; J9264; Q5101

== ENCOUNTER 2024-02-24 08:17 | Outpatient (CLI) | payer MEDICARE, MEDICAID, SELFPAY ==
--- NOTE | 2024-02-24 08:15 | USCV_ITS ---
Odalis Woods Age: 73 Gender: F : 1950 Exam Date: 02/24/2024 08:47 Ordering Phys: Jayla Rosario APRN Technologist: [place] [facility] [place]: high risk meds BP: 135 / 77 HR: Rhythm: Sinus Technical Quality: Adequate MEASUREMENTS (Male / Female) Normal Values 2D ECHO LV Diastolic Diameter PLAX 3.6 cm 4.2 - 5.9 / 3.9 - 5.3 cm IVS Diastolic Thickness 1.1 cm 0.6 - 1.0 / 0.6 - 0.9 cm IVS Systolic Thickness 1.7 cm LVPW Diastolic Thickness 1.1 cm 0.6 - 1.0 / 0.6 - 0.9 cm LVPW Systolic Thickness 1.3 cm LVOT Diameter 1.9 cm LV Ejection Fraction 2D Teich 69.3 % LV Ejection Fraction MOD 2C 71.3 % LV Ejection Fraction 2C AL 71.9 % LA Diameter 3.4 cm RA Systolic Volume 4C AL 27.2 ml RA Systolic Volume 4C MOD 25.1 ml Aorta at Sinotubular Diameter 2.5 cm IVC Diameter 1.4 cm M-MODE LA Ao Ratio MM 1.0 AV Cusp Separation MM 2.2 cm FINDINGS Left Ventricle Normal left ventricular size and systolic function, EF 71%. No regional wall motion abnormalities. Right Ventricle The right ventricle is normal in size and function. Right Atrium The right atrium is normal in size. Left Atrium Mildly increased left atrial size. Mitral Valve No gross morphology abnormalities Aortic Valve No gross morphologic abnormalities Tricuspid Valve No gross morphologic abnormalities Pulmonic Valve .Structurally normal pulmonic valve without significant stenosis. There is no pulmonic regurgitation. Pericardium No pericardial effusion. Aorta Normal ascending aorta dimension. IVC Normal inferior vena cava. CONCLUSIONS 1. Normal LV size ejection fraction 71%. 2. No gross wall motion abnormalities noted. 3. Mildly increased left atrial size. 7. There is no pulmonic regurgitation. Structurally normal pulmonic valve without significant stenosis No similar previous studies are available for comparison Dr Pete Jovel MD FAC (Electronically Signed) Final Date: 24 February 2024 18:36 S
== END 2024-02-24 08:18 | disposition home or self-care (01) ==
PROVIDERS: PCP Family Medicine Adult Medicine; Visit Provider Nurse Practitioner Family
DX: Z79.899 Other long term (current) drug therapy (principal)
CPT/HCPCS: 93308

== ENCOUNTER 2024-03-28 09:30 | Oncology outpatient (recurring) (ONCR) | payer MEDICARE, MEDICAID, SELFPAY ==
--- NOTE | 2024-03-15 09:00 | CT_ITS ---
WS: [id number] CT chest w con* [id number] REASON FOR EXAM: compare to previous IV CONTRAST ADMINISTERED: 100 mL of Omnipaque 350@3 mL/s TOTAL EXAM DLP: 305.[address] scans at [facility] use at least one of these dose optimization techniques: automat ed exposure control; mA and/or kV adjustment per patient size (includes targeted exams where dose is matched to clinical indication); or iterative reconstruction. FINDINGS: Comparison examination 11/30/2023. Small lung nodule in the right upper lung is unchanged. The lung nodule adjacent to the posterior aspect of the descending thoracic aorta is not identifiable on this examination. No new lung nodules are identified. There appears to be pleural reactive and minimal pulmonary parenchymal reactive changes underlying th e right breast which are felt to be secondary to the breast radiation therapy. No other interval change or new finding is noted. CT/CT chest w con* [id number] IMPRESSION: Resolution/stability of previously identified lung nodules, benign. Lung and pleural reactive change underlying the right breast. No findings suspicious for metastatic disease.
[2024-03-15] MEDS: iohexol 350 mg/mL 500 mL Btl (per mL) IV (09:34)
[2024-03-28 09:21] LABS: Basophils % 0.5 %; Eosinophils # 0.2 10^3/uL (0.0-0.8); Eosinophils % 2.3 %; Hematocrit 38.6 % (36-47); Lymphocytes # 1.7 10^3/uL (0.8-4.8); Lymphocytes % 20.4 %; Mean Corpuscular HGB Conc 32.9 g/dL (30-55); Mean Corpuscular Hemoglobin 31.5 pg (27-33); Mean Corpuscular Volume 95.8 fl (85-98); Mean Platelet Volume 9.4 fL (7.4-10.4); Monocytes # 0.9 10^3/uL (0.2-0.9); Monocytes % 10.4 %; Neutrophils % 65.9 %; Nucleated Red Blood Cells % 0 %; Platelet Count 169 10^3/cmm (157-399); Red Blood Count 4.03 10^6/uL (3.85-5.65); White Blood Count 8.19 10^3/uL (3.29-11.43)
[2024-03-28 09:56] LABS: Alanine Aminotransferase 24 U/L (0-33); Alkaline Phosphatase 64 U/L (35-105); Anion Gap 12.6 (5-19); Aspartate Amino Transferase 21 U/L (0-32); Blood Urea Nitrogen 20 mg/dL (8-23); CA 15-3 20.8 U/mL (0-25); Calcium 8.9 mg/dL (8.5-10.5); Carbon Dioxide 23 mmol/L (22-29); Chloride 106 mmol/L (98-107); Globulin 2.7 g/dL (1.3-4.6); Glucose 90 mg/dL (65-115); Osmolality Calculated 286 mOsm/kg (285-295); Potassium 4.6 mmol/L (3.5-5.1); Sodium 137 mmol/L (136-145); Total Bilirubin 0.2 mg/dL (0.15-1.2); Total Protein 6.7 g/dL (6.6-8.7)
[2024-03-28] MEDS: diphenhydrAMINE 25 mg Capsule PO (11:47)
[2024-03-28] MEDS: acetaminophen 325 mg Tablet 650 MG PO (11:47)
[2024-03-28] MEDS: pertuzumab-trastuzumab-hy-zzxf (60 mg-60mg-2000 units/mL) 10mL 420 MG SUBCUT (12:14)
[2024-03-28 12:32] VITALS: BP 134/78; PULSE 72; RESP 17; TEMP 36.8; O2SAT 95
== END 2024-04-12 23:59 | disposition home or self-care (01) ==
PROVIDERS: Nurse Practitioner Family; PCP Family Medicine Adult Medicine; Visit Provider Internal Medicine Medical Oncology
DX: Z53.9 Procedure and treatment not carried out, unspecified reason (principal); C50.411 Malignant neoplasm of upper-outer quadrant of right female breast; Z51.12 Encounter for antineoplastic immunotherapy
CPT/HCPCS: 71260; 80053; 85025; 86300; 96402; 96523; 99214; J9316; Q9967

== ENCOUNTER 2024-04-24 09:15 | Oncology outpatient (recurring) (ONCR) | payer MEDICARE, MEDICAID, SELFPAY ==
[2024-04-17 07:52] LABS: Basophils % 0.5 %; Eosinophils # 0.2 10^3/uL (0.0-0.8); Eosinophils % 2.6 %; Hematocrit 38.1 % (36-47); Lymphocytes # 2.2 10^3/uL (0.8-4.8); Lymphocytes % 26.2 %; Mean Corpuscular HGB Conc 33.9 g/dL (30-55); Mean Corpuscular Hemoglobin 31.8 pg (27-33); Mean Corpuscular Volume 93.8 fl (85-98); Mean Platelet Volume 9.4 fL (7.4-10.4); Monocytes # 0.8 10^3/uL (0.2-0.9); Monocytes % 9.1 %; Neutrophils # 5.09 10^3/uL (1.8-7.7); Neutrophils % 61.2 %; Nucleated Red Blood Cells % 0 %; Platelet Count 177 10^3/cmm (157-399); Red Blood Count 4.06 10^6/uL (3.85-5.65); Red Cell Distribution Width 13.4 % (12.1-15.1); White Blood Count 8.32 10^3/uL (3.29-11.43)
[2024-04-17 08:10] LABS: Alanine Aminotransferase 21 U/L (0-33); Albumin Level 3.9 g/dL (3.5-5.2); Alkaline Phosphatase 63 U/L (35-105); Anion Gap 15.3 (5-19); Aspartate Amino Transferase 18 U/L (0-32); Blood Urea Nitrogen 19 mg/dL (8-23); Calcium 8.5 mg/dL (8.5-10.5); Carbon Dioxide 20 mmol/L (22-29); Chloride 104 mmol/L (98-107); Globulin 2.3 g/dL (1.3-4.6); Glucose 93 mg/dL (65-115); Osmolality Calculated 282 mOsm/kg (285-295); Potassium 4.3 mmol/L (3.5-5.1); Sodium 135 mmol/L (136-145); Total Bilirubin 0.2 mg/dL (0.15-1.2); Total Protein 6.2 g/dL (6.6-8.7)
[2024-04-24 09:00] LABS: Basophils # 0.1 10^3/uL (0.0-0.1); Basophils % 0.6 %; Eosinophils # 0.2 10^3/uL (0.0-0.8); Eosinophils % 1.9 %; Hematocrit 39.4 % (36-47); Lymphocytes # 1.9 10^3/uL (0.8-4.8); Lymphocytes % 23.5 %; Mean Corpuscular Hemoglobin 30.9 pg (27-33); Mean Corpuscular Volume 93.6 fl (85-98); Mean Platelet Volume 9.5 fL (7.4-10.4); Monocytes # 0.7 10^3/uL (0.2-0.9); Monocytes % 8.8 %; Neutrophils # 5.33 10^3/uL (1.8-7.7); Nucleated Red Blood Cells % 0 %; Platelet Count 183 10^3/cmm (157-399); Red Blood Count 4.21 10^6/uL (3.85-5.65); Red Cell Distribution Width 13.2 % (12.1-15.1); White Blood Count 8.21 10^3/uL (3.29-11.43)
[2024-04-24 09:22] LABS: Alanine Aminotransferase 22 U/L (0-33); Alkaline Phosphatase 67 U/L (35-105); Anion Gap 15.5 (5-19); Aspartate Amino Transferase 22 U/L (0-32); Blood Urea Nitrogen 18 mg/dL (8-23); Calcium 8.9 mg/dL (8.5-10.5); Carbon Dioxide 22 mmol/L (22-29); Chloride 107 mmol/L (98-107); Creatinine Clr Calc Pharmacy 45.6739; Globulin 2.6 g/dL (1.3-4.6); Glucose 96 mg/dL (65-115); Osmolality Calculated 292 mOsm/kg (285-295); Potassium 4.5 mmol/L (3.5-5.1); Sodium 140 mmol/L (136-145); Total Bilirubin 0.3 mg/dL (0.15-1.2); Total Protein 6.6 g/dL (6.6-8.7)
[2024-04-24] MEDS: pertuzumab-trastuzumab-hy-zzxf (60 mg-60mg-2000 units/mL) 10mL 420 MG SUBCUT (12:28)
[2024-04-24 12:47] VITALS: BP 161/78; PULSE 69; RESP 17; TEMP 35.7; O2SAT 97
== END 2024-05-13 23:55 | disposition home or self-care (01) ==
PROVIDERS: Nurse Practitioner Family; PCP Family Medicine Adult Medicine; Visit Provider Internal Medicine Medical Oncology
DX: Z53.9 Procedure and treatment not carried out, unspecified reason; Z51.12 Encounter for antineoplastic immunotherapy; C50.411 Malignant neoplasm of upper-outer quadrant of right female breast; R91.8 Other nonspecific abnormal finding of lung field; Z17.0 Estrogen receptor positive status [ER+]; Z87.891 Personal history of nicotine dependence; Z79.899 Other long term (current) drug therapy; Z79.69 Long term (current) use of other immunomodulators and immunosuppressants
CPT/HCPCS: 80053; 85025; 96402; 96409; 99214; J9316

== ENCOUNTER 2024-05-31 08:50 | Oncology outpatient (recurring) (ONCR) | payer MEDICARE, MEDICAID, SELFPAY ==
[2024-05-25 09:00] LABS: Basophils % 0.4 %; Eosinophils # 0.2 10^3/uL (0.0-0.8); Eosinophils % 2.6 %; Hematocrit 38.2 % (36-47); Lymphocytes # 1.8 10^3/uL (0.8-4.8); Lymphocytes % 26.5 %; Mean Corpuscular HGB Conc 33.8 g/dL (30-55); Mean Corpuscular Hemoglobin 31.4 pg (27-33); Mean Corpuscular Volume 92.9 fl (85-98); Mean Platelet Volume 9.7 fL (7.4-10.4); Monocytes # 0.6 10^3/uL (0.2-0.9); Monocytes % 7.9 %; Neutrophils # 4.33 10^3/uL (1.8-7.7); Neutrophils % 62.3 %; Nucleated Red Blood Cells % 0 %; Platelet Count 180 10^3/cmm (157-399); Red Blood Count 4.11 10^6/uL (3.85-5.65); Red Cell Distribution Width 12.6 % (12.1-15.1); White Blood Count 6.95 10^3/uL (3.29-11.43)
[2024-05-25 09:07] LABS: Erythrocyte Sedimentation Rate 2 mm/hr (0-15)
[2024-05-25 09:42] LABS: 25 Hydroxy Vitamin D 33 ng/mL (30-100); Alanine Aminotransferase 23 U/L (0-33); Albumin Level 4.1 g/dL (3.5-5.2); Alkaline Phosphatase 64 U/L (35-105); Anion Gap 15.1 (5-19); Aspartate Amino Transferase 23 U/L (0-32); Blood Urea Nitrogen 19 mg/dL (8-23); C Reactive Protein 4.6 mg/L (0.0-4.9); Calcium 8.8 mg/dL (8.5-10.5); Carbon Dioxide 22 mmol/L (22-29); Chloride 107 mmol/L (98-107); Globulin 2.2 g/dL (1.3-4.6); Glucose 113 mg/dL (65-115); Osmolality Calculated 293 mOsm/kg (285-295); Potassium 4.1 mmol/L (3.5-5.1); Sodium 140 mmol/L (136-145); Thyroid Stimulating Hormone 1.51 uIU/mL (0.27-4.20); Total Bilirubin 0.3 mg/dL (0.15-1.2); Total Protein 6.3 g/dL (6.6-8.7); Vitamin B12 558 pg/mL (232-1245)
[2024-05-25] MEDS: pertuzumab-trastuzumab-hy-zzxf (60 mg-60mg-2000 units/mL) 10mL 420 MG SUBCUT (11:29)
--- NOTE | 2024-05-31 09:00 | MM_ITS ---
WS: [id number] DIAGNOSTIC BILATERAL DIGITAL BREAST TOMOSYNTHESIS MAMMOGRAPHY WITH CAD HISTORY: history of breast cancer COMPARISON: 05/24/2023, 04/21/2022 TECHNIQUE: Bilateral craniocaudad, mediolateral oblique, and mediolateral views are submitted with to eladio and MELI. Computer aided detection utilized. Breast composition: There are scattered areas of fibroglandular density. New diffuse skin thickening involving the entire RIGHT breast. Increased trabecular pattern. These ch anges have progressed since the prior study. Patient is also undergone a recent lumpectomy. Surgical sutures partially visualized towards the axilla. New lumpectomy site towards the RIGHT axillary tail. No LEFT breast abnormality. MM/MM diag BI tomosynthesis [id number] IMPRESSION: BI-RADS: 2 - Benign. FOLLOW UP: 1 Year Follow-up New posttreatment changes on lumpectomy changes in the RIGHT breast are appropr iate.
== END 2024-06-12 23:59 | disposition home or self-care (01) ==
LOC: ONCMED 09:25
PROVIDERS: Internal Medicine Medical Oncology; PCP Family Medicine Adult Medicine; Visit Provider Nurse Practitioner Family
DX: R92.321 Mammographic fibroglandular density, right breast; N64.59 Other signs and symptoms in breast; C50.411 Malignant neoplasm of upper-outer quadrant of right female breast
CPT/HCPCS: 77062; 80053; 82306; 82607; 84443; 85025; 85651; 86140; 96401; 99214; G0279; J9316

== ENCOUNTER 2024-07-06 10:30 | Oncology outpatient (recurring) (ONCR) | payer MEDICARE, MEDICAID, SELFPAY ==
[2024-06-15 14:00] VITALS: BP 153/87; PULSE 76; RESP 18; TEMP 36.6; O2SAT 98
--- NOTE | 2024-06-15 16:52 | PC.NURSE ---
no treatment today with Nelly Rojas reviewing her symptoms of having itchy eyes and scalp. Nelly Rojas did comfirm her to keep follow up appointment for 07-06-24 with labs and office visit and review process then for next treatment.[email or web address]
[2024-07-06 10:27] LABS: Basophils % 0.4 %; Eosinophils # 0.2 10^3/uL (0.0-0.8); Eosinophils % 2.4 %; Hematocrit 39.8 % (36-47); Lymphocytes # 1.9 10^3/uL (0.8-4.8); Mean Corpuscular HGB Conc 32.9 g/dL (30-55); Mean Corpuscular Hemoglobin 30.3 pg (27-33); Mean Corpuscular Volume 91.9 fl (85-98); Mean Platelet Volume 9.6 fL (7.4-10.4); Monocytes # 0.8 10^3/uL (0.2-0.9); Monocytes % 10.2 %; Neutrophils # 5.22 10^3/uL (1.8-7.7); Neutrophils % 63.6 %; Nucleated Red Blood Cells % 0 %; Platelet Count 188 10^3/cmm (157-399); Red Blood Count 4.33 10^6/uL (3.85-5.65); White Blood Count 8.21 10^3/uL (3.29-11.43)
[2024-07-06 10:47] LABS: Alanine Aminotransferase 20 U/L (0-33); Albumin Level 4.2 g/dL (3.5-5.2); Alkaline Phosphatase 71 U/L (35-105); Anion Gap 13.4 (5-19); Aspartate Amino Transferase 24 U/L (0-32); Blood Urea Nitrogen 16 mg/dL (8-23); Calcium 8.6 mg/dL (8.5-10.5); Carbon Dioxide 24 mmol/L (22-29); Chloride 105 mmol/L (98-107); Globulin 2.1 g/dL (1.3-4.6); Glucose 98 mg/dL (65-115); Osmolality Calculated 287 mOsm/kg (285-295); Potassium 4.4 mmol/L (3.5-5.1); Sodium 138 mmol/L (136-145); Total Bilirubin 0.3 mg/dL (0.15-1.2); Total Protein 6.3 g/dL (6.6-8.7)
[2024-07-06 13:11] LABS: Chol HDL Ratio 4.69 mg/dL (0.0-4.40); Cholesterol 244 mg/dL (0-200); HDL Cholesterol 52 mg/dL (60-100); LDL Cholesterol Calculated 156 mg/dL (50-129); Triglycerides 178 mg/dL (0-150); VLDL Cholestrol Calculation 36 mg/dL (0-30)
== END 2024-07-13 23:59 | disposition home or self-care (01) ==
PROVIDERS: Internal Medicine Medical Oncology; Nurse Practitioner; PCP Family Medicine Adult Medicine; Visit Provider Nurse Practitioner Family
DX: Z53.9 Procedure and treatment not carried out, unspecified reason (principal); C50.411 Malignant neoplasm of upper-outer quadrant of right female breast; K76.0 Fatty (change of) liver, not elsewhere classified; Z95.828 Presence of other vascular implants and grafts; Z87.891 Personal history of nicotine dependence; Z17.0 Estrogen receptor positive status [ER+]; I10 Essential (primary) hypertension; M85.88 Other specified disorders of bone density and structure, other site
CPT/HCPCS: 80053; 80061; 85025; 99214

== ENCOUNTER 2024-08-04 07:39 | Oncology outpatient (recurring) (ONCR) | payer MEDICARE, MEDICAID, SELFPAY | END 2024-08-12 23:59 | disposition home or self-care (01) | LOC: ONCMED 07:39 | PROVIDERS: PCP Family Medicine Adult Medicine; Visit Provider Nurse Practitioner Family | DX: Z45.2 Encounter for adjustment and management of vascular access device (principal) | CPT/HCPCS: 96523 ==

== ENCOUNTER 2024-09-01 14:00 | Oncology outpatient (recurring) (ONCR) | payer MEDICARE, MEDICAID, SELFPAY ==
[2024-08-28 08:38] LABS: Basophils % 0.6 %; Eosinophils # 0.2 10^3/uL (0.0-0.8); Lymphocytes % 27.2 %; Mean Corpuscular HGB Conc 33.5 g/dL (30-55); Mean Corpuscular Hemoglobin 31.4 pg (27-33); Mean Corpuscular Volume 93.7 fl (85-98); Mean Platelet Volume 9.6 fL (7.4-10.4); Monocytes # 0.6 10^3/uL (0.2-0.9); Monocytes % 8.7 %; Neutrophils # 4.35 10^3/uL (1.8-7.7); Neutrophils % 60.2 %; Nucleated Red Blood Cells % 0 %; Platelet Count 191 10^3/cmm (157-399); Red Blood Count 4.27 10^6/uL (3.85-5.65); Red Cell Distribution Width 12.8 % (12.1-15.1); White Blood Count 7.23 10^3/uL (3.29-11.43)
[2024-08-28 09:00] LABS: Alanine Aminotransferase 17 U/L (0-33); Alkaline Phosphatase 72 U/L (35-105); Anion Gap 14.2 (5-19); Aspartate Amino Transferase 19 U/L (0-32); Blood Urea Nitrogen 13 mg/dL (8-23); C Reactive Protein 4.7 mg/L (0.0-4.9); Calcium 9.4 mg/dL (8.5-10.5); Carbon Dioxide 24 mmol/L (22-29); Chloride 105 mmol/L (98-107); Chol HDL Ratio 4.46 mg/dL (0.0-4.40); Cholesterol 232 mg/dL (0-200); Globulin 2.3 g/dL (1.3-4.6); Glucose 95 mg/dL (65-115); HDL Cholesterol 52 mg/dL (60-100); LDL Cholesterol Calculated 146 mg/dL (50-129); LDL HDL Ratio 2.81 RATIO (0.00-3.22); Osmolality Calculated 288 mOsm/kg (285-295); Potassium 4.2 mmol/L (3.5-5.1); Sodium 139 mmol/L (136-145); Total Bilirubin 0.4 mg/dL (0.15-1.2); Total Protein 6.3 g/dL (6.6-8.7); Triglycerides 172 mg/dL (0-150)
[2024-08-28 09:22] LABS: Estmated Average Glucose 97
--- NOTE | 2024-09-01 14:00 | PETR_ITS ---
PROCEDURE INFORMATION: Exam: PET/CT Skull Base to Mid-thigh Exam date and time: 09/01/2024 2:47 PM Age: 74 years old Clinical indication: Condition or disease; Primary cancer: Breast cancer right; Prior surgery; Surgery date: 6+ months; Surgery type: Port, right breast; Additional info: Compare to previous LABS AND CLINICAL REPORTS: Glucose: 102 mg/dl Treatment strategy for malignancy (PET staging): Restaging (PS) TECHNIQUE: Imaging protocol: Following at least four-hour fasting and following the injection of radiopharmaceutical, low dose CT images were obtained. Then, PET images were obtained. Attenuation corrected images were constructed using the CT scan. Fused images of PET and CT were reviewed. The standardized uptake values (SUV) reported below are maximum values within a region of interest, expressed in gm/ml. Exam includes orbital meatal line to mid-thigh. SUV normalization method: BodyWeight Radiopharmaceutical: 12.29 mCi F-18 FDG (Fluorodeoxyglucose), IV. Time of imaging post radiopharmaceutical administration: 50 minutes Injection site: right ac COMPARISON: PET skull to thigh INIT [id number] 06/29/2023 FINDINGS: Tubes, catheters and devices: Port catheter placed via the left internal jugular vein terminates in the cavoatrial junction. Brain: Normal physiologic uptake. Pharynx: No abnormal uptake. Larynx: Benign physiologic uptake posteriorly. Lungs, pleura and trachea: No abnormal uptake. No lung nodules or masses. No pleural effusion. Heart: No abnormal uptake.There is no cardiomegaly. Coronary artery calcification is present. There is no pericardial effusion. Mediastinal space: No abnormal uptake. Liver: No abnormal uptake. Maximum uptake is 3.6 SUV. Fatty liver. Gallbladder and biliary ducts: No abnormal uptake. No calcified gallstones. Pancreas: No abnormal uptake. Spleen: No abnormal uptake. No splenomegaly. Adrenal glands: No abnormal uptake. No nodules. Kidneys and ureters: Normal physiologic uptake. No hydronephrosis. Stomach and bowel: No abnormal uptake. Vasculature: No abnormal uptake. Lymph nodes: No FDG avid lymphadenopathy in the neck, chest, abdomen, pelvis, and extremities. Skeleton: Benign synovial uptake in the shoulders. Soft tissues: Diffusely increased uptake up to 5.6 SUV within the skin thickening in the right breast. 2.2 x 2 cm non FDG avid fluid collection in the upper outer quadrant of the right breast adjacent to the axilla suggestive of postsurgical seroma. PET/PET skull to thigh SUBS [id number] IMPRESSION: Diffuse FDG avid skin thickening in the right breast may be malignant or benign inflammatory in nature. Postsurgical fluid collection in the upper outer quadrant of the right breast. No FDG avid lymphadenopathy in the right axilla, no evidence of distant FDG avid metastatic disease.
== END 2024-09-12 23:59 | disposition home or self-care (01) ==
LOC: RAD 09-02 00:01 → ONCMED 09-04 09:57
PROVIDERS: Nurse Practitioner; PCP Family Medicine Adult Medicine; Visit Provider Internal Medicine Medical Oncology
DX: C50.411 Malignant neoplasm of upper-outer quadrant of right female breast (principal); Z53.9 Procedure and treatment not carried out, unspecified reason; I89.0 Lymphedema, not elsewhere classified
CPT/HCPCS: 36591; 78815; 80053; 80061; 83036; 85025; 86140; 99214; A9552

== ENCOUNTER 2024-09-25 08:55 | Oncology outpatient (recurring) (ONCR) | payer MEDICARE, MEDICAID, SELFPAY ==
[2024-09-25 09:25] LABS: Basophils % 0.4 %; Eosinophils # 0.2 10^3/uL (0.0-0.8); Eosinophils % 2.2 %; Hematocrit 41.9 % (36-47); Lymphocytes # 1.9 10^3/uL (0.8-4.8); Lymphocytes % 25.8 %; Mean Corpuscular HGB Conc 33.2 g/dL (30-55); Mean Corpuscular Hemoglobin 30.5 pg (27-33); Mean Corpuscular Volume 91.9 fl (85-98); Mean Platelet Volume 9.6 fL (7.4-10.4); Monocytes # 0.7 10^3/uL (0.2-0.9); Monocytes % 9.8 %; Neutrophils # 4.54 10^3/uL (1.8-7.7); Neutrophils % 61.7 %; Nucleated Red Blood Cells % 0 %; Platelet Count 185 10^3/cmm (157-399); Red Blood Count 4.56 10^6/uL (3.85-5.65); Red Cell Distribution Width 12.5 % (12.1-15.1); White Blood Count 7.36 10^3/uL (3.29-11.43)
[2024-09-25 09:43] LABS: Alanine Aminotransferase 20 U/L (0-33); Albumin Level 4.2 g/dL (3.5-5.2); Alkaline Phosphatase 67 U/L (35-105); Anion Gap 16.3 (5-19); Aspartate Amino Transferase 21 U/L (0-32); Blood Urea Nitrogen 13 mg/dL (8-23); Calcium 9.5 mg/dL (8.5-10.5); Carbon Dioxide 22 mmol/L (22-29); Chloride 103 mmol/L (98-107); Chol HDL Ratio 4.19 mg/dL (0.0-4.40); Cholesterol 243 mg/dL (0-200); Globulin 2.2 g/dL (1.3-4.6); Glucose 95 mg/dL (65-115); HDL Cholesterol 58 mg/dL (60-100); LDL Cholesterol Calculated 155 mg/dL (50-129); LDL HDL Ratio 2.67 RATIO (0.00-3.22); Osmolality Calculated 284 mOsm/kg (285-295); Potassium 4.3 mmol/L (3.5-5.1); Sodium 137 mmol/L (136-145); Total Bilirubin 0.4 mg/dL (0.15-1.2); Total Protein 6.4 g/dL (6.6-8.7); Triglycerides 149 mg/dL (0-150)
== END 2024-10-13 23:59 | disposition home or self-care (01) ==
PROVIDERS: PCP Family Medicine Adult Medicine; Visit Provider Internal Medicine Medical Oncology
DX: Z08 Encounter for follow-up examination after completed treatment for malignant neoplasm (principal); I89.0 Lymphedema, not elsewhere classified; Z85.3 Personal history of malignant neoplasm of breast; K76.0 Fatty (change of) liver, not elsewhere classified; Z79.899 Other long term (current) drug therapy; Z95.828 Presence of other vascular implants and grafts; Z87.891 Personal history of nicotine dependence; Z92.21 Personal history of antineoplastic chemotherapy; Z92.25 Personal history of immunosuppression therapy; Z92.3 Personal history of irradiation; E78.5 Hyperlipidemia, unspecified
CPT/HCPCS: 36591; 80053; 80061; 85025; 99214

== ENCOUNTER → 2024-10-02 09:00 | Outpatient (BNVA) | payer MEDICARE, MEDICAID, SELFPAY | PROVIDERS: PCP Family Medicine Adult Medicine; Visit Provider Student in an Organized Health Care Education/Training Program | DX: C50.919 Malignant neoplasm of unspecified site of unspecified female breast (principal); Z98.890 Other specified postprocedural states | CPT/HCPCS: 11104; 88305; 99204 ==

== ENCOUNTER → 2024-10-12 07:36 | Outpatient (BNVA) | payer MEDICARE, MEDICAID, SELFPAY | PROVIDERS: PCP Family Medicine Adult Medicine; Visit Provider Student in an Organized Health Care Education/Training Program | DX: C50.911 Malignant neoplasm of unspecified site of right female breast (principal) | CPT/HCPCS: 99214 ==

== ENCOUNTER 2024-11-06 09:44 | Oncology outpatient (recurring) (ONCR) | payer MEDICARE, MEDICAID, SELFPAY | END 2024-11-10 23:59 | disposition home or self-care (01) | PROVIDERS: PCP Family Medicine Adult Medicine; Visit Provider Internal Medicine Medical Oncology | DX: Z45.2 Encounter for adjustment and management of vascular access device (principal) | CPT/HCPCS: 96523 ==

== ENCOUNTER 2024-12-18 07:22 | Oncology outpatient (recurring) (ONCR) | payer MEDICARE, MEDICAID, SELFPAY ==
[2024-12-18 07:46] LABS: Basophils % 0.6 %; Eosinophils # 0.2 10^3/uL (0.0-0.8); Hematocrit 40.1 % (36-47); Lymphocytes # 2.2 10^3/uL (0.8-4.8); Lymphocytes % 32.4 %; Mean Corpuscular HGB Conc 33.7 g/dL (30-55); Mean Corpuscular Hemoglobin 30.8 pg (27-33); Mean Corpuscular Volume 91.6 fl (85-98); Mean Platelet Volume 9.8 fL (7.4-10.4); Monocytes # 0.8 10^3/uL (0.2-0.9); Neutrophils # 3.63 10^3/uL (1.8-7.7); Neutrophils % 52.7 %; Nucleated Red Blood Cells % 0 %; Platelet Count 197 10^3/cmm (157-399); Red Blood Count 4.38 10^6/uL (3.85-5.65); Red Cell Distribution Width 12.9 % (12.1-15.1); White Blood Count 6.89 10^3/uL (3.29-11.43)
[2024-12-18 08:12] LABS: Alanine Aminotransferase 20 U/L (0-33); Albumin Level 4.2 g/dL (3.5-5.2); Alkaline Phosphatase 67 U/L (35-105); Anion Gap 14.1 (5-19); Aspartate Amino Transferase 19 U/L (0-32); Blood Urea Nitrogen 19 mg/dL (8-23); C Reactive Protein 5.2 mg/L (0.0-4.9); CA 15-3 15.4 U/mL (0-25); Calcium 9.5 mg/dL (8.5-10.5); Carbon Dioxide 24 mmol/L (22-29); Chloride 105 mmol/L (98-107); Creatinine Clr Calc Pharmacy 58.8242; Globulin 2.4 g/dL (1.3-4.6); Glucose 93 mg/dL (65-115); Osmolality Calculated 290 mOsm/kg (285-295); Potassium 4.1 mmol/L (3.5-5.1); Sodium 139 mmol/L (136-145); Thyroid Stimulating Hormone 2.72 uIU/mL (0.27-4.20); Total Bilirubin 0.3 mg/dL (0.15-1.2); Total Protein 6.6 g/dL (6.6-8.7)
[2024-12-18 08:41] LABS: Erythrocyte Sedimentation Rate 6 mm/hr (0-15)
== END 2025-01-10 23:59 | disposition home or self-care (01) ==
PROVIDERS: PCP Family Medicine Adult Medicine; Visit Provider Internal Medicine Medical Oncology
DX: Z08 Encounter for follow-up examination after completed treatment for malignant neoplasm (principal); Z85.3 Personal history of malignant neoplasm of breast; M81.0 Age-related osteoporosis without current pathological fracture; D70.1 Agranulocytosis secondary to cancer chemotherapy; T45.1X5A Adverse effect of antineoplastic and immunosuppressive drugs, initial encounter; Z79.899 Other long term (current) drug therapy; Z87.891 Personal history of nicotine dependence; Z95.828 Presence of other vascular implants and grafts
CPT/HCPCS: 36591; 80053; 84443; 85025; 85651; 86140; 86300; 99214

== ENCOUNTER 2025-01-29 09:15 | Oncology outpatient (recurring) (ONCR) | payer MEDICARE, MEDICAID, SELFPAY ==
--- NOTE | 2025-01-15 08:00 | NM_ITS ---
WS: [id number] NUCLEAR MEDICINE BONE SCAN Radiopharmaceutical: Tc-99m MDP mCi IV Injection site: Postinjection imaging delay: hr CLINICAL INFORMATION: malignant neoplasm of upper-outer quadrant COMPARISON: None. FINDINGS: Bone lesions: There are no osseous lesions suspicious for metastatic disease. Soft tissue contours: Low-grade uptake in the area of the RIGHT breast with skin thickening similar to the PET/CT Kidneys: Normal. Other findings: Degenerative uptake RIGHT hip and AC joints. NM/NM bone scan whole body* [id number] IMPRESSION: No evidence of osseous metastatic disease.
[2025-01-18] MEDS: iohexol 350 mg/mL 500 mL Btl (per mL) PO (10:30)
--- NOTE | 2025-01-18 11:00 | CT_ITS ---
WS: [id number] CT CHEST, ABDOMEN AND PELVIS WITH CONTRAST HISTORY: breast cancer TECHNIQUE: Contiguous 5 mm axial imaging performed through the chest, abdomen and pelvis with IV contrast, oral contrast has been provided. Coronal and sagittal reformats chest. Coronal and sagittal reformats through the abdomen and pelvis. All CT scans at [facility] use at least one of these dose optimization techniques: automated exposure control; mA and/or kV adjustment per patient size (includes targeted exams where dose is matched to clinical indication); or iterative reconstruction. CONTRAST: Omnipaque 350; 100 mL IV. DLP: 815.97 mGy.cm COMPARISON: 03/15/2024, 11/30/[address]: LEFT IJ Mediport. Numerous scattered very tiny micronodules are stable. No new mass or pneumonia. No endobronchial lesions or groundglass attenuation. Mild atherosclerosis aorta. Normal size pulmonary artery. No mediastinal or hilar adenopathy. Mild cardiomegaly. Small hiatal hernia. Postoperative and posttreatment changes associated with the RIGHT breast. Postoperative stable collection in the RIGHT breast measures 2.4 x 2.0 cm and was present on 03/15/2024 without increase in size. There is overall RIGHT breast skin thickening and trabecular thickening from radiation treatment. Abdomen CT: Diffuse hepatic steatosis. Normal portal vein. Normal adrenal glands, pancreas and spleen. No renal obstruction. RIGHT extrarenal pelvis. Stable 10 mm RIGHT renal cyst. Moderate atherosclerosis aorta. No GI tract obstruction. No colitis. No appendicitis. Pelvic CT: Well-distended urinary bladder. Fluid distended endometrium with central nodule. Endometrium measures 1.6 cm. This is an abnormal finding for a postmenopausal female. Prior transvaginal pelvic ultrasound from 07/20/2023 demonstrated thickened endometrium with cystic areas. There was a central mass along the endometrial cavity. Lumbar spondylosis. No destructive bone lesions. Mild thoracic spondylosis. CT/CT chest abdpel w/*[id number] IMPRESSION: 1. No metastatic disease within the chest, abdomen or pelvis. 2. Scattered pulmonary micronodules are stable. No new or increasing size of a ny nodule since 03/15/2024. 3. Diffuse hepatic steatosis. 4. Normal adrenal glands. 5. Abnormal endometrium. Fluid-filled endometrium with central mass in the cav ity. Endometrium measures 1.6 cm. This is an abnormal finding in a postmenopaus al patient. Prior transvaginal ultrasound from 07/20/2023 demonstrated a central mass within the endometrium with cystic areas which may be related to tamoxife n therapy. Neoplasm or polyp not excluded. 6. No ascites or adenopathy. 7. Postsurgical and post therapy changes associated with the RIGHT breast.
[2025-01-18] MEDS: iohexol 350 mg/mL 500 mL Btl (per mL) IV (11:23)
[2025-01-29 09:43] LABS: Basophils # 0.1 10^3/uL (0.0-0.1); Basophils % 0.6 %; Eosinophils # 0.2 10^3/uL (0.0-0.8); Eosinophils % 2.5 %; Hematocrit 42.4 % (36-47); Lymphocytes # 1.9 10^3/uL (0.8-4.8); Lymphocytes % 20.8 %; Mean Corpuscular HGB Conc 33.5 g/dL (30-55); Mean Corpuscular Hemoglobin 30.7 pg (27-33); Mean Corpuscular Volume 91.8 fl (85-98); Mean Platelet Volume 9.9 fL (7.4-10.4); Monocytes # 0.8 10^3/uL (0.2-0.9); Monocytes % 9.1 %; Neutrophils # 6.06 10^3/uL (1.8-7.7); Neutrophils % 66.7 %; Nucleated Red Blood Cells % 0 %; Platelet Count 195 10^3/cmm (157-399); Red Blood Count 4.62 10^6/uL (3.85-5.65); Red Cell Distribution Width 12.7 % (12.1-15.1); White Blood Count 9.09 10^3/uL (3.29-11.43)
[2025-01-29 10:11] LABS: Alanine Aminotransferase 17 U/L (0-33); Albumin Level 4.3 g/dL (3.5-5.2); Alkaline Phosphatase 76 U/L (35-105); Anion Gap 17.3 (5-19); Aspartate Amino Transferase 20 U/L (0-32); Blood Urea Nitrogen 13 mg/dL (8-23); CA 15-3 16.8 U/mL (0-25); Carbon Dioxide 22 mmol/L (22-29); Chloride 104 mmol/L (98-107); Globulin 2.7 g/dL (1.3-4.6); Glucose 84 mg/dL (65-115); Osmolality Calculated 287 mOsm/kg (285-295); Potassium 4.3 mmol/L (3.5-5.1); Sodium 139 mmol/L (136-145); Total Bilirubin 0.4 mg/dL (0.15-1.2)
== END 2025-02-10 23:59 | disposition home or self-care (01) ==
PROVIDERS: PCP Family Medicine Adult Medicine; Visit Provider Internal Medicine Medical Oncology
DX: Z53.9 Procedure and treatment not carried out, unspecified reason; D70.1 Agranulocytosis secondary to cancer chemotherapy; T45.1X5A Adverse effect of antineoplastic and immunosuppressive drugs, initial encounter; C50.411 Malignant neoplasm of upper-outer quadrant of right female breast
CPT/HCPCS: 36591; 71260; 74177; 78306; 80053; 85025; 86300; A9561

== ENCOUNTER 2025-02-20 09:03 | Oncology outpatient (recurring) (ONCR) | payer MEDICARE, MEDICAID, SELFPAY ==
[2025-02-20 09:31] LABS: Basophils % 0.3 %; Eosinophils # 0.3 10^3/uL (0.0-0.8); Hematocrit 40.9 % (36-47); Lymphocytes # 2.2 10^3/uL (0.8-4.8); Mean Corpuscular HGB Conc 33.5 g/dL (30-55); Mean Corpuscular Hemoglobin 30.6 pg (27-33); Mean Corpuscular Volume 91.5 fl (85-98); Mean Platelet Volume 9.7 fL (7.4-10.4); Monocytes % 11.1 %; Neutrophils # 5.12 10^3/uL (1.8-7.7); Neutrophils % 59.4 %; Nucleated Red Blood Cells % 0 %; Platelet Count 199 10^3/cmm (157-399); Red Blood Count 4.47 10^6/uL (3.85-5.65); Red Cell Distribution Width 12.7 % (12.1-15.1); White Blood Count 8.63 10^3/uL (3.29-11.43)
[2025-02-20 09:54] LABS: Alanine Aminotransferase 19 U/L (0-33); Albumin Level 4.1 g/dL (3.5-5.2); Alkaline Phosphatase 66 U/L (35-105); Anion Gap 15.3 (5-19); Aspartate Amino Transferase 18 U/L (0-32); Blood Urea Nitrogen 17 mg/dL (8-23); CA 15-3 14.9 U/mL (0-25); Calcium 9.3 mg/dL (8.5-10.5); Carbon Dioxide 22 mmol/L (22-29); Chloride 105 mmol/L (98-107); Creatinine Clr Calc Pharmacy 58.9953; Globulin 2.5 g/dL (1.3-4.6); Glucose 82 mg/dL (65-115); Osmolality Calculated 287 mOsm/kg (285-295); Potassium 4.3 mmol/L (3.5-5.1); Sodium 138 mmol/L (136-145); Total Protein 6.6 g/dL (6.6-8.7)
[2025-02-20 10:23] LABS: Total Bilirubin 0.3 mg/dL (0.15-1.2)
== END 2025-03-12 23:59 | disposition home or self-care (01) ==
PROVIDERS: PCP Family Medicine Adult Medicine; Visit Provider Internal Medicine Medical Oncology
DX: C50.411 Malignant neoplasm of upper-outer quadrant of right female breast (principal); D70.1 Agranulocytosis secondary to cancer chemotherapy; T45.1X5A Adverse effect of antineoplastic and immunosuppressive drugs, initial encounter; K76.0 Fatty (change of) liver, not elsewhere classified; N85.8 Other specified noninflammatory disorders of uterus; X58.XXXA Exposure to other specified factors, initial encounter
CPT/HCPCS: 36591; 80053; 85025; 86300; 99214

== ENCOUNTER → 2025-03-01 11:03 | Outpatient (BNVA) | payer MEDICARE, MEDICAID, SELFPAY | PROVIDERS: PCP Family Medicine Adult Medicine; Visit Provider Student in an Organized Health Care Education/Training Program | DX: Z95.828 Presence of other vascular implants and grafts (principal) | CPT/HCPCS: 99214 ==

== ENCOUNTER 2025-03-07 08:41 | Day surgery (SDC) | payer MEDICARE, MEDICAID, SELFPAY ==
[2025-03-07 09:27] VITALS: BP 158/83; PULSE 71; RESP 18; TEMP 36.3; O2SAT 98
[2025-03-07 10:01] VITALS: BMI 30.1
[2025-03-07] MEDS: sodium chloride 0.9% 1,000 ML 30 ML IV (10:01)
--- NOTE | 2025-03-07 10:52 | W.PM.OPSUD ---
Surgery/Procedure H&P Update DATE OF PROCEDURE: March 07, 2025 DATE H&P PERFORMED: 03/01/25 H&P UPDATE INFORMATION: I have reviewed H&P completed within last 30 days, I have examined patient prior to procedure and No changes to prior documentation PLANNED PROCEDURE: Operation Date: 03/07/25 10:30 Proposed Procedures p Portacath Removal 00266, Z95.828(Not Applicable) - Kvng Herrmann MD
--- NOTE | 2025-03-07 12:55 | ANES.PREANE2 ---
Pre-Anesthetic Assessment Height/Weight: Height 1.6 m Weight 77.111 kg Temp Pulse Resp BP Pulse Ox O2 Del Method 97.3 F L 71 18 158/83 98 Room Air 03/07/25 09:27 03/07/25 09:27 03/07/25 09:27 03/07/25 09:27 03/07/25 09:27 03/07/25 09:29 Operation Date: 03/07/25 10:30 Proposed Procedures p Portacath Removal 11942, Z95.828(Not Applicable) - Kvng Herrmann MD Familial anesthetic complications: none Was Beta Mimi taken within 24 hours: N/A Was Clonidine taken within 24 hours: N/A Last intake: Intake Last Liquid Date 03/06/25 Last Liquid Time 23:00 Last Solid Date 03/06/25 Last Solid Time 16:00 Last Intake: 16:00 Social No alcohol and No tobacco Exam alert and oriented x 3 Airway Submandibular: within normal limits Cervical ROM: within normal limits Mallampati: Class II Dentition: false History/ROS Other (left breast cancer, had lumpectomy and lymph nodes removed from left side. ) Pulmonary None reported CV/HEM Hypertension None reported Hepatic None reported GI None reported Metabolic None reported Musc/skel None reported Neuropsych None reported Anesthetic Plan ASA status: 2 Anesthesia: Anesthesia Evaluation and Local Only (plan is for local only by surgeon. anes consent signed in case pt changes her mind.) Risk of > 500 ml blood loss (7ml/kg in children): No Medications/Allergies Home Medications ?Medication ?Instructions ?Recorded ?Confirmed ?Last Taken ?Type multivitamin 1 tab PO DAILY 01/14/21 03/06/25 03/06/25 History ascorbic acid (vitamin C) 1,000 mg 2,000 mg PO Q12H 07/13/23 03/06/25 03/06/25 History tablet,extended release (C-1000 ER) lisinopril 20 mg tablet 20 mg PO BID #200 tabs 07/24/24 03/06/25 03/06/25 Rx alendronate 70 mg tablet 70 mg PO .WEEKLY 03/06/25 03/06/25 03/04/25 History Allergies Allergy/AdvReac Type Severity Reaction Status Date / Time No Known Allergies Allergy Verified 03/01/25 11:09 Current Medications Generic Name Dose Route Start Last Admin Trade Name Freq PRN Reason Stop Dose Admin Sodium Chloride 1,000 mls @ 30 mls/hr 03/07/25 09:00 03/07/25 10:01 Sodium Chloride 0.9% IV 03/08/25 08:59 30 mls/hr .Q24H THEODORE Administration PFSH Anesthesia Medical History Asymptomatic menopausal state Breast cancer Essential hypertension Osteoporosis Surgical History History of lumpectomy of right breast History of cataract surgery S/P lumpectomy, right breast (08/18/21) with SLNB, lymph node dissection Port-A-Cath in place (02/19/21) H/O right breast biopsy Family History Father No problems noted. Mother Hypertension Stroke Denies family history of Colon cancer Ovarian cancer Prostate cancer Diabetes Heart disease Hypercholesteremia Breast cancer Uterine cancer Thyroid disease Social History Smoking and tobacco/nicotine status: former use of tobacco/nicotine Quit status (tobacco/nicotine): has quit using Year quit tobacco: 1994 Former quit date comment: 10-12 years total tobacco use Alcohol intake: current Alcohol intake frequency: 0-2 Drinks per Day Alcohol type: wine Substance/Drug Use: never Data Anesthesia Cardiac Studies: Echocardiogram 11/26/23 Echocardiogram Limited Views 02/24/24 Echocardiogram Ultrasound 02/25/21
[2025-03-07 13:00] VITALS: BP 243/100; PULSE 77; RESP 20; O2SAT 100
[2025-03-07 13:05] VITALS: BP 231/85; PULSE 97; RESP 20; O2SAT 98
[2025-03-07 13:08] VITALS: BP 218/81; PULSE 81; RESP 18; O2SAT 99
--- NOTE | 2025-03-07 13:12 | P.OP_ITS ---
Operative Report Date of procedure: March 07, 2025 Pre-op diagnosis: Breast cancer Post-op diagnosis: same Post-op findings: Port-A-Cath removed in its entirety along with cough and catheter. Procedure done: Port-A-Cath removal Implants: N/A Specimens removed/disposition: Port-A-Cath removed. Tip sent to micro for culture. Rest of catheter sent to pathology, cough and port sent to pathology Pathology: Port sent to pathology along with cuff and catheter Surgeon: Kvng Herrmann MD Mixing House Operator: N/A Anesthesia: Local Estimated blood loss (mL): 5 Complications: N/A Findings: Port-A-Cath removed with cough and catheter in its entirety. Condition: stable Disposition: same day Brief History: 74-year-old female who had a port placed for chemotherapy. Port no longer needed. Discussed risk and benefits and patient agreed to proceed with Port-A-Cath removal. Procedure: Consent obtained in the preop area. Patient brought into the OR table. Left chest prepped and draped in the usual sterile fashion. Timeout performed. Local infiltration using 10 cc of 1% lidocaine and 0.5% bupivacaine with 1% epinephrine carried out. Knife used to incise the skin. Electrocautery used to dissect around the port. Port removed along with its cuff and the entire catheter. Pressure held for 3 minutes. Electrocautery used to obtain adequate hemostasis. 3-0 Vicryl used to close deep dermal layer. 4-0 Monocryl used to close the epidermis. Surgical glue applied. The patient was transferred to PACU without any complications.
[2025-03-07 13:13] VITALS: BP 203/84; PULSE 77; RESP 18; O2SAT 98
[2025-03-07] MEDS: lidocaine-epi 1% 20 mL INJ 10 ML INJECTION (13:30)
[2025-03-07] MEDS: ceFAZolin 2,000 mg SDV 2000 MG IVP (13:31)
[2025-03-07 14:00] VITALS: BP 188/92; PULSE 75; RESP 18; TEMP 36.3; O2SAT 97
== END 2025-03-07 13:50 | disposition home or self-care (01) ==
PROVIDERS: PCP Family Medicine Adult Medicine; Visit Provider Student in an Organized Health Care Education/Training Program
PROC: (CPT 36589; principal; 2025-03-07 10:30)
DX: C50.919 Malignant neoplasm of unspecified site of unspecified female breast (principal); I10 Essential (primary) hypertension; Z87.891 Personal history of nicotine dependence
CPT/HCPCS: 36590; 87070; 87075; 87205; 88300; J0690; J7030; J9999

== ENCOUNTER → 2025-03-22 10:10 | Outpatient (BNVA) | payer MEDICARE, MEDICAID, SELFPAY | PROVIDERS: PCP Family Medicine Adult Medicine; Visit Provider Student in an Organized Health Care Education/Training Program | DX: Z98.890 Other specified postprocedural states (principal); S30.860A Insect bite (nonvenomous) of lower back and pelvis, initial encounter; W57.XXXA Bitten or stung by nonvenomous insect and other nonvenomous arthropods, initial encounter | CPT/HCPCS: 99213 ==

== ENCOUNTER → 2025-04-30 08:47 | Outpatient (BNVA) | payer MEDICARE, MEDICAID, SELFPAY | PROVIDERS: PCP Family Medicine Adult Medicine; Visit Provider Obstetrics & Gynecology | DX: N84.0 Polyp of corpus uteri (principal) | CPT/HCPCS: 76830 ==

== ENCOUNTER 2025-06-19 09:03 | Day surgery (SDC) | payer OTHER, MEDICAID, SELFPAY ==
[2025-06-19] VITALS (10 sets, daily range): BP systolic 158–195; BP diastolic 78–96; PULSE 59–71; RESP 12–16; TEMP 36.6–36.7; O2SAT 95–100
--- NOTE | 2025-06-19 02:40 | W.PM.OPSFHP ---
Same Day Surgery H&P Indication for Procedure/HPI DATE OF PROCEDURE: June 19, 2025 CHIEF COMPLAINT/INDICATIONFOR SURGICAL PROCEDURE: endometrial mass PREOP DIAGNOSIS: endometrial mass PLANNED PROCEDURE: Operation Date: 06/19/25 12:05 Proposed Procedures p Hysteroscopy w/ Endometrial Sampling [id number] N94.89(Not Applicable) - Benigno Wren MD s POSSIBLE Endometrial Poylpectomy(Not Applicable) - Benigno Wren MD 75 y.o. Still has uterus and ovaries LNMP many years ago No bleeding or spotting since then h/o breast ca, underwent chemotherapy and tamoxifen had recent CT of abdomen and pelvis done, which showed a possible endometrial mass had repeat pelvic sono done which showed persistent endometrial mass Medications/Allergies* Home Medications ?Medication ?Instructions ?Recorded ?Confirmed ?Type multivitamin 1 tab PO DAILY 01/14/21 06/18/25 History ascorbic acid (vitamin C) 1,000 mg 2,000 mg PO Q12H 07/13/23 06/18/25 History tablet,extended release (C-1000 ER) Allergies/Adverse Reactions Allergy/AdvReac Type Severity Reaction Status Date / Time No Known Allergies Allergy Verified 06/18/25 11:14 Pertinent History/Comorbid Conditions* Medical History (Updated 05/02/25 @ 23:15 by Benigno Wren MD) Asymptomatic menopausal state Breast cancer Essential hypertension Osteoporosis Surgical History (Updated 03/22/25 @ 10:22 by Kvng Herrmann MD) History of lumpectomy of right breast History of cataract surgery S/P lumpectomy, right breast (08/18/21) with SLNB, lymph node dissection Port-A-Cath in place (02/19/21) H/O right breast biopsy Family History (Updated 10/12/23 @ 07:43 by Analilia Harris LPN) Hypertension Mother Stroke Mother Denies family history of Colon cancer Ovarian cancer Prostate cancer Diabetes Heart disease Hypercholesteremia Breast cancer Uterine cancer Thyroid disease Social History Smoking and tobacco/nicotine status: former use of tobacco/nicotine (quit 1999) Quit status (tobacco/nicotine): has quit using Year quit tobacco: 1994 Former quit date comment: 10-12 years total tobacco use Alcohol intake: current Alcohol intake frequency: 0-2 Drinks per Day Alcohol type: wine Substance/Drug Use: never Pertinent Exam Findings alert, oriented x 3, clear to auscultation bilaterally and regular rate & rhythm Recommendations Surgery/Procedure today Coding Level of Care Code Acute Code for Chg Fwd
--- NOTE | 2025-06-19 10:14 | W.PM.OPSUD ---
Surgery/Procedure H&P Update DATE OF PROCEDURE: June 19, 2025 DATE H&P PERFORMED: 04/30/25 H&P UPDATE INFORMATION: I have reviewed H&P completed within last 30 days, I have examined patient prior to procedure and No changes to prior documentation PREOP DIAGNOSIS: endometrial mass PLANNED PROCEDURE: Operation Date: 06/19/25 12:05 Proposed Procedures p Hysteroscopy w/ Endometrial Sampling [id number] N94.89(Not Applicable) - Benigno Wren MD s POSSIBLE Endometrial Poylpectomy(Not Applicable) - Benigno Wren MD
--- NOTE | 2025-06-19 10:16 | ANES.PREANE2 ---
Pre-Anesthetic Assessment Height/Weight: Height 5 ft 3 in Weight 170 lb Temp Pulse Resp BP Pulse Ox O2 Del Method 98 F 71 16 195/96 97 Room Air 06/19/25 09:46 06/19/25 09:46 06/19/25 09:46 06/19/25 09:46 06/19/25 09:46 06/19/25 09:46 Preop Diagnosis: endometrial mass Operation Date: 06/19/25 12:05 Proposed Procedures p Hysteroscopy w/ Endometrial Sampling 40603 37413 N94.89(Not Applicable) - Benigno Wren MD s POSSIBLE Endometrial Poylpectomy(Not Applicable) - Benigno Wren MD Was Beta Mimi taken within 24 hours: N/A Was Clonidine taken within 24 hours: N/A Last intake: Intake Last Liquid Date 06/18/25 Last Liquid Time 23:00 Last Solid Date 06/18/25 Last Solid Time 17:00 Social No alcohol and No tobacco Exam alert, oriented x 3, clear to auscultation bilaterally and regular rate & rhythm Airway Submandibular: within normal limits Cervical ROM: within normal limits Mallampati: Class II Dentition: false Anesthetic Plan ASA status: 2 Anesthesia: General Other: No prior issues with anesthesia NPO since yesterday evening History of breast cancer, completed chemotherapy Hypertension on lisinopril Prior echo 2023 showing EF of 71% Plan for general anesthesia Medications/Allergies Home Medications ?Medication ?Instructions ?Recorded ?Confirmed ?Last Taken ?Type multivitamin 1 tab PO DAILY 01/14/21 06/19/25 06/18/25 08:00 History ascorbic acid (vitamin C) 1,000 mg 2,000 mg PO Q12H 07/13/23 06/19/25 06/18/25 08:00 History tablet,extended release (C-1000 ER) lisinopril 20 mg tablet 20 mg PO BID #200 tabs 07/24/24 06/19/25 06/18/25 08:00 Rx Allergies Allergy/AdvReac Type Severity Reaction Status Date / Time No Known Allergies Allergy Verified 06/18/25 11:14 Current Medications Generic Name Dose Route Start Last Admin Trade Name Freq PRN Reason Stop Dose Admin Sodium Chloride 1,000 mls @ 30 mls/hr 06/19/25 09:45 06/19/25 10:09 Sodium Chloride 0.9% IV 06/20/25 09:44 30 mls/hr .Q24H THEODORE Administration PFSH Anesthesia Medical History (Updated 05/02/25 @ 23:15 by Benigno Wren MD) Asymptomatic menopausal state Breast cancer Essential hypertension Osteoporosis Surgical History History of lumpectomy of right breast History of cataract surgery S/P lumpectomy, right breast (08/18/21) with SLNB, lymph node dissection Port-A-Cath in place (02/19/21) H/O right breast biopsy Family History Father No problems noted. Mother Hypertension Stroke Denies family history of Colon cancer Ovarian cancer Prostate cancer Diabetes Heart disease Hypercholesteremia Breast cancer Uterine cancer Thyroid disease Social History Smoking and tobacco/nicotine status: former use of tobacco/nicotine (quit 1999) Quit status (tobacco/nicotine): has quit using Year quit tobacco: 1994 Former quit date comment: 10-12 years total tobacco use Alcohol intake: current Alcohol intake frequency: 0-2 Drinks per Day Alcohol type: wine Substance/Drug Use: never Data Anesthesia Cardiac Studies: Echocardiogram 11/26/23 Echocardiogram Limited Views 02/24/24 Echocardiogram Ultrasound 02/25/21
--- NOTE | 2025-06-19 11:50 | PM.OP ---
Operative Report Date of procedure: June 19, 2025 Pre-op diagnosis: endometrial polyps on ultrasound Post-op diagnosis: same Post-op findings: three endometrial polyps with varying sizes Minimal endometrial tissue Normal appearing cervix Procedure done: Hysteroscopy Endometrial sampling and polypectomy with Myosure Implants: none Specimens removed/disposition: endometrial tissue Surgeon: Benigno Wren MD Anesthesia: MAC Estimated blood loss (mL): 0 Complications: none Findings: see above Condition: stable Disposition: PACU Brief History: 75 y.o. with endometrial mass on pelvic sono Procedure: Patient was taken to the operating room. Anesthesia was induced. Patient was placed in dorsolithotomy position, prepped and draped for hysteroscopy. A bivalve speculum was placed in the vagina. The cervix and vagina were normal. The anterior lip of the cervix was grasped with a sharp-toothed tenaculum. The cervix was serially dilated with Hegar dilators. The uterus was sounded to 8 cm. A hysteroscope was placed into the endometrial cavity. There were three endometrial polyps with varying sizes. Minimal endometrial tissue was seen. The endocervical canal was normal. The endometrial cavity was otherwise normal. A Myosure device was then inserted and the endometrial polyps were removed and sent to pathology. Endometrial sampling was also done. The endometrial cavity was seen to be intact. The hysteroscope and Myosure were then removed. Endometrial tissue was sent to pathology. The sharp-toothed tenaculum was removed. There was no bleeding from the endometrial cavity or cervix. The patient was then placed supine and awakened and taken to the PACU. Postop condition: stable EBL: none Sponge and instruments counts were normal x 2 Complications: none
--- NOTE | 2025-06-19 12:35 | ANE.PACU2 ---
Inpatient post-anesthesia follow up: Airway intact: Yes Vital signs: Temperature 98.0 F Pulse Rate 59 Respiratory Rate 12 Blood Pressure 158/78 Pulse Oximetry 95 Oxygen Delivery Me thod Room Air Oxygen Flow Rate 10 Fraction of Inspir ed Oxygen Hydration adequate: Yes Nausea and vomiting: No Pain level: 2 Mental status: Baseline
== END 2025-06-19 12:15 | disposition home or self-care (01) ==
PROVIDERS: PCP Family Medicine Adult Medicine; Visit Provider Obstetrics & Gynecology
PROC: 0UJD8ZZ Inspection of Uterus and Cervix, Via Natural or Artificial Opening Endoscopic (ICD-10-PCS; CPT 58555; principal; 2025-06-19 12:05)
PROC: (CPT 58558; 2025-06-19 12:05)
DX: N84.0 Polyp of corpus uteri (principal); Z85.3 Personal history of malignant neoplasm of breast; I10 Essential (primary) hypertension; Z87.891 Personal history of nicotine dependence
CPT/HCPCS: 58558; 88305; J1100; J1200; J2250; J2405; J2704; J3010; J7030

== ENCOUNTER 2025-08-28 11:30 | Oncology outpatient (recurring) (ONCR) | payer MEDICARE, MEDICAID, SELFPAY ==
--- NOTE | 2025-08-21 10:30 | CTR_ITS ---
PROCEDURE INFORMATION: Exam: CT Chest With Contrast; Diagnostic Exam date and time: 08/21/2025 11:30 AM Age: 75 years old Clinical indication: Condition or disease; Other: Malignant neoplasm of right breast, prior surgery; Surgery date: 6+ months; Surgery type: RT lumpectomy, port out TECHNIQUE: Imaging protocol: Diagnostic computed tomography of the chest with contrast. Radiation optimization: All CT scans at this facility use at least one of these dose optimization techniques: automated exposure control; mA and/or kV adjustment per patient size (includes targeted exams where dose is matched to clinical indication); or iterative reconstruction. Contrast material: OMNI 350; Contrast volume: 100 ml; Contrast route: INTRAVENOUS (IV); COMPARISON: CT chest w con* [id number] 03/15/2024 9:30 AM RADIATION DOSE METRICS: Total DLP (mGy-cm): 926.88 FINDINGS: Lungs: Scattered pulmonary micro nodules are stable. Pleural spaces: Unremarkable. No pneumothorax. No pleural effusion. Heart: Unremarkable. No cardiomegaly. No pericardial effusion. Lymph nodes: Unremarkable. No enlarged lymph nodes. Vasculature: Unremarkable. No aortic aneurysm. Bones/joints: Unremarkable. No acute fracture. Soft tissues: Thickening of the skin of the right breast with a stable small fluid collection indicates postsurgical and other post treatment changes. The appearance is unchanged. PROCEDURE INFORMATION: Exam: CT Abdomen And Pelvis With Contrast Exam date and time: 08/21/2025 11:30 AM Age: 75 years old Clinical indication: Condition or disease; Other: Malignant neoplasm of right breast, prior surgery; Surgery date: 6+ months; Surgery type: RT lumpectomy, port out TECHNIQUE: Imaging protocol: Computed tomography of the abdomen and pelvis with contrast. Radiation optimization: All CT scans at this facility use at least one of these dose optimization techniques: automated exposure control; mA and/or kV adjustment per patient size (includes targeted exams where dose is matched to clinical indication); or iterative reconstruction. Contrast material: OMNI 350; Contrast volume: 100 ml; Contrast route: INTRAVENOUS (IV); COMPARISON: CT chest abd w con*[id number] 11/30/2023 10:03 AM RADIATION DOSE METRICS: Total DLP (mGy-cm): 926.88 FINDINGS: Liver: Hepatic steatosis. Gallbladder and biliary ducts: Normal. No calcified stones. No ductal dilation. Pancreas: Normal. No ductal dilation. Spleen: Normal. No splenomegaly. Adrenal glands: Normal. No mass. Kidneys and ureters: Left renal cysts. Stomach and bowel: Unremarkable. No obstruction. No mucosal thickening. Appendix: No evidence of appendicitis. Intraperitoneal space: Unremarkable. No free air. No significant fluid collection. Vasculature: Unremarkable. No abdominal aortic aneurysm. Lymph nodes: Unremarkable. No enlarged lymph nodes. Urinary bladder: Unremarkable as visualized. Reproductive: Unremarkable as visualized. Bones/joints: Unremarkable. No acute fracture. Soft tissues: Unremarkable. CT/CT chest abdpel w/*[id number] IMPRESSION: No acute findings. IMPRESSION: No acute findings. COMMENTS: Consistent with the [employer]'s Incidental Findings Committee white paper (J Am Puneet Radiol 2018): Any incidental renal lesion less than 1 cm or classified as too small to characterize, or any incidental cystic renal lesion characterized as simple-appearing, is likely benign. No follow-up imaging is recommended for these lesions per consensus recommendations based on imaging criteria.
[2025-08-21 11:27] LABS: Blood Urea Nitrogen 13 mg/dL (8-23)
[2025-08-21] MEDS: iohexol 350 mg/mL 500 mL Btl (per mL) IV (11:38)
[2025-08-21] MEDS: iohexol 350 mg/mL 500 mL Btl (per mL) PO (11:38)
[2025-08-28 11:41] LABS: Hematocrit 41.4 % (36-47); Hemoglobin 13.80 g/dL (11.27-16.99); Mean Corpuscular HGB Conc 33.3 g/dL (30-55); Mean Corpuscular Hemoglobin 30.5 pg (27-33); Mean Corpuscular Volume 91.6 fl (85-98); Nucleated Red Blood Cells % 0 %; Platelet Count 206 10^3/cmm (157-399); Red Blood Count 4.52 10^6/uL (3.85-5.65); White Blood Count 8.47 10^3/uL (3.29-11.43)
[2025-08-28 12:00] LABS: Alanine Aminotransferase 28 U/L (0-33); Albumin Level 4.4 g/dL (3.5-5.2); Alkaline Phosphatase 78 U/L (35-105); Anion Gap 12.6 (5-19); Aspartate Amino Transferase 27 U/L (0-32); Blood Urea Nitrogen 12 mg/dL (8-23); Calcium 9.2 mg/dL (8.5-10.5); Carbon Dioxide 27 mmol/L (22-29); Chloride 102 mmol/L (98-107); Globulin 1.9 g/dL (1.3-4.6); Glucose 94 mg/dL (65-115); Osmolality Calculated 284 mOsm/kg (285-295); Potassium 4.6 mmol/L (3.5-5.1); Sodium 137 mmol/L (136-145); Total Protein 6.3 g/dL (6.6-8.7)
[2025-08-28 12:59] LABS: CA 15-3 23.8 U/mL (0-25)
== END 2025-09-12 23:59 | disposition home or self-care (01) ==
PROVIDERS: Internal Medicine Medical Oncology; PCP Family Medicine Adult Medicine; Visit Provider Nurse Practitioner
DX: Z08 Encounter for follow-up examination after completed treatment for malignant neoplasm; Z85.3 Personal history of malignant neoplasm of breast; Z92.3 Personal history of irradiation; Z87.891 Personal history of nicotine dependence; Z53.9 Procedure and treatment not carried out, unspecified reason
CPT/HCPCS: 36415; 71260; 74177; 80053; 82565; 84520; 85025; 86300; 99214